=== PATIENT | female | born 1930 | race Caucasian/White ===

== ENCOUNTER 2017-06-15 21:33 | Observation (INO) | payer MEDICARE, MEDICAID ==
[~2017-06-15] VITALS: Ht 165.1 cm; Wt 70.0 kg
[2017-06-15 21:44] VITALS: BP 182/80; PULSE 90; RESP 20; TEMP 98; O2SAT 96
[2017-06-15 21:47] VITALS: BP 178/80; PULSE 91; RESP 20; TEMP 98; O2SAT 93
[2017-06-15] MEDS ORDERED: SODIUM CHLOR 0.9% 1000 ML INJ 1,000 ML IV SCH (21:48)
[2017-06-15] MEDS ORDERED: PANTOPRAZOLE INJ 80 MG in SODIUM CHLORIDE 0.9% INJ 35 ML IV ONE (21:48)
[2017-06-15 21:54] VITALS: BP 182/80; PULSE 90; RESP 20; O2SAT 98
[2017-06-15] MEDS ORDERED: DULO20 PO (21:58)
[2017-06-15] MEDS ORDERED: LORA0.5T PO (21:58)
[2017-06-15] MEDS ORDERED: REME15TA PO (21:58)
[2017-06-15] MEDS ORDERED: AMLO10TA2 PO (21:58)
[2017-06-15] MEDS ORDERED: ARIC23TA PO (21:58)
[2017-06-15] MEDS ORDERED: LEVO100T5 PO (21:58)
[2017-06-15] MEDS ORDERED: FERR325T18 PO (21:58)
[2017-06-15] MEDS ORDERED: ONDANSETRON HCL 4 MG/2 ML VIAL IVP ONE (22:00)
[2017-06-15] MEDS ORDERED: SODIUM CHLORIDE 0.9% FLUSH 10 ML FLUSH IVF PRN (22:00)
--- NOTE | 2017-06-15 22:02 | PD ---
HPI Chief Complaint: GI Complaint Time Seen by Provider: 21:48 Travel History International Travel<30 days: No Contact w/Intl Traveler<30days: No Traveled to known affect area: No History of Present Illness HPI Patient is an 87-year-old female presenting to the emergency room for evaluation of nausea and vomiting. Per EMS report patient has had coffee- ground emesis for the better part of the day. Patient resides at [facility], staff there called the on-call physician and she was given Phenergan. Symptoms did not improve and she was brought to the emergency department. Patient is a poor historian secondary to dementia. She states that she woke up feeling nauseous and started vomiting. She reports mild epigastric pain, she states it feels sore. Patient's past medical history is significant for coronary artery disease, A. fib, hypertension, type 2 diabetes, dementia, hyperlipidemia, hypothyroidism, anxiety. Symptom onset is unknown specifically, symptoms are moderate in nature. PFSH Past Medical History Atrial Fibrillation: Yes Anxiety: Yes Depression: Yes High Cholesterol: Yes COPD: Yes Coronary Artery Disease: Yes Dementia: Yes Diabetes: Yes Patient Takes Glucophage: No Diminished Hearing: Yes Hypertension: Yes Medical other: Yes (Mitral valve prolapse) Immunizations Current: Yes Sleep Apnea: Yes Thyroid Disease: Yes Tetanus Vaccination: Unknown Influenza Vaccination: No Social History Alcohol Use: No Tobacco Use: No Substance Use: No Allergies-Medications (Allergen,Severity, Reaction): Coded Allergies: Penicillins (Verified Allergy, Severe, Anaphylaxis, 06/15/17) Thiazides (Verified Allergy, Severe, Anaphylaxis, 06/15/17) carvedilol (Verified Allergy, Severe, Anaphylaxis, 06/15/17) diclofenac (Verified Allergy, Severe, Anaphylaxis, 06/15/17) triamcinolone (Verified Allergy, Severe, Anaphylaxis, 06/15/17) Reported Meds & Prescriptions Reported Meds & Active Scripts Active Reported Remeron (Mirtazapine) 15 Mg Tab 15 Mg PO HS Levothyroxine (Levothyroxine Sodium) 100 Mcg Tab 100 Mcg PO DAILY Ferrous Sulfate 325 Mg (65 Mg Iron) Tablet 325 Mg PO DAILY Cymbalta DR (Duloxetine HCl) 20 Mg Capdr 20 Mg PO DAILY Aricept (Donepezil) 23 Mg Tab 5 Mg PO HS Do not split, crushed or chewed. Amlodipine (Amlodipine Besylate) 10 Mg Tab 10 Mg PO DAILY Review of Systems ROS Limitations: Poor Historian Except as stated in HPI: all other systems reviewed are Neg Gastrointestinal: Positive: Nausea, Vomiting, Abdominal Pain Physical Exam Narrative GENERAL: Well-developed, well-nourished, alert elderly female. Presenting in no acute distress. SKIN: Warm and dry. HEAD: Atraumatic. Normocephalic. EYES: Pupils equal and round. No scleral icterus. No injection or drainage. ENT: No nasal bleeding or discharge. Mucous membranes pink and moist. NECK: Trachea midline. No JVD. CARDIOVASCULAR: Regular rate and rhythm. RESPIRATORY: No accessory muscle use. Clear to auscultation. Breath sounds equal bilaterally. GASTROINTESTINAL: Abdomen soft, mildly tender in epigastric region, nondistended. Hepatic and splenic margins not palpable. MUSCULOSKELETAL: Extremities without clubbing, cyanosis, or edema. No obvious deformities. NEUROLOGICAL: Awake and alert oriented to self. No obvious cranial nerve deficits. Motor grossly within normal limits. Five out of 5 muscle strength in the arms and legs. Normal speech. PSYCHIATRIC: Appropriate mood and affect; insight and judgment impaired. Data Data Last Documented VS Vital Signs Date Time Temp Pulse Resp B/P (MAP) Pulse Ox O2 Delivery O2 Flow Rate FiO2 06/15/17 21:54 90 20 182/80 (114) 98 Nasal Cannula 2.00 06/15/17 21:47 98.0 Orders Orders Complete Blood Count With Diff (06/15/17 21:48) Comprehensive Metabolic Panel (06/15/17 21:48) Prothrombin Time / Inr (Pt) (06/15/17 21:48) Act Partial Throm Time (Ptt) (06/15/17 21:48) Type And Screen (06/15/17 21:48) Cath For Specimen (06/15/17 21:48) Ecg Monitoring (06/15/17 21:48) Iv Access Insert/Monitor (06/15/17 21:48) Oximetry (06/15/17 21:48) Ondansetron Inj (Zofran Inj) (06/15/17 22:00) Sodium Chlor 0.9% 1000 Ml Inj (Ns 1000 M (06/15/17 21:48) Sodium Chloride 0.9% Flush (Ns Flush) (06/15/17 22:00) Sodium Chloride 0.9... W/Pantoprazole In (06/15/17 21:48) Sodium Chloride 0.9... W/Pantoprazole In (06/15/17 21:48) Lactic Acid (06/15/17 21:48) Admit Order (Ed Use Only) (06/15/17 23:30) Labs Laboratory Tests Test 06/15/17 22:00 06/15/17 22:15 06/15/17 22:38 Prothrombin Time 10.2 SEC Prothromb Time International Ratio 1.0 RATIO Activated Partial Thromboplast Time 23.0 SEC Blood Urea Nitrogen 20 MG/DL Creatinine 0.99 MG/DL Random Glucose 137 MG/DL Total Protein 7.3 GM/DL Albumin 3.5 GM/DL Calcium Level 8.6 MG/DL Alkaline Phosphatase 103 U/L Aspartate Amino Transf (AST/SGOT) 21 U/L Alanine Aminotransferase (ALT/SGPT) 17 U/L Total Bilirubin 0.5 MG/DL Sodium Level 144 MEQ/L Potassium Level 3.5 MEQ/L Chloride Level 107 MEQ/L Carbon Dioxide Level 29.9 MEQ/L Anion Gap 7 MEQ/L Estimat Glomerular Filtration Rate 53 ML/MIN Lactic Acid Level 0.5 mmol/L White Blood Count 9.1 TH/MM3 Red Blood Count 4.23 MIL/MM3 Hemoglobin 12.4 GM/DL Hematocrit 36.8 % Mean Corpuscular Volume 87.2 FL Mean Corpuscular Hemoglobin 29.3 PG Mean Corpuscular Hemoglobin Concent 33.6 % Red Cell Distribution Width 15.1 % Platelet Count 126 TH/MM3 Mean Platelet Volume 10.1 FL Neutrophils (%) (Auto) 90.4 % Lymphocytes (%) (Auto) 6.6 % Monocytes (%) (Auto) 2.5 % Eosinophils (%) (Auto) 0.2 % Basophils (%) (Auto) 0.3 % Neutrophils # (Auto) 8.2 TH/MM3 Lymphocytes # (Auto) 0.6 TH/MM3 Monocytes # (Auto) 0.2 TH/MM3 Eosinophils # (Auto) 0.0 TH/MM3 Basophils # (Auto) 0.0 TH/MM3 CBC Comment DIFF FINAL Differential Comment MDM Medical Decision Making Medical Screen Exam Complete: Yes Emergency Medical Condition: Yes Interpretation(s) Laboratory Tests Test 06/15/17 22:00 06/15/17 22:15 06/15/17 22:38 Prothrombin Time 10.2 SEC Prothromb Time International Ratio 1.0 RATIO Activated Partial Thromboplast Time 23.0 SEC Blood Urea Nitrogen 20 MG/DL Creatinine 0.99 MG/DL Random Glucose 137 MG/DL Total Protein 7.3 GM/DL Albumin 3.5 GM/DL Calcium Level 8.6 MG/DL Alkaline Phosphatase 103 U/L Aspartate Amino Transf (AST/SGOT) 21 U/L Alanine Aminotransferase (ALT/SGPT) 17 U/L Total Bilirubin 0.5 MG/DL Sodium Level 144 MEQ/L Potassium Level 3.5 MEQ/L Chloride Level 107 MEQ/L Carbon Dioxide Level 29.9 MEQ/L Anion Gap 7 MEQ/L Estimat Glomerular Filtration Rate 53 ML/MIN Lactic Acid Level 0.5 mmol/L White Blood Count 9.1 TH/MM3 Red Blood Count 4.23 MIL/MM3 Hemoglobin 12.4 GM/DL Hematocrit 36.8 % Mean Corpuscular Volume 87.2 FL Mean Corpuscular Hemoglobin 29.3 PG Mean Corpuscular Hemoglobin Concent 33.6 % Red Cell Distribution Width 15.1 % Platelet Count 126 TH/MM3 Mean Platelet Volume 10.1 FL Neutrophils (%) (Auto) 90.4 % Lymphocytes (%) (Auto) 6.6 % Monocytes (%) (Auto) 2.5 % Eosinophils (%) (Auto) 0.2 % Basophils (%) (Auto) 0.3 % Neutrophils # (Auto) 8.2 TH/MM3 Lymphocytes # (Auto) 0.6 TH/MM3 Monocytes # (Auto) 0.2 TH/MM3 Eosinophils # (Auto) 0.0 TH/MM3 Basophils # (Auto) 0.0 TH/MM3 CBC Comment DIFF FINAL Differential Comment Vital Signs Date Time Temp Pulse Resp B/P (MAP) Pulse Ox O2 Delivery O2 Flow Rate FiO2 06/15/17 21:54 90 20 182/80 (114) 98 Nasal Cannula 2.00 06/15/17 21:47 98.0 91 20 178/80 (112) 93 Room Air 06/15/17 21:44 98.0 90 20 182/80 (114) 96 Differential Diagnosis GI bleed versus anemia versus metabolic abnormality versus cardiac arrhythmia versus other Narrative Course Patient is an 87-year-old female presenting to the emergency department for evaluation of coffee-ground emesis that started earlier today. Exact time of onset is unknown, patient is a poor historian. Vital signs are stable at this time. Labs and imaging ordered and pending. Patient will be placed on a Protonix drip, IV fluids ordered. Stool was negative for blood, emesis was positive for blood. CBC with platelets of 126, hemoglobin stable at 12.4 Chemistry BUN of 20 otherwise unremarkable Lactic acid 0.5 Patient is vital signs remained stable. Patient will be admitted to [facility]. She is resting comfortably. [facility] paged for admission. Dr. Louie accepted admit, orders placed for OBS. HemaPrompt Point of Care Fecal Specimen Occult Blood: Negative Gastric Specimen Occult Blood: Positive Diagnosis Primary Impression: GI bleed Qualified Codes: K92.2 - Gastrointestinal hemorrhage, unspecified Admitting Information Admitting Physician Requests: Observation Scripts Levofloxacin (Levaquin) 500 Mg Tablet 500 MG PO DAILY for Infection for 7 Days, #7 TAB 0 Refills Prov: Chinmay Lazar MD 06/16/17 Lorazepam (Lorazepam) 0.5 Mg Tab 0.5 MG PO BID for Anxiety, #10 TAB 0 Refills Prov: Chinmay Lazar MD 06/16/17 Condition: Stable Christie Gauthier Jun 15, 2017 22:02
[2017-06-15 22:42] LABS: AUTOMATED NEUTROPHIL # 8.2 TH/MM3 (1.8-7.7); BASOPHIL % 0.3 % (0.0-2.0); EOSINOPHIL % 0.2 % (0.0-4.0); HEMATOCRIT 36.8 % (35.0-46.0); HEMOGLOBIN 12.4 GM/DL (11.6-15.3); LYMPH % 6.6 % (9.0-44.0); LYMPHOCYTE # 0.6 TH/MM3 (1.0-4.8); MEAN CELL VOLUME 87.2 FL (80.0-100.0); MEAN CORPUSCULAR HEMOGLOBIN 29.3 PG (27.0-34.0); MEAN CORPUSCULAR HGB CONC 33.6 % (32.0-36.0); MEAN PLATELET VOLUME 10.1 FL (7.0-11.0); MONO % 2.5 % (0.0-8.0); MONOCYTE # 0.2 TH/MM3 (0-0.9); NEUT % 90.4 % (16.0-70.0); PLATELET COUNT 126 TH/MM3 (150-450); RED BLOOD COUNT 4.23 MIL/MM3 (4.00-5.30); RED CELL DISTRIBUTION WIDTH 15.1 % (11.6-17.2); WHITE BLOOD COUNT 9.1 TH/MM3 (4.0-11.0)
[2017-06-15 22:46] LABS: ALBUMIN 3.5 GM/DL (3.4-5.0); AST (GOT) 21 U/L (15-37); BICARBONATE 29.9 MEQ/L (21.0-32.0); BLOOD UREA NITROGEN 20 MG/DL (7-18); CALCIUM 8.6 MG/DL (8.5-10.1); CHLORIDE 107 MEQ/L (98-107); CREATININE 0.99 MG/DL (0.50-1.00); GLOMERULAR FILTRATION RATE 53 ML/MIN (>89); GLUCOSE,RANDOM 137 MG/DL (74-106); SODIUM (NA) 144 MEQ/L (136-145)
[2017-06-15 22:47] LABS: ALT (GPT) 17 U/L (10-53)
[2017-06-15 22:50] LABS: ALKALINE PHOSPHATASE 103 U/L (45-117); TOTAL BILIRUBIN ADULT 0.5 MG/DL (0.2-1.0); TOTAL PROTEIN 7.3 GM/DL (6.4-8.2)
[2017-06-15 22:56] LABS: PROTHROMBIN TIME - PATIENT 10.2 SEC (9.8-11.6)
[2017-06-15] MEDS: PANTOPRAZOLE INJ 80 MG in SODIUM CHLORIDE 0.9% INJ 100 ML IV SCH (23:25)
--- NOTE | 2017-06-15 23:37 | HHI.HP ---
[facility] Otto Warren M.D. Admission Diagnosis GI BLEED Diagnoses: (1) GI bleed Diagnosis: Principal (2) Dementia Diagnosis: Principal (3) Thrombocytopenia Diagnosis: Principal (4) HTN (hypertension) Diagnosis: Principal Travel History International Travel<30 Days: No Contact w/Intl Traveler <30 Da: No Traveled to Known Affected Are: No History of Present Illness This is an 87-year-old female with a PMH of Anxiety, Depression, A. fib, HTN, Hyperlipidemia, COPD, DM and Dementia who is sent to the ER from SNF for coffee- ground emesis. Pt poor historian, unable to provide much history. Per report, pt w/ nausea/vomiting starting earlier today w/ multiple episodes of coffee- ground emesis, given Phenergan prior to arrival w/ minimal improvement. Not on ASA or anticoagulation per review of medication list. On arrival, BP 182/80, HR 90, O2 sat 96% on RA, Afebrile. Hemoglobin 12.4. Platelets 126, no previous labs for comparison. Chemistry essentially unremarkable except for BUN 20, GFR 53. Lactic Acid normal. LFTs normal. INR 1.0. Emesis +blood, however guaiac (-). Started on Protonix gtt in ER. Review of Systems Except as stated in HPI: all other systems reviewed are Neg ROS: 14 point review of systems otherwise negative. Past Family Social History Past Medical History PMH: Anxiety, Depression, A. fib, HTN, Hyperlipidemia, COPD, DM and Dementia Past Surgical History PAST SURGICAL HISTORY: Hip Surgery Allergies: Coded Allergies: Penicillins (Verified Allergy, Severe, Anaphylaxis, 06/15/17) Thiazides (Verified Allergy, Severe, Anaphylaxis, 06/15/17) carvedilol (Verified Allergy, Severe, Anaphylaxis, 06/15/17) diclofenac (Verified Allergy, Severe, Anaphylaxis, 06/15/17) triamcinolone (Verified Allergy, Severe, Anaphylaxis, 06/15/17) Family History PAST FAMILY HISTORY: Reviewed. No h/o DM or CAD Social History PAST SOCIAL HISTORY: Negative for alcohol, tobacco or drugs Physical Exam Vital Signs Vital Signs Date Time Temp Pulse Resp B/P (MAP) Pulse Ox O2 Delivery O2 Flow Rate FiO2 06/15/17 21:54 90 20 182/80 (114) 98 Nasal Cannula 2.00 06/15/17 21:47 98.0 91 20 178/80 (112) 93 Room Air 06/15/17 21:44 98.0 90 20 182/80 (114) 96 Physical Exam PE: GENERAL: Elderly white female in no mild distress due to persistent nausea HEENT: PERRLA, EOMI. No scleral icterus or conjunctival pallor. No lid lag or facial droop. CARDIOVASCULAR: Regular rate and rhythm. No obvious murmurs to auscultation. No chest tenderness to palpation. RESPIRATORY: No obvious rhonchi or wheezing. Clear to auscultation. Breath sounds equal bilaterally. GASTROINTESTINAL: Abdomen soft, mild epigastric tenderness to palpation, nondistended. BS normal. MUSCULOSKELETAL: Extremities without clubbing, cyanosis, or edema. No obvious deformities. NEUROLOGICAL: Awake, alert. No focal neurologic deficits. Moving both upper and lower extremities spontaneously. Laboratory Laboratory Tests Test 06/15/17 22:00 06/15/17 22:15 06/15/17 22:38 Prothrombin Time 10.2 Prothromb Time International Ratio 1.0 Activated Partial Thromboplast Time 23.0 Blood Urea Nitrogen 20 Creatinine 0.99 Random Glucose 137 Total Protein 7.3 Albumin 3.5 Calcium Level 8.6 Alkaline Phosphatase 103 Aspartate Amino Transf (AST/SGOT) 21 Alanine Aminotransferase (ALT/SGPT) 17 Total Bilirubin 0.5 Sodium Level 144 Potassium Level 3.5 Chloride Level 107 Carbon Dioxide Level 29.9 Anion Gap 7 Estimat Glomerular Filtration Rate 53 Lactic Acid Level 0.5 White Blood Count 9.1 Red Blood Count 4.23 Hemoglobin 12.4 Hematocrit 36.8 Mean Corpuscular Volume 87.2 Mean Corpuscular Hemoglobin 29.3 Mean Corpuscular Hemoglobin Concent 33.6 Red Cell Distribution Width 15.1 Platelet Count 126 Mean Platelet Volume 10.1 Neutrophils (%) (Auto) 90.4 Lymphocytes (%) (Auto) 6.6 Monocytes (%) (Auto) 2.5 Eosinophils (%) (Auto) 0.2 Basophils (%) (Auto) 0.3 Neutrophils # (Auto) 8.2 Lymphocytes # (Auto) 0.6 Monocytes # (Auto) 0.2 Eosinophils # (Auto) 0.0 Basophils # (Auto) 0.0 CBC Comment DIFF FINAL Differential Comment Result Diagram: 06/15/17223706/15/17 220 Caprini VTE Risk Assessment Caprini VTE Risk Assessment: No/Low Risk (score <= 1) Caprini Risk Assessment Model Point Value = 1 Point Value = 2 Point Value = 3 Point Value = 5 Age 41-60 Minor surgery BMI > 25 kg/m2 Swollen legs Varicose veins or History of unexplained or recurrent spontaneous Oral contraceptives or hormone replacement Sepsis (< 1 month) Serious lung disease, including pneumonia (< 1 month) Abnormal pulmonary function Acute myocardial infarction Congestive heart failure (< 1 month) History of inflammatory bowel disease Medical patient at bed rest Age 61-74 Arthroscopic surgery Major open surgery (> 45 min) Laparoscopic surgery (> 45 min) Malignancy Confined to bed (> 72 hours) Immobilizing plaster cast Central venous access Age >= 75 History of VTE Family history of VTE Factor V Leiden Prothrombin [id number] Lupus anticoagulant Anticardiolipin antibodies Elevated serum homocysteine Heparin-induced thrombocytopenia Other congenital or acquired thrombophilia Stroke (< 1 month) Elective arthroplasty Hip, pelvis, or leg fracture Acute spinal cord injury (< 1 month) Prophylaxis Regimen Total Risk Factor Score Risk Level Prophylaxis Regimen 0-1 Low Early ambulation 2 Moderate Order ONE of the following: *Sequential Compression Device (SCD) *Heparin 5000 units SQ BID 3-4 Higher Order ONE of the following medications: *Heparin 5000 units SQ TID *Enoxaparin/Lovenox 40 mg SQ daily (WT < 150 kg, CrCl > 30 mL/min) *Enoxaparin/Lovenox 30 mg SQ daily (WT < 150 kg, CrCl > 10-29 mL/min) *Enoxaparin/Lovenox 30 mg SQ BID (WT < 150 kg, CrCl > 30 mL/min) AND/OR *Sequential Compression Device (SCD) 5 or more Highest Order ONE of the following medications: *Heparin 5000 units SQ TID (Preferred with Epidurals) *Enoxaparin/Lovenox 40 mg SQ daily (WT < 150 kg, CrCl > 30 mL/min) *Enoxaparin/Lovenox 30 mg SQ daily (WT < 150 kg, CrCl > 10-29 mL/min) *Enoxaparin/Lovenox 30 mg SQ BID (WT < 150 kg, CrCl > 30 mL/min) AND *Sequential Compression Device (SCD) Assessment and Plan Problem List: (1) GI bleed ICD Code: K92.2 - Gastrointestinal hemorrhage, unspecified Status: Acute (2) Thrombocytopenia ICD Code: D69.6 - Thrombocytopenia, unspecified (3) Dementia ICD Code: F03.90 - Unspecified dementia without behavioral disturbance (4) HTN (hypertension) ICD Code: I10 - Essential (primary) hypertension Assessment and Plan A/P: 1. GI Bleed: coffee-ground emesis noted at SNF, +blood however negative guaiac , Hgb 12.4, started on Protonix gtt, will continue. Check repeat Hgb/Hct. Consult GI for further evaluation/intervention. 2. Thrombocytopenia: Platelets 126, no previous labs for comparison, will repeat in a.m., monitor closely for bleeding. 3. Dementia: seemingly at baseline, resume home Aricept, Remeron. Ativan prn 4. HTN: Uncontrolled, BP 180's, likely secondary to persistent nausea/vomiting , minimal improvement w/ Zofran, add Ativan prn, monitor BP 5. DVT Prophylaxis: Pharmacologic contraindication secondary to GI bleed. 6. Social work for DC planning as needed. 7. Case discussed at length with the ER physician, lab/record/imaging reviewed by me. Problem Qualifiers (1) GI bleed: Qualified Codes: K92.2 - Gastrointestinal hemorrhage, unspecified Lory Louie MD Jun 15, 2017 23:37
[2017-06-15] MEDS ORDERED: MAGNESIUM HYDROXIDE SUSP 30 ML CUP PO PRN (23:45)
[2017-06-15] MEDS ORDERED: SODIUM CHLORIDE 0.9% FLUSH 10 ML FLUSH IV FLUSH PRN (23:45)
[2017-06-15] MEDS ORDERED: ACETAMINOPHEN 325 MG TAB PO PRN (23:45)
[2017-06-15] MEDS ORDERED: BISACODYL 10 MG SUPP RECTAL PRN (23:45)
[2017-06-15] MEDS ORDERED: LACTULOSE SYRUP 20 GM/30 ML CUP PO PRN (23:45)
[2017-06-15] MEDS ORDERED: SENNOSIDES 8.6 MG TAB PO PRN (23:45)
[2017-06-15] MEDS: ONDANSETRON HCL 4 MG/2 ML VIAL IVP PRN (23:47)
[2017-06-16] MEDS ORDERED: MORPHINE SULFATE 4 MG/ML INJ IV PUSH PRN
[2017-06-16 00:03] VITALS: BP 164/78; PULSE 89; RESP 16; O2SAT 98
--- NOTE | 2017-06-16 00:03 | RADRPT ---
EXAM DATE/TIME: 06/15/2017 23:45 [facility] COMPARISON: No previous studies available for comparison. INDICATIONS : Short of breath. MEDICAL HISTORY : None. SURGICAL HISTORY : None. ENCOUNTER: Initial ACUITY: 1 day PAIN SCORE: 0/10 LOCATION: Bilateral chest FINDINGS: There is left base consolidation that appears to mostly be in the lingula. Right lung clear. No pleur al effusion demonstrated. No pneumothorax. Heart size upper limits of normal. Thoracic aorta is tortuous and atherosclerotic. CONCLUSION: Left base pneumonia. Satinder Bliss MD on June 16, 2017 at 0:02 Board Certified Radiologist. This report was verified electronically.
[2017-06-16] MEDS: SODIUM CHLOR 0.9% 1000 ML INJ 1,000 ML IV SCH ×2 (00:38→08:29)
[2017-06-16] MEDS: LORazepam 2 MG/ML VIAL IV PUSH PRN (00:39)
[2017-06-16] MEDS ORDERED: LEVOFLOXACIN 750 MG PREMIX INJ 150 ML IV ONE (01:45)
[2017-06-16 04:25] VITALS: BP 154/68; PULSE 89; RESP 17; TEMP 98.6; O2SAT 96
[2017-06-16] MEDS: ONDANSETRON HCL 4 MG/2 ML VIAL IVP PRN (05:11)
[2017-06-16] MEDS: LEVOTHYROXINE SODIUM 100 MCG TAB PO SCH (06:00)
[2017-06-16 08:00] VITALS: BP 141/62; PULSE 86; RESP 20; TEMP 98.2; O2SAT 93
[2017-06-16] MEDS: DOCUSATE SODIUM 50 MG/SENNA 8.6 MG TAB PO SCH ×2 (08:28→22:13)
[2017-06-16] MEDS: PANTOPRAZOLE INJ 80 MG in SODIUM CHLORIDE 0.9% INJ 100 ML IV SCH ×2 (08:28→18:01)
[2017-06-16] MEDS: SODIUM CHLORIDE 0.9% FLUSH 10 ML FLUSH IV FLUSH SCH ×2 (08:28→22:13)
[2017-06-16] MEDS: LORazepam 0.5 MG TAB PO SCH ×2 (08:28→22:13)
[2017-06-16] MEDS: DULoxetine HCl DR 20 MG CAP PO SCH (08:28)
--- NOTE | 2017-06-16 08:31 | PD.CONS ---
HPI History of Present Illness This is a 87 year old female with AF, dementia, COPD who was sent from her SNF for n/v with coffee ground emesis. Onset yesterday, multiple episodes. Denies abd pain, blood in stool, tarry stool. She is not on blood thinners. Stool was guiac neg in ER.She thinks she had a colonoscopy in the last 2 years at [facility] but can recall no further details. She says she had blood in her stool "a long time ago." Never had EGD. Hx obtained from EMR, pt is limited historian. (Taylor Tijerina) PFSH Past Medical History PMH: Anxiety, Depression, A. fib, HTN, Hyperlipidemia, COPD, DM and Dementia Past Surgical History PAST SURGICAL HISTORY: Hip Surgery (Taylor Tijerina) Coded Allergies: Penicillins (Verified Allergy, Severe, Anaphylaxis, 06/15/17) Thiazides (Verified Allergy, Severe, Anaphylaxis, 06/15/17) carvedilol (Verified Allergy, Severe, Anaphylaxis, 06/15/17) diclofenac (Verified Allergy, Severe, Anaphylaxis, 06/15/17) triamcinolone (Verified Allergy, Severe, Anaphylaxis, 06/15/17) Family History PAST FAMILY HISTORY: Reviewed. No h/o DM or CAD Social History PAST SOCIAL HISTORY: Negative for alcohol, tobacco or drugs (Taylor Tijerina) Review of Systems Constitutional: COMPLAINS OF: Fatigue Endocrine: DENIES: Polydipsia Eyes: DENIES: Blurred vision Ears, nose, mouth, throat: DENIES: Hearing loss Respiratory: DENIES: Cough Cardiovascular: DENIES: Chest pain Gastrointestinal: COMPLAINS OF: Nausea, Vomiting, Hematemesis, DENIES: Abdominal pain, Black stools, Bloody stools Genitourinary: DENIES: Hematuria Musculoskeletal: DENIES: Joint Swelling Integumentary: DENIES: Jaundice Hematologic/lymphatic: DENIES: Bruising Immunologic/allergic: DENIES: Eczema Neurologic: DENIES: Abnormal gait Psychiatric: COMPLAINS OF: Confusion (Taylor Tijerina) GI Exam Vitals I&O Vital Signs Date Time Temp Pulse Resp B/P (MAP) Pulse Ox O2 Delivery O2 Flow Rate FiO2 06/16/17 04:25 98.6 89 17 154/68 (96) 96 06/16/17 00:03 89 16 164/78 (106) 98 Room Air 06/15/17 21:54 90 20 182/80 (114) 98 Nasal Cannula 2.00 06/15/17 21:47 98.0 91 20 178/80 (112) 93 Room Air 06/15/17 21:44 98.0 90 20 182/80 (114) 96 I/O 06/15/17 06/15/17 06/15/17 06/16/17 06/16/17 06/16/17 07:00 15:00 23:00 07:00 15:00 23:00 Output Total 100 ml Balance -100 ml Emesis 100 ml Imaging Last Impressions Chest X-Ray 06/15/17 0000 Signed Impressions: Service Date/Time: Thursday, June 15, 2017 23:45 - CONCLUSION: Left base pneumonia. Satinder Bliss MD Laboratory Test 06/15/17 22:00 06/15/17 22:15 06/15/17 22:38 Prothrombin Time 10.2 SEC Prothromb Time International Ratio 1.0 RATIO Activated Partial Thromboplast Time 23.0 SEC Blood Urea Nitrogen 20 MG/DL Creatinine 0.99 MG/DL Random Glucose 137 MG/DL Total Protein 7.3 GM/DL Albumin 3.5 GM/DL Calcium Level 8.6 MG/DL Alkaline Phosphatase 103 U/L Aspartate Amino Transf (AST/SGOT) 21 U/L Alanine Aminotransferase (ALT/SGPT) 17 U/L Total Bilirubin 0.5 MG/DL Sodium Level 144 MEQ/L Potassium Level 3.5 MEQ/L Chloride Level 107 MEQ/L Carbon Dioxide Level 29.9 MEQ/L Anion Gap 7 MEQ/L Estimat Glomerular Filtration Rate 53 ML/MIN Lactic Acid Level 0.5 mmol/L White Blood Count 9.1 TH/MM3 Red Blood Count 4.23 MIL/MM3 Hemoglobin 12.4 GM/DL Hematocrit 36.8 % Mean Corpuscular Volume 87.2 FL Mean Corpuscular Hemoglobin 29.3 PG Mean Corpuscular Hemoglobin Concent 33.6 % Red Cell Distribution Width 15.1 % Platelet Count 126 TH/MM3 Mean Platelet Volume 10.1 FL Neutrophils (%) (Auto) 90.4 % Lymphocytes (%) (Auto) 6.6 % Monocytes (%) (Auto) 2.5 % Eosinophils (%) (Auto) 0.2 % Basophils (%) (Auto) 0.3 % Neutrophils # (Auto) 8.2 TH/MM3 Lymphocytes # (Auto) 0.6 TH/MM3 Monocytes # (Auto) 0.2 TH/MM3 Eosinophils # (Auto) 0.0 TH/MM3 Basophils # (Auto) 0.0 TH/MM3 CBC Comment DIFF FINAL Differential Comment Physical Examination HEENT: PERRL; normocephalic; atraumatic; no jaundice. CHEST: CTA CARDIAC: RRR ABDOMEN: Soft, nondistended, nontender; no hepatosplenomegaly; bowel sounds are present in all four quadrants. EXTREMITIES: No clubbing, cyanosis, or edema. SKIN: Normal; no rash; no jaundice. 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 limited hx. HH currently WNL pt denies abd pain. never had EGD. Colonoscopy at [facility] in last 2y, no further details. PLAN - clear liquids - EGD tomorrow - obtain consent - NPO after mdinight - continue protonix - notify GI of active bleeding - monitor pt seen by myself and Dr Austin and this note is on her behalf (Taylor Tijerina) Physician Comments seen, examined agree with above abdominal x ray (Nataliia Austin MD) Taylor Tijerina Jun 16, 2017 08:31 Nataliia Austin MD Jun 16, 2017 16:41
--- NOTE | 2017-06-16 09:18 | HHI.PR ---
Subjective Remarks in no acute distress. resting comfortably. denies pain. Objective Vitals Vital Signs Date Time Temp Pulse Resp B/P (MAP) Pulse Ox O2 Delivery O2 Flow Rate FiO2 06/16/17 08:00 98.2 86 20 141/62 (88) 93 06/16/17 04:25 98.6 89 17 154/68 (96) 96 06/16/17 00:03 89 16 164/78 (106) 98 Room Air 06/15/17 21:54 90 20 182/80 (114) 98 Nasal Cannula 2.00 06/15/17 21:47 98.0 91 20 178/80 (112) 93 Room Air 06/15/17 21:44 98.0 90 20 182/80 (114) 96 I/O 06/15/17 06/15/17 06/15/17 06/16/17 06/16/17 06/16/17 07:00 15:00 23:00 07:00 15:00 23:00 Output Total 100 ml Balance -100 ml Emesis 100 ml Result Diagram: 06/15/178 06/15/172199 Imaging Last Impressions Chest X-Ray 06/15/17 0000 Signed Impressions: Service Date/Time: Thursday, June 15, 2017 23:45 - CONCLUSION: Left base pneumonia. Satinder Bliss MD Objective Remarks GENERAL: This is a well-nourished, well-developed patient, in no apparent distress. CARDIOVASCULAR: Regular rate and regular rhythm without murmurs, gallops, or rubs. RESPIRATORY: Clear to auscultation. Breath sounds equal bilaterally. No wheezes , rales, or rhonchi. GASTROINTESTINAL: Abdomen soft, non-tender, nondistended. Normal, active bowel sounds MUSCULOSKELETAL: Extremities without clubbing, cyanosis, or edema. NEURO: awake and alert Medications and IVs Inpatient Medications Acetaminophen (Tylenol) 650 mg Q6H PRN PO FEVER/PAIN SCALE 1 TO 2; Start at 23:45 Bisacodyl (Dulcolax Supp) 10 mg DAILY PRN RECTAL SEVERE CONSITIPATION; Start at 23:45 Donepezil HCl (Aricept) 5 mg HS PO ; Start 06/16/17 at 21:00; Status UNV Duloxetine HCl (Cymbalta Dr) 20 mg DAILY PO Last administered on 06/16/17at 08: 28; Start 06/16/17 at 09:00 Lactulose (Lactulose Liq) 30 ml DAILY PRN PO SEVERE CONSITIPATION; Start at 23:45 Levofloxacin/ Dextrose 150 ml @ 100 mls/hr Q24H IV ; Start 06/17/17 at 23:00 Levothyroxine Sodium (Synthroid) 100 mcg DAILY@0600 PO ; Start 06/16/17 at 06:00 Lorazepam (Ativan Inj) 0.5 mg Q4H PRN IV PUSH NAUSEA/VOMITING/ANXIETY Last administered on 06/16/17at 00:39; Start 06/16/17 at 00:15 Lorazepam (Ativan) 0.5 mg BID PO Last administered on 06/16/17at 08:28; Start at 09:00 Magnesium Hydroxide (Milk Of Magnesia Liq) 30 ml Q12H PRN PO Mild constipation ; Start 06/15/17 at 23:45 Mirtazapine (Remeron) 15 mg HS PO ; Start 06/16/17 at 21:00 Morphine Sulfate (Morphine Inj) 2 mg Q3H PRN IV PUSH Pain 6-10; Start 06/16/17 at 00:00 Ondansetron HCl (Zofran Inj) 4 mg Q6H PRN IVP NAUSEA OR VOMITING Last administered on 06/16/17at 05:11; Start 06/15/17 at 23:45 Pantoprazole Sodium 80 mg/ Sodium Chloride 100 ml @ 10 mls/hr Q10H IV Last administered on 06/16/17at 08:28; Start 06/15/17 at 21:48 Senna/Docusate Sodium (Perlita-Colace) 1 tab BID PO ; Start 06/16/17 at 09:00 Sennosides (Senokot) 17.2 mg Q12H PRN PO Moderate constipation; Start 06/15/17 at 23:45 Sodium Chloride (NS Flush) 2 ml BID IV FLUSH Last administered on 06/16/17at 08: 28; Start 06/16/17 at 09:00 A/P Problem List: (1) GI bleed ICD Code: K92.2 - Gastrointestinal hemorrhage, unspecified Status: Acute (2) Thrombocytopenia ICD Code: D69.6 - Thrombocytopenia, unspecified (3) Dementia ICD Code: F03.90 - Unspecified dementia without behavioral disturbance (4) HTN (hypertension) ICD Code: I10 - Essential (primary) hypertension Assessment and Plan 1. GI Bleed: coffee-ground emesis noted at SNF, +blood however negative guaiac , Hgb 12.4, started on Protonix gtt, will continue. GI consult appreciated and plan for EGD today. 2. Thrombocytopenia: Platelets 126, no previous labs for comparison, will monitor. 3. Dementia: seemingly at baseline, resumed home Aricept, Remeron. Ativan prn 4. HTN: Uncontrolled, BP 180's, likely secondary to persistent nausea/vomiting , minimal improvement w/ Zofran, add Ativan prn, monitor BP 5.pneumonia- LLL- continue Levaquin. 6. DVT Prophylaxis: Pharmacologic contraindication secondary to GI bleed. Discharge Planning dc planning to SNF- when GI w/u completed and cleared by GI. Problem Qualifiers (1) GI bleed: Qualified Codes: K92.2 - Gastrointestinal hemorrhage, unspecified Chinmay Lazar MD Jun 16, 2017 09:18
[2017-06-16] MEDS ORDERED: LEVA500T33 PO (09:20)
[2017-06-16] MEDS ORDERED: LORA0.5T PO (09:20)
[2017-06-16 11:37] LABS: BASOPHIL % 0.1 % (0.0-2.0); EOSINOPHIL % 0.1 % (0.0-4.0); HEMATOCRIT 36.3 % (35.0-46.0); HEMOGLOBIN 11.7 GM/DL (11.6-15.3); LYMPH % 2.1 % (9.0-44.0); LYMPHOCYTE # 0.3 TH/MM3 (1.0-4.8); MEAN CELL VOLUME 89.3 FL (80.0-100.0); MEAN CORPUSCULAR HEMOGLOBIN 28.8 PG (27.0-34.0); MEAN CORPUSCULAR HGB CONC 32.2 % (32.0-36.0); MEAN PLATELET VOLUME 10.2 FL (7.0-11.0); MONO % 1.8 % (0.0-8.0); MONOCYTE # 0.2 TH/MM3 (0-0.9); NEUT % 95.9 % (16.0-70.0); PLATELET COUNT 131 TH/MM3 (150-450); RED BLOOD COUNT 4.06 MIL/MM3 (4.00-5.30); RED CELL DISTRIBUTION WIDTH 15.5 % (11.6-17.2); WHITE BLOOD COUNT 12.5 TH/MM3 (4.0-11.0)
[2017-06-16 12:00] VITALS: BP 142/64; PULSE 82; RESP 19; TEMP 99.7; O2SAT 96
[2017-06-16 12:52] LABS: ALBUMIN 2.9 GM/DL (3.4-5.0); ALKALINE PHOSPHATASE 93 U/L (45-117); ALT (GPT) 21 U/L (10-53); AST (GOT) 23 U/L (15-37); BICARBONATE 25.4 MEQ/L (21.0-32.0); BLOOD UREA NITROGEN 19 MG/DL (7-18); CALCIUM 8.2 MG/DL (8.5-10.1); CHLORIDE 109 MEQ/L (98-107); CREATININE 1.05 MG/DL (0.50-1.00); GLOMERULAR FILTRATION RATE 49 ML/MIN (>89); GLUCOSE,RANDOM 151 MG/DL (74-106); SODIUM (NA) 144 MEQ/L (136-145); TOTAL BILIRUBIN ADULT 0.7 MG/DL (0.2-1.0); TOTAL PROTEIN 6.4 GM/DL (6.4-8.2)
--- NOTE | 2017-06-16 13:39 | RADRPT ---
EXAM DATE/TIME: 06/16/2017 12:26 [facility] COMPARISON: No previous studies available for comparison. INDICATIONS : Nausea and vomitting. MEDICAL HISTORY : None. SURGICAL HISTORY : Hysterectomy. ENCOUNTER: Initial ACUITY: 1 day PAIN SCORE: 0/10 LOCATION: Bilateral abdomen. FINDINGS: Supine and upright views of the abdomen were performed. Paucity of bowel gas. The abdominal bowel gas pattern is normal. No air fluid levels are seen. No abnormal masses, calcifications, or organomega ly is seen. The visualized lower lungs are clear. No evidence of free intraperitoneal gas. The oss eous structures are unremarkable. Degenerative changes thoracolumbar spine and left hip. CONCLUSION: No acute abnormalities. Jack Patino MD on June 16, 2017 at 13:35 Board Certified Radiologist. This report was verified electronically.
[2017-06-16 16:00] VITALS: BP 127/63; PULSE 76; RESP 18; TEMP 98.5; O2SAT 96
[2017-06-16 20:53] VITALS: BP 127/58; PULSE 74; RESP 17; TEMP 98.4; O2SAT 92
[2017-06-16] MEDS ORDERED: DONEPEZIL HCL 5 MG TAB PO SCH (21:52)
[2017-06-16] MEDS: MIRTAZAPINE 15 MG TAB PO SCH (22:13)
[2017-06-17] VITALS (9 sets, daily range): BP systolic 124–163; BP diastolic 53–74; PULSE 65–95; RESP 17–18; TEMP 98.2–98.7; O2SAT 92–95
[2017-06-17] MEDS ORDERED: CHLORHEXIDINE GLUCONATE 2 % 1 PACK (2 CLOTHS) TOPICAL PRN (04:00)
[2017-06-17] MEDS ORDERED: LACTATED RINGER'S 1000 ML IV PRN (04:00)
[2017-06-17] MEDS ORDERED: POVIDONE IODINE 5% (ANTISEPSIS KIT) 4 APPLICATIONS EACH NARE PRN (04:00)
[2017-06-17] MEDS ORDERED: SODIUM CHLORID 0.9% 500 ML IV PRN (04:00)
[2017-06-17] MEDS: PANTOPRAZOLE INJ 80 MG in SODIUM CHLORIDE 0.9% INJ 100 ML IV SCH ×2 (04:44→13:40)
[2017-06-17] MEDS: LEVOTHYROXINE SODIUM 100 MCG TAB PO SCH (04:44)
[2017-06-17] MEDS: SODIUM CHLOR 0.9% 1000 ML INJ 1,000 ML IV SCH ×3 (04:46→18:14)
[2017-06-17] MEDS: LORazepam 0.5 MG TAB PO SCH ×2 (07:35→20:55)
[2017-06-17] MEDS: DOCUSATE SODIUM 50 MG/SENNA 8.6 MG TAB PO SCH ×2 (07:35→20:55)
[2017-06-17] MEDS: DULoxetine HCl DR 20 MG CAP PO SCH (07:35)
[2017-06-17] MEDS: SODIUM CHLORIDE 0.9% FLUSH 10 ML FLUSH IV FLUSH SCH ×2 (07:35→20:55)
--- NOTE | 2017-06-17 10:26 | GIPROC ---
[facility] [address] [facility]. [facility], [address] EGD WITH DILATION PROCEDURE REPORT EXAM DATE: 06/17/2017 PATIENT NAME: Radha Florez MR#: [id number] BIRTHDATE: 1930 ATTENDING: Nataliia Austin MD ORDER #: [id number] GIS DATABASE ADMINISTRATOR: Lidia Quinones and Whit Madrid STATUS: inpatient INDICATIONS: The patient is a 87 yr old female here for an EGD with dilation due to nausea, vomiting PROCEDURE PERFORMED: EGD w/ biopsy EGD w/ dilation of esophagus via guidewire MEDICATIONS: None and Per Anesthesia. TOPICAL ANESTHETIC: none CONSENT: The patient understands the risks and benefits of the procedure and understands that these risks include, but are not limited to: sedation, allergic reaction, infection, perforation and/or bleeding. Alternative means of evaluation and treatment include, among others: physical exam, x-rays, and/or surgical intervention. The patient elects to proceed with this endoscopic procedure. medical equipment was checked for proper function. Hand hygiene and appropriate measures for infection prevention was taken. After the risks, benefits and alternatives of the procedure were thoroughly explained, Informed consent was verified, confirmed and timeout was successfully executed by the treatment team. The patient was anesthetized with topical anesthesia and the Pentax EG-[id number] endoscope was introduced through the mouth and advanced to the second portion of the duodenum. The instrument was slowly withdrawn as the mucosa was fully examined. Gastritis antrum-biopsy esophagitis distal esophagus-biopsy stricture dital esophagus s/p dilatation Savary 14, 15. Large hiatal hernia. Dilation was performed at gastroesophageal junction. DILATOR: SIZE(S): RESISTANCE: HEME: APPEARANCE: Dilator: Savary over guidewire Size(s): 14,15 COMMENT: Retroflexed views revealed a hiatal hernia ADVERSE EVENTS: There were no complications. IMPRESSIONS: 1. Gastritis antrum-biopsy esophagitis distal esophagus-biopsy stricture dital esophagus s/p dilatation Savary 14, 15 2. Retroflexed views revealed a hiatal hernia RECOMMENDATIONS: 1. Await biopsy results. Biopsy results will not be ready for 7-10 days. If you don't hear from us in two weeks, call our office for biopsy results. 2. Anti-reflux regimen 3. Continue PPI 4. Dilatations PRN 5. Avoid NSAIDS 6. Clear liquid diet, advance diet as tolerated ct abdomen/pelvis REPEAT EXAM: Return 3 years EGD Nataliia Austin MD eSigned: Nataliia Austin MD 06/17/2017 10:25 AM cc: PATIENT NAME: Radha Florez MR#: [id number]
[2017-06-17] MEDS ORDERED: DIATRIZOATE MEGLUM/DIATRIZOATE SOD 9 ML CUP PO ONE (10:44)
--- NOTE | 2017-06-17 11:33 | HHI.PR ---
Subjective Remarks had EGD earlier. in no acute distress. no abdominal pain, nausea or vomiting. Objective Vitals Vital Signs Date Time Temp Pulse Resp B/P (MAP) Pulse Ox O2 Delivery O2 Flow Rate FiO2 06/17/17 10:28 97.6 73 18 134/69 (90) 95 06/17/17 07:32 98.7 69 18 131/61 (84) 93 06/17/17 04:29 98.2 83 17 131/61 (84) 94 06/17/17 03:50 81 06/17/17 00:30 76 06/17/17 00:05 98.6 79 18 124/53 (76) 92 06/16/17 20:53 98.4 74 17 127/58 (81) 92 06/16/17 16:00 98.5 76 18 127/63 (84) 96 06/16/17 12:00 99.7 82 19 142/64 (90) 96 I/O 06/16/17 06/16/17 06/16/17 06/17/17 06/17/17 06/17/17 07:00 15:00 23:00 07:00 15:00 23:00 Intake Total 600 ml 250 ml Balance 600 ml 250 ml Intake Oral 600 ml Other 250 ml # Voids 1 2 # Bowel Movements 1 Result Diagram: 06/16/17 1100 06/16/17 1100 Imaging Last Impressions Abdomen X-Ray 06/16/17 0000 Signed Impressions: Service Date/Time: Friday, June 16, 2017 12:26 - CONCLUSION: No acute abnormalities. Jack Patino MD Chest X-Ray 06/15/17 0000 Signed Impressions: Service Date/Time: Thursday, June 15, 2017 23:45 - CONCLUSION: Left base pneumonia. Satinder Bliss MD Objective Remarks GENERAL: This is a well-nourished, well-developed patient, in no apparent distress. CARDIOVASCULAR: Regular rate and regular rhythm without murmurs, gallops, or rubs. RESPIRATORY: Clear to auscultation. Breath sounds equal bilaterally. No wheezes , rales, or rhonchi. GASTROINTESTINAL: Abdomen soft, non-tender, nondistended. Normal, active bowel sounds MUSCULOSKELETAL: Extremities without clubbing, cyanosis, or edema. NEURO: awake and alert Medications and IVs Inpatient Medications Acetaminophen (Tylenol) 650 mg Q6H PRN PO FEVER/PAIN SCALE 1 TO 2; Start at 23:45 Bisacodyl (Dulcolax Supp) 10 mg DAILY PRN RECTAL SEVERE CONSITIPATION; Start at 23:45 Chlorhexidine Gluconate (Chlorhexidine 2% Cloth) 3 pack SHIRRING MACHINE OPERATOR AUTOMATIC PRN TOPICAL SEE LABEL COMMENTS; Start 06/17/17 at 04:00; Stop 06/20/17 at 03:59 Diatrizoate Meglum/ Diatrizoate Sod ( Gastroview Liq) 18 ml ONCE ONCE PO ; Start 06/17/17 at 10:44; Stop 06/17/17 at 11:13; Status DC Donepezil HCl (Aricept) 5 mg HS PO ; Start 06/16/17 at 21:52; Status Future Hold Duloxetine HCl (Cymbalta Dr) 20 mg DAILY PO Last administered on 06/17/17at 07: 35; Start 06/16/17 at 09:00 Lactated Ringer's 1,000 ml @ 30 mls/hr Q24H PRN IV SEE LABEL COMMENTS; Start at 04:00; Stop 06/20/17 at 03:59 Lactulose (Lactulose Liq) 30 ml DAILY PRN PO SEVERE CONSITIPATION; Start at 23:45 Levofloxacin/ Dextrose 150 ml @ 100 mls/hr Q24H IV ; Start 06/17/17 at 23:00 Levothyroxine Sodium (Synthroid) 100 mcg DAILY@0600 PO Last administered on at 04:44; Start 06/16/17 at 06:00 Lorazepam (Ativan Inj) 0.5 mg Q4H PRN IV PUSH NAUSEA/VOMITING/ANXIETY Last administered on 06/16/17at 00:39; Start 06/16/17 at 00:15 Lorazepam (Ativan) 0.5 mg BID PO Last administered on 06/17/17at 07:35; Start at 09:00 Magnesium Hydroxide (Milk Of Magnesia Liq) 30 ml Q12H PRN PO Mild constipation ; Start 06/15/17 at 23:45 Mirtazapine (Remeron) 15 mg HS PO Last administered on 06/16/17at 22:13; Start 06/16/17 at 21:00 Morphine Sulfate (Morphine Inj) 2 mg Q3H PRN IV PUSH Pain 6-10; Start 06/16/17 at 00:00 Ondansetron HCl (Zofran Inj) 4 mg Q6H PRN IVP NAUSEA OR VOMITING Last administered on 06/16/17at 05:11; Start 06/15/17 at 23:45 Pantoprazole Sodium 80 mg/ Sodium Chloride 100 ml @ 10 mls/hr Q10H IV Last administered on 06/17/17at 04:44; Start 06/15/17 at 21:48 Povidone Iodine (Betadine 5% Antisepsis Kit) 1 applic SHIRRING MACHINE OPERATOR AUTOMATIC PRN EACH NARE SEE LABEL COMMENTS; Start 06/17/17 at 04:00; Stop 06/20/17 at 03:59 Senna/Docusate Sodium (Perlita-Colace) 1 tab BID PO Last administered on at 07:35; Start 06/16/17 at 09:00 Sennosides (Senokot) 17.2 mg Q12H PRN PO Moderate constipation; Start 06/15/17 at 23:45 Sodium Chloride 500 ml @ 30 mls/hr [id number] PRN IV SEE LABEL COMMENTS; Start at 04:00; Stop 06/20/17 at 03:59 Sodium Chloride (NS Flush) 2 ml BID IV FLUSH Last administered on 06/16/17at 08: 28; Start 06/16/17 at 09:00 A/P Problem List: (1) GI bleed ICD Code: K92.2 - Gastrointestinal hemorrhage, unspecified Status: Acute (2) Thrombocytopenia ICD Code: D69.6 - Thrombocytopenia, unspecified (3) Dementia ICD Code: F03.90 - Unspecified dementia without behavioral disturbance (4) HTN (hypertension) ICD Code: I10 - Essential (primary) hypertension Assessment and Plan 1. GI Bleed: coffee-ground emesis noted at SNF, +blood however negative guaiac GI consult appreciated ; s/p EGD with gastritis/ esophagitis/ distal esophageal stricture- s/p dilation CT of the abdomen pending- will advance the diet as tolerated. 2. Thrombocytopenia:no previous labs for comparison, will monitor. 3. Dementia: seemingly at baseline, resumed home Aricept, Remeron. Ativan prn 4. HTN: overall improved- will monitor. 5.pneumonia- LLL- continue Levaquin. 6. DVT Prophylaxis: Pharmacologic contraindication secondary to GI bleed. Discharge Planning dc planning to SNF- when GI w/u completed and cleared by GI. Problem Qualifiers (1) GI bleed: Qualified Codes: K92.2 - Gastrointestinal hemorrhage, unspecified Chinmay Lazar MD Jun 17, 2017 11:33
[2017-06-17] MEDS ORDERED: LIDOCAINE HCL 1% PF 5 ML SYRINGE OTHER ONE (12:00)
[2017-06-17] MEDS ORDERED: PROPOFOL 200 MG/20 ML AMP IV ONE (12:00)
[2017-06-17] MEDS: LORazepam 2 MG/ML VIAL IV PUSH PRN (13:41)
--- NOTE | 2017-06-17 15:34 | EKG ---
Date Performed: 06/17/2017 Time Performed: 09:32:57 PTAGE: 87 years EKG: Sinus rhythm LOW QRS VOLTAGE IN PRECORDIAL LEADS NONSPECIFIC T-WAVE ABNORMALITY BORDERLINE ECG NO PREVIOUS TRACING DOCTOR: Dakotah Bo Interpretating Date/Time 06/17/2017 15:23:51
[2017-06-17] MEDS ORDERED: IOHEXOL 350 MG/ML 10 ML VIAL (for RAD DIAG) IVCONTRAST ONE (19:17)
--- NOTE | 2017-06-17 19:26 | RADRPT ---
EXAM DATE/TIME: 06/17/2017 19:12 [facility] COMPARISON: No previous studies available for comparison. INDICATIONS : Abdomen pain. IV CONTRAST: 97 cc Omnipaque 350 (iohexol) IV ORAL CONTRAST: Prescribed oral contrast ingested. RADIATION DOSE: 8.06 CTDIvol (mGy) MEDICAL HISTORY : Cardiovascular disease. Hypertension. SURGICAL HISTORY : None. ENCOUNTER: Initial ACUITY: 1 day PAIN SCALE: 5/10 LOCATION: Bilateral abdomen TECHNIQUE: Volumetric scanning of the abdomen and pelvis was performed. Using automated exposure control and ad justment of the mA and/or kV according to patient size, radiation dose was kept as low as reasonably achievable to obtain optimal diagnostic quality images. DICOM format image data is available electro nically for review and comparison. FINDINGS: LOWER LUNGS: The visualized lower lungs are clear. LIVER: Homogeneous density without lesion. There is no dilation of the biliary tree. Cholecystectomy clips. SPLEEN: Normal size with prominent low-density lesion anteriorly measuring 3.4 cm.. PANCREAS: Within normal limits. KIDNEYS: Normal in size and shape. There is no mass, stone or hydronephrosis. ADRENAL GLANDS: Within normal limits. VASCULAR: There is no aortic aneurysm. BOWEL/MESENTERY: Diverticulosis throughout the colon. Questionable wall thickening of the cecum.. There is no free in traperitoneal air or fluid. Large hiatal hernia. ABDOMINAL WALL: Within normal limits. RETROPERITONEUM: There is no lymphadenopathy. BLADDER: No wall thickening or mass. REPRODUCTIVE: Within normal limits. INGUINAL: There is no lymphadenopathy or hernia. MUSCULOSKELETAL: Within normal limits for patient age. CONCLUSION: 1. Diverticulosis without diverticulitis. 2. Questionable wall thickening of the cecum. Colonoscopy recommended. 3. Low-density lesion in the spleen, likely benign. 4. Large hiatal hernia. 5. Left basilar consolidation could be infiltrate. Jack Patino MD on June 17, 2017 at 19:22 Board Certified Radiologist. This report was verified electronically.
[2017-06-17] MEDS: MIRTAZAPINE 15 MG TAB PO SCH (20:55)
[2017-06-17] MEDS: LEVOFLOXACIN 750 MG PREMIX INJ 150 ML IV SCH (22:40)
[2017-06-18] VITALS (10 sets, daily range): BP systolic 157–188; BP diastolic 72–86; PULSE 67–114; RESP 16–18; TEMP 98.1–98.7; O2SAT 95–97
[2017-06-18] MEDS ORDERED: PANTOPRAZOLE INJ 80 MG in SODIUM CHLORIDE 0.9% INJ 100 ML IV SCH ×2
[2017-06-18] MEDS: LEVOTHYROXINE SODIUM 100 MCG TAB PO SCH (05:09)
--- NOTE | 2017-06-18 08:51 | HHI.PR ---
Subjective Remarks in no acute distress. denies pain. no nausea/emesis/ or report of GI bleed. BP trend noted. d/w the RN. Objective Vitals Vital Signs Date Time Temp Pulse Resp B/P (MAP) Pulse Ox O2 Delivery O2 Flow Rate FiO2 06/18/17 07:33 98.3 69 18 185/79 (114) 96 06/18/17 05:05 98.6 67 16 157/72 (100) 96 06/17/17 21:45 68 06/17/17 21:18 98.3 71 18 152/69 (96) 95 06/17/17 16:19 98.6 95 18 156/72 (100) 95 06/17/17 12:11 98.3 65 18 163/74 (103) 93 06/17/17 10:28 97.6 73 18 134/69 (90) 95 I/O 06/17/17 06/17/17 06/17/17 06/18/17 06/18/17 06/18/17 07:00 15:00 23:00 07:00 15:00 23:00 Intake Total 250 ml Balance 250 ml Other 250 ml # Voids 2 # Bowel Movements 2 Result Diagram: 06/16/17 1100 06/16/17 1100 Imaging Last Impressions Abdomen/Pelvis CT 06/17/17 0000 Signed Impressions: Service Date/Time: Saturday, June 17, 2017 19:12 - CONCLUSION: 1. Diverticulosis without diverticulitis. 2. Questionable wall thickening of the cecum. Colonoscopy recommended. 3. Low-density lesion in the spleen, likely benign. 4. Large hiatal hernia. 5. Left basilar consolidation could be infiltrate. Jack Patino MD Abdomen X-Ray 06/16/17 0000 Signed Impressions: Service Date/Time: Friday, June 16, 2017 12:26 - CONCLUSION: No acute abnormalities. Jack Patino MD Chest X-Ray 06/15/17 0000 Signed Impressions: Service Date/Time: Thursday, June 15, 2017 23:45 - CONCLUSION: Left base pneumonia. Satinder Bliss MD Objective Remarks GENERAL: This is a well-nourished, well-developed patient, in no apparent distress. CARDIOVASCULAR: Regular rate and regular rhythm without murmurs, gallops, or rubs. RESPIRATORY: Clear to auscultation. Breath sounds equal bilaterally. No wheezes , rales, or rhonchi. GASTROINTESTINAL: Abdomen soft, non-tender, nondistended. Normal, active bowel sounds MUSCULOSKELETAL: Extremities without clubbing, cyanosis, or edema. NEURO: awake and alert Medications and IVs Inpatient Medications Acetaminophen (Tylenol) 650 mg Q6H PRN PO FEVER/PAIN SCALE 1 TO 2; Start at 23:45 Bisacodyl (Dulcolax Supp) 10 mg DAILY PRN RECTAL SEVERE CONSITIPATION; Start at 23:45 Chlorhexidine Gluconate (Chlorhexidine 2% Cloth) 3 pack COKE CRANE OPERATOR PRN TOPICAL SEE LABEL COMMENTS; Start 06/17/17 at 04:00; Stop 06/20/17 at 03:59 Diatrizoate Meglum/ Diatrizoate Sod ( Gastroview Liq) 18 ml ONCE ONCE PO Last administered on 06/17/17at 11:32; Start 06/17/17 at 10:44; Stop 06/17/17 at 11:13; Status DC Donepezil HCl (Aricept) 5 mg HS PO ; Start 06/16/17 at 21:52; Status Future Hold Duloxetine HCl (Cymbalta Dr) 20 mg DAILY PO Last administered on 06/17/17at 07: 35; Start 06/16/17 at 09:00 Lactated Ringer's 1,000 ml @ 30 mls/hr Q24H PRN IV SEE LABEL COMMENTS; Start at 04:00; Stop 06/20/17 at 03:59 Lactulose (Lactulose Liq) 30 ml DAILY PRN PO SEVERE CONSITIPATION; Start at 23:45 Levofloxacin/ Dextrose 150 ml @ 100 mls/hr Q24H IV Last administered on at 22:40; Start 06/17/17 at 23:00 Levothyroxine Sodium (Synthroid) 100 mcg DAILY@0600 PO Last administered on at 05:09; Start 06/16/17 at 06:00 Lorazepam (Ativan Inj) 0.5 mg Q4H PRN IV PUSH NAUSEA/VOMITING/ANXIETY Last administered on 06/17/17at 13:41; Start 06/16/17 at 00:15 Lorazepam (Ativan) 0.5 mg BID PO Last administered on 06/17/17at 20:55; Start at 09:00 Magnesium Hydroxide (Milk Of Magnseun Liq) 30 ml Q12H PRN PO Mild constipation ; Start 06/15/17 at 23:45 Mirtazapine (Remeron) 15 mg HS PO Last administered on 06/17/17at 20:55; Start 06/16/17 at 21:00 Morphine Sulfate (Morphine Inj) 2 mg Q3H PRN IV PUSH Pain 6-10; Start 06/16/17 at 00:00 Ondansetron HCl (Zofran Inj) 4 mg Q6H PRN IVP NAUSEA OR VOMITING Last administered on 06/16/17at 05:11; Start 06/15/17 at 23:45 Pantoprazole Sodium 80 mg/ Sodium Chloride 100 ml @ 10 mls/hr Q10H IV ; Start 06/18/17 at 00:00 Povidone Iodine (Betadine 5% Antisepsis Kit) 1 applic COKE CRANE OPERATOR PRN EACH NARE SEE LABEL COMMENTS; Start 06/17/17 at 04:00; Stop 06/20/17 at 03:59 Senna/Docusate Sodium (Perlita-Colace) 1 tab BID PO Last administered on at 07:35; Start 06/16/17 at 09:00 Sennosides (Senokot) 17.2 mg Q12H PRN PO Moderate constipation; Start 06/15/17 at 23:45 Sodium Chloride 500 ml @ 30 mls/hr [id number] PRN IV SEE LABEL COMMENTS; Start at 04:00; Stop 06/20/17 at 03:59 Sodium Chloride (NS Flush) 2 ml BID IV FLUSH Last administered on 06/17/17at 20: 55; Start 06/16/17 at 09:00 A/P Problem List: (1) GI bleed ICD Code: K92.2 - Gastrointestinal hemorrhage, unspecified Status: Acute (2) Thrombocytopenia ICD Code: D69.6 - Thrombocytopenia, unspecified (3) Dementia ICD Code: F03.90 - Unspecified dementia without behavioral disturbance (4) HTN (hypertension) ICD Code: I10 - Essential (primary) hypertension Assessment and Plan 1. GI Bleed: coffee-ground emesis noted at SNF, +blood however negative guaiac GI consult appreciated ; s/p EGD with gastritis/ esophagitis/ distal esophageal stricture- s/p dilation CT of the abdomen with questionable wall thickening of the cecum- awaiting GI f/u. will advance the diet as tolerated. 2. Thrombocytopenia:no previous labs for comparison, will monitor. 3. Dementia: seemingly at baseline, resumed home Aricept, Remeron. Ativan prn 4. HTN: not optimally controlled- will resume amlodipine- continue to monitor. 5.pneumonia- LLL- continue Levaquin. 6. DVT Prophylaxis: Pharmacologic contraindication secondary to GI bleed. Discharge Planning dc planning to SNF- when GI w/u completed and cleared by GI. Problem Qualifiers (1) GI bleed: Qualified Codes: K92.2 - Gastrointestinal hemorrhage, unspecified Chinmay Lazar MD Jun 18, 2017 08:51
[2017-06-18] MEDS: SODIUM CHLORIDE 0.9% FLUSH 10 ML FLUSH IV FLUSH SCH ×2 (09:00→21:02)
--- NOTE | 2017-06-18 09:01 | HHI.GIFU ---
Subjective Remarks Pt resting in bed, in soft restraints. She is agitated and cursing, and thinks there are other people in the room and that she has been kidnapped. She denies diarrhea, abd pain, n/v. Per RN n/v has improved and pt had 1 small soft BM last night. tolerating clears. (Taylor Tijerina CARE MANAGER) Objective Vitals I&O Vital Signs Date Time Temp Pulse Resp B/P (MAP) Pulse Ox O2 Delivery O2 Flow Rate FiO2 06/18/17 07:33 98.3 69 18 185/79 (114) 96 06/18/17 05:05 98.6 67 16 157/72 (100) 96 06/17/17 21:45 68 06/17/17 21:18 98.3 71 18 152/69 (96) 95 06/17/17 16:19 98.6 95 18 156/72 (100) 95 06/17/17 12:11 98.3 65 18 163/74 (103) 93 06/17/17 10:28 97.6 73 18 134/69 (90) 95 I/O 06/17/17 06/17/17 06/17/17 06/18/17 06/18/17 06/18/17 07:00 15:00 23:00 07:00 15:00 23:00 Intake Total 250 ml Balance 250 ml Other 250 ml # Voids 2 # Bowel Movements 2 Imaging Last Impressions Abdomen/Pelvis CT 06/17/17 0000 Signed Impressions: Service Date/Time: Saturday, June 17, 2017 19:12 - CONCLUSION: 1. Diverticulosis without diverticulitis. 2. Questionable wall thickening of the cecum. Colonoscopy recommended. 3. Low-density lesion in the spleen, likely benign. 4. Large hiatal hernia. 5. Left basilar consolidation could be infiltrate. Jack Patino MD Abdomen X-Ray 06/16/17 0000 Signed Impressions: Service Date/Time: Friday, June 16, 2017 12:26 - CONCLUSION: No acute abnormalities. Jack Patino MD Chest X-Ray 06/15/17 0000 Signed Impressions: Service Date/Time: Thursday, June 15, 2017 23:45 - CONCLUSION: Left base pneumonia. Satinder Bliss MD Physical Exam HEENT: PERRL; normocephalic; atraumatic; no jaundice. CHEST: CTA CARDIAC: RRR ABDOMEN: Soft, nondistended, nontender; no hepatosplenomegaly; bowel sounds are present in all four quadrants. EXTREMITIES: No clubbing, cyanosis, or edema. soft restraints SKIN: Normal; no rash; no jaundice. 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 limited hx. HH currently WNL pt denies abd pain. never had EGD. Colonoscopy at [place] in last 2y, no further details. 06/18/17 s/p EGD and dilatation esophagus, finding esophagitis. bx pending. CT abd showed questionable wall thickening cecum. KUB neg. d/w son Harsha Florez [phone] he is POA and he wishes to proceed with colonoscopy PLAN - colonoscopy tomrorow - clear liquids - obtain consent - golytely prep, may add crystal light to flavor - NPO after mdinight - pt pulled out IV, PO protonix for now - notify GI of active bleeding - monitor pt seen by myself and Dr Austin and this note is on her behalf (Taylor Tijerina) Taylor Tijerina Jun 18, 2017 09:01 Nataliia Austin MD Jun 18, 2017 17:52
[2017-06-18] MEDS: DULoxetine HCl DR 20 MG CAP PO SCH (09:37)
[2017-06-18] MEDS: DOCUSATE SODIUM 50 MG/SENNA 8.6 MG TAB PO SCH ×2 (09:37→21:04)
[2017-06-18] MEDS: LORazepam 0.5 MG TAB PO SCH ×2 (09:37→22:17)
[2017-06-18] MEDS: PANTOPRAZOLE SOD 40 MG DELAYED RELEASE TAB PO SCH ×2 (09:37→21:03)
[2017-06-18] MEDS: SODIUM CHLOR 0.9% 1000 ML INJ 1,000 ML IV SCH (09:43)
[2017-06-18] MEDS ORDERED: QUEtiapine FUMARATE 25 MG TAB PO ONE (12:45)
[2017-06-18] MEDS ORDERED: PEG (High)/E-LYTE SOLN 4000 ML BTL PO ONE (16:00)
[2017-06-18] MEDS ORDERED: ENALAPRILAT 1.25 MG/ML VIAL IV PUSH PRN (17:00)
[2017-06-18] MEDS ORDERED: LACTATED RINGER'S 1000 ML IV PRN (17:15)
[2017-06-18] MEDS ORDERED: SODIUM CHLORID 0.9% 500 ML IV PRN (17:15)
[2017-06-18] MEDS ORDERED: CHLORHEXIDINE GLUCONATE 2 % 1 PACK (2 CLOTHS) TOPICAL PRN (17:15)
[2017-06-18] MEDS ORDERED: POVIDONE IODINE 5% (ANTISEPSIS KIT) 4 APPLICATIONS EACH NARE PRN (17:15)
[2017-06-18] MEDS: QUEtiapine FUMARATE 25 MG TAB PO SCH (21:03)
[2017-06-18] MEDS: MIRTAZAPINE 15 MG TAB PO SCH (21:03)
[2017-06-18] MEDS: LEVOFLOXACIN 750 MG PREMIX INJ 150 ML IV SCH (22:17)
[2017-06-19 00:25] VITALS: BP 161/73; PULSE 80; RESP 16; TEMP 97.9; O2SAT 98
[2017-06-19 04:26] VITALS: BP 186/85; PULSE 89; RESP 17; TEMP 98.5; O2SAT 99
[2017-06-19] MEDS: LEVOTHYROXINE SODIUM 100 MCG TAB PO SCH (05:44)
[2017-06-19] MEDS ORDERED: LORazepam 0.5 MG TAB PO PRN (07:45)
[2017-06-19] MEDS: QUEtiapine FUMARATE 25 MG TAB PO SCH (08:00)
[2017-06-19] MEDS: SODIUM CHLORIDE 0.9% FLUSH 10 ML FLUSH IV FLUSH SCH (08:01)
[2017-06-19] MEDS: PANTOPRAZOLE SOD 40 MG DELAYED RELEASE TAB PO SCH (08:01)
[2017-06-19] MEDS: DULoxetine HCl DR 20 MG CAP PO SCH (08:01)
[2017-06-19] MEDS: DOCUSATE SODIUM 50 MG/SENNA 8.6 MG TAB PO SCH (08:01)
[2017-06-19] MEDS ORDERED: SOD PHOSPHATE/SOD BIPHOSPHATE (ADULT) ENEMA 133ML RECTAL ONE (08:30)
[2017-06-19 08:33] VITALS: BP 144/71; PULSE 84; RESP 18; TEMP 97.8; O2SAT 97
[2017-06-19] MEDS: SODIUM CHLOR 0.9% 1000 ML INJ 1,000 ML IV SCH (08:43)
[2017-06-19 09:00] VITALS: PULSE 90
--- NOTE | 2017-06-19 09:16 | HHI.PR ---
Subjective Remarks in no acute distress. calm today. denies pain. awaiting colonoscopy. Objective Vitals Vital Signs Date Time Temp Pulse Resp B/P (MAP) Pulse Ox O2 Delivery O2 Flow Rate FiO2 06/19/17 08:33 97.8 84 18 144/71 (95) 97 06/19/17 04:26 98.5 89 17 186/85 (118) 99 06/19/17 00:25 97.9 80 16 161/73 (102) 98 06/18/17 23:30 81 06/18/17 21:41 98.1 91 17 161/76 (104) 96 06/18/17 17:10 166/74 (104) 06/18/17 16:37 98.7 85 18 188/86 (120) 97 06/18/17 16:01 76 06/18/17 13:03 98.7 87 18 159/76 (103) 95 06/18/17 12:44 114 I/O 06/18/17 06/18/17 06/18/17 06/19/17 06/19/17 06/19/17 07:00 15:00 23:00 07:00 15:00 23:00 Intake Total 300 ml 1150 ml Balance 300 ml 1150 ml Intake Oral 300 ml IV Total 1150 ml # Voids 1 # Bowel Movements 2 Result Diagram: 06/16/17 1100 06/16/17 1100 Imaging Last Impressions Abdomen/Pelvis CT 06/17/17 0000 Signed Impressions: Service Date/Time: Saturday, June 17, 2017 19:12 - CONCLUSION: 1. Diverticulosis without diverticulitis. 2. Questionable wall thickening of the cecum. Colonoscopy recommended. 3. Low-density lesion in the spleen, likely benign. 4. Large hiatal hernia. 5. Left basilar consolidation could be infiltrate. Jack Patino MD Abdomen X-Ray 06/16/17 0000 Signed Impressions: Service Date/Time: Friday, June 16, 2017 12:26 - CONCLUSION: No acute abnormalities. Jack Patino MD Chest X-Ray 06/15/17 0000 Signed Impressions: Service Date/Time: Thursday, June 15, 2017 23:45 - CONCLUSION: Left base pneumonia. Satinder Bliss MD Objective Remarks GENERAL: This is a well-nourished, well-developed patient, in no apparent distress. CARDIOVASCULAR: Regular rate and regular rhythm without murmurs, gallops, or rubs. RESPIRATORY: Clear to auscultation. Breath sounds equal bilaterally. No wheezes , rales, or rhonchi. GASTROINTESTINAL: Abdomen soft, non-tender, nondistended. Normal, active bowel sounds MUSCULOSKELETAL: Extremities without clubbing, cyanosis, or edema. NEURO: awake and alert Medications and IVs Inpatient Medications Acetaminophen (Tylenol) 650 mg Q6H PRN PO FEVER/PAIN SCALE 1 TO 2; Start at 23:45 Amlodipine Besylate (Norvasc) 10 mg DAILY PO Last administered on 06/19/17at 08: 01; Start 06/18/17 at 09:00 Bisacodyl (Dulcolax Supp) 10 mg DAILY PRN RECTAL SEVERE CONSITIPATION; Start at 23:45 Chlorhexidine Gluconate (Chlorhexidine 2% Cloth) 3 pack RESIDENTIAL PROGRAM MANAGER PRN TOPICAL SEE LABEL COMMENTS; Start 06/18/17 at 17:15; Stop 06/21/17 at 17:14 Diatrizoate Meglum/ Diatrizoate Sod ( Gastroview Liq) 18 ml ONCE ONCE PO Last administered on 06/17/17at 11:32; Start 06/17/17 at 10:44; Stop 06/17/17 at 11:13; Status DC Donepezil HCl (Aricept) 5 mg HS PO ; Start 06/16/17 at 21:52; Status Future Hold Duloxetine HCl (Cymbalta Dr) 20 mg DAILY PO Last administered on 06/19/17at 08: 01; Start 06/16/17 at 09:00 Enalaprilat (Vasotec Inj) 1.25 mg Q6H PRN IV PUSH SBP> OR = 180, DBP> OR = 100 ; Start 06/18/17 at 17:00 Lactated Ringer's 1,000 ml @ 30 mls/hr Q24H PRN IV SEE LABEL COMMENTS; Start at 17:15; Stop 06/21/17 at 17:14 Lactulose (Lactulose Liq) 30 ml DAILY PRN PO SEVERE CONSITIPATION; Start at 23:45 Levofloxacin/ Dextrose 150 ml @ 100 mls/hr Q24H IV Last administered on at 22:17; Start 06/17/17 at 23:00 Levothyroxine Sodium (Synthroid) 100 mcg DAILY@0600 PO Last administered on at 05:44; Start 06/16/17 at 06:00 Lorazepam (Ativan Inj) 0.5 mg Q4H PRN IV PUSH severe anxiety/agitation Last administered on 06/17/17at 13:41; Start 06/16/17 at 00:15 Lorazepam (Ativan) 0.5 mg BID PRN PO anxiety; Start 06/19/17 at 07:45 Magnesium Hydroxide (Milk Of Magnesia Liq) 30 ml Q12H PRN PO Mild constipation ; Start 06/15/17 at 23:45 Mirtazapine (Remeron) 15 mg HS PO Last administered on 06/18/17at 21:03; Start 06/16/17 at 21:00 Morphine Sulfate (Morphine Inj) 2 mg Q3H PRN IV PUSH Pain 6-10; Start 06/16/17 at 00:00 Ondansetron HCl (Zofran Inj) 4 mg Q6H PRN IVP NAUSEA OR VOMITING Last administered on 06/16/17at 05:11; Start 06/15/17 at 23:45 Pantoprazole Sodium (Protonix) 40 mg Q12HR PO Last administered on 06/19/17at 08 :01; Start 06/18/17 at 09:00 Pantoprazole Sodium 80 mg/ Sodium Chloride 100 ml @ 10 mls/hr Q10H IV ; Start 06/18/17 at 00:00; Stop 06/18/17 at 08:59; Status DC Polyethylene Glycol/ Electrolytes (Colyte Liq) 4,000 ml ONCE ONCE PO Last administered on 06/18/17at 16:32; Start 06/18/17 at 16:00; Stop 06/18/17 at 16:01 ; Status DC Povidone Iodine (Betadine 5% Antisepsis Kit) 1 applic RESIDENTIAL PROGRAM MANAGER PRN EACH NARE SEE LABEL COMMENTS; Start 06/18/17 at 17:15; Stop 06/21/17 at 17:14 Quetiapine Fumarate (SEROquel) 25 mg BID PO Last administered on 06/19/17at 08: 00; Start 06/18/17 at 21:00 Senna/Docusate Sodium (Perlita-Colace) 1 tab BID PO Last administered on at 08:01; Start 06/16/17 at 09:00 Sennosides (Senokot) 17.2 mg Q12H PRN PO Moderate constipation; Start 06/15/17 at 23:45 Sodium Biphosphate/ Sodium Phosphate (Fleets Enema (Adult)) 133 ml ONCE ONCE RECTAL Last administered on 06/19/17at 08:43; Start 06/19/17 at 08:30; Stop at 08:33; Status DC Sodium Chloride 500 ml @ 30 mls/hr [id number] PRN IV SEE LABEL COMMENTS; Start at 17:15; Stop 06/21/17 at 17:14 Sodium Chloride (NS Flush) 2 ml BID IV FLUSH Last administered on 06/18/17at 21: 02; Start 06/16/17 at 09:00 A/P Problem List: (1) GI bleed ICD Code: K92.2 - Gastrointestinal hemorrhage, unspecified Status: Acute (2) Thrombocytopenia ICD Code: D69.6 - Thrombocytopenia, unspecified (3) Dementia ICD Code: F03.90 - Unspecified dementia without behavioral disturbance (4) HTN (hypertension) ICD Code: I10 - Essential (primary) hypertension Assessment and Plan 1. GI Bleed: coffee-ground emesis noted at SNF, +blood however negative guaiac GI consult appreciated ; s/p EGD with gastritis/ esophagitis/ distal esophageal stricture- s/p dilation CT of the abdomen with questionable wall thickening of the cecum- for colonoscopy today. 2. Thrombocytopenia:no previous labs for comparison, will monitor. 3. Dementia: seemingly at baseline, resumed home Aricept, Remeron. added Seroquel- Ativan prn 4. HTN: resumed amlodipine- continue to monitor. 5.pneumonia- LLL- continue Levaquin. 6. DVT Prophylaxis: Pharmacologic contraindication secondary to GI bleed. Discharge Planning dc planning to SNF- when GI w/u completed and cleared by GI. Problem Qualifiers (1) GI bleed: Qualified Codes: K92.2 - Gastrointestinal hemorrhage, unspecified Chinmay Lazar MD Jun 19, 2017 09:16
--- NOTE | 2017-06-19 09:23 | HHI.DCPOC ---
Discharge Care Plan Diagnosis: (1) Pneumonia (2) GI bleed (3) Dementia (4) HTN (hypertension) Goals to Promote Your Health * To prevent worsening of your condition and complications * To maintain your health at the optimal level Directions to Meet Your Goals Take your medications as prescribed Follow your dietary instruction Follow activity as directed Keep your appointments as scheduled Take your immunizations and boosters as scheduled If your symptoms worsen call your PCP, if no PCP go to Urgent Care Center or Emergency Room Smoking is Dangerous to Your Health. Avoid second hand smoke Call the 24-hour hour crisis hotline for domestic abuse at Pippa Kincaid PA-C Jun 19, 2017 9:23 am
[2017-06-19] MEDS ORDERED: PROPOFOL 200 MG/20 ML AMP IV ONE (12:00)
--- NOTE | 2017-06-19 14:07 | GIPROC ---
[facility] [address] [facility]. [facility], [address] COLONOSCOPY PROCEDURE REPORT EXAM DATE: 06/19/2017 PATIENT NAME: Radha Florez MR #: [id number] BIRTHDATE: 1930 ENDOSCOPIST: Nataliia Austin MD ORDER #: [id number] CORE PLACER: Stefan Quiñonez and Nuria Adam STATUS: inpatient INDICATIONS: The patient is a 87 yr old female here for a colonoscopy due to abnormal ct PROCEDURE PERFORMED: Colonoscopy with polypectomy MEDICATIONS: None and Per Anesthesia. PREP QUALITY: fair PREP TYPE:Other: ESTIMATED BLOOD LOSS: None CONSENT: The patient understands the risks and benefits of the procedure and understands that these risks include, but are not limited to: sedation, allergic reaction, infection, perforation and/or bleeding. Alternative means of evaluation and treatment include, among others: physical exam, x-rays, and/or surgical intervention. The patient elects to proceed with this endoscopic procedure. medical equipment was checked for proper function. Hand hygiene and appropriate measures for infection prevention was taken. After the risks, benefits and alternatives of the procedure were thoroughly explained, Informed consent was verified, confirmed and timeout was successfully executed by the treatment team. A digital exam revealed external hemorrhoids and revealed decreased sphincter tone The Pentax [id number] endoscope was introduced through the anus and advanced to the cecum, which was identified by both the appendix and ileocecal valve. The instrument was then slowly withdrawn as the colon was fully examined. COLON FINDINGS: Diverticulosis severe descending, sigmoid 1 cm polyp pedunculated in sigmoid-hot snare polypectomy with removal. Retroflexed views revealed internal hemorrhoids and Retroflexed views revealed small internal hemorrhoids The scope was then completely withdrawn from the patient and the procedure terminated. PROCEDURE WITHDRAWAL TIME:10minutes ADVERSE EVENTS: There were no complications. IMPRESSIONS: 1. Diverticulosis severe descending, sigmoid 1 cm polyp pedunculated in sigmoid-hot snare polypectomy with removal 2. Retroflexed views revealed internal hemorrhoids 3. Retroflexed views revealed small internal hemorrhoids 4. Revealed external hemorrhoids 5. Revealed decreased sphincter tone RECOMMENDATIONS: 1. Await biopsy results. Biopsy results will not be ready for 7-10 days. If you don't hear from us in two weeks, call our office for results. 2. Benefiber 2 tsp daily 3. Probiotics from any [facility] or health food store 4. Yearly rectal exams 5. Ok to dc home from gi if dc fu office RECALL: Return 5 years Colonoscopy Nataliia Austin MD eSigned: Nataliia Austin MD 06/19/2017 2:07 PM cc: PATIENT NAME: Radha Florez MR#: [id number]
[2017-06-19] MEDS ORDERED: PANT40TA3 PO (16:00)
[2017-06-19 16:01] VITALS: BP 190/83; PULSE 89; RESP 20; TEMP 97.6; O2SAT 93
[2017-06-19] MEDS ORDERED: SERO25TA PO (16:05)
[2017-06-19 16:14] VITALS: BP 164/84
== END 2017-06-19 18:52 | disposition home or self-care (01) ==
LOC: NEPC 21:33 → NEDA 23:32 → NEPGCP 06-16 01:13
PROVIDERS: ADMIT Internal Medicine; ATTEND Internal Medicine
DX: J18.9 Pneumonia, unspecified organism (principal); K92.2 Gastrointestinal hemorrhage, unspecified; D69.6 Thrombocytopenia, unspecified; I10 Essential (primary) hypertension; K22.2 Esophageal obstruction; K29.70 Gastritis, unspecified, without bleeding; K44.9 Diaphragmatic hernia without obstruction or gangrene; K20.9 Esophagitis, unspecified; K63.5 Polyp of colon; K57.30 Diverticulosis of large intestine without perforation or abscess without bleeding; R10.13 Epigastric pain; I48.91 Unspecified atrial fibrillation; F03.90 Unspecified dementia, unspecified severity, without behavioral disturbance, psychotic disturbance, mood disturbance, and anxiety; I25.10 Atherosclerotic heart disease of native coronary artery without angina pectoris; J44.0 Chronic obstructive pulmonary disease with (acute) lower respiratory infection; E78.5 Hyperlipidemia, unspecified; E11.9 Type 2 diabetes mellitus without complications; E03.9 Hypothyroidism, unspecified; E07.9 Disorder of thyroid, unspecified; G47.30 Sleep apnea, unspecified; I34.1 Nonrheumatic mitral (valve) prolapse; R06.02 Shortness of breath; E78.00 Pure hypercholesterolemia, unspecified; H91.90 Unspecified hearing loss, unspecified ear; F41.9 Anxiety disorder, unspecified
CPT/HCPCS: 00731; 00811; 43239; 43248; 45385; 71045; 74019; 74177; 80053; 83605; 85025; 85610; 85730; 86850; 86900; 86901; 88305; 88312; 93005; 96361; 96365; 96366; 96375; 96376; 99285; C1769; C9113; G0378; J1956; J2060; J2405; J7030; J7120; Q9963; Q9967

== ENCOUNTER 2017-07-05 22:51 | Inpatient (IN) | payer MEDICARE, OTHER ==
[~2017-07-05 22:51] MED LIST: AMLO10TA2 PO; ARIC23TA PO; DULO20 PO; FERR325T18 PO; LEVA500T33 PO; LEVO100T5 PO; PANT40TA3 PO; REME15TA PO; SERO25TA PO
[2017-07-05 22:58] VITALS: BP 194/95; PULSE 89; RESP 16; TEMP 98.3; O2SAT 100
[2017-07-05 23:04] VITALS: O2SAT 100
[2017-07-05] MEDS ORDERED: SODIUM CHLORIDE 0.9% FLUSH 10 ML FLUSH IVF PRN (23:15)
[2017-07-05] MEDS ORDERED: ONDANSETRON HCL 4 MG/2 ML VIAL IVP ONE (23:15)
--- NOTE | 2017-07-05 23:23 | PD ---
HPI Chief Complaint: GI Complaint Time Seen by Provider: 23:10 Travel History International Travel<30 days: No Contact w/Intl Traveler<30days: No Traveled to known affect area: No History of Present Illness HPI 87-year-old female presents to the emergency department from [facility] for evaluation of coffee-ground emesis. Patient presents with medical records and EMS report but due to dementia provides no helpful information. Patient does not know why she is here in the emergency department. Patient does not complain of any pain. Patient denies any nausea and is not actively vomiting. Patient does complain of some thirst. Per medical record patient was hospitalized here as recently as 06/15/17 for upper GI bleed related to erosive gastritis was identified by colonoscopy to have diverticulosis and underwent polypectomy with pathology consistent with tubular adenoma. PFSH Past Medical History Narrative Medical Atrial fibrillation COPD CAD dementia diabetes diminished hearing GI bleed erosive gastritis diverticulitis tubular adenoma anxiety depression colonoscopy EGD cholecystectomy; nursing notes reviewed Atrial Fibrillation: Yes Anxiety: Yes Depression: Yes Cardiovascular Problems: Yes High Cholesterol: Yes COPD: Yes Coronary Artery Disease: Yes Dementia: Yes Diabetes: Yes Diminished Hearing: Yes Endocrine: Yes Hypertension: Yes Psychiatric: Yes Respiratory: Yes Immunizations Current: Yes Sleep Apnea: Yes Thyroid Disease: Yes Social History Alcohol Use: No Tobacco Use: No Substance Use: No Allergies-Medications (Allergen,Severity, Reaction): Coded Allergies: Penicillins (Verified Allergy, Severe, Anaphylaxis, 06/15/17) Thiazides (Verified Allergy, Severe, Anaphylaxis, 06/15/17) carvedilol (Verified Allergy, Severe, Anaphylaxis, 06/15/17) diclofenac (Verified Allergy, Severe, Anaphylaxis, 06/15/17) triamcinolone (Verified Allergy, Severe, Anaphylaxis, 06/15/17) Reported Meds & Prescriptions Reported Meds & Active Scripts Active Seroquel (Quetiapine Fumarate) 25 Mg Tab 25 Mg PO BID Pantoprazole (Pantoprazole Sodium) 40 Mg Tab 40 Mg PO Q12HR Reported Benefiber (Wheat Dextrin) 3 Gram/3.8 Gram Powder Cranberry Urinary Comfort (Vitamins C & E) 1 Cap 1 Cap PO DAILY Lorazepam 0.5 Mg Tab 0.5 Mg PO BID PRN Lisinopril 5 Mg Tab 5 Mg PO DAILY Remeron (Mirtazapine) 15 Mg Tab 15 Mg PO HS Levothyroxine (Levothyroxine Sodium) 100 Mcg Tab 100 Mcg PO DAILY Ferrous Sulfate 325 Mg (65 Mg Iron) Tablet 325 Mg PO DAILY Cymbalta DR (Duloxetine HCl) 20 Mg Capdr 20 Mg PO DAILY Aricept (Donepezil) 23 Mg Tab 5 Mg PO HS Do not split, crushed or chewed. Amlodipine (Amlodipine Besylate) 10 Mg Tab 10 Mg PO DAILY Review of Systems ROS Limitations: Poor Historian (dementia-- [place] records) Except as stated in HPI: all other systems reviewed are Neg Physical Exam Narrative GENERAL: Well-developed elderly female in no acute distress no respiratory distress resting supine. SKIN: Warm and dry. HEAD: Normocephalic. EYES: No scleral icterus. No injection or drainage. NECK: Supple, trachea midline. No JVD or lymphadenopathy. CARDIOVASCULAR: Regular rate and rhythm without murmurs, gallops, or rubs. RESPIRATORY: Breath sounds equal bilaterally. No accessory muscle use. GASTROINTESTINAL: Abdomen soft, non-tender, nondistended. MUSCULOSKELETAL: No cyanosis, or edema. BACK: Nontender without obvious deformity. No CVA tenderness. Data Data Last Documented VS Vital Signs Date Time Temp Pulse Resp B/P (MAP) Pulse Ox O2 Delivery O2 Flow Rate FiO2 07/05/17 23:04 100 Room Air 07/05/17 22:58 98.3 89 16 194/95 (128) Orders Orders Complete Blood Count With Diff (07/05/17 23:03) Comprehensive Metabolic Panel (07/05/17 23:03) Prothrombin Time / Inr (Pt) (07/05/17 23:03) Act Partial Throm Time (Ptt) (07/05/17 23:03) Ecg Monitoring (07/05/17 23:03) Orthostatic Vital Signs (07/05/17 23:03) Oximetry (07/05/17 23:03) Oxygen Administration (07/05/17 23:03) Iv Access Insert/Monitor (07/05/17 23:03) Type And Screen (07/05/17 23:03) Electrocardiogram (07/05/17 ) Ammonia (07/05/17 23:10) Urinalysis - C+S If Indicated (07/05/17 23:10) Chest, Single Ap (07/05/17 23:10) Ondansetron Inj (Zofran Inj) (07/05/17 23:15) Sodium Chloride 0.9% Flush (Ns Flush) (07/05/17 23:15) Lipase (07/05/17 23:20) Sodium Chloride 0.9... W/Pantoprazole In (07/06/17 01:12) Sodium Chloride 0.9... W/Pantoprazole In (07/06/17 01:12) Admit Order (Ed Use Only) (07/06/17 ) Manager Hematology / Telemetry EMILY.Q8H (07/06/17 02:55) Activity Bed Rest (07/06/17 02:55) Notify Dr: Other (07/06/17 02:55) Labs Laboratory Tests Test 07/05/17 23:20 07/06/17 00:45 White Blood Count 9.9 TH/MM3 Red Blood Count 4.79 MIL/MM3 Hemoglobin 14.0 GM/DL Hematocrit 41.7 % Mean Corpuscular Volume 87.0 FL Mean Corpuscular Hemoglobin 29.3 PG Mean Corpuscular Hemoglobin Concent 33.6 % Red Cell Distribution Width 15.1 % Platelet Count 209 TH/MM3 Mean Platelet Volume 10.5 FL Neutrophils (%) (Auto) 90.9 % Lymphocytes (%) (Auto) 5.9 % Monocytes (%) (Auto) 2.5 % Eosinophils (%) (Auto) 0.4 % Basophils (%) (Auto) 0.3 % Neutrophils # (Auto) 9.0 TH/MM3 Lymphocytes # (Auto) 0.6 TH/MM3 Monocytes # (Auto) 0.2 TH/MM3 Eosinophils # (Auto) 0.0 TH/MM3 Basophils # (Auto) 0.0 TH/MM3 CBC Comment DIFF FINAL Differential Comment Blood Urea Nitrogen 20 MG/DL Creatinine 0.97 MG/DL Random Glucose 151 MG/DL Total Protein 6.8 GM/DL Albumin 3.2 GM/DL Calcium Level 8.2 MG/DL Alkaline Phosphatase 86 U/L Aspartate Amino Transf (AST/SGOT) 14 U/L Alanine Aminotransferase (ALT/SGPT) 11 U/L Total Bilirubin 0.8 MG/DL Sodium Level 148 MEQ/L Potassium Level 4.0 MEQ/L Chloride Level 111 MEQ/L Carbon Dioxide Level 28.0 MEQ/L Anion Gap 9 MEQ/L Estimat Glomerular Filtration Rate 54 ML/MIN Ammonia 14 MCMOL/L Lipase 85 U/L Prothrombin Time 10.9 SEC Prothromb Time International Ratio 1.1 RATIO Activated Partial Thromboplast Time 23.4 SEC MDM Medical Decision Making Medical Screen Exam Complete: Yes Emergency Medical Condition: Yes Medical Record Reviewed: Yes Interpretation(s) Last Impressions Chest CT 07/06/17 0000 Signed Impressions: Service Date/Time: Thursday, July 06, 2017 18:19 - CONCLUSION: 1. Infiltrates throughout the left upper and to a lesser extent the left lower lobe consistent with possible pneumonia. Clinical correlation is recommended. 2. Very large paraesophageal hiatal hernia containing half of the stomach which is distended and fluid-filled. The esophagus is also distended and fluid-filled. 3. 4.4 cm cystic splenic lesion is likely benign. 4. Renal cortical thinning bilaterally. 5. Degenerative changes and scoliosis of the thoracic spine. 1. Harsha Roberson MD Chest X-Ray 07/05/17 2310 Signed Impressions: Service Date/Time: Wednesday, July 05, 2017 23:42 - CONCLUSION: Abnormal chest appearance. Recommend contrasted CT chest. Satinder Mccarthy MD CBC & BMP Diagram 07/05/17 23:20 Total Protein 6.8, Albumin 3.2 L, Calcium Level 8.2 L, Alkaline Phosphatase 86, Aspartate Amino Transf (AST/SGOT) 14 L, Alanine Aminotransferase (ALT/SGPT) 11, Total Bilirubin 0.8 Vital Signs Date Time Temp Pulse Resp B/P (MAP) Pulse Ox O2 Delivery O2 Flow Rate FiO2 07/05/17 23:04 100 Room Air 07/05/17 22:58 98.3 89 16 194/95 (128) 100 Differential Diagnosis Coffee-ground emesis, GI bleed upper versus lower, anemia, hepatic encephalopathy, Narrative Course Patient placed on ekg monitor tech IV access obtained specimens collected and sent for resulting Patient administered Zofran 4 mg IV normal saline maintenance fluids 100 cc/h and Protonix bolus with Protonix infusion At 12:43 AM nurse reports that prior to administration of Zofran patient had 100 cc of coffee-ground emesis episode Rectal exam normal sphincter tone no fissure no bleeding hemorrhoids dark brown black stool Hemoccult negative Patient discussed with [facility] for OBS --recurrent coffee ground emesis after recent hospitalization for same. HemaPrompt Point of Care Internal Pos. & Neg. Controls: Passed Fecal Specimen Occult Blood: Negative Physician Communication Physician Communication discussed with Dr Louie ---> OBS Diagnosis Primary Impression: GI bleed Qualified Codes: K29.71 - Gastritis, unspecified, with bleeding Admitting Information Admitting Physician Requests: Observation Sultana Shine MD July 05, 2017 23:23
[2017-07-06] VITALS (7 sets, daily range): BP systolic 129–190; BP diastolic 59–86; PULSE 81–96; RESP 16–20; TEMP 97.4–98.3; O2SAT 95–99
[2017-07-06 00:06] LABS: BASOPHIL % 0.3 % (0.0-2.0); EOSINOPHIL % 0.4 % (0.0-4.0); HEMATOCRIT 41.7 % (35.0-46.0); LYMPH % 5.9 % (9.0-44.0); LYMPHOCYTE # 0.6 TH/MM3 (1.0-4.8); MEAN CORPUSCULAR HEMOGLOBIN 29.3 PG (27.0-34.0); MEAN CORPUSCULAR HGB CONC 33.6 % (32.0-36.0); MEAN PLATELET VOLUME 10.5 FL (7.0-11.0); MONO % 2.5 % (0.0-8.0); MONOCYTE # 0.2 TH/MM3 (0-0.9); NEUT % 90.9 % (16.0-70.0); PLATELET COUNT 209 TH/MM3 (150-450); RED BLOOD COUNT 4.79 MIL/MM3 (4.00-5.30); RED CELL DISTRIBUTION WIDTH 15.1 % (11.6-17.2); WHITE BLOOD COUNT 9.9 TH/MM3 (4.0-11.0)
[2017-07-06] MEDS ORDERED: LORA0.5T PO (00:17)
[2017-07-06] MEDS ORDERED: LISI-519 PO (00:17)
[2017-07-06] MEDS ORDERED: WHEA1POW9 (00:17)
[2017-07-06] MEDS ORDERED: CRANCAP2 PO (00:17)
--- NOTE | 2017-07-06 00:28 | RADRPT ---
EXAM DATE/TIME: 07/05/2017 23:42 [place] COMPARISON: CHEST SINGLE AP, June 15, 2017, 23:45. INDICATIONS : Vomiting. MEDICAL HISTORY : Hypercholesterolemia. Coronary artery disease. AFIB. Hypertension. SURGICAL HISTORY : None. ENCOUNTER: Initial ACUITY: 1 day PAIN SCORE: 3/10 LOCATION: Bilateral chest FINDINGS: First slight increase in prominence of the density in the left lower lung field, as such worrisome fo r mass. AP window is slightly convex and there is slight or tracheal prominence, however the film is rotated. Right lung remains clear. CONCLUSION: Abnormal chest appearance. Recommend contrasted CT chest. Satinder Mccarthy MD on July 06, 2017 at 0:23 Board Certified Radiologist. This report was verified electronically.
[2017-07-06] MEDS ORDERED: PANTOPRAZOLE INJ 80 MG in SODIUM CHLORIDE 0.9% INJ 100 ML IV SCH (01:12)
[2017-07-06] MEDS ORDERED: PANTOPRAZOLE INJ 80 MG in SODIUM CHLORIDE 0.9% INJ 35 ML IV ONE (01:12)
[2017-07-06 01:27] LABS: INTERNATIONAL NORMALIZED RATIO 1.1 RATIO; PROTHROMBIN TIME - PATIENT 10.9 SEC (9.8-11.6)
[2017-07-06 01:34] LABS: ALBUMIN 3.2 GM/DL (3.4-5.0); ALT (GPT) 11 U/L (10-53); AST (GOT) 14 U/L (15-37); BLOOD UREA NITROGEN 20 MG/DL (7-18); CALCIUM 8.2 MG/DL (8.5-10.1); CHLORIDE 111 MEQ/L (98-107); CREATININE 0.97 MG/DL (0.50-1.00); GLOMERULAR FILTRATION RATE 54 ML/MIN (>89); GLUCOSE,RANDOM 151 MG/DL (74-106); SODIUM (NA) 148 MEQ/L (136-145)
[2017-07-06 01:41] LABS: ALKALINE PHOSPHATASE 86 U/L (45-117); TOTAL PROTEIN 6.8 GM/DL (6.4-8.2)
[2017-07-06 01:42] LABS: TOTAL BILIRUBIN ADULT 0.8 MG/DL (0.2-1.0)
[2017-07-06] MEDS ORDERED: IOHEXOL 350 MG/ML 10 ML VIAL (for RAD DIAG) IVCONTRAST ONE (02:58)
[2017-07-06] MEDS ORDERED: SODIUM CHLOR 0.9% 1000 ML INJ 1,000 ML IV SCH (03:01)
[2017-07-06] MEDS ORDERED: MAGNESIUM HYDROXIDE SUSP 30 ML CUP PO PRN (03:15)
[2017-07-06] MEDS ORDERED: SENNOSIDES 8.6 MG TAB PO PRN (03:15)
[2017-07-06] MEDS ORDERED: ACETAMINOPHEN 325 MG TAB PO PRN (03:15)
[2017-07-06] MEDS ORDERED: LACTULOSE SYRUP 20 GM/30 ML CUP PO PRN (03:15)
[2017-07-06] MEDS ORDERED: LORazepam 0.5 MG TAB PO PRN (03:15)
[2017-07-06] MEDS ORDERED: BISACODYL 10 MG SUPP RECTAL PRN (03:15)
[2017-07-06] MEDS ORDERED: SODIUM CHLORIDE 0.9% FLUSH 10 ML FLUSH IV FLUSH PRN (03:15)
[2017-07-06] MEDS: ONDANSETRON HCL 4 MG/2 ML VIAL IVP PRN ×2 (03:34→15:31)
[2017-07-06] MEDS ORDERED: hydrALAZINE HCL 20 MG/ML VIAL IV PUSH ONE (03:45)
[2017-07-06] MEDS: PANTOPRAZOLE INJ 80 MG in SODIUM CHLORIDE 0.9% INJ 100 ML IV SCH ×2 (03:45→14:19)
[2017-07-06] MEDS ORDERED: PROCHLORPERAZINE INJ 10 MG/2 ML VIAL IV PUSH PRN (04:00)
--- NOTE | 2017-07-06 04:14 | HHI.HP ---
HPI Service [facility] Primary Care Physician Unknown Admission Diagnosis gastritis w/coffee ground emesis Diagnoses: (1) GI bleed Diagnosis: Principal (2) HTN (hypertension) Diagnosis: Principal (3) Dementia Diagnosis: Principal Travel History International Travel<30 Days: No Contact w/Intl Traveler <30 Da: No Traveled to Known Affected Are: No History of Present Illness This is an 87-year-old female with a PMH of A. fib, Anxiety, Depression, COPD, CAD, Dementia, DM and h/o GI Bleed who was sent to the ER from [facility] for coffee-ground emesis. Pt unable to provide much history, does not know why she is here. EMS reports pt noted to have multiple episodes of coffee- ground emesis at SNF and sent to ER. Recent admit 06/15-06/19/17 for similar complaints, s/p eval by Dr. Austin, EGD 06/17/17 w/ esophagitis, stricture distal esophagus s/p dilatation and hiatal hernia. Colonoscopy 06/19/17 w/ diverticulosis, polypectomy, and internal/external hemorrhoids. BP 194/95, HR 89, O2 sat 100% on RA, Afebrile. CBC unremarkable. Hemoglobin 14.0, previously 11.7 on 06/16/2017. INR 1.1. CXR with no acute findings. While in ER, pt w/ multiple episodes of coffee-ground emesis. Currently on Protonix gtt Review of Systems Except as stated in HPI: all other systems reviewed are Neg ROS: 14 point review of systems otherwise negative. Past Family Social History Past Medical History PMH: A. fib, Anxiety, Depression, COPD, CAD, Dementia, DM and h/o GI Bleed Past Surgical History PAST SURGICAL HISTORY: Hip Surgery Allergies: Coded Allergies: Penicillins (Verified Allergy, Severe, Anaphylaxis, 06/15/17) Thiazides (Verified Allergy, Severe, Anaphylaxis, 06/15/17) carvedilol (Verified Allergy, Severe, Anaphylaxis, 06/15/17) diclofenac (Verified Allergy, Severe, Anaphylaxis, 06/15/17) triamcinolone (Verified Allergy, Severe, Anaphylaxis, 06/15/17) Family History PAST FAMILY HISTORY: Reviewed. No h/o DM or CAD Social History PAST SOCIAL HISTORY: Negative for alcohol, tobacco or drugs. Physical Exam Vital Signs Vital Signs Date Time Temp Pulse Resp B/P (MAP) Pulse Ox O2 Delivery O2 Flow Rate FiO2 07/06/17 03:31 87 16 190/79 (116) 96 Room Air 07/05/17 23:04 100 Room Air 07/05/17 22:58 98.3 89 16 194/95 (128) 100 Physical Exam PE: GENERAL: Pleasantly demented elderly white female in no acute distress. +blood on lips HEENT: PERRLA, EOMI. No scleral icterus or conjunctival pallor. No lid lag or facial droop. CARDIOVASCULAR: Regular rate and rhythm. No obvious murmurs to auscultation. No chest tenderness to palpation. RESPIRATORY: No obvious rhonchi or wheezing. Clear to auscultation. Breath sounds equal bilaterally. GASTROINTESTINAL: Abdomen soft, non-tender, nondistended. BS normal. MUSCULOSKELETAL: Extremities without clubbing, cyanosis, or edema. No obvious deformities. NEUROLOGICAL: Awake, alert, dementia at baseline. No focal neurologic deficits. Moving both upper and lower extremities spontaneously. Laboratory Laboratory Tests Test 07/05/17 23:20 07/06/17 00:45 White Blood Count 9.9 Red Blood Count 4.79 Hemoglobin 14.0 Hematocrit 41.7 Mean Corpuscular Volume 87.0 Mean Corpuscular Hemoglobin 29.3 Mean Corpuscular Hemoglobin Concent 33.6 Red Cell Distribution Width 15.1 Platelet Count 209 Mean Platelet Volume 10.5 Neutrophils (%) (Auto) 90.9 Lymphocytes (%) (Auto) 5.9 Monocytes (%) (Auto) 2.5 Eosinophils (%) (Auto) 0.4 Basophils (%) (Auto) 0.3 Neutrophils # (Auto) 9.0 Lymphocytes # (Auto) 0.6 Monocytes # (Auto) 0.2 Eosinophils # (Auto) 0.0 Basophils # (Auto) 0.0 CBC Comment DIFF FINAL Differential Comment Blood Urea Nitrogen 20 Creatinine 0.97 Random Glucose 151 Total Protein 6.8 Albumin 3.2 Calcium Level 8.2 Alkaline Phosphatase 86 Aspartate Amino Transf (AST/SGOT) 14 Alanine Aminotransferase (ALT/SGPT) 11 Total Bilirubin 0.8 Sodium Level 148 Potassium Level 4.0 Chloride Level 111 Carbon Dioxide Level 28.0 Anion Gap 9 Estimat Glomerular Filtration Rate 54 Ammonia 14 Lipase 85 Prothrombin Time 10.9 Prothromb Time International Ratio 1.1 Activated Partial Thromboplast Time 23.4 Result Diagram: 07/05/17231907/05/172319 Negrito VTE Risk Assessment Negrito VTE Risk Assessment: No/Low Risk (score <= 1) VTE Pharm Contraindication: Active bleeding Caprini Risk Assessment Model Point Value = 1 Point Value = 2 Point Value = 3 Point Value = 5 Age 41-60 Minor surgery BMI > 25 kg/m2 Swollen legs Varicose veins or History of unexplained or recurrent spontaneous Oral contraceptives or hormone replacement Sepsis (< 1 month) Serious lung disease, including pneumonia (< 1 month) Abnormal pulmonary function Acute myocardial infarction Congestive heart failure (< 1 month) History of inflammatory bowel disease Medical patient at bed rest Age 61-74 Arthroscopic surgery Major open surgery (> 45 min) Laparoscopic surgery (> 45 min) Malignancy Confined to bed (> 72 hours) Immobilizing plaster cast Central venous access Age >= 75 History of VTE Family history of VTE Factor V Leiden Prothrombin [id number] Lupus anticoagulant Anticardiolipin antibodies Elevated serum homocysteine Heparin-induced thrombocytopenia Other congenital or acquired thrombophilia Stroke (< 1 month) Elective arthroplasty Hip, pelvis, or leg fracture Acute spinal cord injury (< 1 month) Prophylaxis Regimen Total Risk Factor Score Risk Level Prophylaxis Regimen 0-1 Low Early ambulation 2 Moderate Order ONE of the following: *Sequential Compression Device (SCD) *Heparin 5000 units SQ BID 3-4 Higher Order ONE of the following medications: *Heparin 5000 units SQ TID *Enoxaparin/Lovenox 40 mg SQ daily (WT < 150 kg, CrCl > 30 mL/min) *Enoxaparin/Lovenox 30 mg SQ daily (WT < 150 kg, CrCl > 10-29 mL/min) *Enoxaparin/Lovenox 30 mg SQ BID (WT < 150 kg, CrCl > 30 mL/min) AND/OR *Sequential Compression Device (SCD) 5 or more Highest Order ONE of the following medications: *Heparin 5000 units SQ TID (Preferred with Epidurals) *Enoxaparin/Lovenox 40 mg SQ daily (WT < 150 kg, CrCl > 30 mL/min) *Enoxaparin/Lovenox 30 mg SQ daily (WT < 150 kg, CrCl > 10-29 mL/min) *Enoxaparin/Lovenox 30 mg SQ BID (WT < 150 kg, CrCl > 30 mL/min) AND *Sequential Compression Device (SCD) Assessment and Plan Problem List: (1) GI bleed ICD Code: K92.2 - Gastrointestinal hemorrhage, unspecified (2) HTN (hypertension) ICD Code: I10 - Essential (primary) hypertension (3) Dementia ICD Code: F03.90 - Unspecified dementia without behavioral disturbance Assessment and Plan A/P: 1. GI Bleed: Recurrent. Recent admit 06/15-06/19/17 for same, s/p multiple episodes of coffee-ground emesis at SNF and while in ER. Recent EGD/ Colonoscopy w/ esophagitis, esophageal stricture s/p dilatation, diverticulosis and internal/external hemorrhoids. Hemoccult negative. Not on anticoagulation. Hgb 14.1, previously 11.7 on 06/16/17, repeat Hgb/Hct in am. Continue Protonix gtt. Consult GI for re-evaluation as recurrent bleeding. 2. HTN: Uncontrolled. BP 190's, likely compounded by active nausea/vomiting. Zofran/Compazine prn, Hydralazine 10mg IV x1 now, monitor BP, resume home medications. 3. Dementia: at baseline, resume home medications. 4. DVT Prophylaxis: Pharmacologic contraindication secondary to GI Bleed 5. Social work for d/c planning as needed. 6. Case discussed w/ ER physician at length, labs/records/imaging reviewed by me. Lory Louie MD July 06, 2017 04:14
[2017-07-06] MEDS: MORPHINE SULFATE 4 MG/ML INJ IV PRN (04:57)
[2017-07-06] MEDS: SODIUM CHLORIDE 0.9% FLUSH 10 ML FLUSH IV FLUSH SCH ×2 (09:00→20:49)
[2017-07-06] MEDS ORDERED: PANTOPRAZOLE SOD 40 MG DELAYED RELEASE TAB PO SCH (09:00)
[2017-07-06] MEDS: LEVOTHYROXINE SODIUM 100 MCG TAB PO SCH (10:10)
[2017-07-06] MEDS: DULoxetine HCl DR 20 MG CAP PO SCH (10:10)
[2017-07-06] MEDS: DOCUSATE SODIUM 50 MG/SENNA 8.6 MG TAB PO SCH ×2 (10:10→20:49)
[2017-07-06] MEDS: LISINOPRIL 5 MG TAB PO SCH (10:11)
[2017-07-06] MEDS: QUEtiapine FUMARATE 25 MG TAB PO SCH ×2 (10:11→20:49)
[2017-07-06] MEDS: DEXTROSE 5% IN WATE 1000ML INJ 1,000 ML IV SCH ×2 (10:12→20:49)
[2017-07-06 10:19] LABS: HEMATOCRIT 37.9 % (35.0-46.0); HEMOGLOBIN 12.9 GM/DL (11.6-15.3)
--- NOTE | 2017-07-06 10:33 | PD.CONS ---
HPI History of Present Illness This is a 87 year old yo F with PMH significant for dementia and she is therefore unable to provide me with any history. When asked why she is here she states I do not know. History obtained through chart review. According to ER note pt was sent from her assisted for reports of coffee ground emesis. Noted that patient also had multiple episodes of coffee ground emesis while in ER. The nurse was unable to provide me with any history regarding bowel movements or emesis over night or this morning. Pt currently resting in bed, in no apparent distress, denies any abdominal pain and does not appear tender to abdominal palpation. Pt does have history of GIB. Previous EGD and colonoscopy done by our service. EGD (June 17, 2017) --> Gastritis in the antrum, esophagitis in the distal esophagus, stricture in the distal esophagus S /P dilatation, hiatal hernia. Pathology (stomach antrum) mild chronic gastritis , negative for H. PYlori (distal esophagus) hyperplastic squamous mucosa with mild non-specific chronic inflammation, negative for intestinal metaplasia and dysplasia. Colonoscopy (June 19, 2017) --> Severe diverticulosis in the descending and sigmoid colon. 1 cm pedunculated polyp in the sigmoid. Internal and external hemorrhoids. Decreased sphincter tone. Pathology (sigmoid polyp) tubular adenoma. (Echo Reynaga) PFSH Past Medical History PMH: A. fib, Anxiety, Depression, COPD, CAD, Dementia, DM and h/o GI Bleed Past Surgical History PAST SURGICAL HISTORY: Hip Surgery (Echo Reynaga) Coded Allergies: Penicillins (Verified Allergy, Severe, Anaphylaxis, 06/15/17) Thiazides (Verified Allergy, Severe, Anaphylaxis, 06/15/17) carvedilol (Verified Allergy, Severe, Anaphylaxis, 06/15/17) diclofenac (Verified Allergy, Severe, Anaphylaxis, 06/15/17) triamcinolone (Verified Allergy, Severe, Anaphylaxis, 06/15/17) Family History PAST FAMILY HISTORY: Reviewed. No h/o DM or CAD Social History PAST SOCIAL HISTORY: Negative for alcohol, tobacco or drugs. (Echo Reynaga) Review of Systems Gastrointestinal: COMPLAINS OF: Hematemesis, DENIES: Abdominal pain (Echo Reynaga) GI Exam Vitals I&O Vital Signs Date Time Temp Pulse Resp B/P (MAP) Pulse Ox O2 Delivery O2 Flow Rate FiO2 07/06/17 07:34 97.6 90 16 190/86 (120) 96 07/06/17 04:36 97.4 96 20 129/59 (82) 99 07/06/17 03:31 87 16 190/79 (116) 96 Room Air 07/05/17 23:04 100 Room Air 07/05/17 22:58 98.3 89 16 194/95 (128) 100 I/O 07/05/17 07/05/17 07/05/17 07/06/17 07/06/17 07/06/17 07:00 15:00 23:00 07:00 15:00 23:00 Output Total 100 ml Balance -100 ml Output Emesis 100 ml Imaging Last Impressions Chest X-Ray 07/05/17 0990 Signed Impressions: Service Date/Time: Wednesday, July 05, 2017 23:42 - CONCLUSION: Abnormal chest appearance. Recommend contrasted CT chest. Satinder Mccarthy MD Laboratory Test 07/05/17 23:20 07/06/17 00:45 07/06/17 09:50 White Blood Count 9.9 TH/MM3 Red Blood Count 4.79 MIL/MM3 Hemoglobin 14.0 GM/DL Hematocrit 41.7 % Mean Corpuscular Volume 87.0 FL Mean Corpuscular Hemoglobin 29.3 PG Mean Corpuscular Hemoglobin Concent 33.6 % Red Cell Distribution Width 15.1 % Platelet Count 209 TH/MM3 Mean Platelet Volume 10.5 FL Neutrophils (%) (Auto) 90.9 % Lymphocytes (%) (Auto) 5.9 % Monocytes (%) (Auto) 2.5 % Eosinophils (%) (Auto) 0.4 % Basophils (%) (Auto) 0.3 % Neutrophils # (Auto) 9.0 TH/MM3 Lymphocytes # (Auto) 0.6 TH/MM3 Monocytes # (Auto) 0.2 TH/MM3 Eosinophils # (Auto) 0.0 TH/MM3 Basophils # (Auto) 0.0 TH/MM3 CBC Comment DIFF FINAL Differential Comment Blood Urea Nitrogen 20 MG/DL Creatinine 0.97 MG/DL Random Glucose 151 MG/DL Total Protein 6.8 GM/DL Albumin 3.2 GM/DL Calcium Level 8.2 MG/DL Alkaline Phosphatase 86 U/L Aspartate Amino Transf (AST/SGOT) 14 U/L Alanine Aminotransferase (ALT/SGPT) 11 U/L Total Bilirubin 0.8 MG/DL Sodium Level 148 MEQ/L Potassium Level 4.0 MEQ/L Chloride Level 111 MEQ/L Carbon Dioxide Level 28.0 MEQ/L Anion Gap 9 MEQ/L Estimat Glomerular Filtration Rate 54 ML/MIN Ammonia 14 MCMOL/L Lipase 85 U/L Prothrombin Time 10.9 SEC Prothromb Time International Ratio 1.1 RATIO Activated Partial Thromboplast Time 23.4 SEC Physical Examination HEENT: Normocephalic; atraumatic CHEST: Even/unlabored CARDIAC: RRR ABDOMEN: Soft, nondistended, nontender; bowel sounds active EXTREMITIES: No clubbing, cyanosis, or edema. SKIN: Normal; no rash; no jaundice. CLINICAL TRIAL HEAD: Alert and oriented x 1 (Echo Reynaga) Assessment and Plan Plan Assessment: - Reports of coffee ground emesis- sent from NH- pt with dementia and unable to provide history- history obtained through chart review. Reported to have multiple episodes of coffee ground emesis in the ER, I asked nurse and she was unsure when the patient last vomited or if she has had any BMs H/H last checked last night and was 14/41.7- repeat pending Not on anticoagulation History of GIB EGD (June 17, 2017) --> Gastritis in the antrum, esophagitis in the distal esophagus, stricture in the distal esophagus S/P dilatation, hiatal hernia. Pathology (stomach antrum) mild chronic gastritis, negative for H. Pylori (distal esophagus) hyperplastic squamous mucosa with mild non-specific chronic inflammation, negative for intestinal metaplasia and dysplasia. Colonoscopy (June 19, 2017) --> Severe diverticulosis in the descending and sigmoid colon. 1 cm pedunculated polyp in the sigmoid. Internal and external hemorrhoids. Decreased sphincter tone. Pathology (sigmoid polyp) tubular adenoma. Plan: EGD tomorrow- will be available to do emergently if needed *Pt already ate breakfast today- regular diet per attending Obtain consent NPO after MN Serial H/H Transfuse as needed Protonix gtt Further recommendations based on clinical course and results of above Pt has been seen and examined by myself and Dr. Austin and this note is written on her behalf (Echo Reynaga) Physician Comments seen, examined agree with above (Nataliia Austin MD) Echo Reynaga July 06, 2017 10:33 Nataliia Austin MD July 06, 2017 11:45
--- NOTE | 2017-07-06 12:20 | EKG ---
Date Performed: 07/05/2017 Time Performed: 23:10:04 PTAGE: 87 years EKG: Sinus rhythm POSSIBLE LEFT ATRIAL ENLARGEMENT BORDERLINE LEFT AXIS DEVIATION LOW QRS VOLTAGE IN PRECORDIAL LEADS NONSPECIFIC T-WAVE ABNORMALITY BORDERLINE ECG PREVIOUS TRACING : 06/17/2017 09.32 Since the previous tracing, no significant change noted DOCTOR: Jorge L Jennings Interpretating Date/Time 07/06/2017 12:18:17
--- NOTE | 2017-07-06 14:37 | HHI.PR ---
Subjective Remarks Follow-up for GI bleed. Patient is currently resting in bed. Does not talk much. Denies any chest pain, shortness of breath, fever or chills. Objective Vitals Vital Signs Date Time Temp Pulse Resp B/P (MAP) Pulse Ox O2 Delivery O2 Flow Rate FiO2 07/06/17 12:57 98.0 81 16 135/69 (91) 95 07/06/17 07:34 97.6 90 16 190/86 (120) 96 07/06/17 04:36 97.4 96 20 129/59 (82) 99 07/06/17 03:31 87 16 190/79 (116) 96 Room Air 07/05/17 23:04 100 Room Air 07/05/17 22:58 98.3 89 16 194/95 (128) 100 I/O 07/05/17 07/05/17 07/05/17 07/06/17 07/06/17 07/06/17 07:00 15:00 23:00 07:00 15:00 23:00 Output Total 100 ml Balance -100 ml Output Emesis 100 ml Result Diagram: 07/06/17 0950 07/05/172319 Imaging Last Impressions Chest X-Ray 07/05/172309 Signed Impressions: Service Date/Time: Wednesday, July 05, 2017 23:42 - CONCLUSION: Abnormal chest appearance. Recommend contrasted CT chest. Satinder Mccarthy MD Objective Remarks GENERAL: Alert, NAD. SKIN: Warm and dry. HEAD: Normocephalic. EYES: No scleral icterus. No injection or drainage. NECK: Supple, trachea midline. No JVD or lymphadenopathy. CARDIOVASCULAR: Regular rate and rhythm without murmurs, gallops, or rubs. RESPIRATORY: Breath sounds equal bilaterally. No accessory muscle use. GASTROINTESTINAL: Abdomen soft, non-tender, nondistended. MUSCULOSKELETAL: No cyanosis, or edema. BACK: Nontender without obvious deformity. No CVA tenderness. A/P Problem List: (1) GI bleed ICD Code: K92.2 - Gastrointestinal hemorrhage, unspecified (2) HTN (hypertension) ICD Code: I10 - Essential (primary) hypertension (3) Dementia ICD Code: F03.90 - Unspecified dementia without behavioral disturbance Assessment and Plan This is an 87-year-old female with a PMH of A. fib, Anxiety, Depression, COPD, CAD, Dementia, DM and h/o GI Bleed who was sent to the ER from [facility] for coffee-ground emesis. Recent admit 06/15-06/19/17 for similar complaints , s/p eval by Dr. Austin, EGD 06/17/17 w/ esophagitis, stricture distal esophagus s/p dilatation and hiatal hernia. Colonoscopy 06/19/17 w/ diverticulosis, polypectomy, and internal/external hemorrhoids. On arrival, BP 194/95, HR 89, O2 sat 100% on RA, Afebrile. CBC unremarkable. Hemoglobin 14.0, previously 11.7 on 06/16/2017. INR 1.1. CXR with no acute findings. While in ER, pt w/ multiple episodes of coffee-ground emesis. Patient was started on protonix drip. GI Bleed, recurrent - Recent admit 06/15-06/19/17 for same, s/p multiple episodes of coffee-ground emesis at [facility] and while in ER. - Recent EGD/Colonoscopy w/ esophagitis, esophageal stricture s/p dilatation , diverticulosis and internal/external hemorrhoids. - Hemoccult negative. Not on anticoagulation. Hgb 14.1, previously 11.7 on 06/16/17, repeat Hgb/Hct in am. - Continue Protonix gtt. - GI consulted - EGD tomorrow. Hypertension - Resume home medications - Amlodipine 10mg Qday and Lisinopril 5mg Qday. Dementia Hypothyroidism Aricept 5mg Qday, Levothyroxine 100 mcg Qday. Left lower lung field abnormality - CXR shows left lower lung field abnormal findings - possibility of mass. - Will obtain CT chest with contrast. Full code. SCDs. Priti Crocker DO July 06, 2017 14:37
--- NOTE | 2017-07-06 18:40 | RADRPT ---
EXAM DATE/TIME: 07/06/2017 18:19 [place] COMPARISON: No previous studies available for comparison. INDICATIONS : Evaluate for left lung mass. Abnormal Chest Xray. IV CONTRAST: 70 cc Omnipaque 350 (iohexol) IV RADIATION DOSE: 9.86 CTDIvol (mGy) MEDICAL HISTORY : Cardiovascular disease. Hypertension. Diabetes mellitus type 2.Dementia SURGICAL HISTORY : None. ENCOUNTER: Initial ACUITY: 1 day PAIN SCALE: 0/10 LOCATION: Left chest TECHNIQUE: Volumetric scanning of the chest was performed. Using automated exposure control and adjustment of t he mA and/or kV according to patient size, radiation dose was kept as low as reasonably achievable to obtain optimal diagnostic quality images. DICOM format image data is available electronically for review and comparison. Follow-up recommendations for detected pulmonary nodules are based at a minimum on nodule size and pa tient risk factors according to Fleischner Society Guidelines. FINDINGS: LUNGS: Diffuse infiltrates are noted involving the left upper and to a lesser extent the left lower lobes co nsistent with probable pneumonia. Clinical correlation is recommended. There is no pneumothorax. No concerning pulmonary nodule is visualized. PLEURA: There is no pleural thickening or pleural effusion. MEDIASTINUM: The heart and great vessels demonstrate no acute abnormality. There is no mediastinal or hilar lymph adenopathy. There is a large paraesophageal hiatal hernia containing the upper half of the stomach. T he stomach is fluid-filled and the esophagus is dilated and contains fluid throughout its course. AXILLAE: Within normal limits. No lymphadenopathy. SKELETAL: Degenerative changes and scoliosis of the thoracic spine are noted. MISCELLANEOUS: The visualized upper abdominal organs demonstrate no acute abnormality. There is a cystic lesion with in the spleen measuring 4.4 cm is likely benign. Renal cortical thinning is noted bilaterally. CONCLUSION: 1. Infiltrates throughout the left upper and to a lesser extent the left lower lobe consistent with p ossible pneumonia. Clinical correlation is recommended. 2. Very large paraesophageal hiatal hernia containing half of the stomach which is distended and flui d-filled. The esophagus is also distended and fluid-filled. 3. 4.4 cm cystic splenic lesion is likely benign. 4. Renal cortical thinning bilaterally. 5. Degenerative changes and scoliosis of the thoracic spine. 1. Harsha Roberson MD on July 06, 2017 at 18:32 Board Certified Radiologist. This report was verified electronically.
[2017-07-06] MEDS: MIRTAZAPINE 15 MG TAB PO SCH (20:49)
[2017-07-06] MEDS: DONEPEZIL HCL 5 MG TAB PO SCH (20:50)
[2017-07-07] VITALS (10 sets, daily range): BP systolic 102–140; BP diastolic 52–64; PULSE 81–95; RESP 16–18; TEMP 97.9–98.5; O2SAT 90–98
[2017-07-07] MEDS: PANTOPRAZOLE INJ 80 MG in SODIUM CHLORIDE 0.9% INJ 100 ML IV SCH ×3 (01:53→20:37)
[2017-07-07 06:54] LABS: AUTOMATED NEUTROPHIL # 16.1 TH/MM3 (1.8-7.7); BASOPHIL % 0.3 % (0.0-2.0); EOSINOPHIL % 0.2 % (0.0-4.0); HEMATOCRIT 30.6 % (35.0-46.0); HEMOGLOBIN 10.4 GM/DL (11.6-15.3); LYMPH % 5.2 % (9.0-44.0); LYMPHOCYTE # 0.9 TH/MM3 (1.0-4.8); MEAN CELL VOLUME 87.2 FL (80.0-100.0); MEAN CORPUSCULAR HEMOGLOBIN 29.7 PG (27.0-34.0); MEAN CORPUSCULAR HGB CONC 34.1 % (32.0-36.0); MEAN PLATELET VOLUME 10.6 FL (7.0-11.0); MONO % 3.1 % (0.0-8.0); MONOCYTE # 0.6 TH/MM3 (0-0.9); NEUT % 91.2 % (16.0-70.0); PLATELET COUNT 184 TH/MM3 (150-450); RED BLOOD COUNT 3.51 MIL/MM3 (4.00-5.30); RED CELL DISTRIBUTION WIDTH 15.2 % (11.6-17.2); WHITE BLOOD COUNT 17.7 TH/MM3 (4.0-11.0)
[2017-07-07 06:58] LABS: ALKALINE PHOSPHATASE 75 U/L (45-117); ALT (GPT) 13 U/L (10-53); AST (GOT) 15 U/L (15-37); BLOOD UREA NITROGEN 44 MG/DL (7-18); CALCIUM 8.3 MG/DL (8.5-10.1); CHLORIDE 102 MEQ/L (98-107); CREATININE 1.48 MG/DL (0.50-1.00); GLOMERULAR FILTRATION RATE 33 ML/MIN (>89); GLUCOSE,RANDOM 131 MG/DL (74-106); SODIUM (NA) 138 MEQ/L (136-145); TOTAL BILIRUBIN ADULT 0.8 MG/DL (0.2-1.0); TOTAL PROTEIN 6.1 GM/DL (6.4-8.2)
[2017-07-07] MEDS: LEVOTHYROXINE SODIUM 100 MCG TAB PO SCH (09:15)
[2017-07-07] MEDS: SODIUM CHLORIDE 0.9% FLUSH 10 ML FLUSH IV FLUSH SCH ×2 (09:15→21:00)
[2017-07-07] MEDS: ONDANSETRON HCL 4 MG/2 ML VIAL IVP PRN (09:15)
[2017-07-07] MEDS: MORPHINE SULFATE 4 MG/ML INJ IV PRN (09:15)
[2017-07-07] MEDS: LISINOPRIL 5 MG TAB PO SCH (09:16)
[2017-07-07] MEDS: QUEtiapine FUMARATE 25 MG TAB PO SCH ×2 (09:16→21:29)
[2017-07-07] MEDS: DEXTROSE 5% IN WATE 1000ML INJ 1,000 ML IV SCH (09:17)
[2017-07-07] MEDS: DOCUSATE SODIUM 50 MG/SENNA 8.6 MG TAB PO SCH ×2 (09:17→21:00)
[2017-07-07] MEDS: DULoxetine HCl DR 20 MG CAP PO SCH (09:17)
[2017-07-07] MEDS ORDERED: POVIDONE IODINE 5% (ANTISEPSIS KIT) 4 APPLICATIONS EACH NARE PRN (10:30)
[2017-07-07] MEDS ORDERED: CHLORHEXIDINE GLUCONATE 2 % 1 PACK (2 CLOTHS) TOPICAL PRN (10:30)
[2017-07-07] MEDS ORDERED: LACTATED RINGER'S 1000 ML IV PRN (10:30)
[2017-07-07] MEDS ORDERED: SODIUM CHLORID 0.9% 500 ML IV PRN (10:30)
--- NOTE | 2017-07-07 11:53 | GIPROC ---
[facility] [address] [facility]. [facility], [address] EGD PROCEDURE REPORT EXAM DATE: 07/07/2017 PATIENT NAME: Radha Florez MR #: [id number] BIRTHDATE: 1930 ATTENDING: Milady Maldonado MD ORDER #: [id number] LIVING COACH: Jerry Dallas and Gemma Gonsales STATUS: inpatient INDICATIONS: The patient is a 87 yr old female here for an EGD due to epigastric abdominal pain and iron deficiency anemia PROCEDURE PERFORMED: EGD w/ biopsy MEDICATIONS: None and Per Anesthesia. TOPICAL ANESTHETIC: CONSENT: The patient understands the risks and benefits of the procedure and understands that these risks include, but are not limited to: sedation, allergic reaction, infection, perforation and/or bleeding. Alternative means of evaluation and treatment include, among others: physical exam, x-rays, and/or surgical intervention. The patient elects to proceed with this endoscopic procedure. medical equipment was checked for proper function. Hand hygiene and appropriate measures for infection prevention was taken. After the risks, benefits and alternatives of the procedure were thoroughly explained, Informed consent was verified, confirmed and timeout was successfully executed by the treatment team. The patient was anesthetized with topical anesthesia and the Pentax [id number] endoscope was introduced through the mouth and advanced to the second portion of the duodenum. Retroflexed views revealed a hiatal hernia and Retroflexed views revealed Large hernia. The gastroscope was then slowly withdrawn and removed. ESOPHAGUS: There was LA Class D esophagitis noted. Esophagus full of brownish liquid. Suctioned. Sid ulcers x 3. STOMACH: There was erythematous severe and erosive gastritis in the gastric antrum. A total of 550cc of liquid suctioned from the esophagus and stomach. DUODENUM: The duodenal mucosa appeared normal in the bulb and second portion of the duodenum. ADVERSE EVENTS: There were no complications. IMPRESSIONS: 1. There was LA Class D esophagitis noted 2. There was erythematous gastritis in the gastric antrum; A total of 550cc of liquid suctioned from the esophagus and stomach 3. Normal duodenal mucosa in the bulb and second portion of the duodenum 4. Retroflexed views revealed a hiatal hernia 5. Retroflexed views revealed Large hernia. RECOMMENDATIONS: 1. Await biopsy results. Biopsy results will not be ready for 7-10 days. If you don't hear from us in two weeks, call our office for biopsy results. 2. Anti-reflux regimen 3. Xray: UGI SERIES 4. Surgery PATIENT CONDITION: stable DISPOSITION: Inpatient REPEAT EXAM: Return 1 month EGD pending biopsy results Milady Maldnoado MD eSigned: Milady Maldonado MD 07/07/2017 11:53 AM cc: PATIENT NAME: Radha Florez MR#: [id number]
[2017-07-07] MEDS ORDERED: SUCCINYLCHOLINE CHLORIDE 100 MG/5 ML SYRINGE IV PUSH ONE (12:00)
[2017-07-07] MEDS ORDERED: PHENYLEPH/NS 1000 MCG/10 ML SYR IV ONE (12:00)
[2017-07-07] MEDS ORDERED: PROPOFOL 200 MG/20 ML AMP IV ONE (12:00)
[2017-07-07] MEDS ORDERED: LIDOCAINE HCL 1% PF 5 ML SYRINGE OTHER ONE (12:00)
[2017-07-07] MEDS ORDERED: DO NOT ADM ANY ANTICOAGULANT DRUGS PRN (12:12)
[2017-07-07 12:41] LABS: HEMATOCRIT 30.9 % (35.0-46.0); HEMOGLOBIN 10.2 GM/DL (11.6-15.3)
--- NOTE | 2017-07-07 14:47 | HHI.PR ---
Subjective Remarks Follow-up for GI bleed. Patient is currently doing well. However overnight or in the morning she had coffee-ground emesis. No fever or chills. She went for EGD today. Objective Vitals Vital Signs Date Time Temp Pulse Resp B/P (MAP) Pulse Ox O2 Delivery O2 Flow Rate FiO2 07/07/17 12:45 97.9 92 15 107/51 (69) 98 07/07/17 12:30 93 16 94/54 (67) 95 07/07/17 12:15 96 16 89/54 (66) 95 07/07/17 12:02 97.5 101 15 83/47 (59) 94 07/07/17 08:28 97.9 81 18 140/64 (89) 93 07/07/17 04:42 97.9 85 16 129/60 (83) 90 07/07/17 03:30 86 07/07/17 00:34 98.2 88 16 133/61 (85) 98 07/06/17 21:02 98.3 94 16 141/65 (90) 98 07/06/17 18:20 86 07/06/17 17:33 98.3 94 16 145/65 (91) 96 I/O 07/06/17 07/06/17 07/06/17 07/07/17 07/07/17 07/07/17 07:00 15:00 23:00 07:00 15:00 23:00 Intake Total 480 ml 950 ml Output Total 100 ml Balance -100 ml 480 ml 950 ml Intake Oral 480 ml IV Total 650 ml Other 300 ml Output Emesis 100 ml # Voids 1 2 # Bowel Movements 2 Result Diagram: 07/07/17 1230 07/07/17 0540 Imaging Last Impressions Chest CT 07/06/17 0000 Signed Impressions: Service Date/Time: Thursday, July 06, 2017 18:19 - CONCLUSION: 1. Infiltrates throughout the left upper and to a lesser extent the left lower lobe consistent with possible pneumonia. Clinical correlation is recommended. 2. Very large paraesophageal hiatal hernia containing half of the stomach which is distended and fluid-filled. The esophagus is also distended and fluid-filled. 3. 4.4 cm cystic splenic lesion is likely benign. 4. Renal cortical thinning bilaterally. 5. Degenerative changes and scoliosis of the thoracic spine. 1. Harsha Roberson MD Chest X-Ray 07/05/17 5880 Signed Impressions: Service Date/Time: Wednesday, July 05, 2017 23:42 - CONCLUSION: Abnormal chest appearance. Recommend contrasted CT chest. Satinder Mccarthy MD Objective Remarks GENERAL: Alert, NAD. SKIN: Warm and dry. HEAD: Normocephalic. EYES: No scleral icterus. No injection or drainage. NECK: Supple, trachea midline. No JVD or lymphadenopathy. CARDIOVASCULAR: Regular rate and rhythm without murmurs, gallops, or rubs. RESPIRATORY: Breath sounds equal bilaterally. No accessory muscle use. GASTROINTESTINAL: Abdomen soft, non-tender, nondistended. MUSCULOSKELETAL: No cyanosis, or edema. BACK: Nontender without obvious deformity. No CVA tenderness. Procedures EGD 07/07/2017 1. There was LA Class D esophagitis noted 2. There was erythematous gastritis in the gastric antrum; A total of 550cc of liquid suctioned from the esophagus and stomach 3. Normal duodenal mucosa in the bulb and second portion of the duodenum 4. Retroflexed views revealed a hiatal hernia 5. Retroflexed views revealed Large hernia. A/P Problem List: (1) GI bleed ICD Code: K92.2 - Gastrointestinal hemorrhage, unspecified (2) HTN (hypertension) ICD Code: I10 - Essential (primary) hypertension (3) Dementia ICD Code: F03.90 - Unspecified dementia without behavioral disturbance Assessment and Plan This is an 87-year-old female with a PMH of A. fib, Anxiety, Depression, COPD, CAD, Dementia, DM and h/o GI Bleed who was sent to the ER from [facility] for coffee-ground emesis. Recent admit 06/15-06/19/17 for similar complaints , s/p eval by Dr. Austin, EGD 06/17/17 w/ esophagitis, stricture distal esophagus s/p dilatation and hiatal hernia. Colonoscopy 06/19/17 w/ diverticulosis, polypectomy, and internal/external hemorrhoids. On arrival, BP 194/95, HR 89, O2 sat 100% on RA, Afebrile. CBC unremarkable. Hemoglobin 14.0, previously 11.7 on 06/16/2017. INR 1.1. CXR with no acute findings. While in ER, pt w/ multiple episodes of coffee-ground emesis. Patient was started on protonix drip. GI Bleed, recurrent - Recent admit 06/15-06/19/17 for same, s/p multiple episodes of coffee-ground emesis at SNF and while in ER. - Recent EGD/Colonoscopy w/ esophagitis, esophageal stricture s/p dilatation , diverticulosis and internal/external hemorrhoids. - Hemoccult negative. Not on anticoagulation. Hgb 14.1, previously 11.7 on 06/16/17, repeat Hgb/Hct in am. - Continue Protonix gtt. - GI consulted - EGD shows large hernia which is causing stomach volvulus. - GI consulted General surgery for an input regarding hernia. - If surgical intervention not recommended, consider Palliative care consultation. Hypertension - Resume home medications - Amlodipine 10mg Qday and Lisinopril 5mg Qday. Mild hypernatremia - resolved. Will d/c D5W and start D5-LR while patient is NPO. Dementia Hypothyroidism Aricept 5mg Qday, Levothyroxine 100 mcg Qday. Left lung pneumonia - CT chest reveals left upper and lower lobe infiltrates. - Will start patient on PO Levaquin 750mg Qday X 7 days. Full code. SCDs. Priti Crocker DO July 07, 2017 2:47 pm
--- NOTE | 2017-07-07 16:54 | PD.CONS ---
cc: Jose Luis De La Torre MD HPI Service General Surgery Consult Requested By Dr. Maldonado Reason for Consult Large hiatal hernia Primary Care Physician Unknown History of Present Illness This is an 87 year old female with a past medical history of atrial fibrillation , anxiety, depression, COPD, CAD, dementia, diabetes mellitus and GI bleeds who presented to the ED on Friday from her care home with multiple episodes of coffee ground emesis. The patient had a recent hospitalization in June for a similar episode. The patient had a CT Chest on this admission that shows infiltrates consistent with pneumonia and a very large paraesophageal hiatal hernia containing half the stomach in the chest. An EGD was done today which visualizes the large hiatal hernia. A General Surgery consultation has been requested. Review of Systems ROS Limitations: Clinical Condition, Altered Mental Status Past Family Social History Past Medical History Atrial fibrillation Anxiety Depression COPD CAD Dementia Diabetes mellitus GIB Past Surgical History Hip replacement Reported Medications See chart but patient does not take any oral anticoagulation. Allergies: Coded Allergies: Penicillins (Verified Allergy, Severe, Anaphylaxis, 06/15/17) Thiazides (Verified Allergy, Severe, Anaphylaxis, 06/15/17) carvedilol (Verified Allergy, Severe, Anaphylaxis, 06/15/17) diclofenac (Verified Allergy, Severe, Anaphylaxis, 06/15/17) triamcinolone (Verified Allergy, Severe, Anaphylaxis, 06/15/17) Active Ordered Medications Current Medications Medications (Trade) Dose Ordered Sig/Brenna Route Start Time Stop Time Status Last Admin (NS Flush) 2 ml UNSCH PRN IV FLUSH 07/06/17 03:15 (NS Flush) 2 ml BID IV FLUSH 07/06/17 09:00 07/07/17 09:15 (Zofran Inj) 4 mg Q6H PRN IVP 07/06/17 03:15 07/07/17 09:15 (Tylenol) 650 mg Q6H PRN PO 07/06/17 03:15 (Wolford 5-325 Mg) 1 tab Q4H PRN PO 07/06/17 03:15 (Morphine Inj) 1 mg Q3H PRN IV 07/06/17 03:15 07/07/17 09:15 (Perlita-Colace) 1 tab BID PO 07/06/17 09:00 07/07/17 09:17 (Milk Of Magnesia Liq) 30 ml Q12H PRN PO 07/06/17 03:15 (Senokot) 17.2 mg Q12H PRN PO 07/06/17 03:15 (Dulcolax Supp) 10 mg DAILY PRN RECTAL 07/06/17 03:15 (Lactulose Liq) 30 ml DAILY PRN PO 07/06/17 03:15 (Norvasc) 10 mg DAILY PO 07/06/17 09:00 07/07/17 09:16 (Aricept) 5 mg HS PO 07/06/17 21:00 07/06/17 20:50 (Cymbalta Dr) 20 mg DAILY PO 07/06/17 09:00 07/07/17 09:17 (Synthroid) 100 mcg DAILY PO 07/06/17 09:00 07/07/17 09:15 (Ativan) 0.5 mg BID PRN PO 07/06/17 03:15 (Remeron) 15 mg HS PO 07/06/17 21:00 07/06/17 20:49 (SEROquel) 25 mg BID PO 07/06/17 09:00 07/07/17 09:16 Pantoprazole Sodium 80 mg/ Sodium Chloride 100 ml @ 10 mls/hr Q10H IV 07/06/17 04:37 07/07/17 01:53 (Compazine Inj) 10 mg Q6H PRN IV PUSH 07/06/17 04:00 07/06/17 04:04 (Prinivil) 5 mg DAILY PO 07/06/17 09:00 07/07/17 09:16 Lactated Ringer's 1,000 ml @ 30 mls/hr Q24H PRN IV 07/07/17 10:30 07/10/17 10:29 Sodium Chloride 500 ml @ 30 mls/hr [id number] PRN IV 07/07/17 10:30 07/10/17 10:29 (Betadine 5% Antisepsis Kit) 1 applic EXERCISE MANAGER PRN EACH NARE 07/07/17 10:30 07/10/17 10:29 (Chlorhexidine 2% Cloth) 3 pack EXERCISE MANAGER PRN TOPICAL 07/07/17 10:30 07/10/17 10:29 ([facility] Nursing Information) ALL NURSING DEPARTME... UNSCH PRN .XX 07/07/17 12:12 07/08/17 12:11 (Levaquin) 500 mg DAILY PO 07/07/17 15:00 Dextrose/Lactated Ringer's 1,000 ml @ 75 mls/hr [id number] IV 07/07/17 15:00 Family History Unable to obtain Social History Per reports patient lives in a care home. Physical Exam Vital Signs Vital Signs Date Time Temp Pulse Resp B/P (MAP) Pulse Ox O2 Delivery O2 Flow Rate FiO2 07/07/17 15:15 98.4 95 18 102/53 (69) 94 07/07/17 12:45 97.9 92 15 107/51 (69) 98 07/07/17 12:30 93 16 94/54 (67) 95 07/07/17 12:15 96 16 89/54 (66) 95 07/07/17 12:02 97.5 101 15 83/47 (59) 94 07/07/17 08:28 97.9 81 18 140/64 (89) 93 07/07/17 08:05 81 07/07/17 04:42 97.9 85 16 129/60 (83) 90 07/07/17 03:30 86 07/07/17 00:34 98.2 88 16 133/61 (85) 98 07/06/17 21:02 98.3 94 16 141/65 (90) 98 07/06/17 18:20 86 07/06/17 17:33 98.3 94 16 145/65 (91) 96 Physical Exam GENERAL: Pleasantly confused 87 year old female resting in bed in no acute distress. SKIN: Warm and dry. HEAD: Atraumatic. Normocephalic. EYES: Pupils equal and round. No scleral icterus. No injection or drainage. ENT: No nasal bleeding or discharge. Mucous membranes pink and moist. NECK: Trachea midline. CARDIOVASCULAR: Regular rate and rhythm. RESPIRATORY: No accessory muscle use. Clear to auscultation. Breath sounds equal bilaterally. GASTROINTESTINAL: Abdomen soft, nondistended; minimally tender with palpation. No visible scars or hernias noted. MUSCULOSKELETAL: Extremities without clubbing, cyanosis, or edema. No obvious deformities. NEUROLOGICAL: Awake and alert. No obvious cranial nerve deficits. Motor grossly within normal limits. Five out of 5 muscle strength in the arms and legs. Normal speech. PSYCHIATRIC: Appropriate mood; confused; unsure of why she came to the hospital. Laboratory Laboratory Tests Test 07/07/17 05:40 07/07/17 12:30 White Blood Count 17.7 Red Blood Count 3.51 Hemoglobin 10.4 10.2 Hematocrit 30.6 30.9 Mean Corpuscular Volume 87.2 Mean Corpuscular Hemoglobin 29.7 Mean Corpuscular Hemoglobin Concent 34.1 Red Cell Distribution Width 15.2 Platelet Count 184 Mean Platelet Volume 10.6 Neutrophils (%) (Auto) 91.2 Lymphocytes (%) (Auto) 5.2 Monocytes (%) (Auto) 3.1 Eosinophils (%) (Auto) 0.2 Basophils (%) (Auto) 0.3 Neutrophils # (Auto) 16.1 Lymphocytes # (Auto) 0.9 Monocytes # (Auto) 0.6 Eosinophils # (Auto) 0.0 Basophils # (Auto) 0.0 CBC Comment AUTO DIFF Differential Comment Blood Urea Nitrogen 44 Creatinine 1.48 Random Glucose 131 Total Protein 6.1 Albumin 3.0 Calcium Level 8.3 Alkaline Phosphatase 75 Aspartate Amino Transf (AST/SGOT) 15 Alanine Aminotransferase (ALT/SGPT) 13 Total Bilirubin 0.8 Sodium Level 138 Potassium Level 3.6 Chloride Level 102 Carbon Dioxide Level 27.0 Anion Gap 9 Estimat Glomerular Filtration Rate 33 Result Diagram: 07/10/17 0829 07/10/17 0829 Imaging Last [address] 07/06/17 0000 Signed Impressions: Service Date/Time: Thursday, July 06, 2017 18:19 - CONCLUSION: 1. Infiltrates throughout the left upper and to a lesser extent the left lower lobe consistent with possible pneumonia. Clinical correlation is recommended. 2. Very large paraesophageal hiatal hernia containing half of the stomach which is distended and fluid-filled. The esophagus is also distended and fluid-filled. 3. 4.4 cm cystic splenic lesion is likely benign. 4. Renal cortical thinning bilaterally. 5. Degenerative changes and scoliosis of the thoracic spine. 1. Harsha Roberson MD Chest X-Ray 07/05/17 2310 Signed Impressions: Service Date/Time: Wednesday, July 05, 2017 23:42 - CONCLUSION: Abnormal chest appearance. Recommend contrasted CT chest. Satinder Mccarthy MD Assessment and Plan Assessment and Plan 87 year old female with pneumonia; UGIB; large hiatal hernia -Will trial full liquids for now -Recommend continued treatment for pneumonia -Patient is a poor surgical candidate at this time due to pneumonia, deconditioned state and dementia -Will continue to follow -Discussed with Dr. Crocker -Thank you for this consult Discussed Condition With Dr. Wil Florez Attending Statement patient seen at bedside large hiatal hernia repeat episode of bleed and obstruction pt appears stable high surgical risk will discuss with older son BHAVIN regarding possible intervention surgically vs observation Attestation The exam, history, and the medical decision-making described in the above note were completed with the assistance of the mid-level provider. I reviewed and agree with the findings presented. I attest that I had a [id number] encounter with the patient on the same day, and personally performed and documented my assessment and findings in the medical record. Saba Mosher/Cash Register Operator LAN July 07, 2017 16:54 Jose Luis De La Torre MD July 12, 2017 06:06
[2017-07-07] MEDS: LEVOFLOXACIN 500 MG TAB PO SCH (17:29)
[2017-07-07] MEDS: DEXTROSE 5%-LACTATED RING INJ 1,000 ML IV SCH (17:30)
[2017-07-07] MEDS: MIRTAZAPINE 15 MG TAB PO SCH (21:29)
[2017-07-07] MEDS: DONEPEZIL HCL 5 MG TAB PO SCH (21:29)
[2017-07-08] VITALS (10 sets, daily range): BP systolic 95–113; BP diastolic 45–53; PULSE 68–86; RESP 16–18; TEMP 97.8–98.6; O2SAT 92–97
[2017-07-08] MEDS: DEXTROSE 5%-LACTATED RING INJ 1,000 ML IV SCH ×2 (05:06→22:13)
[2017-07-08] MEDS: PANTOPRAZOLE INJ 80 MG in SODIUM CHLORIDE 0.9% INJ 100 ML IV SCH ×3 (05:06→18:26)
[2017-07-08] MEDS: SODIUM CHLORIDE 0.9% FLUSH 10 ML FLUSH IV FLUSH SCH ×2 (09:00→21:00)
[2017-07-08] MEDS: LISINOPRIL 5 MG TAB PO SCH (09:00)
[2017-07-08] MEDS: DOCUSATE SODIUM 50 MG/SENNA 8.6 MG TAB PO SCH ×2 (09:00→21:00)
[2017-07-08] MEDS ORDERED: PILL SPLITTER OTHER PRN (09:30)
[2017-07-08] MEDS: amLODIPine BESYLATE 5 MG TAB PO SCH (09:30)
[2017-07-08] MEDS: QUEtiapine FUMARATE 25 MG TAB PO SCH ×2 (10:30→21:54)
[2017-07-08] MEDS: LEVOFLOXACIN 500 MG TAB PO SCH (10:30)
[2017-07-08] MEDS: DULoxetine HCl DR 20 MG CAP PO SCH (10:30)
[2017-07-08] MEDS: LEVOTHYROXINE SODIUM 100 MCG TAB PO SCH (10:30)
--- NOTE | 2017-07-08 10:46 | RADRPT ---
EXAM DATE/TIME: 07/08/2017 09:24 COMPARISON: No previous studies available for comparison. INDICATIONS : Evaluate for hiatal hernia causing obstruction FLUORO TIME: 1.6 minutes IMAGE COUNT: 15 CONTRAST: 1. Liquid E-Z Paque Barium Sulfate (60% w/v, 41% w.w) MEDICAL HISTORY : GI bleed, anemia, coffee ground emesis, A-fib SURGICAL HISTORY : Cholecystectomy. ENCOUNTER: Initial ACUITY: 1 day PAIN SCORE: Non-responsive. 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 There is a large hiatal hernia with majority of the stomach intrathoracic. There is poor gastric m otility and delayed emptying of the stomach. CONCLUSION: 1. Poor gastric and esophageal motility. Large hiatal hernia. Exam somewhat limited by patient's mobi lity. No obstruction identified. Joaquin Nolan MD on July 08, 2017 at 10:34 Board Certified Radiologist. This report was verified electronically.
--- NOTE | 2017-07-08 10:47 | HHI.GIFU ---
Subjective Remarks Pt resting in bed. Asking for coffee. (Taylor Tijerina) Objective Vitals I&O Vital Signs Date Time Temp Pulse Resp B/P (MAP) Pulse Ox O2 Delivery O2 Flow Rate FiO2 07/08/17 08:41 97.8 80 18 95/53 (67) 95 07/08/17 07:03 68 07/08/17 03:48 74 07/08/17 02:48 98.2 80 18 103/45 (64) 92 07/08/17 00:04 86 07/07/17 22:45 98.5 87 18 105/52 (69) 97 07/07/17 20:11 82 07/07/17 19:23 98.1 90 16 112/55 (74) 97 07/07/17 16:22 91 07/07/17 15:15 98.4 95 18 102/53 (69) 94 07/07/17 12:45 97.9 92 15 107/51 (69) 98 07/07/17 12:30 93 16 94/54 (67) 95 07/07/17 12:15 96 16 89/54 (66) 95 07/07/17 12:02 97.5 101 15 83/47 (59) 94 I/O 07/07/17 07/07/17 07/07/17 07/08/17 07/08/17 07/08/17 07:00 15:00 23:00 07:00 15:00 23:00 Intake Total 480 ml 1150 ml 240 ml Balance 480 ml 1150 ml 240 ml Intake Oral 480 ml 240 ml IV Total 850 ml Other 300 ml # Voids 2 5 1 2 1 # Bowel Movements 5 1 1 Laboratory Laboratory Tests Test 07/07/17 12:30 Hemoglobin 10.2 Hematocrit 30.9 Imaging Last Impressions Chest CT 07/06/17 0000 Signed Impressions: Service Date/Time: Thursday, July 06, 2017 18:19 - CONCLUSION: 1. Infiltrates throughout the left upper and to a lesser extent the left lower lobe consistent with possible pneumonia. Clinical correlation is recommended. 2. Very large paraesophageal hiatal hernia containing half of the stomach which is distended and fluid-filled. The esophagus is also distended and fluid-filled. 3. 4.4 cm cystic splenic lesion is likely benign. 4. Renal cortical thinning bilaterally. 5. Degenerative changes and scoliosis of the thoracic spine. 1. Harsha Roberson MD Chest X-Ray 07/05/17 2310 Signed Impressions: Service Date/Time: Wednesday, July 05, 2017 23:42 - CONCLUSION: Abnormal chest appearance. Recommend contrasted CT chest. Satinder Mccarthy MD Physical Exam HEENT: PERRL; normocephalic; atraumatic; no jaundice. CHEST: CTA CARDIAC: RRR ABDOMEN: Soft, nondistended, nontender; no hepatosplenomegaly; bowel sounds are present in all four quadrants. EXTREMITIES: No clubbing, cyanosis, or edema. SKIN: Normal; no rash; no jaundice. LEAD OPERATOR: alert (Taylor Tijerina) Assessment and Plan Plan Assessment: - Reports of coffee ground emesis- sent from ID- pt with dementia and unable to provide history- history obtained through chart review. Reported to have multiple episodes of coffee ground emesis in the ER, I asked nurse and she was unsure when the patient last vomited or if she has had any BMs H/H last checked last night and was 14/41.7- repeat pending Not on anticoagulation History of GIB EGD (June 17, 2017) --> Gastritis in the antrum, esophagitis in the distal esophagus, stricture in the distal esophagus S/P dilatation, hiatal hernia. Pathology (stomach antrum) mild chronic gastritis, negative for H. Pylori (distal esophagus) hyperplastic squamous mucosa with mild non-specific chronic inflammation, negative for intestinal metaplasia and dysplasia. Colonoscopy (June 19, 2017) --> Severe diverticulosis in the descending and sigmoid colon. 1 cm pedunculated polyp in the sigmoid. Internal and external hemorrhoids. Decreased sphincter tone. Pathology (sigmoid polyp) tubular adenoma. 07/08/17 s/p EGD 07/07 revealing class D esophagitis, erythematous gastritis, 550cc brown liquid suctioned, large hernia. GS following, have ordered consent for laparoscopic procedure. NPO per GS. Plan: diet and further mgmt per GS await bx await UGI series report EGD 1 month Pt has been seen and examined by myself and and myself and this note is on his behalf (Taylor Tijerina) Physician Comments Seen and examined with MONTESSORI TODDLER TEACHER, s/p egd yesterday suggestive of gastric volvulous due to large hiatal hernia. UGI series reviewed. Discussed with Dr De La Torre. merced inprogress for possible gastropexy. Liquid diet. GI will sign off, reconsult as needed. Thank you. (Milady Maldonado MD) Taylor Tijerina July 08, 2017 10:47 Milady Maldonado MD July 08, 2017 17:02
--- NOTE | 2017-07-08 16:53 | HHI.PR ---
Subjective Remarks Follow-up recurrent GI bleed July 08, 2017-patient seen and examined, no more GI bleed. Denies any chest pain or shortness of breath. Currently n.p.o. an upper GI series. Case discussed with Justa Mosher, nurse practitioner for general surgery Objective Vitals Vital Signs Date Time Temp Pulse Resp B/P (MAP) Pulse Ox O2 Delivery O2 Flow Rate FiO2 07/08/17 16:26 98.6 78 16 113/52 (72) 96 07/08/17 12:48 98.0 78 18 100/49 (66) 97 07/08/17 11:31 82 07/08/17 08:41 97.8 80 18 95/53 (67) 95 07/08/17 07:03 68 07/08/17 03:48 74 07/08/17 02:48 98.2 80 18 103/45 (64) 92 07/08/17 00:04 86 07/07/17 22:45 98.5 87 18 105/52 (69) 97 07/07/17 20:11 82 07/07/17 19:23 98.1 90 16 112/55 (74) 97 I/O 07/07/17 07/07/17 07/07/17 07/08/17 07/08/17 07/08/17 07:00 15:00 23:00 07:00 15:00 23:00 Intake Total 480 ml 1150 ml 240 ml Balance 480 ml 1150 ml 240 ml Intake Oral 480 ml 240 ml IV Total 850 ml Other 300 ml # Voids 2 5 1 2 1 # Bowel Movements 5 1 1 Result Diagram: 07/07/17 1230 07/07/17 0540 Imaging Last Impressions Upper GI Series 07/08/17 0000 Signed Impressions: Service Date/Time: Saturday, July 08, 2017 09:24 - CONCLUSION: 1. Poor gastric and esophageal motility. Large hiatal hernia. Exam somewhat limited by patient' s mobility. No obstruction identified. Joaquin Nolan MD Chest CT 07/06/17 0000 Signed Impressions: Service Date/Time: Thursday, July 06, 2017 18:19 - CONCLUSION: 1. Infiltrates throughout the left upper and to a lesser extent the left lower lobe consistent with possible pneumonia. Clinical correlation is recommended. 2. Very large paraesophageal hiatal hernia containing half of the stomach which is distended and fluid-filled. The esophagus is also distended and fluid-filled. 3. 4.4 cm cystic splenic lesion is likely benign. 4. Renal cortical thinning bilaterally. 5. Degenerative changes and scoliosis of the thoracic spine. 1. Harsha Roberson MD Chest X-Ray 07/05/17 9460 Signed Impressions: Service Date/Time: Wednesday, July 05, 2017 23:42 - CONCLUSION: Abnormal chest appearance. Recommend contrasted CT chest. Satinder Mccarthy MD Objective Remarks GENERAL: NAD SKIN: Warm and dry. HEAD: Normocephalic. EYES: No scleral icterus. No injection or drainage. NECK: Supple, trachea midline. No JVD or lymphadenopathy. CARDIOVASCULAR: Regular rate and rhythm without murmurs, gallops, or rubs. RESPIRATORY: Breath sounds equal bilaterally. No accessory muscle use. GASTROINTESTINAL: Abdomen soft, non-tender, nondistended. MUSCULOSKELETAL: No cyanosis, or edema. BACK: Nontender without obvious deformity. No CVA tenderness. Procedures EGD 07/07/2017 1. There was LA Class D esophagitis noted 2. There was erythematous gastritis in the gastric antrum; A total of 550cc of liquid suctioned from the esophagus and stomach 3. Normal duodenal mucosa in the bulb and second portion of the duodenum 4. Retroflexed views revealed a hiatal hernia 5. Retroflexed views revealed Large hernia. A/P Problem List: (1) GI bleed ICD Code: K92.2 - Gastrointestinal hemorrhage, unspecified (2) HTN (hypertension) ICD Code: I10 - Essential (primary) hypertension (3) Dementia ICD Code: F03.90 - Unspecified dementia without behavioral disturbance Assessment and Plan 87-year-old female with GI Bleed, recurrent - Recent admit 06/15-06/19/17 for same, s/p multiple episodes of coffee-ground emesis at SNF and while in ER. - Recent EGD/Colonoscopy w/ esophagitis, esophageal stricture s/p dilatation , diverticulosis and internal/external hemorrhoids. - Continue Protonix gtt. - GI consulted - EGD shows large hernia which is causing stomach volvulus. -Upper GI series pending today July 08, 2017 -Continue H&H monitoring Hiatal hernia. -General surgery plan for repair Hypertension -Continue home medications - Amlodipine 10mg Qday and Lisinopril 5mg Qday. Mild hypernatremia - resolved. Dementia Hypothyroidism Aricept 5mg Qday, Levothyroxine 100 mcg Qday. Left lung pneumonia - CT chest reveals left upper and lower lobe infiltrates. -Continue PO Levaquin 750mg Qday X 7 days. Full code. SCDs. Changed to inpatient status Transfer to Jack Martin MD July 08, 2017 16:53
--- NOTE | 2017-07-08 17:51 | HHI.PR ---
cc: Jose Luis De La Torre MD Subjective Subjective Notes Resting in bed Objective Vitals/I&O Vital Signs Date Time Temp Pulse Resp B/P (MAP) Pulse Ox O2 Delivery O2 Flow Rate FiO2 07/08/17 16:53 81 07/08/17 16:26 98.6 16 113/52 (72) 96 07/06/17 03:31 Room Air Radiology Last [address] 07/06/17 0000 Signed Impressions: Service Date/Time: Thursday, July 06, 2017 18:19 - CONCLUSION: 1. Infiltrates throughout the left upper and to a lesser extent the left lower lobe consistent with possible pneumonia. Clinical correlation is recommended. 2. Very large paraesophageal hiatal hernia containing half of the stomach which is distended and fluid-filled. The esophagus is also distended and fluid-filled. 3. 4.4 cm cystic splenic lesion is likely benign. 4. Renal cortical thinning bilaterally. 5. Degenerative changes and scoliosis of the thoracic spine. 1. Harsha Roberson MD Chest X-Ray 07/05/17 2310 Signed Impressions: Service Date/Time: Wednesday, July 05, 2017 23:42 - CONCLUSION: Abnormal chest appearance. Recommend contrasted CT chest. Satinder Mccarthy MD Cardiovascular: Regular Lungs: Clear Abdomen: Other (minimally tender to palpation ) Extremities: No edema A/P Assessment and Plan 87 year old female with large hiatal hernia -NPO -Plan for OR -Will talk to POA for consent -Transfer to [facility] floor Attending Statement patient seen at bedside consider surgical intervention later this week cardio clearance discuss with POGavino Florez who agrees with plan Attestation The exam, history, and the medical decision-making described in the above note were completed with the assistance of the mid-level provider. I reviewed and agree with the findings presented. I attest that I had a [id number] encounter with the patient on the same day, and personally performed and documented my assessment and findings in the medical record. Saba Mosher HIGH LIGHTER/Bank Vault Clerk HIGH LIGHTER July 08, 2017 17:51 Jose Luis De La Torre MD July 12, 2017 06:10
[2017-07-08] MEDS: DONEPEZIL HCL 5 MG TAB PO SCH (21:54)
[2017-07-08] MEDS: MIRTAZAPINE 15 MG TAB PO SCH (21:54)
[2017-07-09] VITALS (8 sets, daily range): BP systolic 112–147; BP diastolic 52–67; PULSE 68–85; RESP 16–18; TEMP 97.9–98.7; O2SAT 66–97
[2017-07-09 07:18] LABS: AUTOMATED NEUTROPHIL # 5.4 TH/MM3 (1.8-7.7); BASOPHIL % 0.2 % (0.0-2.0); EOSINOPHIL # 0.2 TH/MM3 (0-0.4); EOSINOPHIL % 2.9 % (0.0-4.0); HEMATOCRIT 24.9 % (35.0-46.0); HEMOGLOBIN 8.5 GM/DL (11.6-15.3); LYMPHOCYTE # 0.6 TH/MM3 (1.0-4.8); MEAN CELL VOLUME 86.6 FL (80.0-100.0); MEAN CORPUSCULAR HEMOGLOBIN 29.6 PG (27.0-34.0); MEAN CORPUSCULAR HGB CONC 34.2 % (32.0-36.0); MEAN PLATELET VOLUME 10.5 FL (7.0-11.0); MONO % 3.8 % (0.0-8.0); MONOCYTE # 0.2 TH/MM3 (0-0.9); NEUT % 84.1 % (16.0-70.0); PLATELET COUNT 119 TH/MM3 (150-450); RED BLOOD COUNT 2.87 MIL/MM3 (4.00-5.30); RED CELL DISTRIBUTION WIDTH 15.4 % (11.6-17.2); WHITE BLOOD COUNT 6.5 TH/MM3 (4.0-11.0)
[2017-07-09 07:51] LABS: BICARBONATE 24.9 MEQ/L (21.0-32.0); CALCIUM 7.6 MG/DL (8.5-10.1); CREATININE 1.64 MG/DL (0.50-1.00)
[2017-07-09] MEDS ORDERED: POTASSIUM CHLORIDE 10 MEQ CONTROLLED RELEASE TAB PO ONE (08:30)
[2017-07-09] MEDS: SODIUM CHLORIDE 0.9% FLUSH 10 ML FLUSH IV FLUSH SCH ×2 (09:00→21:00)
[2017-07-09] MEDS: amLODIPine BESYLATE 5 MG TAB PO SCH (09:59)
[2017-07-09] MEDS: DOCUSATE SODIUM 50 MG/SENNA 8.6 MG TAB PO SCH (09:59)
[2017-07-09] MEDS: QUEtiapine FUMARATE 25 MG TAB PO SCH ×2 (09:59→21:41)
[2017-07-09] MEDS: DULoxetine HCl DR 20 MG CAP PO SCH (09:59)
[2017-07-09] MEDS: LEVOTHYROXINE SODIUM 100 MCG TAB PO SCH (09:59)
[2017-07-09] MEDS: PANTOPRAZOLE INJ 80 MG in SODIUM CHLORIDE 0.9% INJ 100 ML IV SCH ×2 (10:00→22:37)
[2017-07-09] MEDS: DEXTROSE 5%-LACTATED RING INJ 1,000 ML IV SCH (10:01)
--- NOTE | 2017-07-09 10:17 | HHI.PR ---
Subjective Remarks Follow-up recurrent GI bleed July 08, 2017-patient seen and examined, no more GI bleed. Denies any chest pain or shortness of breath. Currently n.p.o. an upper GI series. Case discussed with Justa Mosher, nurse practitioner for general surgery July 09, 2017-patient seen and examined, stable overnight and no acute event reported. Renal emesis worsening. H&H 8.5/24.9 however no report of any GI bleeding episode Objective Vitals Vital Signs Date Time Temp Pulse Resp B/P (MAP) Pulse Ox O2 Delivery O2 Flow Rate FiO2 07/09/17 08:10 98.2 68 16 133/58 (83) 96 07/09/17 03:24 97.9 85 18 112/52 (72) 97 07/09/17 00:01 84 07/08/17 23:36 98.1 75 18 101/49 (66) 92 07/08/17 16:53 81 07/08/17 16:26 98.6 78 16 113/52 (72) 96 07/08/17 12:48 98.0 78 18 100/49 (66) 97 07/08/17 11:31 82 I/O 07/08/17 07/08/17 07/08/17 07/09/17 07/09/17 07/09/17 07:00 15:00 23:00 07:00 15:00 23:00 Intake Total 240 ml 100 ml Balance 240 ml 100 ml Intake Oral 240 ml IV Total 100 ml # Voids 2 1 1 # Bowel Movements 1 Result Diagram: 07/09/17 0646 07/09/17 0646 Imaging Last Impressions Upper GI Series 07/08/17 0000 Signed Impressions: Service Date/Time: Saturday, July 08, 2017 09:24 - CONCLUSION: 1. Poor gastric and esophageal motility. Large hiatal hernia. Exam somewhat limited by patient' s mobility. No obstruction identified. Joaquin Nolan MD Chest CT 07/06/17 0000 Signed Impressions: Service Date/Time: Thursday, July 06, 2017 18:19 - CONCLUSION: 1. Infiltrates throughout the left upper and to a lesser extent the left lower lobe consistent with possible pneumonia. Clinical correlation is recommended. 2. Very large paraesophageal hiatal hernia containing half of the stomach which is distended and fluid-filled. The esophagus is also distended and fluid-filled. 3. 4.4 cm cystic splenic lesion is likely benign. 4. Renal cortical thinning bilaterally. 5. Degenerative changes and scoliosis of the thoracic spine. 1. Harsha Roberson MD Chest X-Ray 07/05/17 2310 Signed Impressions: Service Date/Time: Wednesday, July 05, 2017 23:42 - CONCLUSION: Abnormal chest appearance. Recommend contrasted CT chest. Satinder Mccarthy MD Objective Remarks GENERAL: NAD SKIN: Warm and dry. HEAD: Normocephalic. EYES: No scleral icterus. No injection or drainage. NECK: Supple, trachea midline. No JVD or lymphadenopathy. CARDIOVASCULAR: Regular rate and rhythm without murmurs, gallops, or rubs. RESPIRATORY: Breath sounds equal bilaterally. No accessory muscle use. GASTROINTESTINAL: Abdomen soft, non-tender, nondistended. MUSCULOSKELETAL: No cyanosis, or edema. BACK: Nontender without obvious deformity. No CVA tenderness. Procedures EGD 07/07/2017 1. There was LA Class D esophagitis noted 2. There was erythematous gastritis in the gastric antrum; A total of 550cc of liquid suctioned from the esophagus and stomach 3. Normal duodenal mucosa in the bulb and second portion of the duodenum 4. Retroflexed views revealed a hiatal hernia 5. Retroflexed views revealed Large hernia. A/P Problem List: (1) GI bleed ICD Code: K92.2 - Gastrointestinal hemorrhage, unspecified (2) HTN (hypertension) ICD Code: I10 - Essential (primary) hypertension (3) Dementia ICD Code: F03.90 - Unspecified dementia without behavioral disturbance Assessment and Plan 87-year-old female with GI Bleed, recurrent - Recent admit 06/15-06/19/17 for same, s/p multiple episodes of coffee-ground emesis at SNF and while in ER. - Recent EGD/Colonoscopy w/ esophagitis, esophageal stricture s/p dilatation , diverticulosis and internal/external hemorrhoids. - Continue Protonix gtt. - GI consulted - EGD shows large hernia which is causing stomach volvulus. -Upper GI series -poor gastric and esophageal motility -Continue H&H monitoring Hiatal hernia. -General surgery plan for possible repair Hypertension -Continue home medications - Amlodipine 10mg Qday and Lisinopril 5mg Qday. Mild hypernatremia - resolved. Dementia Hypothyroidism Aricept 5mg Qday, Levothyroxine 100 mcg Qday. Left lung pneumonia - CT chest reveals left upper and lower lobe infiltrates. -Continue PO Levaquin 750mg Qday X 7 days until Friday, July 09, 2017. Hypokalemia Replace electrolytes and monitor Acute renal injury Gentle IV fluid hydration and monitor BUN and creatinine Avoid all nephrotoxic drug Full code. SCDs. Transfer to Jack Martin MD July 09, 2017 10:17
[2017-07-09] MEDS ORDERED: POTASSIUM CHLORIDE 25 MEQ EFFERVESCENT TAB PO ONE (10:30)
[2017-07-09] MEDS: LEVOFLOXACIN 250 MG TAB PO SCH (11:55)
[2017-07-09] MEDS: 1/2 NS + KCL 20 MEQ INJ 1,000 ML IV SCH ×2 (11:56→22:43)
--- NOTE | 2017-07-09 15:55 | HHI.PR ---
cc: Jose Luis De La Torre MD Subjective Subjective Notes Sitting on the side of the bed No issues ---Tolerating diet Objective Vitals/I&O Vital Signs Date Time Temp Pulse Resp B/P (MAP) Pulse Ox O2 Delivery O2 Flow Rate FiO2 07/09/17 15:20 98.7 69 16 147/63 (91) 96 07/06/17 03:31 Room Air Labs Laboratory Tests Test 07/09/17 06:46 White Blood Count 6.5 Red Blood Count 2.87 Hemoglobin 8.5 Hematocrit 24.9 Mean Corpuscular Volume 86.6 Mean Corpuscular Hemoglobin 29.6 Mean Corpuscular Hemoglobin Concent 34.2 Red Cell Distribution Width 15.4 Platelet Count 119 Mean Platelet Volume 10.5 Neutrophils (%) (Auto) 84.1 Lymphocytes (%) (Auto) 9.0 Monocytes (%) (Auto) 3.8 Eosinophils (%) (Auto) 2.9 Basophils (%) (Auto) 0.2 Neutrophils # (Auto) 5.4 Lymphocytes # (Auto) 0.6 Monocytes # (Auto) 0.2 Eosinophils # (Auto) 0.2 Basophils # (Auto) 0.0 CBC Comment DIFF FINAL Differential Comment Blood Urea Nitrogen 44 Creatinine 1.64 Random Glucose 92 Calcium Level 7.6 Sodium Level 145 Potassium Level 3.2 Chloride Level 111 Carbon Dioxide Level 24.9 Anion Gap 9 Estimat Glomerular Filtration Rate 30 Radiology Last [address] 07/06/17 0000 Signed Impressions: Service Date/Time: Thursday, July 06, 2017 18:19 - CONCLUSION: 1. Infiltrates throughout the left upper and to a lesser extent the left lower lobe consistent with possible pneumonia. Clinical correlation is recommended. 2. Very large paraesophageal hiatal hernia containing half of the stomach which is distended and fluid-filled. The esophagus is also distended and fluid-filled. 3. 4.4 cm cystic splenic lesion is likely benign. 4. Renal cortical thinning bilaterally. 5. Degenerative changes and scoliosis of the thoracic spine. 1. Harsha Roberson MD Chest X-Ray 07/05/17 2310 Signed Impressions: Service Date/Time: Wednesday, July 05, 2017 23:42 - CONCLUSION: Abnormal chest appearance. Recommend contrasted CT chest. Satinder Mccarthy MD Cardiovascular: Regular Lungs: Clear Abdomen: Non-distended, Non-tender Extremities: No edema A/P Assessment and Plan 87 year old female with large hiatal hernia -Full liquids; NPO after MN -Plan for OR -Will talk to POA for consent---Dr. De La Torre to call son -Transfer to [facility] floor Attending Statement patient seen at bedside discuss options I discussed with Checo regarding surgical intervention he would like to postpone till friday when he and the family will be available will await cardio clearance Attestation The exam, history, and the medical decision-making described in the above note were completed with the assistance of the mid-level provider. I reviewed and agree with the findings presented. I attest that I had a [id number] encounter with the patient on the same day, and personally performed and documented my assessment and findings in the medical record. Saba MosherP/[facility] ICU REGISTERED NURSE July 09, 2017 15:55 Jose Luis De La Torre MD July 12, 2017 21:36
--- NOTE | 2017-07-09 19:13 | MB ---
cc: Jacoby Saldivar MD DATE: 07/09/2017 HISTORY OF PRESENT ILLNESS: An 87-year-old white female with history of atrial fibrillation, COPD, coronary artery disease, diabetes mellitus, dementia, presented with coffee ground emesis. She was found to have a large hiatal hernia. She is supposed to undergo surgery in the near future. Preoperative evaluation has been requested. The patient denies any chest pain or shortness of breath. PAST MEDICAL HISTORY: Positive for coronary artery disease, COPD, depression, anxiety, atrial fibrillation, dementia, diabetes mellitus, GI bleeding, colonoscopy in 06/2017 showed diverticulosis, polypectomy and hemorrhoids. EGD showed esophagitis, stricture of the distal esophagus, which was dilated, and hiatal hernia. ALLERGIES: PENICILLIN, THIAZIDES, CARVEDILOL, DICLOFENAC, TRIAMCINOLONE. MEDICATIONS: Potassium, levofloxacin, amlodipine, Aricept, Remeron, Cymbalta, Synthroid. Seroquel. SOCIAL HISTORY: The patient does not smoke. She drinks alcohol infrequently. FAMILY HISTORY: Negative for heart disease. REVIEW OF SYSTEMS: Otherwise negative. PHYSICAL EXAMINATION: VITAL SIGNS: Blood pressure 147/63, pulse 69 and regular. HEENT: Negative. NECK: 2+ carotid upstrokes, no bruits. LUNGS: Clear. HEART: Regular with no murmur, gallop or rub. ABDOMEN: Soft, no bruits. EXTREMITIES: Without edema, 2+ distal pulses. NEUROLOGIC: Grossly nonfocal. The patient has mild confusion. DIAGNOSTIC DATA: EKG was reviewed and showed a normal sinus rhythm, normal axis and intervals, no acute changes. LABORATORY DATA: Hemoglobin 8.5. Potassium 3.2, creatinine 1.64. AST and ALT normal. DIAGNOSES: 1. Gastrointestinal bleeding. 2. Hypertension. 3. Dementia. 4. Renal insufficiency. 5. Left lung pneumonia. 6. Hiatal hernia. DISPOSITION: Ms. Florez has not had any recent angina or heart failure symptoms. She stays in sinus rhythm. Her risk of perioperative cardiac complications is increased, but not necessarily prohibitive. We will obtain echocardiogram to evaluate her left ventricular function. I will follow her for cardiology during her hospitalization. Jacoby Saldivar MD OQ/SB , 06:37 PM , 07:12 PM YOBANI
[2017-07-09] MEDS: DONEPEZIL HCL 5 MG TAB PO SCH (21:41)
[2017-07-09] MEDS: MIRTAZAPINE 15 MG TAB PO SCH (21:41)
[2017-07-10] VITALS (9 sets, daily range): BP systolic 106–189; BP diastolic 55–77; PULSE 57–80; RESP 16–20; TEMP 97.6–98.7; O2SAT 96–99
[2017-07-10 08:36] LABS: AUTOMATED NEUTROPHIL # 4.1 TH/MM3 (1.8-7.7); BASOPHIL % 0.5 % (0.0-2.0); EOSINOPHIL # 0.2 TH/MM3 (0-0.4); EOSINOPHIL % 3.5 % (0.0-4.0); HEMATOCRIT 25.1 % (35.0-46.0); HEMOGLOBIN 8.4 GM/DL (11.6-15.3); LYMPHOCYTE # 0.5 TH/MM3 (1.0-4.8); MEAN CELL VOLUME 87.3 FL (80.0-100.0); MEAN CORPUSCULAR HEMOGLOBIN 29.1 PG (27.0-34.0); MEAN CORPUSCULAR HGB CONC 33.3 % (32.0-36.0); MEAN PLATELET VOLUME 10.8 FL (7.0-11.0); MONO % 3.8 % (0.0-8.0); MONOCYTE # 0.2 TH/MM3 (0-0.9); NEUT % 82.2 % (16.0-70.0); PLATELET COUNT 118 TH/MM3 (150-450); RED BLOOD COUNT 2.88 MIL/MM3 (4.00-5.30); RED CELL DISTRIBUTION WIDTH 15.1 % (11.6-17.2)
[2017-07-10 09:27] LABS: BICARBONATE 25.6 MEQ/L (21.0-32.0); CALCIUM 7.9 MG/DL (8.5-10.1); CREATININE 1.12 MG/DL (0.50-1.00)
[2017-07-10] MEDS: PANTOPRAZOLE INJ 80 MG in SODIUM CHLORIDE 0.9% INJ 100 ML IV SCH ×2 (09:29→18:46)
[2017-07-10] MEDS: SODIUM CHLORIDE 0.9% FLUSH 10 ML FLUSH IV FLUSH SCH ×2 (09:30→20:54)
[2017-07-10] MEDS: LEVOFLOXACIN 250 MG TAB PO SCH (09:30)
[2017-07-10] MEDS: amLODIPine BESYLATE 5 MG TAB PO SCH (09:31)
[2017-07-10] MEDS: DULoxetine HCl DR 20 MG CAP PO SCH (09:31)
[2017-07-10] MEDS: QUEtiapine FUMARATE 25 MG TAB PO SCH ×2 (09:32→20:54)
[2017-07-10] MEDS: LEVOTHYROXINE SODIUM 100 MCG TAB PO SCH (09:32)
--- NOTE | 2017-07-10 09:32 | HHI.PR ---
Subjective Remarks Follow-up recurrent GI bleed July 08, 2017-patient seen and examined, no more GI bleed. Denies any chest pain or shortness of breath. Currently n.p.o. an upper GI series. Case discussed with Justa Mosher, nurse practitioner for general surgery July 09, 2017-patient seen and examined, stable overnight and no acute event reported. Renal indices worsening. H&H 8.5/24.9 however no report of any GI bleeding episode July 10, 2017-patient seen and examined, no change and patient remained stable. Renal indices improving. Currently n.p.o. Objective Vitals Vital Signs Date Time Temp Pulse Resp B/P (MAP) Pulse Ox O2 Delivery O2 Flow Rate FiO2 07/10/17 07:30 98.1 79 16 189/77 (114) 98 07/10/17 04:00 97.6 75 18 141/62 (88) 98 07/10/17 00:00 98.0 80 20 106/55 (72) 99 07/09/17 21:45 98.7 83 16 135/63 (87) 93 07/09/17 15:20 98.7 69 16 147/63 (91) 96 07/09/17 11:28 98.0 70 18 147/65 (92) 97 I/O 07/09/17 07/09/17 07/09/17 07/10/17 07/10/17 07/10/17 07:00 15:00 23:00 07:00 15:00 23:00 Intake Total 600 ml 480 ml Balance 600 ml 480 ml Intake Oral 525 ml 480 ml IV Total 75 ml # Voids 2 2 Result Diagram: 07/10/17 0829 07/10/17 0829 Imaging Last Impressions Upper GI Series 07/08/17 0000 Signed Impressions: Service Date/Time: Saturday, July 08, 2017 09:24 - CONCLUSION: 1. Poor gastric and esophageal motility. Large hiatal hernia. Exam somewhat limited by patient' s mobility. No obstruction identified. Joaquin Nolan MD Chest CT 07/06/17 0000 Signed Impressions: Service Date/Time: Thursday, July 06, 2017 18:19 - CONCLUSION: 1. Infiltrates throughout the left upper and to a lesser extent the left lower lobe consistent with possible pneumonia. Clinical correlation is recommended. 2. Very large paraesophageal hiatal hernia containing half of the stomach which is distended and fluid-filled. The esophagus is also distended and fluid-filled. 3. 4.4 cm cystic splenic lesion is likely benign. 4. Renal cortical thinning bilaterally. 5. Degenerative changes and scoliosis of the thoracic spine. 1. Harsha Roberson MD Chest X-Ray 07/05/17 4020 Signed Impressions: Service Date/Time: Wednesday, July 05, 2017 23:42 - CONCLUSION: Abnormal chest appearance. Recommend contrasted CT chest. Satinder Mccarthy MD Objective Remarks GENERAL: NAD SKIN: Warm and dry. HEAD: Normocephalic. EYES: No scleral icterus. No injection or drainage. NECK: Supple, trachea midline. No JVD or lymphadenopathy. CARDIOVASCULAR: Regular rate and rhythm without murmurs, gallops, or rubs. RESPIRATORY: Breath sounds equal bilaterally. No accessory muscle use. GASTROINTESTINAL: Abdomen soft, non-tender, nondistended. MUSCULOSKELETAL: No cyanosis, or edema. BACK: Nontender without obvious deformity. No CVA tenderness. Procedures EGD 07/07/2017 1. There was LA Class D esophagitis noted 2. There was erythematous gastritis in the gastric antrum; A total of 550cc of liquid suctioned from the esophagus and stomach 3. Normal duodenal mucosa in the bulb and second portion of the duodenum 4. Retroflexed views revealed a hiatal hernia 5. Retroflexed views revealed Large hernia. A/P Problem List: (1) GI bleed ICD Code: K92.2 - Gastrointestinal hemorrhage, unspecified (2) HTN (hypertension) ICD Code: I10 - Essential (primary) hypertension (3) Dementia ICD Code: F03.90 - Unspecified dementia without behavioral disturbance Assessment and Plan 87-year-old female with GI Bleed, recurrent - Recent admit 06/15-06/19/17 for same, s/p multiple episodes of coffee-ground emesis at SNF and while in ER. - Recent EGD/Colonoscopy w/ esophagitis, esophageal stricture s/p dilatation , diverticulosis and internal/external hemorrhoids. - Continue Protonix gtt. - GI consulted - EGD shows large hernia which is causing stomach volvulus. -Upper GI series -poor gastric and esophageal motility -Continue H&H monitoring Hiatal hernia. -General surgery plan for possible repair possible today July 10, 2017 Hypertension -Continue home medications - Amlodipine 10mg Qday and Lisinopril 5mg Qday. Mild hypernatremia - resolved. Dementia Hypothyroidism Aricept 5mg Qday, Levothyroxine 100 mcg Qday. Left lung pneumonia - CT chest reveals left upper and lower lobe infiltrates. -completed PO Levaquin 750mg Qday Hypokalemia Replace electrolytes and monitor Acute renal injury Renal indices improving with gentle IV fluid hydration monitor BUN and creatinine Avoid all nephrotoxic drug Full code. SCDs. Jack Bailey MD July 10, 2017 09:32
--- NOTE | 2017-07-10 11:44 | HHI.PR ---
Subjective Subjective Notes no acute issues, tolerating liquids, but decreased po intake Objective Vitals/I&O Vital Signs Date Time Temp Pulse Resp B/P (MAP) Pulse Ox O2 Delivery O2 Flow Rate FiO2 07/10/17 07:30 98.1 79 16 189/77 (114) 98 Labs Laboratory Tests Test 07/10/17 08:29 White Blood Count 5.0 Red Blood Count 2.88 Hemoglobin 8.4 Hematocrit 25.1 Mean Corpuscular Volume 87.3 Mean Corpuscular Hemoglobin 29.1 Mean Corpuscular Hemoglobin Concent 33.3 Red Cell Distribution Width 15.1 Platelet Count 118 Mean Platelet Volume 10.8 Neutrophils (%) (Auto) 82.2 Lymphocytes (%) (Auto) 10.0 Monocytes (%) (Auto) 3.8 Eosinophils (%) (Auto) 3.5 Basophils (%) (Auto) 0.5 Neutrophils # (Auto) 4.1 Lymphocytes # (Auto) 0.5 Monocytes # (Auto) 0.2 Eosinophils # (Auto) 0.2 Basophils # (Auto) 0.0 CBC Comment DIFF FINAL Differential Comment Blood Urea Nitrogen 20 Creatinine 1.12 Random Glucose 89 Calcium Level 7.9 Sodium Level 145 Potassium Level 4.1 Chloride Level 110 Carbon Dioxide Level 25.6 Anion Gap 9 Estimat Glomerular Filtration Rate 46 Radiology Last [address] 07/06/17 0000 Signed Impressions: Service Date/Time: Thursday, July 06, 2017 18:19 - CONCLUSION: 1. Infiltrates throughout the left upper and to a lesser extent the left lower lobe consistent with possible pneumonia. Clinical correlation is recommended. 2. Very large paraesophageal hiatal hernia containing half of the stomach which is distended and fluid-filled. The esophagus is also distended and fluid-filled. 3. 4.4 cm cystic splenic lesion is likely benign. 4. Renal cortical thinning bilaterally. 5. Degenerative changes and scoliosis of the thoracic spine. 1. Harsha Roberson MD Chest X-Ray 07/05/17 2310 Signed Impressions: Service Date/Time: Wednesday, July 05, 2017 23:42 - CONCLUSION: Abnormal chest appearance. Recommend contrasted CT chest. Satinder Mccarthy MD Lungs: Clear Abdomen: Non-distended A/P Assessment and Plan 87 year old female with large hiatal hernia -Full liquids, discussed with son Checo Florez POA- plan for OR friday, Pt to discuss more with son regarding operative intervention -Transfer to [facility] floor Jose Luis De La Torre MD July 10, 2017 11:44
[2017-07-10] MEDS: 1/2 NS + KCL 20 MEQ INJ 1,000 ML IV SCH (14:15)
--- NOTE | 2017-07-10 18:42 | PD.CARD.PN ---
Subjective Subjective Remarks No CP or SOB, she states she does not want her surgery Objective Medications Current Medications Medications (Trade) Dose Ordered Sig/Brenna Route Start Time Stop Time Status Last Admin (NS Flush) 2 ml UNSCH PRN IV FLUSH 07/06/17 03:15 (NS Flush) 2 ml BID IV FLUSH 07/06/17 09:00 07/07/17 09:15 (Zofran Inj) 4 mg Q6H PRN IVP 07/06/17 03:15 07/07/17 09:15 (Tylenol) 650 mg Q6H PRN PO 07/06/17 03:15 ([place] 5-325 Mg) 1 tab Q4H PRN PO 07/06/17 03:15 (Morphine Inj) 1 mg Q3H PRN IV 07/06/17 03:15 07/07/17 09:15 (Milk Of Magnesia Liq) 30 ml Q12H PRN PO 07/06/17 03:15 (Aricept) 5 mg HS PO 07/06/17 21:00 07/09/17 21:41 (Cymbalta Dr) 20 mg DAILY PO 07/06/17 09:00 07/10/17 09:31 (Synthroid) 100 mcg DAILY PO 07/06/17 09:00 07/10/17 09:32 (Ativan) 0.5 mg BID PRN PO 07/06/17 03:15 (Remeron) 15 mg HS PO 07/06/17 21:00 07/09/17 21:41 (SEROquel) 25 mg BID PO 07/06/17 09:00 07/10/17 09:32 Pantoprazole Sodium 80 mg/ Sodium Chloride 100 ml @ 10 mls/hr Q10H IV 07/06/17 04:37 07/10/17 09:29 (Compazine Inj) 10 mg Q6H PRN IV PUSH 07/06/17 04:00 07/06/17 04:04 (Prinivil) 5 mg DAILY PO 07/06/17 09:00 Future Hold 07/07/17 09:16 (Norvasc) 2.5 mg DAILY PO 07/08/17 09:30 07/10/17 09:31 (Pill Splitter) 1 ea UNSCH PRN OTHER 07/08/17 09:30 (Levaquin) 250 mg DAILY PO 07/09/17 09:30 07/10/17 09:30 Potassium Chloride/Sodium Chloride 1,000 ml @ 50 mls/hr Q20H IV 07/09/17 10:30 07/10/17 14:15 (Catapres) 0.1 mg Q6H PRN PO 07/10/17 18:00 Vital Signs / I&O Vital Signs Date Time Temp Pulse Resp B/P (MAP) Pulse Ox O2 Delivery O2 Flow Rate FiO2 07/10/17 17:57 65 07/10/17 16:15 98.4 62 16 169/74 (105) 98 07/10/17 12:00 98.4 69 16 172/69 (103) 96 07/10/17 08:01 57 07/10/17 07:30 98.1 79 16 189/77 (114) 98 07/10/17 04:00 97.6 75 18 141/62 (88) 98 07/10/17 00:00 98.0 80 20 106/55 (72) 99 07/09/17 21:45 98.7 83 16 135/63 (87) 93 I/O 07/09/17 07/09/17 07/09/17 07/10/17 07/10/17 07/10/17 07:00 15:00 23:00 07:00 15:00 23:00 Intake Total 600 ml 480 ml Balance 600 ml 480 ml Intake Oral 525 ml 480 ml IV Total 75 ml # Voids 2 2 Physical Exam GENERAL: In NAD. SKIN: Warm and dry. HEAD: Normocephalic. EYES: No scleral icterus. No injection or drainage. NECK: Supple, trachea midline. No JVD or lymphadenopathy. CARDIOVASCULAR: Regular rate and rhythm without murmurs, gallops, or rubs. RESPIRATORY: Breath sounds equal bilaterally. No accessory muscle use. GASTROINTESTINAL: Abdomen soft, non-tender, nondistended. MUSCULOSKELETAL: No cyanosis, or edema. Laboratory Laboratory Tests Test 07/10/17 08:29 White Blood Count 5.0 TH/MM3 Red Blood Count 2.88 MIL/MM3 Hemoglobin 8.4 GM/DL Hematocrit 25.1 % Mean Corpuscular Volume 87.3 FL Mean Corpuscular Hemoglobin 29.1 PG Mean Corpuscular Hemoglobin Concent 33.3 % Red Cell Distribution Width 15.1 % Platelet Count 118 TH/MM3 Mean Platelet Volume 10.8 FL Neutrophils (%) (Auto) 82.2 % Lymphocytes (%) (Auto) 10.0 % Monocytes (%) (Auto) 3.8 % Eosinophils (%) (Auto) 3.5 % Basophils (%) (Auto) 0.5 % Neutrophils # (Auto) 4.1 TH/MM3 Lymphocytes # (Auto) 0.5 TH/MM3 Monocytes # (Auto) 0.2 TH/MM3 Eosinophils # (Auto) 0.2 TH/MM3 Basophils # (Auto) 0.0 TH/MM3 CBC Comment DIFF FINAL Differential Comment Blood Urea Nitrogen 20 MG/DL Creatinine 1.12 MG/DL Random Glucose 89 MG/DL Calcium Level 7.9 MG/DL Sodium Level 145 MEQ/L Potassium Level 4.1 MEQ/L Chloride Level 110 MEQ/L Carbon Dioxide Level 25.6 MEQ/L Anion Gap 9 MEQ/L Estimat Glomerular Filtration Rate 46 ML/MIN Assessment and Plan Problem List: (1) GI bleed ICD Codes: K92.2 - Gastrointestinal hemorrhage, unspecified (2) Hiatal hernia ICD Codes: K44.9 - Diaphragmatic hernia without obstruction or gangrene (3) HTN (hypertension) ICD Codes: I10 - Essential (primary) hypertension (4) Dementia ICD Codes: F03.90 - Unspecified dementia without behavioral disturbance Assessment and Plan No cardiac symptoms. Echo pending. She states she does not want any surgery at this time. Continue to monitor. Surg eval in progress. Jacoby Saldivar MD July 10, 2017 18:42
--- NOTE | 2017-07-10 18:53 | ECHRPT ---
Indication: ATRIAL FIB/FLUTTER CONCLUSIONS Normal left ventricular size. The left ventricular systolic function is hyperdynamic with an estimated ejection fraction in the ra nge of 65- 70%. Wall thickness is normal. The right atrial size is moderately dilated. Moderate mitral annular calcification. Mild mitral valve regurgitation. There is mild tricuspid valve regurgitation. The estimated pulmonary arterial pressure is 43.2 mmHg. BP: 141 / 62 HR: Rhythm: Sinus MEASUREMENTS (Male / Female) Normal Values Technical Quality:Fair 2D ECHO LV Diastolic Diameter PLAX 4.5 cm 4.2 - 5.9 / 3.9 - 5.3 cm LV Systolic Diameter PLAX 3.0 cm IVS Diastolic Thickness 1.0 cm 0.6 - 1.0 / 0.6 - 0.9 cm LVPW Diastolic Thickness 1.0 cm 0.6 - 1.0 / 0.6 - 0.9 cm LV Relative Wall Thickness 0.4 RV Internal Dim ED PLAX 1.8 cm LVOT Diameter 1.7 cm Aortic Root Diameter 2.3 cm LA Systolic Diameter LX 3.5 cm 3.0 - 4.0 / 2.7 - 3.8 cm M-MODE AV Cusp Separation MM 1.6 cm DOPPLER AV Peak Velocity 164.0 cm/s AV Peak Gradient 10.8 mmHg AV Mean Gradient 6.0 mmHg AV Velocity Time Integral 35.5 cm LVOT Peak Velocity 105.0 cm/s LVOT Peak Gradient 4.4 mmHg LVOT Velocity Time Integral 20.7 cm AV Area Cont Eq vti 1.3 cm AV Area Cont Eq pk 1.5 cm Mitral E Point Velocity 134.0 cm/s Mitral A Point Velocity 132.0 cm/s Mitral E to A Ratio 1.0 TR Peak Velocity 288.0 cm/s TR Peak Gradient 33.2 mmHg Right Atrial Pressure 10.0 mmHg Pulmonary Artery Systolic Pressu 43.2 mmHg Right Ventricular Systolic Press 43.2 mmHg PV Peak Velocity 64.7 cm/s PV Peak Gradient 1.7 mmHg FINDINGS LEFT VENTRICLE Normal left ventricular size. The left ventricular systolic function is hyperdynamic with an estimated ejection fraction in the ra nge of 65- 70%. Wall thickness is normal. RIGHT VENTRICLE Normal right ventricular size and systolic function. RIGHT ATRIUM The right atrial size is moderately dilated. ATRIAL SEPTUM No atrial level shunt is demonstrated by color flow Doppler interrogation. AORTA The aortic root and proximal ascending aorta are normal in size on limited imaging. MITRAL VALVE Moderate mitral annular calcification. Mild mitral valve regurgitation. AORTIC VALVE Trileaflet aortic valve. No aortic valve stenosis or regurgitation. TRICUSPID VALVE There is mild tricuspid valve regurgitation. The estimated pulmonary arterial pressure is 43.2 mmHg. PULMONARY VALVE No pulmonary valve regurgitation or stenosis. VESSELS The inferior vena cava is normal in size. PERICARDIUM No pericardial effusion. Dakotah Bo MD, FACC, [facility] [place] (Electronically Signed) Final Date:10 Jul 2017 18:51
[2017-07-10] MEDS: MIRTAZAPINE 15 MG TAB PO SCH (20:53)
[2017-07-10] MEDS: DONEPEZIL HCL 5 MG TAB PO SCH (20:54)
[2017-07-11] VITALS (11 sets, daily range): BP systolic 160–185; BP diastolic 67–74; PULSE 60–88; RESP 16–20; TEMP 97.6–98.7; O2SAT 94–98
[2017-07-11] MEDS: PANTOPRAZOLE INJ 80 MG in SODIUM CHLORIDE 0.9% INJ 100 ML IV SCH ×2 (04:37→11:22)
[2017-07-11] MEDS: DULoxetine HCl DR 20 MG CAP PO SCH (08:13)
[2017-07-11] MEDS: SODIUM CHLORIDE 0.9% FLUSH 10 ML FLUSH IV FLUSH SCH ×2 (08:13→20:47)
[2017-07-11] MEDS: LEVOFLOXACIN 250 MG TAB PO SCH (08:13)
[2017-07-11] MEDS: amLODIPine BESYLATE 5 MG TAB PO SCH (08:15)
[2017-07-11] MEDS: LEVOTHYROXINE SODIUM 100 MCG TAB PO SCH (08:15)
[2017-07-11] MEDS: QUEtiapine FUMARATE 25 MG TAB PO SCH ×2 (08:15→20:46)
--- NOTE | 2017-07-11 08:34 | HHI.PR ---
Subjective Remarks Follow-up recurrent GI bleed July 08, 2017-patient seen and examined, no more GI bleed. Denies any chest pain or shortness of breath. Currently n.p.o. an upper GI series. Case discussed with Justa Mosher, nurse practitioner for general surgery July 09, 2017-patient seen and examined, stable overnight and no acute event reported. Renal indices worsening. H&H 8.5/24.9 however no report of any GI bleeding episode July 10, 2017-patient seen and examined, no change and patient remained stable. Renal indices improving. Currently n.p.o. July 11, 2017-patient seen and examined, no acute event overnight. Surgery plan for next Friday. Objective Vitals Vital Signs Date Time Temp Pulse Resp B/P (MAP) Pulse Ox O2 Delivery O2 Flow Rate FiO2 07/11/17 08:01 98.4 88 20 185/74 (111) 94 07/11/17 07:45 60 07/11/17 04:18 98.7 75 16 169/74 (105) 97 07/11/17 04:15 63 07/10/17 22:52 97.9 67 16 154/68 (96) 97 07/10/17 19:45 98.7 64 16 146/63 (90) 98 07/10/17 17:57 65 07/10/17 16:15 98.4 62 16 169/74 (105) 98 07/10/17 12:00 98.4 69 16 172/69 (103) 96 I/O 07/10/17 07/10/17 07/10/17 07/11/17 07/11/17 07/11/17 07:00 15:00 23:00 07:00 15:00 23:00 Intake Total 480 ml Balance 480 ml Intake Oral 480 ml # Voids 2 Result Diagram: 07/10/1782807/10/17828 Objective Remarks GENERAL: NAD SKIN: Warm and dry. HEAD: Normocephalic. EYES: No scleral icterus. No injection or drainage. NECK: Supple, trachea midline. No JVD or lymphadenopathy. CARDIOVASCULAR: Regular rate and rhythm without murmurs, gallops, or rubs. RESPIRATORY: Breath sounds equal bilaterally. No accessory muscle use. GASTROINTESTINAL: Abdomen soft, non-tender, nondistended. MUSCULOSKELETAL: No cyanosis, or edema. BACK: Nontender without obvious deformity. No CVA tenderness. Procedures EGD 07/07/2017 1. There was LA Class D esophagitis noted 2. There was erythematous gastritis in the gastric antrum; A total of 550cc of liquid suctioned from the esophagus and stomach 3. Normal duodenal mucosa in the bulb and second portion of the duodenum 4. Retroflexed views revealed a hiatal hernia 5. Retroflexed views revealed Large hernia. A/P Problem List: (1) GI bleed ICD Code: K92.2 - Gastrointestinal hemorrhage, unspecified (2) HTN (hypertension) ICD Code: I10 - Essential (primary) hypertension (3) Dementia ICD Code: F03.90 - Unspecified dementia without behavioral disturbance Assessment and Plan 87-year-old female with GI Bleed, recurrent - Recent admit 06/15-06/19/17 for same, s/p multiple episodes of coffee-ground emesis at SNF and while in ER. - Recent EGD/Colonoscopy w/ esophagitis, esophageal stricture s/p dilatation , diverticulosis and internal/external hemorrhoids. - Continue Protonix gtt. - GI consulted - EGD shows large hernia which is causing stomach volvulus. -Upper GI series -poor gastric and esophageal motility -Continue H&H monitoring Hiatal hernia. -General surgery plan for possible repair Friday July 14, 2017 Hypertension -Continue home medications - Amlodipine 10mg Qday and Lisinopril 5mg Qday. Mild hypernatremia - resolved. Dementia Hypothyroidism Aricept 5mg Qday, Levothyroxine 100 mcg Qday. Left lung pneumonia - CT chest reveals left upper and lower lobe infiltrates. -completed PO Levaquin 750mg Qday Hypokalemia Resolved Acute renal injury-improving Renal indices improving with gentle IV fluid hydration monitor BUN and creatinine Avoid all nephrotoxic drug Full code. SCDs. Jack Bailey MD July 11, 2017 08:34
--- NOTE | 2017-07-11 11:03 | HHI.PR ---
cc: Jose Luis De La Torre MD Subjective Subjective Notes Resting in bed "I am so cold!" Objective Vitals/I&O Vital Signs Date Time Temp Pulse Resp B/P (MAP) Pulse Ox O2 Delivery O2 Flow Rate FiO2 07/11/17 08:01 98.4 88 20 185/74 (111) 94 Radiology Last [address] 07/06/17 0000 Signed Impressions: Service Date/Time: Thursday, July 06, 2017 18:19 - CONCLUSION: 1. Infiltrates throughout the left upper and to a lesser extent the left lower lobe consistent with possible pneumonia. Clinical correlation is recommended. 2. Very large paraesophageal hiatal hernia containing half of the stomach which is distended and fluid-filled. The esophagus is also distended and fluid-filled. 3. 4.4 cm cystic splenic lesion is likely benign. 4. Renal cortical thinning bilaterally. 5. Degenerative changes and scoliosis of the thoracic spine. 1. Harsha Roberson MD Chest X-Ray 07/05/17 2310 Signed Impressions: Service Date/Time: Wednesday, July 05, 2017 23:42 - CONCLUSION: Abnormal chest appearance. Recommend contrasted CT chest. Satinder Mccarthy MD Cardiovascular: Regular Lungs: Clear Abdomen: Non-distended, Non-tender Extremities: No edema Narrative Exam Confused A/P Assessment and Plan 87 year old female with large hiatal hernia -Full liquids -Plan for OR Friday if son agrees -Will talk to A for consent---Dr. De La Torre to call son -Transfer to [facility] floor Saba MosherP/[employer] July 11, 2017 11:03
[2017-07-11] MEDS: 1/2 NS + KCL 20 MEQ INJ 1,000 ML IV SCH ×2 (11:22→11:35)
--- NOTE | 2017-07-11 16:58 | PD.CARD.PN ---
Subjective Subjective Remarks No CP or SOB, confused and angry Objective Medications Current Medications Medications (Trade) Dose Ordered Sig/Brenna Route Start Time Stop Time Status Last Admin (NS Flush) 2 ml UNSCH PRN IV FLUSH 07/06/17 03:15 (NS Flush) 2 ml BID IV FLUSH 07/06/17 09:00 07/07/17 09:15 (Zofran Inj) 4 mg Q6H PRN IVP 07/06/17 03:15 07/07/17 09:15 (Tylenol) 650 mg Q6H PRN PO 07/06/17 03:15 ([place] 5-325 Mg) 1 tab Q4H PRN PO 07/06/17 03:15 (Morphine Inj) 1 mg Q3H PRN IV 07/06/17 03:15 07/07/17 09:15 (Milk Of Magnesia Liq) 30 ml Q12H PRN PO 07/06/17 03:15 (Aricept) 5 mg HS PO 07/06/17 21:00 07/10/17 20:54 (Cymbalta Dr) 20 mg DAILY PO 07/06/17 09:00 07/11/17 08:13 (Synthroid) 100 mcg DAILY PO 07/06/17 09:00 07/11/17 08:15 (Ativan) 0.5 mg BID PRN PO 07/06/17 03:15 (Remeron) 15 mg HS PO 07/06/17 21:00 07/10/17 20:53 (SEROquel) 25 mg BID PO 07/06/17 09:00 07/11/17 08:15 Pantoprazole Sodium 80 mg/ Sodium Chloride 100 ml @ 10 mls/hr Q10H IV 07/06/17 04:37 07/11/17 11:22 (Compazine Inj) 10 mg Q6H PRN IV PUSH 07/06/17 04:00 07/06/17 04:04 (Prinivil) 5 mg DAILY PO 07/06/17 09:00 Future Hold 07/07/17 09:16 (Norvasc) 2.5 mg DAILY PO 07/08/17 09:30 07/11/17 08:15 (Pill Splitter) 1 ea UNSCH PRN OTHER 07/08/17 09:30 (Levaquin) 250 mg DAILY PO 07/09/17 09:30 07/11/17 08:13 Potassium Chloride/Sodium Chloride 1,000 ml @ 50 mls/hr Q20H IV 07/09/17 10:30 07/11/17 11:22 (Catapres) 0.1 mg Q6H PRN PO 07/10/17 18:00 Vital Signs / I&O Vital Signs Date Time Temp Pulse Resp B/P (MAP) Pulse Ox O2 Delivery O2 Flow Rate FiO2 07/11/17 16:18 98.1 69 18 160/71 (100) 98 07/11/17 13:00 67 07/11/17 11:28 97.6 72 20 161/70 (100) 97 07/11/17 08:01 98.4 88 20 185/74 (111) 94 07/11/17 07:45 60 07/11/17 04:18 98.7 75 16 169/74 (105) 97 07/11/17 04:15 63 07/10/17 22:52 97.9 67 16 154/68 (96) 97 07/10/17 19:45 98.7 64 16 146/63 (90) 98 07/10/17 17:57 65 I/O 07/10/17 07/10/17 07/10/17 07/11/17 07/11/17 07/11/17 07:00 15:00 23:00 07:00 15:00 23:00 Intake Total 480 ml 450 ml Balance 480 ml 450 ml Intake Oral 480 ml 450 ml # Voids 2 3 # Bowel Movements 0 Physical Exam GENERAL: In NAD. SKIN: Warm and dry. HEAD: Normocephalic. EYES: No scleral icterus. No injection or drainage. NECK: Supple, trachea midline. No JVD or lymphadenopathy. CARDIOVASCULAR: Regular rate and rhythm without murmurs, gallops, or rubs. RESPIRATORY: Breath sounds equal bilaterally. No accessory muscle use. GASTROINTESTINAL: Abdomen soft, non-tender, nondistended. MUSCULOSKELETAL: No cyanosis, or edema. Assessment and Plan Problem List: (1) GI bleed ICD Codes: K92.2 - Gastrointestinal hemorrhage, unspecified (2) Hiatal hernia ICD Codes: K44.9 - Diaphragmatic hernia without obstruction or gangrene (3) HTN (hypertension) ICD Codes: I10 - Essential (primary) hypertension (4) Dementia ICD Codes: F03.90 - Unspecified dementia without behavioral disturbance Assessment and Plan No cardiac symptoms. Echo with well preserved LV systolic function. Cleared for surgery from cardiac standpoint. She has significant dementia with poor memory and confusion. Increase activity, PT. Jacoby Saldivar MD July 11, 2017 16:57
[2017-07-11] MEDS: MIRTAZAPINE 15 MG TAB PO SCH (20:47)
[2017-07-11] MEDS: DONEPEZIL HCL 5 MG TAB PO SCH (20:47)
[2017-07-12] MEDS: PANTOPRAZOLE INJ 80 MG in SODIUM CHLORIDE 0.9% INJ 100 ML IV SCH ×3 (00:37→23:04)
[2017-07-12] MEDS: 1/2 NS + KCL 20 MEQ INJ 1,000 ML IV SCH ×2 (04:49→23:48)
[2017-07-12 08:00] VITALS: BP 173/74; PULSE 68; RESP 17; TEMP 97.9; O2SAT 97
[2017-07-12] MEDS: SODIUM CHLORIDE 0.9% FLUSH 10 ML FLUSH IV FLUSH SCH ×2 (09:00→20:20)
[2017-07-12] MEDS: DULoxetine HCl DR 20 MG CAP PO SCH (09:05)
[2017-07-12] MEDS: amLODIPine BESYLATE 5 MG TAB PO SCH (09:05)
[2017-07-12] MEDS: LEVOFLOXACIN 250 MG TAB PO SCH (09:05)
[2017-07-12] MEDS: QUEtiapine FUMARATE 25 MG TAB PO SCH ×2 (09:05→20:19)
[2017-07-12] MEDS: LEVOTHYROXINE SODIUM 100 MCG TAB PO SCH (09:05)
[2017-07-12 12:00] VITALS: BP 158/71; PULSE 66; RESP 17; TEMP 98.3; O2SAT 96
--- NOTE | 2017-07-12 13:24 | HHI.PR ---
Subjective Remarks no bleeding reported tolerated po well telemetry in SR Objective Vitals Vital Signs Date Time Temp Pulse Resp B/P (MAP) Pulse Ox O2 Delivery O2 Flow Rate FiO2 07/12/17 12:00 98.3 66 17 158/71 (100) 96 07/12/17 08:00 97.9 68 17 173/74 (107) 97 07/11/17 23:45 77 07/11/17 20:00 97.8 74 20 166/67 (100) 98 07/11/17 19:53 71 07/11/17 17:55 69 07/11/17 16:18 98.1 69 18 160/71 (100) 98 I/O 07/11/17 07/11/17 07/11/17 07/12/17 07/12/17 07/12/17 07:00 15:00 23:00 07:00 15:00 23:00 Intake Total 690 ml 100 ml Output Total 600 ml 1000 ml Balance 90 ml -900 ml Intake Oral 690 ml 0 ml IV Total 100 ml Output Urine Total 600 ml 1000 ml # Voids 3 # Bowel Movements 0 Result Diagram: 07/10/17 0829 07/10/17 0829 Imaging Last Impressions Upper GI Series 07/08/17 0000 Signed Impressions: Service Date/Time: Saturday, July 08, 2017 09:24 - CONCLUSION: 1. Poor gastric and esophageal motility. Large hiatal hernia. Exam somewhat limited by patient' s mobility. No obstruction identified. Joaquin Nolan MD Chest CT 07/06/17 0000 Signed Impressions: Service Date/Time: Thursday, July 06, 2017 18:19 - CONCLUSION: 1. Infiltrates throughout the left upper and to a lesser extent the left lower lobe consistent with possible pneumonia. Clinical correlation is recommended. 2. Very large paraesophageal hiatal hernia containing half of the stomach which is distended and fluid-filled. The esophagus is also distended and fluid-filled. 3. 4.4 cm cystic splenic lesion is likely benign. 4. Renal cortical thinning bilaterally. 5. Degenerative changes and scoliosis of the thoracic spine. 1. Harsha Roberson MD Chest X-Ray 07/05/17 2310 Signed Impressions: Service Date/Time: Wednesday, July 05, 2017 23:42 - CONCLUSION: Abnormal chest appearance. Recommend contrasted CT chest. Satinder Mccarthy MD Objective Remarks awake and alert, pleasant but slightly sarcastic anicteric lungs- no rales regular rhythm abdomen soft, good bowel sounds extremities no edema Procedures EGD 07/07/2017 1. There was LA Class D esophagitis noted 2. There was erythematous gastritis in the gastric antrum; A total of 550cc of liquid suctioned from the esophagus and stomach 3. Normal duodenal mucosa in the bulb and second portion of the duodenum 4. Retroflexed views revealed a hiatal hernia 5. Retroflexed views revealed Large hernia. A/P Problem List: (1) GI bleed ICD Code: K92.2 - Gastrointestinal hemorrhage, unspecified (2) HTN (hypertension) ICD Code: I10 - Essential (primary) hypertension (3) Dementia ICD Code: F03.90 - Unspecified dementia without behavioral disturbance Assessment and Plan 87-year-old female with GI Bleed, recurrent - Recent admit 06/15-06/19/17 for same, s/p multiple episodes of coffee-ground emesis at SNF and while in ER. - Recent EGD/Colonoscopy w/ esophagitis, esophageal stricture s/p dilatation , diverticulosis and internal/external hemorrhoids. - Continue Protonix gtt. - GI consulted - EGD shows large hernia which is causing stomach volvulus. -Upper GI series -poor gastric and esophageal motility -Continue H&H monitoring Hiatal hernia. -General surgery plan for possible repair Friday July 14, 2017 Hypertension - currently on Amlodipine 2.5 mg daily at home was also o Lisinopril Mild hypernatremia - resolved. Dementia Hypothyroidism Aricept 5mg Qday, Levothyroxine 100 mcg Qday. Left lung pneumonia S/P treatment course with Levaquin - CT chest reveals left upper and lower lobe infiltrates. -completed PO Levaquin 750mg Qday Hypokalemia Resolved Acute renal injury-improving- creatinine improving on gentle IV fluid hydration monitor BUN and creatinine Avoid all nephrotoxic drug Full code. CHERELLEs. Letty Shell MD July 12, 2017 13:24
[2017-07-12 16:00] VITALS: BP 153/65; PULSE 74; RESP 18; TEMP 98.3
--- NOTE | 2017-07-12 16:23 | PD.CARD.PN ---
Subjective Subjective Remarks No CP or SOB, mildly confused, does not want surgery Objective Medications Current Medications Medications (Trade) Dose Ordered Sig/Brenna Route Start Time Stop Time Status Last Admin (NS Flush) 2 ml UNSCH PRN IV FLUSH 07/06/17 03:15 (NS Flush) 2 ml BID IV FLUSH 07/06/17 09:00 07/07/17 09:15 (Zofran Inj) 4 mg Q6H PRN IVP 07/06/17 03:15 07/07/17 09:15 (Tylenol) 650 mg Q6H PRN PO 07/06/17 03:15 ([place] 5-325 Mg) 1 tab Q4H PRN PO 07/06/17 03:15 (Morphine Inj) 1 mg Q3H PRN IV 07/06/17 03:15 07/07/17 09:15 (Milk Of Magnesia Liq) 30 ml Q12H PRN PO 07/06/17 03:15 (Aricept) 5 mg HS PO 07/06/17 21:00 07/11/17 20:47 (Cymbalta Dr) 20 mg DAILY PO 07/06/17 09:00 07/12/17 09:05 (Ativan) 0.5 mg BID PRN PO 07/06/17 03:15 (Remeron) 15 mg HS PO 07/06/17 21:00 07/11/17 20:47 (SEROquel) 25 mg BID PO 07/06/17 09:00 07/12/17 09:05 Pantoprazole Sodium 80 mg/ Sodium Chloride 100 ml @ 10 mls/hr Q10H IV 07/06/17 04:37 07/12/17 00:37 (Compazine Inj) 10 mg Q6H PRN IV PUSH 07/06/17 04:00 07/06/17 04:04 (Prinivil) 5 mg DAILY PO 07/06/17 09:00 Future Hold 07/07/17 09:16 (Norvasc) 2.5 mg DAILY PO 07/08/17 09:30 07/12/17 09:05 (Pill Splitter) 1 ea UNSCH PRN OTHER 07/08/17 09:30 (Levaquin) 250 mg DAILY PO 07/09/17 09:30 07/12/17 09:05 Potassium Chloride/Sodium Chloride 1,000 ml @ 50 mls/hr Q20H IV 07/09/17 10:30 07/12/17 04:49 (Catapres) 0.1 mg Q6H PRN PO 07/10/17 18:00 (Synthroid) 100 mcg DAILY@0600 PO 07/13/17 06:00 Vital Signs / I&O Vital Signs Date Time Temp Pulse Resp B/P (MAP) Pulse Ox O2 Delivery O2 Flow Rate FiO2 07/12/17 16:00 98.3 74 18 153/65 (94) 07/12/17 12:00 98.3 66 17 158/71 (100) 96 07/12/17 08:00 97.9 68 17 173/74 (107) 97 07/11/17 23:45 77 07/11/17 20:00 97.8 74 20 166/67 (100) 98 07/11/17 19:53 71 07/11/17 17:55 69 I/O 07/11/17 07/11/17 07/11/17 07/12/17 07/12/17 07/12/17 07:00 15:00 23:00 07:00 15:00 23:00 Intake Total 690 ml 100 ml Output Total 600 ml 1000 ml Balance 90 ml -900 ml Intake Oral 690 ml 0 ml IV Total 100 ml Output Urine Total 600 ml 1000 ml # Voids 3 # Bowel Movements 0 Physical Exam GENERAL: In NAD. SKIN: Warm and dry. HEAD: Normocephalic. EYES: No scleral icterus. No injection or drainage. NECK: Supple, trachea midline. No JVD or lymphadenopathy. CARDIOVASCULAR: Regular rate and rhythm without murmurs, gallops, or rubs. RESPIRATORY: Breath sounds equal bilaterally. No accessory muscle use. GASTROINTESTINAL: Abdomen soft, non-tender, nondistended. MUSCULOSKELETAL: No cyanosis, or edema. Assessment and Plan Problem List: (1) GI bleed ICD Codes: K92.2 - Gastrointestinal hemorrhage, unspecified (2) Hiatal hernia ICD Codes: K44.9 - Diaphragmatic hernia without obstruction or gangrene (3) HTN (hypertension) ICD Codes: I10 - Essential (primary) hypertension (4) Dementia ICD Codes: F03.90 - Unspecified dementia without behavioral disturbance Assessment and Plan No cardiac symptoms, remains stable from cardiac standpoint. Echo with well preserved LV systolic function. Cleared for surgery from cardiac standpoint, but she states she does not want it. She has significant dementia with poor memory and confusion. Increase activity, PT. Jacoby Saldivar MD July 12, 2017 16:23
[2017-07-12 20:00] VITALS: BP 135/75; PULSE 73; RESP 20; TEMP 98.9; O2SAT 100
[2017-07-12] MEDS: MIRTAZAPINE 15 MG TAB PO SCH (20:19)
[2017-07-12] MEDS: DONEPEZIL HCL 5 MG TAB PO SCH (20:22)
[2017-07-13] VITALS: BP 177/72; PULSE 72; RESP 20; TEMP 98; O2SAT 98
[2017-07-13] MEDS: LEVOTHYROXINE SODIUM 100 MCG TAB PO SCH (05:46)
[2017-07-13 08:00] VITALS: BP 197/86; PULSE 70; RESP 17; TEMP 98.3; O2SAT 97
[2017-07-13] MEDS: amLODIPine BESYLATE 5 MG TAB PO SCH ×2 (08:53→09:15)
[2017-07-13] MEDS: DULoxetine HCl DR 20 MG CAP PO SCH (08:53)
[2017-07-13] MEDS: cloNIDine HCL 0.1 MG TAB PO PRN (08:53)
[2017-07-13] MEDS: QUEtiapine FUMARATE 25 MG TAB PO SCH ×2 (08:53→20:04)
[2017-07-13] MEDS: SODIUM CHLORIDE 0.9% FLUSH 10 ML FLUSH IV FLUSH SCH ×2 (08:53→20:04)
[2017-07-13] MEDS: PANTOPRAZOLE INJ 80 MG in SODIUM CHLORIDE 0.9% INJ 100 ML IV SCH ×2 (08:53→16:37)
[2017-07-13] MEDS: LEVOFLOXACIN 250 MG TAB PO SCH (08:53)
--- NOTE | 2017-07-13 09:12 | HHI.PR ---
Subjective Remarks up already- sitting side of the bed- good po no reflux symptoms- , no nause aor vomiting + flatus Objective Vitals Vital Signs Date Time Temp Pulse Resp B/P (MAP) Pulse Ox O2 Delivery O2 Flow Rate FiO2 07/13/17 08:00 98.3 70 17 197/86 (123) 97 07/13/17 00:00 98.0 72 20 177/72 (107) 98 07/12/17 20:00 98.9 73 20 135/75 (95) 100 07/12/17 16:00 98.3 74 18 153/65 (94) 07/12/17 12:00 98.3 66 17 158/71 (100) 96 I/O 07/12/17 07/12/17 07/12/17 07/13/17 07/13/17 07/13/17 07:00 15:00 23:00 07:00 15:00 23:00 Intake Total 100 ml 1590 ml 1365 ml Output Total 1000 ml 400 ml Balance -900 ml 1190 ml 1365 ml Intake Oral 0 ml 765 ml IV Total 100 ml 825 ml 1365 ml Output Urine Total 1000 ml 400 ml # Voids 3 Result Diagram: 07/10/17 0829 07/10/17 0829 Imaging Last Impressions Upper GI Series 07/08/17 0000 Signed Impressions: Service Date/Time: Saturday, July 08, 2017 09:24 - CONCLUSION: 1. Poor gastric and esophageal motility. Large hiatal hernia. Exam somewhat limited by patient' s mobility. No obstruction identified. Joaquin Nolan MD Chest CT 07/06/17 0000 Signed Impressions: Service Date/Time: Thursday, July 06, 2017 18:19 - CONCLUSION: 1. Infiltrates throughout the left upper and to a lesser extent the left lower lobe consistent with possible pneumonia. Clinical correlation is recommended. 2. Very large paraesophageal hiatal hernia containing half of the stomach which is distended and fluid-filled. The esophagus is also distended and fluid-filled. 3. 4.4 cm cystic splenic lesion is likely benign. 4. Renal cortical thinning bilaterally. 5. Degenerative changes and scoliosis of the thoracic spine. 1. Harsha Roberson MD Chest X-Ray 07/05/17 2310 Signed Impressions: Service Date/Time: Wednesday, July 05, 2017 23:42 - CONCLUSION: Abnormal chest appearance. Recommend contrasted CT chest. Satinder Mccarthy MD Objective Remarks awake and alert, pleasant pleasant and itneractive anicteric lungs- no rales regular rhythm abdomen soft, good bowel sounds extremities no edema Procedures EGD 07/07/2017 1. There was [place] Class D esophagitis noted 2. There was erythematous gastritis in the gastric antrum; A total of 550cc of liquid suctioned from the esophagus and stomach 3. Normal duodenal mucosa in the bulb and second portion of the duodenum 4. Retroflexed views revealed a hiatal hernia 5. Retroflexed views revealed Large hernia. A/P Problem List: (1) GI bleed ICD Code: K92.2 - Gastrointestinal hemorrhage, unspecified (2) HTN (hypertension) ICD Code: I10 - Essential (primary) hypertension (3) Dementia ICD Code: F03.90 - Unspecified dementia without behavioral disturbance Assessment and Plan 87-year-old female with GI Bleed, recurrent - Recent admit 06/15-06/19/17 for same, s/p multiple episodes of coffee-ground emesis at SNF and while in ER. - Recent EGD/Colonoscopy w/ esophagitis, esophageal stricture s/p dilatation , diverticulosis and internal/external hemorrhoids. - Continue Protonix- change to 40 mg IV daily - GI consulted - EGD shows large hernia which is causing stomach volvulus. -Upper GI series -poor gastric and esophageal motility Hiatal hernia. -General surgery plan for possible repair Friday July 14, 2017 - per patient "no one has talk to me about it, I should have a say" Hypertension - currently on Amlodipine 2.5 mg daily- increase to 5 mg daily- on med rec- was on 10 mg daily at home was also on Lisinopril- was held due to ana Mild hypernatremia - resolved. Dementia Hypothyroidism Aricept 5mg Qday, Levothyroxine 100 mcg Qday. Left lung pneumonia S/P treatment course with Levaquin - CT chest reveals left upper and lower lobe infiltrates. -completed PO Levaquin 750mg Qday Hypokalemia Resolved Acute renal injury-improving- creatinine improving on gentle IV fluid hydration monitor BUN and creatinine Avoid all nephrotoxic drug Full code. SCDs. patient up and ambualting Letty Shell MD July 13, 2017 09:12
[2017-07-13 10:50] LABS: BICARBONATE 24.5 MEQ/L (21.0-32.0); CALCIUM 8.1 MG/DL (8.5-10.1); CREATININE 1.39 MG/DL (0.50-1.00)
[2017-07-13 11:33] LABS: HEMATOCRIT 25.5 % (35.0-46.0); HEMOGLOBIN 8.5 GM/DL (11.6-15.3); MEAN CELL VOLUME 87.6 FL (80.0-100.0); MEAN CORPUSCULAR HEMOGLOBIN 29.2 PG (27.0-34.0); MEAN CORPUSCULAR HGB CONC 33.3 % (32.0-36.0); MEAN PLATELET VOLUME 10.3 FL (7.0-11.0); PLATELET COUNT 119 TH/MM3 (150-450); RED BLOOD COUNT 2.91 MIL/MM3 (4.00-5.30); RED CELL DISTRIBUTION WIDTH 15.2 % (11.6-17.2); WHITE BLOOD COUNT 4.2 TH/MM3 (4.0-11.0)
[2017-07-13 12:00] VITALS: BP 120/65; PULSE 61; RESP 17; TEMP 98.3; O2SAT 95
--- NOTE | 2017-07-13 15:43 | PD.CARD.PN ---
Subjective Subjective Remarks No CP or SOB, mildly confused Objective Medications Current Medications Medications (Trade) Dose Ordered Sig/Brenna Route Start Time Stop Time Status Last Admin (NS Flush) 2 ml UNSCH PRN IV FLUSH 07/06/17 03:15 (NS Flush) 2 ml BID IV FLUSH 07/06/17 09:00 07/07/17 09:15 (Zofran Inj) 4 mg Q6H PRN IVP 07/06/17 03:15 07/07/17 09:15 (Tylenol) 650 mg Q6H PRN PO 07/06/17 03:15 ([place] 5-325 Mg) 1 tab Q4H PRN PO 07/06/17 03:15 (Morphine Inj) 1 mg Q3H PRN IV 07/06/17 03:15 07/07/17 09:15 (Milk Of Magnesia Liq) 30 ml Q12H PRN PO 07/06/17 03:15 (Aricept) 5 mg HS PO 07/06/17 21:00 07/12/17 20:22 (Cymbalta Dr) 20 mg DAILY PO 07/06/17 09:00 07/13/17 08:53 (Ativan) 0.5 mg BID PRN PO 07/06/17 03:15 (Remeron) 15 mg HS PO 07/06/17 21:00 07/12/17 20:19 (SEROquel) 25 mg BID PO 07/06/17 09:00 07/13/17 08:53 Pantoprazole Sodium 80 mg/ Sodium Chloride 100 ml @ 10 mls/hr Q10H IV 07/06/17 04:37 07/13/17 08:53 (Compazine Inj) 10 mg Q6H PRN IV PUSH 07/06/17 04:00 07/06/17 04:04 (Prinivil) 5 mg DAILY PO 07/06/17 09:00 Future Hold 07/07/17 09:16 (Pill Splitter) 1 ea UNSCH PRN OTHER 07/08/17 09:30 (Levaquin) 250 mg DAILY PO 07/09/17 09:30 07/13/17 08:53 Potassium Chloride/Sodium Chloride 1,000 ml @ 50 mls/hr Q20H IV 07/09/17 10:30 07/12/17 23:48 (Catapres) 0.1 mg Q6H PRN PO 07/10/17 18:00 07/13/17 08:53 (Synthroid) 100 mcg DAILY@0600 PO 07/13/17 06:00 07/13/17 05:46 (Norvasc) 5 mg DAILY PO 07/13/17 09:15 Vital Signs / I&O Vital Signs Date Time Temp Pulse Resp B/P (MAP) Pulse Ox O2 Delivery O2 Flow Rate FiO2 07/13/17 12:00 98.3 61 17 120/65 (83) 95 07/13/17 08:00 98.3 70 17 197/86 (123) 97 07/13/17 00:00 98.0 72 20 177/72 (107) 98 07/12/17 20:00 98.9 73 20 135/75 (95) 100 07/12/17 16:00 98.3 74 18 153/65 (94) I/O 07/12/17 07/12/17 07/12/17 07/13/17 07/13/17 07/13/17 07:00 15:00 23:00 07:00 15:00 23:00 Intake Total 100 ml 1590 ml 1365 ml Output Total 1000 ml 400 ml Balance -900 ml 1190 ml 1365 ml Intake Oral 0 ml 765 ml IV Total 100 ml 825 ml 1365 ml Output Urine Total 1000 ml 400 ml # Voids 3 Physical Exam GENERAL: In NAD. SKIN: Warm and dry. HEAD: Normocephalic. EYES: No scleral icterus. No injection or drainage. NECK: Supple, trachea midline. No JVD or lymphadenopathy. CARDIOVASCULAR: Regular rate and rhythm without murmurs, gallops, or rubs. RESPIRATORY: Breath sounds equal bilaterally. No accessory muscle use. GASTROINTESTINAL: Abdomen soft, non-tender, nondistended. MUSCULOSKELETAL: No cyanosis, or edema. Laboratory Laboratory Tests Test 07/13/17 09:53 07/13/17 11:07 Blood Urea Nitrogen 6 MG/DL Creatinine 1.39 MG/DL Random Glucose 157 MG/DL Calcium Level 8.1 MG/DL Sodium Level 142 MEQ/L Potassium Level 3.9 MEQ/L Chloride Level 109 MEQ/L Carbon Dioxide Level 24.5 MEQ/L Anion Gap 9 MEQ/L Estimat Glomerular Filtration Rate 36 ML/MIN White Blood Count 4.2 TH/MM3 Red Blood Count 2.91 MIL/MM3 Hemoglobin 8.5 GM/DL Hematocrit 25.5 % Mean Corpuscular Volume 87.6 FL Mean Corpuscular Hemoglobin 29.2 PG Mean Corpuscular Hemoglobin Concent 33.3 % Red Cell Distribution Width 15.2 % Platelet Count 119 TH/MM3 Mean Platelet Volume 10.3 FL Assessment and Plan Problem List: (1) GI bleed ICD Codes: K92.2 - Gastrointestinal hemorrhage, unspecified (2) Hiatal hernia ICD Codes: K44.9 - Diaphragmatic hernia without obstruction or gangrene (3) HTN (hypertension) ICD Codes: I10 - Essential (primary) hypertension (4) Dementia ICD Codes: F03.90 - Unspecified dementia without behavioral disturbance Assessment and Plan No new cardiac issues. Echo with well preserved LV systolic function. Cleared for surgery from cardiac standpoint. Risk of cardiac complications is increased , but not prohibitive. Recommend close monitoring on tele after the procedure. She has significant dementia with poor memory and confusion. Increase activity, PT. Jacoby Saldivar MD July 13, 2017 15:43
[2017-07-13 16:00] VITALS: BP 115/56; PULSE 68; RESP 17; TEMP 97.8; O2SAT 95
[2017-07-13 20:00] VITALS: BP 132/61; PULSE 67; RESP 20; TEMP 98.2; O2SAT 97
[2017-07-13] MEDS: DONEPEZIL HCL 5 MG TAB PO SCH (20:04)
[2017-07-13] MEDS: MIRTAZAPINE 15 MG TAB PO SCH (20:04)
[2017-07-13] MEDS ORDERED: CHLORHEXIDINE GLUCONATE 2 % 1 PACK (2 CLOTHS) TOPICAL PRN (23:30)
[2017-07-13] MEDS ORDERED: LACTATED RINGER'S 1000 ML IV PRN (23:30)
[2017-07-13] MEDS ORDERED: SODIUM CHLORID 0.9% 500 ML IV PRN (23:30)
[2017-07-13] MEDS ORDERED: POVIDONE IODINE 5% (ANTISEPSIS KIT) 4 APPLICATIONS EACH NARE PRN (23:30)
[2017-07-14] VITALS: BP 190/74; PULSE 78; RESP 20; TEMP 97.4; O2SAT 96
[2017-07-14] MEDS: 1/2 NS + KCL 20 MEQ INJ 1,000 ML IV SCH (00:31)
[2017-07-14] MEDS: LEVOTHYROXINE SODIUM 100 MCG TAB PO SCH (04:57)
[2017-07-14 08:00] VITALS: BP 133/90; PULSE 61; RESP 18; TEMP 98.1; O2SAT 98
--- NOTE | 2017-07-14 08:11 | HHI.PR ---
Subjective Remarks patient is awake and alert, interactive - she is aware that she is in the hospital states slept good overnight no complains of pain, nausea or vomiting BP 133/90 sinus Objective Vitals Vital Signs Date Time Temp Pulse Resp B/P (MAP) Pulse Ox O2 Delivery O2 Flow Rate FiO2 07/14/17 00:00 97.4 78 20 190/74 (112) 96 07/13/17 20:00 98.2 67 20 132/61 (84) 97 07/13/17 16:00 97.8 68 17 115/56 (75) 95 07/13/17 12:00 98.3 61 17 120/65 (83) 95 I/O 07/13/17 07/13/17 07/13/17 07/14/17 07/14/17 07/14/17 07:00 15:00 23:00 07:00 15:00 23:00 Intake Total 1365 ml 1130 ml 674 ml Output Total 1050 ml 1000 ml Balance 1365 ml 80 ml -326 ml Intake Oral 720 ml 0 ml IV Total 1365 ml 410 ml 674 ml Output Urine Total 1050 ml 1000 ml Stool Total 0 ml # Bowel Movements 1 Result Diagram: 07/13/17 1107 07/13/17 0953 Imaging Last Impressions Upper GI Series 07/08/17 0000 Signed Impressions: Service Date/Time: Saturday, July 08, 2017 09:24 - CONCLUSION: 1. Poor gastric and esophageal motility. Large hiatal hernia. Exam somewhat limited by patient' s mobility. No obstruction identified. Joaquin Nolan MD Chest CT 07/06/17 0000 Signed Impressions: Service Date/Time: Thursday, July 06, 2017 18:19 - CONCLUSION: 1. Infiltrates throughout the left upper and to a lesser extent the left lower lobe consistent with possible pneumonia. Clinical correlation is recommended. 2. Very large paraesophageal hiatal hernia containing half of the stomach which is distended and fluid-filled. The esophagus is also distended and fluid-filled. 3. 4.4 cm cystic splenic lesion is likely benign. 4. Renal cortical thinning bilaterally. 5. Degenerative changes and scoliosis of the thoracic spine. 1. Harsha Roberson MD Chest X-Ray 07/05/17 2310 Signed Impressions: Service Date/Time: Wednesday, July 05, 2017 23:42 - CONCLUSION: Abnormal chest appearance. Recommend contrasted CT chest. Satinder Mccarthy MD Objective Remarks awake and alert, pleasant pleasant and interactive, oriented x 2 anicteric lungs- no rales regular rhythm abdomen soft, good bowel sounds extremities no edema Procedures EGD 07/07/2017 1. There was LA Class D esophagitis noted 2. There was erythematous gastritis in the gastric antrum; A total of 550cc of liquid suctioned from the esophagus and stomach 3. Normal duodenal mucosa in the bulb and second portion of the duodenum 4. Retroflexed views revealed a hiatal hernia 5. Retroflexed views revealed Large hernia. A/P Problem List: (1) GI bleed ICD Code: K92.2 - Gastrointestinal hemorrhage, unspecified (2) HTN (hypertension) ICD Code: I10 - Essential (primary) hypertension (3) Dementia ICD Code: F03.90 - Unspecified dementia without behavioral disturbance Assessment and Plan 87-year-old female with S/P GI Bleed - Recent admit 06/15-06/19/17 for same, s/p multiple episodes of coffee-ground emesis at SNF and while in ER. - Recent EGD/Colonoscopy w/ esophagitis, esophageal stricture s/p dilatation , diverticulosis and internal/external hemorrhoids. - Continue Protonix- change to 40 mg IV daily - GI consulted - EGD shows large hernia which is causing stomach volvulus. -Upper GI series -poor gastric and esophageal motility -H and H stable ff CBCpost op in am Hiatal hernia. -General surgery plan for surgery today July 14, 2017 - 07/13 - per patient "no one has talk to me about it, I should have a say" Hypertension- - one occcasional SBP in the 190 - currently on Amlodipine 2.5 mg daily- increase to 5 mg daily- on med rec- was on 10 mg daily at home was also on Lisinopril- was held due to naa cardiology ff Mild hypernatremia - resolved. Dementia Hypothyroidism Aricept 5mg Qday, Levothyroxine 100 mcg Qday. Left lung pneumonia S/P treatment course with Levaquin - CT chest reveals left upper and lower lobe infiltrates. -completed PO Levaquin 750mg Qday Hypokalemia Resolved Acute renal injury-improving- creatinine slightly up - non oliguric on gentle IV fluid hydration Avoid all nephrotoxic drug ff BMP post op in am Full code. SCDs. patient up and ambulating Letty Shell MD July 14, 2017 08:11
[2017-07-14] MEDS: QUEtiapine FUMARATE 25 MG TAB PO SCH ×2 (09:00→20:48)
[2017-07-14] MEDS: DULoxetine HCl DR 20 MG CAP PO SCH (09:00)
[2017-07-14] MEDS: amLODIPine BESYLATE 5 MG TAB PO SCH (09:00)
[2017-07-14] MEDS: LEVOFLOXACIN 250 MG TAB PO SCH ×2 (09:00→15:20)
[2017-07-14] MEDS: SODIUM CHLORIDE 0.9% FLUSH 10 ML FLUSH IV FLUSH SCH ×2 (09:14→20:55)
[2017-07-14] MEDS: PANTOPRAZOLE SODIUM 40 MG VIAL IV PUSH SCH (09:14)
[2017-07-14 12:00] VITALS: BP 206/84; PULSE 69; RESP 18; TEMP 98.6; O2SAT 98
[2017-07-14] MEDS ORDERED: GLYCOPYRROLATE 1 MG/5 ML SYRINGE IV PUSH ONE (12:00)
[2017-07-14] MEDS ORDERED: ROCURONIUM INJ 50 MG/5 ML SYRINGE IV PUSH ONE (12:00)
[2017-07-14] MEDS ORDERED: ONDANSETRON HCL 4 MG/2 ML VIAL IV ONE (12:00)
[2017-07-14] MEDS ORDERED: DEXAMETHASONE SOD PHOS 4 MG/ML VIAL IV ONE (12:00)
[2017-07-14] MEDS ORDERED: PROPOFOL 200 MG/20 ML AMP IV ONE (12:00)
[2017-07-14] MEDS ORDERED: ESMOLOL HCL 100 MG/10 ML VIAL IV ONE (12:00)
[2017-07-14] MEDS ORDERED: NEOSTIGMINE 5 MG/5 ML SYRINGE IV PUSH ONE (12:00)
[2017-07-14] MEDS ORDERED: LIDOCAINE HCL 1% PF 5 ML SYRINGE OTHER ONE (12:00)
[2017-07-14] MEDS ORDERED: hydrALAZINE HCL 20 MG/ML VIAL IV ONE (12:00)
[2017-07-14 13:45] VITALS: BP 130/66
[2017-07-14] MEDS ORDERED: ACETAMINOPHEN 1000 MG/100 ML 100 ML IV ONE (14:12)
--- NOTE | 2017-07-14 15:02 | PD.CARD.PN ---
Subjective Subjective Remarks No CP or SOB, mildly confused, family present Objective Medications Current Medications Medications (Trade) Dose Ordered Sig/Brenna Route Start Time Stop Time Status Last Admin (NS Flush) 2 ml UNSCH PRN IV FLUSH 07/06/17 03:15 (NS Flush) 2 ml BID IV FLUSH 07/06/17 09:00 07/14/17 09:14 (Zofran Inj) 4 mg Q6H PRN IVP 07/06/17 03:15 07/07/17 09:15 (Tylenol) 650 mg Q6H PRN PO 07/06/17 03:15 ([place] 5-325 Mg) 1 tab Q4H PRN PO 07/06/17 03:15 (Morphine Inj) 1 mg Q3H PRN IV 07/06/17 03:15 07/07/17 09:15 (Milk Of Magnesia Liq) 30 ml Q12H PRN PO 07/06/17 03:15 (Aricept) 5 mg HS PO 07/06/17 21:00 07/13/17 20:04 (Cymbalta Dr) 20 mg DAILY PO 07/06/17 09:00 07/13/17 08:53 (Ativan) 0.5 mg BID PRN PO 07/06/17 03:15 (Remeron) 15 mg HS PO 07/06/17 21:00 07/13/17 20:04 (SEROquel) 25 mg BID PO 07/06/17 09:00 07/13/17 20:04 (Compazine Inj) 10 mg Q6H PRN IV PUSH 07/06/17 04:00 07/06/17 04:04 (Prinivil) 5 mg DAILY PO 07/06/17 09:00 Future Hold 07/07/17 09:16 (Pill Splitter) 1 ea UNSCH PRN OTHER 07/08/17 09:30 (Levaquin) 250 mg DAILY PO 07/09/17 09:30 07/13/17 08:53 Potassium Chloride/Sodium Chloride 1,000 ml @ 50 mls/hr Q20H IV 07/09/17 10:30 07/14/17 00:31 (Catapres) 0.1 mg Q6H PRN PO 07/10/17 18:00 07/13/17 08:53 (Synthroid) 100 mcg DAILY@0600 PO 07/13/17 06:00 07/14/17 04:57 (Norvasc) 5 mg DAILY PO 07/13/17 09:15 (Protonix Inj) 40 mg Q24H IV PUSH 07/14/17 09:00 07/14/17 09:14 Lactated Ringer's 1,000 ml @ 30 mls/hr Q24H PRN IV 07/13/17 23:30 07/16/17 23:29 Sodium Chloride 500 ml @ 30 mls/hr [id number] PRN IV 07/13/17 23:30 07/16/17 23:29 (Betadine 5% Antisepsis Kit) 1 applic COTTON TIER PRN EACH NARE 07/13/17 23:30 07/16/17 23:29 (Chlorhexidine 2% Cloth) 3 pack COTTON TIER PRN TOPICAL 07/13/17 23:30 07/16/17 23:29 Vital Signs / I&O Vital Signs Date Time Temp Pulse Resp B/P (MAP) Pulse Ox O2 Delivery O2 Flow Rate FiO2 07/14/17 13:45 130/66 (87) 07/14/17 12:00 98.6 69 18 206/84 (124) 98 07/14/17 08:00 98.1 61 18 133/90 (104) 98 07/14/17 00:00 97.4 78 20 190/74 (112) 96 07/13/17 20:00 98.2 67 20 132/61 (84) 97 07/13/17 16:00 97.8 68 17 115/56 (75) 95 I/O 07/13/17 07/13/17 07/13/17 07/14/17 07/14/17 07/14/17 07:00 15:00 23:00 07:00 15:00 23:00 Intake Total 1365 ml 1130 ml 674 ml Output Total 1050 ml 1000 ml Balance 1365 ml 80 ml -326 ml Intake Oral 720 ml 0 ml IV Total 1365 ml 410 ml 674 ml Output Urine Total 1050 ml 1000 ml Stool Total 0 ml # Voids 1 # Bowel Movements 1 Physical Exam GENERAL: In NAD. SKIN: Warm and dry. HEAD: Normocephalic. EYES: No scleral icterus. No injection or drainage. NECK: Supple, trachea midline. No JVD or lymphadenopathy. CARDIOVASCULAR: Regular rate and rhythm without murmurs, gallops, or rubs. RESPIRATORY: Breath sounds equal bilaterally. No accessory muscle use. GASTROINTESTINAL: Abdomen soft, non-tender, nondistended. EXTREMITIES: No edema. Assessment and Plan Problem List: (1) GI bleed ICD Codes: K92.2 - Gastrointestinal hemorrhage, unspecified (2) Hiatal hernia ICD Codes: K44.9 - Diaphragmatic hernia without obstruction or gangrene (3) HTN (hypertension) ICD Codes: I10 - Essential (primary) hypertension (4) Dementia ICD Codes: F03.90 - Unspecified dementia without behavioral disturbance Assessment and Plan Remains stable from cardiac standpoint. Echo with well preserved LV systolic function. Cleared for surgery from cardiac standpoint. Risk of cardiac complications is increased, but not prohibitive. Recommend close monitoring on tele after the procedure. Surgery planned this PM. D/w pt and family. Jacoby Saldivar MD July 14, 2017 15:02
--- NOTE | 2017-07-14 15:53 | HHI.PR ---
Immediate Post Op Note Procedure Date: July 14, 2017 Pre Op Diagnosis: large hiatal hernia with obstruction Post Op Diagnosis: same Surgeon: Jose Luis D eLa Torre MD Assembler Surgical Garment(s): Hira Mccall Procedure: lap reduction of large hiatal hernia, gastropexy, laparoscopic gastrostomy tube Findings: large hiatal hernia Complications: none Specimen(s) removed: none Estimated blood loss: 5cc Anesthesia: General Drains: None Patient to: PACU Patient Condition: Good Jose Luis De La Torre MD July 14, 2017 15:53
[2017-07-14] MEDS ORDERED: BUPIVACAINE/EPINEPHRINE 0.25% PF 10 ML VIAL INFIL ONE (16:30)
[2017-07-14] MEDS ORDERED: DO NOT ADM ANY ANTICOAGULANT DRUGS PRN (18:08)
[2017-07-14 20:00] VITALS: BP 136/65; PULSE 94; RESP 18; TEMP 98.1; O2SAT 97
[2017-07-14] MEDS: DONEPEZIL HCL 5 MG TAB PO SCH (20:48)
[2017-07-14] MEDS: MIRTAZAPINE 15 MG TAB PO SCH (20:48)
[2017-07-14] MEDS: ACETAMINOPHEN/HYDROcodone 325 MG/5 MG TAB PO PRN (20:49)
[2017-07-15] VITALS: BP 135/75; PULSE 98; RESP 18; TEMP 97.8; O2SAT 96
[2017-07-15] MEDS: 1/2 NS + KCL 20 MEQ INJ 1,000 ML IV SCH ×2 (01:10→23:48)
[2017-07-15 04:00] VITALS: BP 146/67; PULSE 95; RESP 18; TEMP 97.9; O2SAT 96
[2017-07-15] MEDS: LEVOTHYROXINE SODIUM 100 MCG TAB PO SCH (04:41)
[2017-07-15 07:00] LABS: ALKALINE PHOSPHATASE 74 U/L (45-117); TOTAL BILIRUBIN ADULT 0.5 MG/DL (0.2-1.0); TOTAL PROTEIN 5.8 GM/DL (6.4-8.2)
[2017-07-15 07:49] LABS: ALBUMIN 2.5 GM/DL (3.4-5.0); ALT (GPT) 14 U/L (10-53); AST (GOT) 24 U/L (15-37); BLOOD UREA NITROGEN 11 MG/DL (7-18); CALCIUM 8.1 MG/DL (8.5-10.1); CREATININE 1.29 MG/DL (0.50-1.00); GLOMERULAR FILTRATION RATE 39 ML/MIN (>89); GLUCOSE,RANDOM 103 MG/DL (74-106)
[2017-07-15 07:50] LABS: BICARBONATE 24.8 MEQ/L (21.0-32.0); CHLORIDE 108 MEQ/L (98-107); SODIUM (NA) 142 MEQ/L (136-145)
[2017-07-15 08:00] VITALS: BP 148/70; PULSE 83; RESP 17; TEMP 98.4; O2SAT 94
[2017-07-15] MEDS: SODIUM CHLORIDE 0.9% FLUSH 10 ML FLUSH IV FLUSH SCH ×2 (09:00→21:00)
[2017-07-15] MEDS: amLODIPine BESYLATE 5 MG TAB PO SCH (09:32)
[2017-07-15] MEDS: QUEtiapine FUMARATE 25 MG TAB PO SCH ×2 (09:32→21:03)
[2017-07-15] MEDS: DULoxetine HCl DR 20 MG CAP PO SCH (09:32)
[2017-07-15] MEDS: PANTOPRAZOLE SODIUM 40 MG VIAL IV PUSH SCH (09:33)
[2017-07-15] MEDS: ACETAMINOPHEN/HYDROcodone 325 MG/5 MG TAB PO PRN ×2 (09:43→23:46)
--- NOTE | 2017-07-15 10:04 | MP ---
cc: Jose Luis De La Torre MD DATE OF OPERATION: 07/14/2017 PREOPERATIVE DIAGNOSIS: Large hiatal hernia with obstruction. POSTOPERATIVE DIAGNOSIS: Large hiatal hernia with obstruction. PROCEDURE PERFORMED: 1. Laparoscopic reduction of large hiatal hernia. 2. Laparoscopic gastrostomy tube. 3. Gastropexy. SURGEON: Dr. Jose Luis De La Torre. ASPHALT ROLLER OPERATOR: Dr. Hira Natarajan. Dr. Natarajan was necessary to assist with camera control and retraction. Due to the complexity of the laparoscopic case, Dr. Natarajan was necessary for assistance. ANESTHESIA: GETA. IV FLUIDS: See anesthesia sheet. ESTIMATED BLOOD LOSS: 5 mL. DRAINS: None. COMPLICATIONS: None. WOUND CLASSIFICATION: Clean, contaminated. SPECIMENS REMOVED: None. FINDINGS: A very large hiatal hernia, viable stomach, good hemostasis and stomach appropriately reduced in a proper location with no significant tension. INDICATIONS: The patient is an 87-year-old female who presented with acute onset of obstruction, nausea, and vomiting. She had further evaluation including CT scan showing a large hiatal hernia with a significant portion of the stomach contained in her chest. She underwent endoscopy and there was some concern for possible volvulus of the stomach that was detorsed with EGD. Further discussion with the family power of ict security specialist, Checo Florez and the siblings decided that operative intervention would be the ideal way to alleviate the patient's symptoms and provide a durable means of reduction of the stomach in order for facilitation of the patient to tolerate food. Therefore, the patient was scheduled for laparoscopic hiatal hernia reduction, G-tube placement and pexied. DETAILS OF PROCEDURE: The patient was taken to the operating suite, placed in the supine position. She was prepped and draped in the usual sterile fashion after induction of general endotracheal anesthesia. A brief time-out done stating correct patient, procedure and surgical site and we were all in agreement with this. Attention first directed to the umbilicus where a stab aida incision was made. Local anesthetic injected. Visiport Optiview 5 mm was done in order to enter the abdomen safely. Abdomen insufflated to 50 mm pneumoperitoneum. On cursory inspection, no evidence of injury. Several other ports were placed including a right upper quadrant port for liver retraction, a right lower quadrant 5 mm port, a left upper quadrant 5 mm port and a left lower quadrant 5 mm port. The patient placed in reverse Trendelenburg and airplaned to the right. The liver was retracted with mina flex liver retraction. On inspection, there was a large hiatal hernia with the stomach greater than 50% contained in the chest. Laparoscopic graspers were used to assist in reducing the stomach back into anatomical position and location down in the abdomen. Minimal bleeding points were cauterized. Minimal dissection was done at the hiatus in order to free up adhesion attachments and again to facilitate the stomach resting comfortably in the abdomen. At this point, a decision for a 20 Bengali gastrostomy tube. This was obtained. The left upper quadrant port was removed and the tube was placed through this. A pursestring was done with a 2-0 silk on the anterior stomach wall and then hook electro Bovie cautery used to do a small gastrotomy. [place] used for dilation. The gastrostomy tube was then advanced and placed within the stomach and the balloon was inflated to 6 mL. Aspiration of stomach contents confirmed placement and the pursestring was cinched tightly around the tube. The stomach was pexied to the abdominal wall using 2-0 silk sutures in 3 points location around the tube. This was done intracorporeally. The stomach was noted to rest comfortably against the abdominal wall. The pneumoperitoneum was reduced to 8 mm. Several pictures were taken and the foot on the surface of the gastrostomy tube was then advanced so the tube sat nicely against the abdominal wall. Next, the pneumoperitoneum was removed. Ports were removed under direct visualization. 4-0 Monocryl was used to close the subcuticular port sites and a 2-0 nylon was placed at 3 points in order to assist in securing the gastrostomy tube in place. A 0 silk was placed around the hub of the gastrostomy tube as well. All lap and instrument counts were correct at the end of the procedure. The patient tolerated the procedure well. No intraoperative complications. The patient was extubated and taken stable to the PACU. MD AMY López/CLEM , 09:14 AM , 10:03 AM
[2017-07-15 12:00] VITALS: BP 139/65; PULSE 78; RESP 16; TEMP 98; O2SAT 95
[2017-07-15 13:00] LABS: HEMATOCRIT 29.5 % (35.0-46.0); HEMOGLOBIN 9.9 GM/DL (11.6-15.3); MEAN CELL VOLUME 86.8 FL (80.0-100.0); MEAN CORPUSCULAR HEMOGLOBIN 29.1 PG (27.0-34.0); MEAN CORPUSCULAR HGB CONC 33.5 % (32.0-36.0); MEAN PLATELET VOLUME 10.7 FL (7.0-11.0); PLATELET COUNT 156 TH/MM3 (150-450); WHITE BLOOD COUNT 10.2 TH/MM3 (4.0-11.0)
--- NOTE | 2017-07-15 14:36 | HHI.PR ---
Subjective Remarks Pt seen earlier today around 1:30pm. Pain controlled. denies any n/v. no flatus or BM yet per pt Objective Vitals Vital Signs Date Time Temp Pulse Resp B/P (MAP) Pulse Ox O2 Delivery O2 Flow Rate FiO2 07/15/17 12:00 98.0 78 16 139/65 (89) 95 07/15/17 08:00 98.4 83 17 148/70 (96) 94 07/15/17 04:00 97.9 95 18 146/67 (93) 96 07/15/17 00:00 97.8 98 18 135/75 (95) 96 07/14/17 20:00 98.1 94 18 136/65 (88) 97 07/14/17 18:30 97.6 99 18 152/71 (98) 98 Nasal Cannula 2 07/14/17 18:15 100 21 154/68 (96) 98 Nasal Cannula 2 07/14/17 18:05 97.6 97 20 148/84 (105) 97 Nasal Cannula 2 Manual Cuff/Auscultation I/O 07/14/17 07/14/17 07/14/17 07/15/17 07/15/17 07/15/17 06:59 14:59 22:59 06:59 14:59 22:59 Intake Total 674 ml 1000 ml 250 ml Output Total 1000 ml 710 ml 650 ml Balance -326 ml 290 ml -400 ml Intake Oral 0 ml IV Total 674 ml 0 ml 250 ml Other 1000 ml Output Urine Total 1000 ml 700 ml 650 ml Stool Total 0 ml Estimated Blood Loss 10 ml # Voids 1 # Bowel Movements 0 Result Diagram: 07/15/17 1228 07/15/17 0559 Imaging Last Impressions Upper GI Series 07/08/17 0000 Signed Impressions: Service Date/Time: Saturday, July 08, 2017 09:24 - CONCLUSION: 1. Poor gastric and esophageal motility. Large hiatal hernia. Exam somewhat limited by patient' s mobility. No obstruction identified. Joaquin Nolan MD Chest CT 07/06/17 0000 Signed Impressions: Service Date/Time: Thursday, July 06, 2017 18:19 - CONCLUSION: 1. Infiltrates throughout the left upper and to a lesser extent the left lower lobe consistent with possible pneumonia. Clinical correlation is recommended. 2. Very large paraesophageal hiatal hernia containing half of the stomach which is distended and fluid-filled. The esophagus is also distended and fluid-filled. 3. 4.4 cm cystic splenic lesion is likely benign. 4. Renal cortical thinning bilaterally. 5. Degenerative changes and scoliosis of the thoracic spine. 1. Harsha Roberson MD Chest X-Ray 07/05/17 2310 Signed Impressions: Service Date/Time: Wednesday, July 05, 2017 23:42 - CONCLUSION: Abnormal chest appearance. Recommend contrasted CT chest. Satinder Mccarthy MD Objective Remarks awake and alert, pleasant, laying in bed lungs- no wheezing regular rhythm no murmurs abdomen soft, appropriately tender, dressing in place. Gtube in place. abdominal binder in place extremities no edema Procedures EGD 07/07/2017 1. There was LA Class D esophagitis noted 2. There was erythematous gastritis in the gastric antrum; A total of 550cc of liquid suctioned from the esophagus and stomach 3. Normal duodenal mucosa in the bulb and second portion of the duodenum 4. Retroflexed views revealed a hiatal hernia 5. Retroflexed views revealed Large hernia. A/P Problem List: (1) GI bleed ICD Code: K92.2 - Gastrointestinal hemorrhage, unspecified (2) HTN (hypertension) ICD Code: I10 - Essential (primary) hypertension (3) Dementia ICD Code: F03.90 - Unspecified dementia without behavioral disturbance Assessment and Plan 87-year-old female with S/P GI Bleed - Recent admit 06/15-06/19/17 for same, s/p multiple episodes of coffee-ground emesis at SNF and while in ER. - Recent EGD/Colonoscopy w/ esophagitis, esophageal stricture s/p dilatation , diverticulosis and internal/external hemorrhoids. - Continue Protonix- change to 40 mg IV daily - GI consulted - EGD shows large hernia which is causing stomach volvulus. Pt is now s/p Laparoscopic reduction of large hiatal hernia. Laparoscopic gastrostomy tube. Gastropexy. POD 1 - Upper GI series -poor gastric and esophageal motility - H and H stable Hiatal hernia. -see above Hypertension- - controlled and stable - Amlodipine 5 mg daily- on med rec- was on 10 mg daily at home was also on Lisinopril- was held due to ana cardiology ff Mild hypernatremia - resolved. Dementia Hypothyroidism Aricept 5mg Qday, Levothyroxine 100 mcg Qday. Left lung pneumonia S/P treatment course with Levaquin - CT chest reveals left upper and lower lobe infiltrates. - completed PO Levaquin 750mg Qday Hypokalemia Resolved Acute renal injury-improving- creatinine slightly up - non oliguric- slowly improving. on gentle IV fluid hydration Avoid all nephrotoxic drug ff BMP post op in am Full code. SCDs. Discharge Planning anticipate d/c once cleared by GS. Monitor kidney function as well. Tita Flores MD July 15, 2017 14:36
--- NOTE | 2017-07-15 15:48 | PD.CARD.PN ---
Subjective Subjective Remarks No CP or SOB, tolerated surgery well Objective Medications Current Medications Medications (Trade) Dose Ordered Sig/Brenna Route Start Time Stop Time Status Last Admin (NS Flush) 2 ml UNSCH PRN IV FLUSH 07/06/17 03:15 (NS Flush) 2 ml BID IV FLUSH 07/06/17 09:00 07/14/17 09:14 (Zofran Inj) 4 mg Q6H PRN IVP 07/06/17 03:15 07/07/17 09:15 (Tylenol) 650 mg Q6H PRN PO 07/06/17 03:15 ([place] 5-325 Mg) 1 tab Q4H PRN PO 07/06/17 03:15 07/15/17 09:43 (Morphine Inj) 1 mg Q3H PRN IV 07/06/17 03:15 07/07/17 09:15 (Milk Of Magnesia Liq) 30 ml Q12H PRN PO 07/06/17 03:15 (Aricept) 5 mg HS PO 07/06/17 21:00 07/14/17 20:48 (Cymbalta Dr) 20 mg DAILY PO 07/06/17 09:00 07/15/17 09:32 (Ativan) 0.5 mg BID PRN PO 07/06/17 03:15 (Remeron) 15 mg HS PO 07/06/17 21:00 07/14/17 20:48 (SEROquel) 25 mg BID PO 07/06/17 09:00 07/15/17 09:32 (Compazine Inj) 10 mg Q6H PRN IV PUSH 07/06/17 04:00 07/06/17 04:04 (Prinivil) 5 mg DAILY PO 07/06/17 09:00 Future Hold 07/07/17 09:16 (Pill Splitter) 1 ea UNSCH PRN OTHER 07/08/17 09:30 (Levaquin) 250 mg DAILY PO 07/09/17 09:30 07/14/17 15:20 Potassium Chloride/Sodium Chloride 1,000 ml @ 50 mls/hr Q20H IV 07/09/17 10:30 07/15/17 01:10 (Catapres) 0.1 mg Q6H PRN PO 07/10/17 18:00 07/13/17 08:53 (Synthroid) 100 mcg DAILY@0600 PO 07/13/17 06:00 07/15/17 04:41 (Norvasc) 5 mg DAILY PO 07/13/17 09:15 07/15/17 09:32 (Protonix Inj) 40 mg Q24H IV PUSH 07/14/17 09:00 07/15/17 09:33 Lactated Ringer's 1,000 ml @ 30 mls/hr Q24H PRN IV 07/13/17 23:30 07/16/17 23:29 Sodium Chloride 500 ml @ 30 mls/hr [id number] PRN IV 07/13/17 23:30 07/16/17 23:29 (Betadine 5% Antisepsis Kit) 1 applic ORNAMENT MAKER HAND PRN EACH NARE 07/13/17 23:30 07/16/17 23:29 (Chlorhexidine 2% Cloth) 3 pack ORNAMENT MAKER HAND PRN TOPICAL 07/13/17 23:30 07/16/17 23:29 ([facility] Nursing Information) ALL NURSING DEPARTME... UNSCH PRN .XX 07/14/17 18:08 07/15/17 18:07 Vital Signs / I&O Vital Signs Date Time Temp Pulse Resp B/P (MAP) Pulse Ox O2 Delivery O2 Flow Rate FiO2 07/15/17 12:00 98.0 78 16 139/65 (89) 95 07/15/17 08:00 98.4 83 17 148/70 (96) 94 07/15/17 04:00 97.9 95 18 146/67 (93) 96 07/15/17 00:00 97.8 98 18 135/75 (95) 96 07/14/17 20:00 98.1 94 18 136/65 (88) 97 07/14/17 18:30 97.6 99 18 152/71 (98) 98 Nasal Cannula 2 07/14/17 18:15 100 21 154/68 (96) 98 Nasal Cannula 2 07/14/17 18:05 97.6 97 20 148/84 (105) 97 Nasal Cannula 2 Manual Cuff/Auscultation I/O 07/14/17 07/14/17 07/14/17 07/15/17 07/15/17 07/15/17 07:00 15:00 23:00 07:00 15:00 23:00 Intake Total 674 ml 1000 ml 250 ml Output Total 1000 ml 710 ml 650 ml Balance -326 ml 290 ml -400 ml Intake Oral 0 ml IV Total 674 ml 0 ml 250 ml Other 1000 ml Output Urine Total 1000 ml 700 ml 650 ml Stool Total 0 ml Estimated Blood Loss 10 ml # Voids 1 # Bowel Movements 0 Physical Exam GENERAL: In NAD. SKIN: Warm and dry. HEAD: Normocephalic. EYES: No scleral icterus. No injection or drainage. NECK: Supple, trachea midline. No JVD or lymphadenopathy. CARDIOVASCULAR: Regular rate and rhythm without murmurs, gallops, or rubs. RESPIRATORY: Breath sounds equal bilaterally. No accessory muscle use. GASTROINTESTINAL: Abdomen soft, non-tender, nondistended. EXTREMITIES: No edema. Laboratory Laboratory Tests Test 07/15/17 05:59 07/15/17 12:28 Blood Urea Nitrogen 11 MG/DL Creatinine 1.29 MG/DL Random Glucose 103 MG/DL Total Protein 5.8 GM/DL Albumin 2.5 GM/DL Calcium Level 8.1 MG/DL Alkaline Phosphatase 74 U/L Aspartate Amino Transf (AST/SGOT) 24 U/L Alanine Aminotransferase (ALT/SGPT) 14 U/L Total Bilirubin 0.5 MG/DL Sodium Level 142 MEQ/L Potassium Level 4.6 MEQ/L Chloride Level 108 MEQ/L Carbon Dioxide Level 24.8 MEQ/L Anion Gap 9 MEQ/L Estimat Glomerular Filtration Rate 39 ML/MIN White Blood Count 10.2 TH/MM3 Red Blood Count 3.40 MIL/MM3 Hemoglobin 9.9 GM/DL Hematocrit 29.5 % Mean Corpuscular Volume 86.8 FL Mean Corpuscular Hemoglobin 29.1 PG Mean Corpuscular Hemoglobin Concent 33.5 % Red Cell Distribution Width 15.0 % Platelet Count 156 TH/MM3 Mean Platelet Volume 10.7 FL Assessment and Plan Problem List: (1) GI bleed ICD Codes: K92.2 - Gastrointestinal hemorrhage, unspecified (2) Hiatal hernia ICD Codes: K44.9 - Diaphragmatic hernia without obstruction or gangrene (3) HTN (hypertension) ICD Codes: I10 - Essential (primary) hypertension (4) Dementia ICD Codes: F03.90 - Unspecified dementia without behavioral disturbance Assessment and Plan Tolerated surgery well. No angina or CHF. Continue close monitoring on tele. Increase activity, PT. D/w pt and family. Jacoby Saldivar MD July 15, 2017 15:48
[2017-07-15 16:00] VITALS: BP 129/60; PULSE 70; RESP 16; TEMP 97.8; O2SAT 96
[2017-07-15 20:00] VITALS: BP 138/65; PULSE 80; RESP 15; TEMP 97.1; O2SAT 93
[2017-07-15] MEDS: DONEPEZIL HCL 5 MG TAB PO SCH (21:03)
[2017-07-15] MEDS: MIRTAZAPINE 15 MG TAB PO SCH (21:03)
[2017-07-15] MEDS: cloNIDine HCL 0.1 MG TAB PO PRN (23:47)
[2017-07-16] VITALS: BP 186/79; PULSE 78; RESP 15; TEMP 97.1; O2SAT 93
[2017-07-16 04:00] VITALS: BP 103/52; PULSE 90; RESP 15; TEMP 97.7; O2SAT 93
[2017-07-16] MEDS: LEVOTHYROXINE SODIUM 100 MCG TAB PO SCH (05:16)
[2017-07-16] MEDS: 1/2 NS + KCL 20 MEQ INJ 1,000 ML IV SCH (07:08)
[2017-07-16 08:00] VITALS: BP 158/67; PULSE 70; RESP 16; TEMP 97.4; O2SAT 92
[2017-07-16] MEDS: amLODIPine BESYLATE 5 MG TAB PO SCH (09:54)
[2017-07-16] MEDS: QUEtiapine FUMARATE 25 MG TAB PO SCH ×2 (09:54→22:58)
[2017-07-16] MEDS: LEVOFLOXACIN 250 MG TAB PO SCH (09:54)
[2017-07-16] MEDS: DULoxetine HCl DR 20 MG CAP PO SCH (09:54)
[2017-07-16 10:22] LABS: HEMATOCRIT 28.6 % (35.0-46.0); HEMOGLOBIN 9.4 GM/DL (11.6-15.3)
[2017-07-16 10:34] LABS: BICARBONATE 25.4 MEQ/L (21.0-32.0); CALCIUM 7.8 MG/DL (8.5-10.1); CREATININE 1.13 MG/DL (0.50-1.00)
[2017-07-16 12:00] VITALS: BP 117/63; PULSE 76; RESP 16; TEMP 97.8; O2SAT 93
[2017-07-16] MEDS: PANTOPRAZOLE SODIUM 40 MG VIAL IV PUSH SCH (13:00)
[2017-07-16] MEDS: SODIUM CHLORIDE 0.9% FLUSH 10 ML FLUSH IV FLUSH SCH ×2 (13:00→21:00)
--- NOTE | 2017-07-16 15:26 | HHI.PR ---
Subjective Remarks Pt complained of some discomfort on her right scapula and after I massaged the area, states it is gone. Denies any nausea or vomiting. Denies any CP/SOB. doesn 't complain of any abdominal pain Objective Vitals Vital Signs Date Time Temp Pulse Resp B/P (MAP) Pulse Ox O2 Delivery O2 Flow Rate FiO2 07/16/17 12:00 97.8 76 16 117/63 (81) 93 07/16/17 08:00 97.4 70 16 158/67 (97) 92 07/16/17 04:00 97.7 90 15 103/52 (69) 93 07/16/17 00:00 97.1 78 15 186/79 (114) 93 07/15/17 20:00 97.1 80 15 138/65 (89) 93 07/15/17 16:00 97.8 70 16 129/60 (83) 96 I/O 07/15/17 07/15/17 07/15/17 07/16/17 07/16/17 07/16/17 07:00 15:00 23:00 07:00 15:00 23:00 Intake Total 250 ml 800 ml 240 ml Output Total 650 ml 200 ml Balance -400 ml 600 ml 240 ml Intake Oral 800 ml 240 ml IV Total 250 ml Output Urine Total 650 ml 200 ml # Voids 2 # Bowel Movements 0 0 Result Diagram: 07/16/17 0922 07/16/17 0910 Imaging Last Impressions Upper GI Series 07/08/17 0000 Signed Impressions: Service Date/Time: Saturday, July 08, 2017 09:24 - CONCLUSION: 1. Poor gastric and esophageal motility. Large hiatal hernia. Exam somewhat limited by patient' s mobility. No obstruction identified. Joaquin Nolan MD Chest CT 07/06/17 0000 Signed Impressions: Service Date/Time: Thursday, July 06, 2017 18:19 - CONCLUSION: 1. Infiltrates throughout the left upper and to a lesser extent the left lower lobe consistent with possible pneumonia. Clinical correlation is recommended. 2. Very large paraesophageal hiatal hernia containing half of the stomach which is distended and fluid-filled. The esophagus is also distended and fluid-filled. 3. 4.4 cm cystic splenic lesion is likely benign. 4. Renal cortical thinning bilaterally. 5. Degenerative changes and scoliosis of the thoracic spine. 1. Harsha Roberson MD Chest X-Ray 07/05/17 7090 Signed Impressions: Service Date/Time: Wednesday, July 05, 2017 23:42 - CONCLUSION: Abnormal chest appearance. Recommend contrasted CT chest. Satinder Mccarthy MD Objective Remarks awake and alert, pleasant, laying in bed lungs- no wheezing regular rhythm no murmurs abdomen soft, appropriately tender, dressing in place. Gtube in place. abdominal binder in place extremities no edema Procedures EGD 07/07/2017 1. There was LA Class D esophagitis noted 2. There was erythematous gastritis in the gastric antrum; A total of 550cc of liquid suctioned from the esophagus and stomach 3. Normal duodenal mucosa in the bulb and second portion of the duodenum 4. Retroflexed views revealed a hiatal hernia 5. Retroflexed views revealed Large hernia. A/P Problem List: (1) GI bleed ICD Code: K92.2 - Gastrointestinal hemorrhage, unspecified (2) HTN (hypertension) ICD Code: I10 - Essential (primary) hypertension (3) Dementia ICD Code: F03.90 - Unspecified dementia without behavioral disturbance Assessment and Plan 87-year-old female with S/P GI Bleed - Recent admit 06/15-06/19/17 for same, s/p multiple episodes of coffee-ground emesis at SNF and while in ER. - Recent EGD/Colonoscopy w/ esophagitis, esophageal stricture s/p dilatation , diverticulosis and internal/external hemorrhoids. - Continue Protonix - GI following - EGD shows large hernia which is causing stomach volvulus. Pt is now s/p Laparoscopic reduction of large hiatal hernia. Laparoscopic gastrostomy tube. Gastropexy. POD 2 - Upper GI series -poor gastric and esophageal motility - H and H stable Hiatal hernia. -see above Hypertension- - controlled and stable - Amlodipine 5 mg daily- stable on current dose- on med rec- was on 10 mg daily at home was also on Lisinopril- was held due to naa cardiology ff Mild hypernatremia - resolved. Dementia Hypothyroidism Aricept 5mg Qday, Levothyroxine 100 mcg Qday. Left lung pneumonia S/P treatment course with Levaquin - CT chest reveals left upper and lower lobe infiltrates. - completed PO Levaquin 750mg Qday Hypokalemia Resolved Acute renal injury-improving- creatinine slightly up - non oliguric- slowly improving. on gentle IV fluid hydration Avoid all nephrotoxic drug ff BMP post op in am Full code. SCDs. Discharge Planning anticipate d/c once cleared by GS, diet has been advanced to full liquids. Monitor kidney function as well. Tita Flores MD July 16, 2017 15:26
[2017-07-16 16:00] VITALS: BP 141/61; PULSE 77; RESP 16; TEMP 98.2; O2SAT 92
--- NOTE | 2017-07-16 19:40 | PD.CARD.PN ---
Subjective Subjective Remarks No CP or SOB, feels better Objective Medications Current Medications Medications (Trade) Dose Ordered Sig/Brenna Route Start Time Stop Time Status Last Admin (NS Flush) 2 ml UNSCH PRN IV FLUSH 07/06/17 03:15 (NS Flush) 2 ml BID IV FLUSH 07/06/17 09:00 07/16/17 13:00 (Zofran Inj) 4 mg Q6H PRN IVP 07/06/17 03:15 07/07/17 09:15 (Tylenol) 650 mg Q6H PRN PO 07/06/17 03:15 ([place] 5-325 Mg) 1 tab Q4H PRN PO 07/06/17 03:15 07/15/17 23:46 (Morphine Inj) 1 mg Q3H PRN IV 07/06/17 03:15 07/07/17 09:15 (Milk Of Magnesia Liq) 30 ml Q12H PRN PO 07/06/17 03:15 (Aricept) 5 mg HS PO 07/06/17 21:00 07/15/17 21:03 (Cymbalta Dr) 20 mg DAILY PO 07/06/17 09:00 07/16/17 09:54 (Ativan) 0.5 mg BID PRN PO 07/06/17 03:15 (Remeron) 15 mg HS PO 07/06/17 21:00 07/15/17 21:03 (SEROquel) 25 mg BID PO 07/06/17 09:00 07/16/17 09:54 (Compazine Inj) 10 mg Q6H PRN IV PUSH 07/06/17 04:00 07/06/17 04:04 (Prinivil) 5 mg DAILY PO 07/06/17 09:00 Future Hold 07/07/17 09:16 (Pill Splitter) 1 ea UNSCH PRN OTHER 07/08/17 09:30 (Levaquin) 250 mg DAILY PO 07/09/17 09:30 07/16/17 09:54 Potassium Chloride/Sodium Chloride 1,000 ml @ 50 mls/hr Q20H IV 07/09/17 10:30 07/15/17 23:48 (Catapres) 0.1 mg Q6H PRN PO 07/10/17 18:00 07/15/17 23:47 (Synthroid) 100 mcg DAILY@0600 PO 07/13/17 06:00 07/16/17 05:16 (Norvasc) 5 mg DAILY PO 07/13/17 09:15 07/16/17 09:54 (Protonix Inj) 40 mg Q24H IV PUSH 07/14/17 09:00 07/16/17 13:00 Lactated Ringer's 1,000 ml @ 30 mls/hr Q24H PRN IV 07/13/17 23:30 07/16/17 23:29 Sodium Chloride 500 ml @ 30 mls/hr [id number] PRN IV 07/13/17 23:30 07/16/17 23:29 (Betadine 5% Antisepsis Kit) 1 applic NIBBLER OPERATOR PRN EACH NARE 07/13/17 23:30 07/16/17 23:29 (Chlorhexidine 2% Cloth) 3 pack NIBBLER OPERATOR PRN TOPICAL 07/13/17 23:30 07/16/17 23:29 Vital Signs / I&O Vital Signs Date Time Temp Pulse Resp B/P (MAP) Pulse Ox O2 Delivery O2 Flow Rate FiO2 07/16/17 16:00 98.2 77 16 141/61 (87) 92 07/16/17 12:00 97.8 76 16 117/63 (81) 93 07/16/17 08:00 97.4 70 16 158/67 (97) 92 07/16/17 04:00 97.7 90 15 103/52 (69) 93 07/16/17 00:00 97.1 78 15 186/79 (114) 93 07/15/17 20:00 97.1 80 15 138/65 (89) 93 I/O 07/15/17 07/15/17 07/15/17 07/16/17 07/16/17 07/16/17 07:00 15:00 23:00 07:00 15:00 23:00 Intake Total 250 ml 800 ml 240 ml 360 ml Output Total 650 ml 200 ml 700 ml Balance -400 ml 600 ml 240 ml -340 ml Intake Oral 800 ml 240 ml 360 ml IV Total 250 ml Output Urine Total 650 ml 200 ml 700 ml # Voids 2 # Bowel Movements 0 0 0 Physical Exam GENERAL: In NAD. SKIN: Warm and dry. HEAD: Normocephalic. EYES: No scleral icterus. No injection or drainage. NECK: Supple, trachea midline. No JVD or lymphadenopathy. CARDIOVASCULAR: Regular rate and rhythm without murmurs, gallops, or rubs. RESPIRATORY: Breath sounds equal bilaterally. No accessory muscle use. GASTROINTESTINAL: Abdomen soft, non-tender, nondistended. EXTREMITIES: No edema. Laboratory Laboratory Tests Test 07/16/17 09:10 07/16/17 09:22 Blood Urea Nitrogen 11 MG/DL Creatinine 1.13 MG/DL Random Glucose 86 MG/DL Calcium Level 7.8 MG/DL Sodium Level 140 MEQ/L Potassium Level 4.1 MEQ/L Chloride Level 107 MEQ/L Carbon Dioxide Level 25.4 MEQ/L Anion Gap 8 MEQ/L Estimat Glomerular Filtration Rate 45 ML/MIN Hemoglobin 9.4 GM/DL Hematocrit 28.6 % Assessment and Plan Problem List: (1) GI bleed ICD Codes: K92.2 - Gastrointestinal hemorrhage, unspecified (2) Hiatal hernia ICD Codes: K44.9 - Diaphragmatic hernia without obstruction or gangrene (3) HTN (hypertension) ICD Codes: I10 - Essential (primary) hypertension (4) Dementia ICD Codes: F03.90 - Unspecified dementia without behavioral disturbance Assessment and Plan No postoperative cardiac issues. No angina or CHF. Remains stable from cardiac standpoint. Increase activity, PT. Jacoby Saldivar MD July 16, 2017 19:40
[2017-07-16 20:00] VITALS: BP 108/51; PULSE 81; RESP 15; TEMP 97.1; O2SAT 96
[2017-07-16] MEDS: MIRTAZAPINE 15 MG TAB PO SCH (22:58)
[2017-07-16] MEDS: DONEPEZIL HCL 5 MG TAB PO SCH (22:58)
[2017-07-17] VITALS (7 sets, daily range): BP systolic 98–199; BP diastolic 49–77; PULSE 60–82; RESP 15–19; TEMP 96.8–98.2; O2SAT 93–98
[2017-07-17] MEDS: LEVOTHYROXINE SODIUM 100 MCG TAB PO SCH (06:46)
[2017-07-17] MEDS: 1/2 NS + KCL 20 MEQ INJ 1,000 ML IV SCH ×2 (06:48→20:51)
[2017-07-17 08:47] LABS: AUTOMATED NEUTROPHIL # 5.4 TH/MM3 (1.8-7.7); BASOPHIL % 0.2 % (0.0-2.0); EOSINOPHIL # 0.3 TH/MM3 (0-0.4); EOSINOPHIL % 4.6 % (0.0-4.0); HEMATOCRIT 27.8 % (35.0-46.0); HEMOGLOBIN 9.1 GM/DL (11.6-15.3); LYMPH % 10.8 % (9.0-44.0); LYMPHOCYTE # 0.7 TH/MM3 (1.0-4.8); MEAN CELL VOLUME 86.2 FL (80.0-100.0); MEAN CORPUSCULAR HEMOGLOBIN 28.2 PG (27.0-34.0); MEAN CORPUSCULAR HGB CONC 32.7 % (32.0-36.0); MEAN PLATELET VOLUME 10.7 FL (7.0-11.0); MONO % 3.6 % (0.0-8.0); MONOCYTE # 0.2 TH/MM3 (0-0.9); NEUT % 80.8 % (16.0-70.0); PLATELET COUNT 132 TH/MM3 (150-450); RED BLOOD COUNT 3.23 MIL/MM3 (4.00-5.30); RED CELL DISTRIBUTION WIDTH 14.9 % (11.6-17.2); WHITE BLOOD COUNT 6.7 TH/MM3 (4.0-11.0)
[2017-07-17 08:56] LABS: BICARBONATE 26.5 MEQ/L (21.0-32.0); CALCIUM 7.3 MG/DL (8.5-10.1); CREATININE 1.06 MG/DL (0.50-1.00)
[2017-07-17] MEDS: SODIUM CHLORIDE 0.9% FLUSH 10 ML FLUSH IV FLUSH SCH ×2 (09:00→20:51)
[2017-07-17 09:18] LABS: CALCIUM-PROTEIN CORRECTED 8.3 MG/DL (8.5-10.1); TOTAL PROTEIN 5.3 GM/DL (6.4-8.2)
[2017-07-17] MEDS: ONDANSETRON HCL 4 MG/2 ML VIAL IVP PRN (10:25)
[2017-07-17] MEDS: LEVOFLOXACIN 250 MG TAB PO SCH (10:27)
[2017-07-17] MEDS: DULoxetine HCl DR 20 MG CAP PO SCH (10:27)
[2017-07-17] MEDS: amLODIPine BESYLATE 5 MG TAB PO SCH (10:27)
[2017-07-17] MEDS: QUEtiapine FUMARATE 25 MG TAB PO SCH ×2 (10:28→20:49)
[2017-07-17] MEDS: PANTOPRAZOLE SODIUM 40 MG VIAL IV PUSH SCH (10:28)
--- NOTE | 2017-07-17 10:41 | HHI.PR ---
Subjective Subjective Notes NOTE DATE 07/15/17 POD 1, c/o pain but controlled, no acute issues Objective Vitals/I&O Vital Signs Date Time Temp Pulse Resp B/P (MAP) Pulse Ox O2 Delivery O2 Flow Rate FiO2 07/17/17 08:00 98.2 60 18 125/61 (82) 94 07/14/17 18:30 Nasal Cannula 2 Labs Laboratory Tests Test 07/17/17 06:53 White Blood Count 6.7 Red Blood Count 3.23 Hemoglobin 9.1 Hematocrit 27.8 Mean Corpuscular Volume 86.2 Mean Corpuscular Hemoglobin 28.2 Mean Corpuscular Hemoglobin Concent 32.7 Red Cell Distribution Width 14.9 Platelet Count 132 Mean Platelet Volume 10.7 Neutrophils (%) (Auto) 80.8 Lymphocytes (%) (Auto) 10.8 Monocytes (%) (Auto) 3.6 Eosinophils (%) (Auto) 4.6 Basophils (%) (Auto) 0.2 Neutrophils # (Auto) 5.4 Lymphocytes # (Auto) 0.7 Monocytes # (Auto) 0.2 Eosinophils # (Auto) 0.3 Basophils # (Auto) 0.0 CBC Comment DIFF FINAL Differential Comment Blood Urea Nitrogen 10 Creatinine 1.06 Random Glucose 84 Total Protein 5.3 Calcium Level 7.3 Sodium Level 144 Potassium Level 3.7 Chloride Level 109 Carbon Dioxide Level 26.5 Anion Gap 9 Estimat Glomerular Filtration Rate 49 Protein Corrected Calcium 8.3 Radiology Last [address] 07/06/17 0000 Signed Impressions: Service Date/Time: Thursday, July 06, 2017 18:19 - CONCLUSION: 1. Infiltrates throughout the left upper and to a lesser extent the left lower lobe consistent with possible pneumonia. Clinical correlation is recommended. 2. Very large paraesophageal hiatal hernia containing half of the stomach which is distended and fluid-filled. The esophagus is also distended and fluid-filled. 3. 4.4 cm cystic splenic lesion is likely benign. 4. Renal cortical thinning bilaterally. 5. Degenerative changes and scoliosis of the thoracic spine. 1. Harsha Roberson MD Chest X-Ray 07/05/17 2310 Signed Impressions: Service Date/Time: Wednesday, July 05, 2017 23:42 - CONCLUSION: Abnormal chest appearance. Recommend contrasted CT chest. Satinder Mccarthy MD Lungs: Clear Abdomen: Other (Soft incisional tenderness, dressing scant dry drainage) A/P Assessment and Plan NOTE DATE 07/15/17 87 year old female with large hiatal hernia s/p lap hh reduction, gastropexy g tube PLAN Clear diet pain control clamp g tube remove Jose Luis Feng MD July 17, 2017 10:40
--- NOTE | 2017-07-17 10:42 | HHI.PR ---
Subjective Subjective Notes NOTE DATE 07/16/17 POD 2 no acute issues tolerating some liquids no flatus Objective Vitals/I&O Vital Signs Date Time Temp Pulse Resp B/P (MAP) Pulse Ox O2 Delivery O2 Flow Rate FiO2 07/17/17 08:00 98.2 60 18 125/61 (82) 94 07/14/17 18:30 Nasal Cannula 2 Labs Laboratory Tests Test 07/17/17 06:53 White Blood Count 6.7 Red Blood Count 3.23 Hemoglobin 9.1 Hematocrit 27.8 Mean Corpuscular Volume 86.2 Mean Corpuscular Hemoglobin 28.2 Mean Corpuscular Hemoglobin Concent 32.7 Red Cell Distribution Width 14.9 Platelet Count 132 Mean Platelet Volume 10.7 Neutrophils (%) (Auto) 80.8 Lymphocytes (%) (Auto) 10.8 Monocytes (%) (Auto) 3.6 Eosinophils (%) (Auto) 4.6 Basophils (%) (Auto) 0.2 Neutrophils # (Auto) 5.4 Lymphocytes # (Auto) 0.7 Monocytes # (Auto) 0.2 Eosinophils # (Auto) 0.3 Basophils # (Auto) 0.0 CBC Comment DIFF FINAL Differential Comment Blood Urea Nitrogen 10 Creatinine 1.06 Random Glucose 84 Total Protein 5.3 Calcium Level 7.3 Sodium Level 144 Potassium Level 3.7 Chloride Level 109 Carbon Dioxide Level 26.5 Anion Gap 9 Estimat Glomerular Filtration Rate 49 Protein Corrected Calcium 8.3 Radiology Last [address] 07/06/17 0000 Signed Impressions: Service Date/Time: Thursday, July 06, 2017 18:19 - CONCLUSION: 1. Infiltrates throughout the left upper and to a lesser extent the left lower lobe consistent with possible pneumonia. Clinical correlation is recommended. 2. Very large paraesophageal hiatal hernia containing half of the stomach which is distended and fluid-filled. The esophagus is also distended and fluid-filled. 3. 4.4 cm cystic splenic lesion is likely benign. 4. Renal cortical thinning bilaterally. 5. Degenerative changes and scoliosis of the thoracic spine. 1. Harsha Roberson MD Chest X-Ray 07/05/17 2310 Signed Impressions: Service Date/Time: Wednesday, July 05, 2017 23:42 - CONCLUSION: Abnormal chest appearance. Recommend contrasted CT chest. Satinder Mccarthy MD Lungs: Clear Abdomen: Other (g tube c/d/i. incisions no infection) A/P Assessment and Plan NOTE DATE 07/16/17 87 year old female with large hiatal hernia s/p lap hh reduction, gastropexy g tube PLAN Clear diet ok to advance diet as tolerated pain control clamp g tube- ok to use if needed encourage oob IS ok for dvt ppx Jose Luis De La Torre MD July 17, 2017 10:42
[2017-07-17] MEDS ORDERED: DOCUSATE SODIUM 50 MG/SENNA 8.6 MG TAB PO PRN (13:45)
--- NOTE | 2017-07-17 13:45 | HHI.PR ---
Subjective Remarks Pt has no complaints. wants to sleep. no nausea or vomiting. pain controlled. Objective Vitals Vital Signs Date Time Temp Pulse Resp B/P (MAP) Pulse Ox O2 Delivery O2 Flow Rate FiO2 07/17/17 12:00 97.7 62 18 139/64 (89) 96 07/17/17 08:00 98.2 60 18 125/61 (82) 94 07/17/17 00:00 97.5 82 15 110/52 (71) 95 07/16/17 20:00 97.1 81 15 108/51 (70) 96 07/16/17 16:00 98.2 77 16 141/61 (87) 92 I/O 07/16/17 07/16/17 07/16/17 07/17/17 07/17/17 07/17/17 07:00 15:00 23:00 07:00 15:00 23:00 Intake Total 240 ml 360 ml 440 ml Output Total 700 ml Balance 240 ml -340 ml 440 ml Intake Oral 240 ml 360 ml 440 ml Output Urine Total 700 ml # Voids 2 6 # Bowel Movements 0 0 2 Result Diagram: 07/17/17 0653 07/17/17 0653 Imaging Last Impressions Upper GI Series 07/08/17 0000 Signed Impressions: Service Date/Time: Saturday, July 08, 2017 09:24 - CONCLUSION: 1. Poor gastric and esophageal motility. Large hiatal hernia. Exam somewhat limited by patient' s mobility. No obstruction identified. Joaquin Nolan MD Chest CT 07/06/17 0000 Signed Impressions: Service Date/Time: Thursday, July 06, 2017 18:19 - CONCLUSION: 1. Infiltrates throughout the left upper and to a lesser extent the left lower lobe consistent with possible pneumonia. Clinical correlation is recommended. 2. Very large paraesophageal hiatal hernia containing half of the stomach which is distended and fluid-filled. The esophagus is also distended and fluid-filled. 3. 4.4 cm cystic splenic lesion is likely benign. 4. Renal cortical thinning bilaterally. 5. Degenerative changes and scoliosis of the thoracic spine. 1. Harsha Roberson MD Chest X-Ray 07/05/17 2310 Signed Impressions: Service Date/Time: Wednesday, July 05, 2017 23:42 - CONCLUSION: Abnormal chest appearance. Recommend contrasted CT chest. Satinder Mccarthy MD Objective Remarks asleep, opens her eyes, answers my questions w yes or no then goes back to sleep , telling me she is resting lungs- no wheezing regular rhythm no murmurs abdomen soft, appropriately tender, dressing in place. Gtube in place. abdominal binder in place extremities no edema Procedures EGD 07/07/2017 1. There was LA Class D esophagitis noted 2. There was erythematous gastritis in the gastric antrum; A total of 550cc of liquid suctioned from the esophagus and stomach 3. Normal duodenal mucosa in the bulb and second portion of the duodenum 4. Retroflexed views revealed a hiatal hernia 5. Retroflexed views revealed Large hernia. A/P Problem List: (1) GI bleed ICD Code: K92.2 - Gastrointestinal hemorrhage, unspecified (2) HTN (hypertension) ICD Code: I10 - Essential (primary) hypertension (3) Dementia ICD Code: F03.90 - Unspecified dementia without behavioral disturbance Assessment and Plan 87-year-old female with S/P GI Bleed - Recent admit 06/15-06/19/17 for same, s/p multiple episodes of coffee-ground emesis at SNF and while in ER. - Recent EGD/Colonoscopy w/ esophagitis, esophageal stricture s/p dilatation , diverticulosis and internal/external hemorrhoids. - Continue Protonix - GI following - EGD showed large hernia which is causing stomach volvulus. Pt is now s/p Laparoscopic reduction of large hiatal hernia. Laparoscopic gastrostomy tube. Gastropexy. POD 3. Diet has been advanced to heart healthy today by GS - Upper GI series -poor gastric and esophageal motility - H and H stable Hiatal hernia. -see above Hypertension- - controlled and stable - Amlodipine 5 mg daily- stable on current dose- on med rec- was on 10 mg daily at home was also on Lisinopril- was held due to josh. Cr improving cardiology ff Mild hypernatremia - resolved. Dementia Hypothyroidism Aricept 5mg Qday, Levothyroxine 100 mcg Qday. Left lung pneumonia S/P treatment course with Levaquin - CT chest reveals left upper and lower lobe infiltrates. - completed PO Levaquin 750mg Qday Hypokalemia Resolved Acute renal injury-improving- creatinine slightly up - non oliguric- slowly improving. on gentle IV fluid hydration Avoid all nephrotoxic drug Monitor Cr. Full code. ok for anticoagulation per GS, I'll start her on heparin due to JOSH instead of lovenox Discharge Planning diet has been advanced to heart healthy per , anticipating d/c in AM Tita Flores MD July 17, 2017 13:45
[2017-07-17] MEDS ORDERED: hydrALAZINE HCL 10 MG TAB PO PRN (15:30)
[2017-07-17] MEDS ORDERED: cloNIDine HCL 0.1 MG TAB PO PRN (15:30)
[2017-07-17] MEDS: cloNIDine HCL 0.1 MG TAB PO PRN (16:49)
[2017-07-17] MEDS: HEPARIN SODIUM - SQ 10,000 UNITS/ML VIAL SQ SCH ×2 (16:56→20:50)
--- NOTE | 2017-07-17 19:56 | PD.CARD.PN ---
Subjective Subjective Remarks No CP or SOB, sad about the of a friend Objective Medications Current Medications Medications (Trade) Dose Ordered Sig/Brenna Route Start Time Stop Time Status Last Admin (NS Flush) 2 ml UNSCH PRN IV FLUSH 07/06/17 03:15 (NS Flush) 2 ml BID IV FLUSH 07/06/17 09:00 07/16/17 13:00 (Zofran Inj) 4 mg Q6H PRN IVP 07/06/17 03:15 07/17/17 10:25 (Tylenol) 650 mg Q6H PRN PO 07/06/17 03:15 ([place] 5-325 Mg) 1 tab Q4H PRN PO 07/06/17 03:15 07/15/17 23:46 (Morphine Inj) 1 mg Q3H PRN IV 07/06/17 03:15 07/07/17 09:15 (Milk Of Magnesia Liq) 30 ml Q12H PRN PO 07/06/17 03:15 (Aricept) 5 mg HS PO 07/06/17 21:00 07/16/17 22:58 (Cymbalta Dr) 20 mg DAILY PO 07/06/17 09:00 07/17/17 10:27 (Ativan) 0.5 mg BID PRN PO 07/06/17 03:15 (Remeron) 15 mg HS PO 07/06/17 21:00 07/16/17 22:58 (SEROquel) 25 mg BID PO 07/06/17 09:00 07/17/17 10:28 (Compazine Inj) 10 mg Q6H PRN IV PUSH 07/06/17 04:00 07/06/17 04:04 (Prinivil) 5 mg DAILY PO 07/06/17 09:00 Future Hold 07/07/17 09:16 (Pill Splitter) 1 ea UNSCH PRN OTHER 07/08/17 09:30 (Levaquin) 250 mg DAILY PO 07/09/17 09:30 07/17/17 10:27 Potassium Chloride/Sodium Chloride 1,000 ml @ 50 mls/hr Q20H IV 07/09/17 10:30 07/17/17 06:48 (Catapres) 0.1 mg Q6H PRN PO 07/10/17 18:00 07/17/17 16:49 (Synthroid) 100 mcg DAILY@0600 PO 07/13/17 06:00 07/17/17 06:46 (Norvasc) 5 mg DAILY PO 07/13/17 09:15 07/17/17 10:27 (Protonix Inj) 40 mg Q24H IV PUSH 07/14/17 09:00 07/17/17 10:28 (Heparin Inj) 5,000 units Q12HR SQ 07/17/17 15:00 07/17/17 16:56 (Perlita-Colace) 1 tab BID PRN PO 07/17/17 13:45 (Apresoline) 10 mg Q6HR PRN PO 07/17/17 15:30 (Catapres) 0.1 mg Q6H PRN PO 07/17/17 15:30 Vital Signs / I&O Vital Signs Date Time Temp Pulse Resp B/P (MAP) Pulse Ox O2 Delivery O2 Flow Rate FiO2 07/17/17 18:39 98.1 69 18 115/51 (72) 93 07/17/17 16:30 96.8 64 19 186/70 (108) 98 07/17/17 16:00 96.8 74 19 199/77 (117) 98 07/17/17 12:00 97.7 62 18 139/64 (89) 96 07/17/17 08:00 98.2 60 18 125/61 (82) 94 07/17/17 00:00 97.5 82 15 110/52 (71) 95 07/16/17 20:00 97.1 81 15 108/51 (70) 96 I/O 07/16/17 07/16/17 07/16/17 07/17/17 07/17/17 07/17/17 07:00 15:00 23:00 07:00 15:00 23:00 Intake Total 240 ml 360 ml 440 ml 680 ml Output Total 700 ml Balance 240 ml -340 ml 440 ml 680 ml Intake Oral 240 ml 360 ml 440 ml 480 ml IV Total 200 ml Output Urine Total 700 ml # Voids 2 6 6 # Bowel Movements 0 0 2 Physical Exam GENERAL: In NAD. SKIN: Warm and dry. HEAD: Normocephalic. EYES: No scleral icterus. No injection or drainage. NECK: Supple, trachea midline. No JVD or lymphadenopathy. CARDIOVASCULAR: Regular rate and rhythm without murmurs, gallops, or rubs. RESPIRATORY: Breath sounds equal bilaterally. No accessory muscle use. GASTROINTESTINAL: Abdomen soft, non-tender, nondistended. EXTREMITIES: No edema. Laboratory Laboratory Tests Test 07/17/17 06:53 White Blood Count 6.7 TH/MM3 Red Blood Count 3.23 MIL/MM3 Hemoglobin 9.1 GM/DL Hematocrit 27.8 % Mean Corpuscular Volume 86.2 FL Mean Corpuscular Hemoglobin 28.2 PG Mean Corpuscular Hemoglobin Concent 32.7 % Red Cell Distribution Width 14.9 % Platelet Count 132 TH/MM3 Mean Platelet Volume 10.7 FL Neutrophils (%) (Auto) 80.8 % Lymphocytes (%) (Auto) 10.8 % Monocytes (%) (Auto) 3.6 % Eosinophils (%) (Auto) 4.6 % Basophils (%) (Auto) 0.2 % Neutrophils # (Auto) 5.4 TH/MM3 Lymphocytes # (Auto) 0.7 TH/MM3 Monocytes # (Auto) 0.2 TH/MM3 Eosinophils # (Auto) 0.3 TH/MM3 Basophils # (Auto) 0.0 TH/MM3 CBC Comment DIFF FINAL Differential Comment Blood Urea Nitrogen 10 MG/DL Creatinine 1.06 MG/DL Random Glucose 84 MG/DL Total Protein 5.3 GM/DL Calcium Level 7.3 MG/DL Sodium Level 144 MEQ/L Potassium Level 3.7 MEQ/L Chloride Level 109 MEQ/L Carbon Dioxide Level 26.5 MEQ/L Anion Gap 9 MEQ/L Estimat Glomerular Filtration Rate 49 ML/MIN Protein Corrected Calcium 8.3 MG/DL Assessment and Plan Problem List: (1) GI bleed ICD Codes: K92.2 - Gastrointestinal hemorrhage, unspecified (2) Hiatal hernia ICD Codes: K44.9 - Diaphragmatic hernia without obstruction or gangrene (3) HTN (hypertension) ICD Codes: I10 - Essential (primary) hypertension (4) Dementia ICD Codes: F03.90 - Unspecified dementia without behavioral disturbance Assessment and Plan Remains stable. No postoperative cardiac issues. No angina or CHF. Continue current program. Increase activity, PT. Jacoby Saldivar MD July 17, 2017 19:56
[2017-07-17] MEDS: MIRTAZAPINE 15 MG TAB PO SCH (20:49)
[2017-07-17] MEDS: DONEPEZIL HCL 5 MG TAB PO SCH (20:49)
[2017-07-18] VITALS: BP 104/51; PULSE 62; RESP 18; TEMP 98.4; O2SAT 97
[2017-07-18] MEDS: LEVOTHYROXINE SODIUM 100 MCG TAB PO SCH (04:18)
[2017-07-18 06:31] LABS: BICARBONATE 25.7 MEQ/L (21.0-32.0); CALCIUM 7.7 MG/DL (8.5-10.1); CREATININE 1.13 MG/DL (0.50-1.00)
--- NOTE | 2017-07-18 07:10 | HHI.PR ---
Subjective Subjective Notes PROGRESS NOTE 07/17/17 no acute issues, minimal abdominal pain, +bm Objective Vitals/I&O Vital Signs Date Time Temp Pulse Resp B/P (MAP) Pulse Ox O2 Delivery O2 Flow Rate FiO2 07/18/17 00:00 98.4 62 18 104/51 (68) 97 07/17/17 20:50 Nasal Cannula 2.00 Labs Laboratory Tests Test 07/18/17 05:21 Blood Urea Nitrogen 12 Creatinine 1.13 Random Glucose 137 Calcium Level 7.7 Sodium Level 143 Potassium Level 4.0 Chloride Level 109 Carbon Dioxide Level 25.7 Anion Gap 8 Estimat Glomerular Filtration Rate 45 Radiology Last [address] 07/06/17 0000 Signed Impressions: Service Date/Time: Thursday, July 06, 2017 18:19 - CONCLUSION: 1. Infiltrates throughout the left upper and to a lesser extent the left lower lobe consistent with possible pneumonia. Clinical correlation is recommended. 2. Very large paraesophageal hiatal hernia containing half of the stomach which is distended and fluid-filled. The esophagus is also distended and fluid-filled. 3. 4.4 cm cystic splenic lesion is likely benign. 4. Renal cortical thinning bilaterally. 5. Degenerative changes and scoliosis of the thoracic spine. 1. Harsha Roberson MD Chest X-Ray 07/05/17 2310 Signed Impressions: Service Date/Time: Wednesday, July 05, 2017 23:42 - CONCLUSION: Abnormal chest appearance. Recommend contrasted CT chest. Satinder Mccarthy MD Lungs: Clear Abdomen: Other (incisional tenderness, g tube c/d/i) A/P Assessment and Plan NOTE DATE 07/17/17 87 year old female with large hiatal hernia s/p lap hh reduction, gastropexy g tube PLAN advance diet as tolerated pain control clamp g tube- ok to use if needed encourage oob IS ok for dvt ppx d/c plan for friday Jose Luis De La Torre MD July 18, 2017 07:10
--- NOTE | 2017-07-18 07:13 | HHI.PR ---
Subjective Subjective Notes no acute issues, tolerating po, she states she has been oob, denies pain, +bm Objective Vitals/I&O Vital Signs Date Time Temp Pulse Resp B/P (MAP) Pulse Ox O2 Delivery O2 Flow Rate FiO2 07/18/17 00:00 98.4 62 18 104/51 (68) 97 07/17/17 20:50 Nasal Cannula 2.00 Labs Laboratory Tests Test 07/18/17 05:21 Blood Urea Nitrogen 12 Creatinine 1.13 Random Glucose 137 Calcium Level 7.7 Sodium Level 143 Potassium Level 4.0 Chloride Level 109 Carbon Dioxide Level 25.7 Anion Gap 8 Estimat Glomerular Filtration Rate 45 Radiology Last [address] 07/06/17 0000 Signed Impressions: Service Date/Time: Thursday, July 06, 2017 18:19 - CONCLUSION: 1. Infiltrates throughout the left upper and to a lesser extent the left lower lobe consistent with possible pneumonia. Clinical correlation is recommended. 2. Very large paraesophageal hiatal hernia containing half of the stomach which is distended and fluid-filled. The esophagus is also distended and fluid-filled. 3. 4.4 cm cystic splenic lesion is likely benign. 4. Renal cortical thinning bilaterally. 5. Degenerative changes and scoliosis of the thoracic spine. 1. Harsha Roberson MD Chest X-Ray 07/05/17 2310 Signed Impressions: Service Date/Time: Wednesday, July 05, 2017 23:42 - CONCLUSION: Abnormal chest appearance. Recommend contrasted CT chest. Satinder Mccarthy MD Lungs: Clear Abdomen: Other (incisional tenderness, g tube c/d/i, binder in place) A/P Assessment and Plan 87 year old female with large hiatal hernia s/p lap hh reduction, gastropexy g tube PLAN advance diet as tolerated pain control encourage oob IS ok for dvt ppx d/c plan today if cleared by medicine, clear from surgery stand point g tube care, needs to be flushed, binder needs to remain for now, ok to use g tube if needed, otherwise keep clamped f/u with Dr. De La Torre in 1-2 weeks Jose Luis De La Torre MD July 18, 2017 07:13
[2017-07-18 08:00] VITALS: BP 141/65; PULSE 72; RESP 19; TEMP 98.6; O2SAT 97
[2017-07-18] MEDS: SODIUM CHLORIDE 0.9% FLUSH 10 ML FLUSH IV FLUSH SCH (09:00)
[2017-07-18] MEDS: QUEtiapine FUMARATE 25 MG TAB PO SCH (09:13)
[2017-07-18] MEDS: HEPARIN SODIUM - SQ 10,000 UNITS/ML VIAL SQ SCH (09:13)
[2017-07-18] MEDS: DULoxetine HCl DR 20 MG CAP PO SCH (09:13)
[2017-07-18] MEDS: LEVOFLOXACIN 250 MG TAB PO SCH (09:13)
[2017-07-18] MEDS: amLODIPine BESYLATE 5 MG TAB PO SCH (09:13)
[2017-07-18] MEDS: PANTOPRAZOLE SODIUM 40 MG VIAL IV PUSH SCH (09:13)
--- NOTE | 2017-07-18 09:15 | HHI.PR ---
Subjective Subjective Notes Doing well Pain controlled "Feels cured" Objective Vitals/I&O Vital Signs Date Time Temp Pulse Resp B/P (MAP) Pulse Ox O2 Delivery O2 Flow Rate FiO2 07/18/17 00:00 98.4 62 18 104/51 (68) 97 07/17/17 20:50 Nasal Cannula 2.00 Labs Laboratory Tests Test 07/18/17 05:21 Blood Urea Nitrogen 12 Creatinine 1.13 Random Glucose 137 Calcium Level 7.7 Sodium Level 143 Potassium Level 4.0 Chloride Level 109 Carbon Dioxide Level 25.7 Anion Gap 8 Estimat Glomerular Filtration Rate 45 Radiology Last [address] 07/06/17 0000 Signed Impressions: Service Date/Time: Thursday, July 06, 2017 18:19 - CONCLUSION: 1. Infiltrates throughout the left upper and to a lesser extent the left lower lobe consistent with possible pneumonia. Clinical correlation is recommended. 2. Very large paraesophageal hiatal hernia containing half of the stomach which is distended and fluid-filled. The esophagus is also distended and fluid-filled. 3. 4.4 cm cystic splenic lesion is likely benign. 4. Renal cortical thinning bilaterally. 5. Degenerative changes and scoliosis of the thoracic spine. 1. Harsha Roberson MD Chest X-Ray 07/05/17 2310 Signed Impressions: Service Date/Time: Wednesday, July 05, 2017 23:42 - CONCLUSION: Abnormal chest appearance. Recommend contrasted CT chest. Satinder Mccarthy MD Cardiovascular: Regular Lungs: Clear Abdomen: Other (lap sites c/d/i; G tube clamped; binder in place ) Extremities: No edema Narrative Exam Confused A/P Assessment and Plan 87 year old female with large hiatal hernia -POD4 lap reduction of hiatal hernia; G tube placement -Soft diet -Okay to use G tube if needed otherwise keep clamped -Flush BID -Okay to return to Correction -Follow up with Dr. De La Torre in 10-14 days Attending Statement patient seen at bedside d.c planning ok for g tube use if needed Attestation The exam, history, and the medical decision-making described in the above note were completed with the assistance of the mid-level provider. I reviewed and agree with the findings presented. I attest that I had a [id number] encounter with the patient on the same day, and personally performed and documented my assessment and findings in the medical record. Saba Mosher. LAB ANIMAL TECHNOLOGIST/[facility] ANIMAL TECHNOLOGIST July 18, 2017 09:15 Jose Luis De La Torre MD July 20, 2017 22:21
--- NOTE | 2017-07-18 09:52 | HHI.DCPOC ---
Discharge Care Plan Diagnosis: (1) Hiatal hernia (2) GI bleed Goals to Promote Your Health * To prevent worsening of your condition and complications * To maintain your health at the optimal level Directions to Meet Your Goals Take your medications as prescribed Follow your dietary instruction Follow activity as directed Keep your appointments as scheduled Take your immunizations and boosters as scheduled If your symptoms worsen call your PCP, if no PCP go to Urgent Care Center or Emergency Room Smoking is Dangerous to Your Health. Avoid second hand smoke Call the 24-hour hour crisis hotline for domestic abuse at Jose Manuel Borja MD July 18, 2017 09:52
--- NOTE | 2017-07-18 09:54 | HHI.DS ---
Discharge Summary Admission Date July 08, 2017 at 11:35 Discharge Date: July 18, 2017 Admitting Diagnosis gastritis w/coffee ground emesis (1) GI bleed ICD Code: K92.2 - Gastrointestinal hemorrhage, unspecified (2) HTN (hypertension) ICD Code: I10 - Essential (primary) hypertension (3) Dementia ICD Code: F03.90 - Unspecified dementia without behavioral disturbance (4) Hiatal hernia ICD Code: K44.9 - Diaphragmatic hernia without obstruction or gangrene Procedures EGD 07/07/2017 1. There was LA Class D esophagitis noted 2. There was erythematous gastritis in the gastric antrum; A total of 550cc of liquid suctioned from the esophagus and stomach 3. Normal duodenal mucosa in the bulb and second portion of the duodenum 4. Retroflexed views revealed a hiatal hernia 5. Retroflexed views revealed Large hernia. 1. Laparoscopic reduction of large hiatal hernia. 2. Laparoscopic gastrostomy tube. 3. Gastropexy. Brief History - From Admission This is an 87-year-old female with a PMH of A. fib, Anxiety, Depression, COPD, CAD, Dementia, DM and h/o GI Bleed who was sent to the ER from [facility] for coffee-ground emesis. Pt unable to provide much history, does not know why she is here. EMS reports pt noted to have multiple episodes of coffee- ground emesis at [facility] and sent to ER. Recent admit 06/15-06/19/17 for similar complaints, s/p eval by Dr. Austin, EGD 06/17/17 w/ esophagitis, stricture distal esophagus s/p dilatation and hiatal hernia. Colonoscopy 06/19/17 w/ diverticulosis, polypectomy, and internal/external hemorrhoids. BP 194/95, HR 89, O2 sat 100% on RA, Afebrile. CBC unremarkable. Hemoglobin 14.0, previously 11.7 on 06/16/2017. INR 1.1. CXR with no acute findings. While in ER, pt w/ multiple episodes of coffee-ground emesis. Currently on Protonix gtt CBC/BMP: 07/17/17 0653 07/18/17 0521 Significant Findings Laboratory Tests Test 07/15/17 12:28 07/16/17 09:10 07/16/17 09:22 07/17/17 06:53 Red Blood Count 3.40 MIL/MM3 (4.00-5.30) 3.23 MIL/MM3 (4.00-5.30) Hemoglobin 9.9 GM/DL (11.6-15.3) 9.4 GM/DL (11.6-15.3) 9.1 GM/DL (11.6-15.3) Hematocrit 29.5 % (35.0-46.0) 28.6 % (35.0-46.0) 27.8 % (35.0-46.0) Creatinine 1.13 MG/DL (0.50-1.00) 1.06 MG/DL (0.50-1.00) Calcium Level 7.8 MG/DL (8.5-10.1) 7.3 MG/DL (8.5-10.1) Estimat Glomerular Filtration Rate 45 ML/MIN (>89) 49 ML/MIN (>89) Platelet Count 132 TH/MM3 (150-450) Neutrophils (%) (Auto) 80.8 % (16.0-70.0) Eosinophils (%) (Auto) 4.6 % (0.0-4.0) Lymphocytes # (Auto) 0.7 TH/MM3 (1.0-4.8) Total Protein 5.3 GM/DL (6.4-8.2) Chloride Level 109 MEQ/L (98-107) Protein Corrected Calcium 8.3 MG/DL (8.5-10.1) Test 07/18/17 05:21 Creatinine 1.13 MG/DL (0.50-1.00) Random Glucose 137 MG/DL (74-106) Calcium Level 7.7 MG/DL (8.5-10.1) Chloride Level 109 MEQ/L (98-107) Estimat Glomerular Filtration Rate 45 ML/MIN (>89) Imaging Last Impressions Upper GI Series 07/08/17 0000 Signed Impressions: Service Date/Time: Saturday, July 08, 2017 09:24 - CONCLUSION: 1. Poor gastric and esophageal motility. Large hiatal hernia. Exam somewhat limited by patient' s mobility. No obstruction identified. Joaquin Nolan MD Chest CT 07/06/17 0000 Signed Impressions: Service Date/Time: Thursday, July 06, 2017 18:19 - CONCLUSION: 1. Infiltrates throughout the left upper and to a lesser extent the left lower lobe consistent with possible pneumonia. Clinical correlation is recommended. 2. Very large paraesophageal hiatal hernia containing half of the stomach which is distended and fluid-filled. The esophagus is also distended and fluid-filled. 3. 4.4 cm cystic splenic lesion is likely benign. 4. Renal cortical thinning bilaterally. 5. Degenerative changes and scoliosis of the thoracic spine. 1. Harsha Roberson MD Chest X-Ray 07/05/17 2310 Signed Impressions: Service Date/Time: Wednesday, July 05, 2017 23:42 - CONCLUSION: Abnormal chest appearance. Recommend contrasted CT chest. Satinder Mccarthy MD PE at Discharge asleep, opens her eyes, answers my questions w yes or no then goes back to sleep , telling me she is resting lungs- no wheezing regular rhythm no murmurs abdomen soft, appropriately tender, dressing in place. Gtube in place. abdominal binder in place extremities no edema Hospital Course Patient was admitted. Started on IV Protonix for suspected GI bleed as well as Levaquin for possible pneumonia. Given IVFs for JOSH. CT chest showed possible pneumonia as well as a large paraesophageal hiatal hernia with dilated esophagus. EGD showed grade a esophagitis and some gastritis. Underwent laparoscopic hiatal hernia reduction as well as gastrostomy tube placement. Patient was tolerating p.o. intake well afterwards. Hemoglobin remained steady. Patient has met maximal benefit from hospitalization and is clinically stable for discharge to SNF. Patient needs to have her potassium level rechecked within the next 3-5 days. Pt Condition on Discharge: Stable Discharge Disposition: Discharge to SNF Discharge Time: <= 30 minutes Discharge Instructions Follow up Referrals: PCP Follow-up - 1 Week Surgical - 2 Weeks with Jose Luis De La Torre MD Continued Medications: Amlodipine (Amlodipine) 10 Mg Tab 10 MG PO DAILY for Blood Pressure Management, #30 TAB 0 Refills Donepezil (Aricept) 23 Mg Tab 5 MG PO HS, TAB Do not split, crushed or chewed. Duloxetine DR (Cymbalta DR) 20 Mg Capdr 20 MG PO DAILY, #30 CAP 0 Refills Ferrous Sulfate (Ferrous Sulfate) 325 Mg (65 Mg Iron) Tablet 325 MG PO DAILY for Nutritional Supplement, #30 TAB 0 Refills Levothyroxine (Levothyroxine) 100 Mcg Tab 100 MCG PO DAILY for Thyroid, #30 TAB 0 Refills Lisinopril (Lisinopril) 5 Mg Tab 5 MG PO DAILY for Blood Pressure Management, #30 TAB 0 Refills Lorazepam (Lorazepam) 0.5 Mg Tab 0.5 MG PO BID PRN for ANXIETY, TAB 0 Refills Mirtazapine (Remeron) 15 Mg Tab 15 MG PO HS for Depression Control, #30 TAB 0 Refills Pantoprazole (Pantoprazole) 40 Mg Tab 40 MG PO Q12HR for gastritis, #60 TAB Quetiapine (Seroquel) 25 Mg Tab 25 MG PO BID for Control Mood Swing, #60 TAB Vitamins C & E (Cranberry Urinary Comfort) 1 Cap 1 CAP PO DAILY for Urinary Symptom Managemen, CAP 0 Refills Wheat Dextrin (Benefiber) 3 Gram/3.8 Gram Powder Jose Manuel Borja MD July 18, 2017 09:54
[2017-07-18] MEDS ORDERED: POTA-163 PO (10:01)
[2017-07-18] MEDS ORDERED: LORA0.5T PO (10:03)
[2017-07-18 12:00] VITALS: BP 117/57; PULSE 60; RESP 18; TEMP 97.8; O2SAT 97
== END 2017-07-18 14:37 | DRG 326 ==
LOC: NEPC 22:51 → NEDA 07-06 02:57 → NEPFCDU 07-06 04:25 → OBSVTOIN 07-08 11:35 → N07B 07-11 16:04
PROVIDERS: ADMIT Hospitalist; ATTEND Hospitalist
PROC: 0D9 Gastrointestinal System, Drainage (ICD-10-PCS; 2017-07-07)
PROC: 0D958ZZ Drainage of Esophagus, Via Natural or Artificial Opening Endoscopic (ICD-10-PCS; 2017-07-07)
PROC: 0DB78ZX Excision of Stomach, Pylorus, Via Natural or Artificial Opening Endoscopic, Diagnostic (ICD-10-PCS; 2017-07-07)
PROC: 0DH64UZ Insertion of Feeding Device into Stomach, Percutaneous Endoscopic Approach (ICD-10-PCS; 2017-07-14)
PROC: 0DS64ZZ Reposition Stomach, Percutaneous Endoscopic Approach (ICD-10-PCS; principal; 2017-07-14 15:52)
DX: K29.51 Unspecified chronic gastritis with bleeding (principal); J18.9 Pneumonia, unspecified organism; N17.9 Acute kidney failure, unspecified; E87.0 Hyperosmolality and hypernatremia; J44.0 Chronic obstructive pulmonary disease with (acute) lower respiratory infection; I48.91 Unspecified atrial fibrillation; F03.90 Unspecified dementia, unspecified severity, without behavioral disturbance, psychotic disturbance, mood disturbance, and anxiety; K44.0 Diaphragmatic hernia with obstruction, without gangrene; E11.9 Type 2 diabetes mellitus without complications; E78.00 Pure hypercholesterolemia, unspecified; E03.9 Hypothyroidism, unspecified; I10 Essential (primary) hypertension; K20.9 Esophagitis, unspecified; K31.89 Other diseases of stomach and duodenum; K57.30 Diverticulosis of large intestine without perforation or abscess without bleeding; K64.4 Residual hemorrhoidal skin tags; I25.10 Atherosclerotic heart disease of native coronary artery without angina pectoris; E87.6 Hypokalemia; K64.8 Other hemorrhoids; G47.30 Sleep apnea, unspecified; F41.8 Other specified anxiety disorders; H91.90 Unspecified hearing loss, unspecified ear; Z88.0 Allergy status to penicillin; Z96.649 Presence of unspecified artificial hip joint
CPT/HCPCS: 36415; 71045; 71260; 74241; 76937; 80048; 80053; 82140; 83690; 84155; 85014; 85018; 85025; 85027; 85610; 85730; 86850; 86900; 86901; 88305; 88312; 93005; 93306; 94150; 96361; 96365; 96366; 96375; 96376; C9113; G0378; J0131; J0330; J0360; J0780; J1100; J1644; J2270; J2370; J2405; J2710; J3010; J7070; J7121; Q9967

== ENCOUNTER 2017-08-01 12:44 | Day surgery (SDC) | payer MEDICARE, OTHER ==
[~2017-08-01 12:44] MED LIST changes: +CRANCAP2 PO; -LEVA500T33 PO; +LISI-519 PO; +LORA0.5T PO; +POTA-163 PO; +WHEA1POW9
[2017-08-01] MEDS ORDERED: DIATRIZOATE MEGLUM/DIATRIZOATE SOD 120 ML BTL (for RAD DIAG) PO ONE (12:45)
[2017-08-01 13:11] VITALS: BP 143/81; PULSE 67; RESP 18; TEMP 98.2; O2SAT 98
[2017-08-01] MEDS ORDERED: LIPI10TA PO (14:12)
[2017-08-01] MEDS ORDERED: TYLE325T PO (14:12)
--- NOTE | 2017-08-01 15:18 | RADRPT ---
EXAM DATE: 08/01/2017 2:57 PM EDT AGE/SEX: 87 years / Female INDICATIONS: Evaluate for leak. CLINICAL DATA: This is the patient's initial encounter. Patient reports that signs and symptoms have been present for 1 day and indicates a pain score of 0/10. MEDICAL/SURGICAL HISTORY: None. None. COMPARISON: No prior [facility] exams available for comparison. FLUORO TIME: 1.0 IMAGE COUNT: 4 FINDINGS: Modified limited swallowing exam was performed. The body of the esophagus is unremarkable. The majori ty of the stomach is below the diaphragm. A very small portion of the fundus is likely above the diap hragmatic hiatus. There is no evidence for extravasation. Gastric grossly pattern is unremarkable. CONCLUSION: 1. No evidence for leak as questioned. Electronically signed by: Miles Hernadez MD 08/01/2017 3:17 PM EDT
[2017-08-01 16:05] VITALS: BP 160/80; PULSE 81; RESP 18; O2SAT 98
--- NOTE | 2017-08-01 16:32 | PD.RAD ---
Post Procedure Progress Note Pre Procedure Diagnosis: (1) Feeding tube dysfunction (2) Hiatal hernia Post Procedure Diagnosis: (1) Feeding tube dysfunction (2) Hiatal hernia Procedure Date: Aug 01, 2017 Supervising Radiologist: Ervin Munoz Estimated blood loss: none Plan of Activity Patient to Unit: [facility]OP[facility] Patient Condition: Fair Additional Comments: Attempted to replace the G tube. Tract has completely closed. Full dictated report to follow See PACS Report for procedural detail/treatment Ervin Munoz MD Aug 01, 2017 16:32
--- NOTE | 2017-08-01 16:40 | RADRPT ---
EXAM DATE: 08/01/2017 4:23 PM EDT AGE/SEX: 87 years / Female INDICATIONS: Patient with gastroparesis. Patients G tube has been pulled out. HISTORY OF PRESENT ILLNESS: The patient had a known very large hiatal hernia. This was pulled back d own into the stomach. The stomach was sutured to the anterior abdominal wall in addition, gastrostomy tube was left in place to pexy the stomach down in the abdomen. While the patient was at the longterm the gastrostomy tube became dislodged. We're asked to attempt to replace the tube through the e xisting tract the existing tract is approximately 5-7 days old. ASSESSMENT: The patient was placed on the fluoroscopy table. The existing tract was gently probed with a 4 Arabic dilator and a 0.35 angle Glidewire. In addition, several small contrast injections into the tract we re performed. The tract is completely healed. A G-tube could not be advanced into the existing tract. PLAN: The case was discussed with Dr. De La Torre. At present, the patient is doing okay. As such we will hold o ff on placing a new G-tube. TIME SPENT: 15 minutes. Electronically signed by: Ervin Munoz MD 08/01/2017 4:39 PM EDT
== END 2017-08-01 16:30 | disposition home or self-care (01) ==
LOC: HROP 12:44 → HRIP 12:48 → HROP 16:30
PROVIDERS: ATTEND Surgery
DX: K94.23 Gastrostomy malfunction (principal); K44.9 Diaphragmatic hernia without obstruction or gangrene; K31.84 Gastroparesis
CPT/HCPCS: 74240; C1769; C1887; Q9963; 49450

== ENCOUNTER 2018-03-04 18:32 | Inpatient (IN) ==
--- NOTE | 2018-03-04 19:31 | ED ---
HPI General Chief complaint: Fall Stated complaint: fall / knee pain Time Seen by Provider: 03/04/18 19:08 History of Present Illness HPI narrative: 87-year-old female with a history of atrial fibrillation, anxiety , depression, COPD, CAD, dementia, diabetes is brought [facility] the ED [facility] for evaluation of fall. Per EMS report this was a witnessed fall from sitting position in her wheelchair. Per EMS report the patient fell onto her left leg. The patient is complaining of pain in her abdomen and nausea. The patient is a poor historian due to her dementia, she is awake, alert and oriented to self only. She does not know why she is here. She is complaining of pain in her lower abdomen. She is noted to be incontinent of stool, unsure if this is her baseline. She does complain of pain in her left knee and lower leg. No other complaints. Related Data Home Medications Medication Instructions Recorded Confirmed acetaminophen [Tylenol Extra 500 mg PO TID PRN 03/04/18 03/04/18 Strength] amlodipine 10 mg PO DAILY 03/04/18 03/04/18 atorvastatin [Lipitor] 10 mg PO HS 03/04/18 03/04/18 cholecalciferol (vitamin D3) 2,000 unit PO DAILY 03/04/18 03/04/18 cyanocobalamin (vitamin B-12) 1,000 mcg PO DAILY 03/04/18 03/04/18 [Vitamin B-12] donepezil [Aricept] 10 mg PO HS 03/04/18 03/04/18 ferrous sulfate 325 mg PO TID 03/04/18 03/04/18 levothyroxine [Synthroid] 112 mcg PO DAILY 03/04/18 03/04/18 lisinopril 5 mg PO DAILY 03/04/18 03/04/18 mirtazapine [Remeron] 7.5 mg PO HS 03/04/18 03/04/18 pantoprazole [Protonix] 40 mg PO DAILY 03/04/18 03/04/18 potassium chloride 20 meq PO DAILY 03/04/18 03/04/18 quetiapine [Seroquel] 50 mg PO BID 03/04/18 03/04/18 ranitidine HCl [Zantac] 150 mg PO HS 01/02/19 01/02/19 Allergies Allergy/AdvReac Type Severity Reaction Status Date / Time carvedilol Allergy Severe Anaphylaxis Verified 08/01/17 14:18 diclofenac Allergy Severe Anaphylaxis Verified 08/01/17 14:18 Penicillins Allergy Severe Anaphylaxis Verified 08/01/17 14:18 Thiazides Allergy Severe Anaphylaxis Verified 08/01/17 14:18 triamcinolone Allergy Severe Anaphylaxis Verified 08/01/17 14:18 Review of Systems ROS: all other systems reviewed are negative [facility] Medical History Medical History Afib (Acute) Anemia (Acute) Anxiety (Acute) COPD (chronic obstructive pulmonary disease) (Acute) Dementia (Acute) Hyperlipemia (Acute) Hypokalemia (Acute) Hypothyroidism (Acute) Nonrheumatic mitral (valve) prolapse (Acute) Type 2 diabetes mellitus (Acute) Social History Social History Substance History: No History of Abuse Smoking Status: Former smoker How Often Do You Have a Drink Containing Alcohol: Never Recent Travel in [facility] within the Last 8 Weeks: No Recent Out of Country Travel within the Last 8 Weeks: No Exam Narrative Exam Narrative: GENERAL: Elderly female patient in no acute distress who is nontoxic appearing. SKIN: Warm and dry. HEAD: Normocephalic and atraumatic. EYES: No injection, drainage, or hyphema noted. PERRLA. EOMI. ENT: No nasal drainage noted. Oropharynx is clear. NECK: Supple and the trachea is midline. CARDIOVASCULAR: Regular rate and rhythm. RESPIRATORY: Breath sounds are equal bilaterally with no accessory muscle use, wheezing, rhonchi, or crackles. GASTROINTESTINAL: Mild tenderness to palpation of lower abdomen. Abdomen is soft and nondistended. MUSCULOSKELETAL: No obvious deformities, swelling, cyanosis, or ecchymosis is present throughout the upper and lower extremities. Patient has full range of motion without any signs of neurovascular compromise. Pain in left knee with flexion. Distal pulses are 2+ throughout. NEUROLOGICAL: Awake, alert, and oriented to person only. Normal speech. Cranial nerves are grossly intact. Course Initial Documented Vital Signs Temperature 97.5 F L 03/04/18 18:50 Pulse Rate 61 03/04/18 18:50 Respiratory Rate 16 03/04/18 18:50 Blood Pressure 113/56 L 03/04/18 18:50 Pulse Oximetry 96 03/04/18 18:50 Last Documented Vital Signs Temperature 97.5 F L 03/04/18 18:50 Pulse Rate 55 L 03/04/18 23:51 Respiratory Rate 18 03/04/18 23:51 Blood Pressure 143/66 H 03/04/18 23:51 Pulse Oximetry 96 03/04/18 23:51 Sign Out Sign Out Data: Patient Sign Out occurred on 03/05/18 at 00:21. Patient's care was discussed, and care was transferred from Tito Freeman MD to Tito Freeman MD. Sign Out Comment: Accepted signout Last updated by Tito Freeman MD at 03/05/18 00:21 Post-Handoff Eval: Case was checked out to me at 9 PM. I have evaluated the patient and discussed things with her granddaughter. The patient had a new onset seizure episode and collapsed and broke her left femur. She had a second episode here in the department and then we Dilantin loaded her. She will be admitted to the medical team. I spoke with the residents. I also spoke with orthopedist Dr. Cooper who has reviewed the x-rays and will consider operative intervention. Placed her in a left posterior long-leg splint. Medical Decision Making MDM Narrative Medical decision making narrative: 87-year-old female presents to the emergency department by EMS for evaluation of fall from wheelchair at her jail facility. Patient is afebrile, vital signs are stable. Physical examination reveals she has pain in the left leg. She also has lower abdominal tenderness. She is noted to have large amounts of watery green stool. C. difficile study will be done. IV access is obtained, labs have been drawn and sent. Patient is placed on cardiac telemetry and pulse oximetry monitoring. X-ray of the left leg and knee has been ordered and is pending. At approximately 20:10 patient started having jerking body movements with fixed gaze to the left and was unresponsive consistent with seizure like activity. This lasted for approximately 3 minutes and resolved on its own. Patient then returned to her mental status baseline. Stat head CT has been ordered. I called the jail facility and spoke with MARTHA Moss. She states that she came into the dining castro and noted the patient was on her back on the ground with her left leg bent underneath her. She states they went to the patient and sat her up and while sitting there she became very pale and experienced seizure like activity for a few seconds which resolved on its own prior to EMS arrival. She reports the patient is not incontinent of urine or feces at baseline and does ambulate to take herself to the bathroom on her own. Based on this history provided by the FOOD AND BEVERAGE ATTENDANT from the facility and the patient's presentation this appears to be new onset seizure. Patient administered a loading dose of 1200 mg of Cerebyx. Patient to be signed out to my attending physician Dr. Freeman who assumes care of the patient pending all imaging and lab results. Medical Screen Exam Complete: Yes Emergency Medical Condition: Yes Differential Diagnosis Differential Diagnosis: Contusion versus sprain versus fracture versus colitis versus diverticulitis versus C. difficile Lab Data Result diagrams: 03/04/18 20:36 03/04/18 20:36 Lab Results 03/04/18 03/04/18 Range/Units 20:36 20:36 WBC 14.7 H (4.0-11.0) th/mm3 RBC 3.93 L (4.00-5.30) mil/mm3 Hgb 11.6 (11.6-15.3) gm/dL Hct 36.3 (35.0-46.0) % MCV 92.3 (80.0-100.0) fL MCH 29.5 (27.0-34.0) pg MCHC 32.0 (32.0-36.0) % RDW 15.0 (11.6-17.2) % Plt Count 153 (150-450) th/mm3 MPV 10.4 (7.0-11.0) fL Neut % (Auto) 91.3 H (16.0-70.0) % Lymph % (Auto) 5.1 L (9.0-44.0) % [place] % (Auto) 2.4 (0.0-8.0) % Eos % (Auto) 0.6 (0.0-4.0) % Baso % (Auto) 0.6 (0.0-2.0) % Neut # (Auto) 13.4 H (1.8-7.7) th/mm3 Lymph # (Auto) 0.8 L (1.0-4.8) th/mm3 [place] # (Auto) 0.4 (0.0-0.9) th/mm3 Eos # (Auto) 0.1 (0.0-0.4) th/mm3 Baso # (Auto) 0.1 (0.0-0.2) th/mm3 WBC Differential . Differential Comment Auto diff final Sodium 138 (136-145) meq/L Potassium 3.9 (3.5-5.1) meq/L Chloride 107 (98-107) meq/L Carbon Dioxide 23.2 (21.0-32.0) meq/L Anion Gap 8 (5-15) meq/L BUN 31 H (7-18) mg/dL Creatinine 1.55 H (0.50-1.00) mg/dL Estimated GFR 32 L (>89) mL/min Random Glucose 187 H (74-106) mg/dL Calcium 7.7 L (8.5-10.1) mg/dL Magnesium 1.9 (1.5-2.5) mg/dL Total Bilirubin 0.3 (0.2-1.0) mg/dL AST 18 (15-37) U/L ALT 14 (10-53) U/L Alkaline Phosphatase 84 (45-117) U/L Total Protein 6.3 L (6.4-8.2) g/dL Albumin 3.0 L (3.4-5.0) g/dL Lipase 220 (73-393) U/L Imaging Data Radiologist's impression: Chest X-Ray 03/04/18 00:00 CONCLUSION: Minimal patchy atelectasis or consolidation in the left suprahilar region. Large hiatal hernia better seen on the CT examination. Chronic suspected healed fracture deformity at the proximal left humerus. Abdomen/Pelvis CT 03/04/18 19:21 CONCLUSION: 1. No evidence of acute visceral injury. 2. Stable cystic lesion in the anterior spleen. 3. Mild atrophy involving the right kidney which is stable. 4. Moderate diverticulosis. 5. Moderate to large hiatal hernia again noted. Femur X-Ray 03/04/18 19:26 CONCLUSION: 1. Oblique comminuted fracture through the distal femur. 2. Status post arthroplasty. 3. Osteopenia and degenerative joint changes involving the left hip. Knee X-Ray 03/04/18 19:26 CONCLUSION: 1. Visualization of the previously noted distal femoral fracture. 2. Status post knee arthroplasty. Tibia/Fibula X-Ray 03/04/18 19:26 CONCLUSION: 1. The tibia and fibula are intact. 2. Status post arthroplasty. 3. Visualization of the known distal femoral fracture. Cervical Spine CT 03/04/18 20:15 CONCLUSION: 1. No acute fracture. 2. Mild grade 1 anterior spondylolisthesis of C7 on T1 which appears chronic. 3. Degenerative disc changes. Head CT 03/04/18 20:15 CONCLUSION: 1. No acute fracture or hemorrhage. 2. Atrophy and chronic small vessel ischemic changes. . Discharge Plan Discharge Disposition Patient Disposition: ED Admit(ED Internal Use Only) Discharge Order Discharge Orders: ED Use Only Admit Order (Routine); Ordered 03/05/18 Ordered By: Tito Freeman Discharge Details Diagnosis: New onset seizure, Left femoral shaft fracture Physicians Team ED Provider: Tito Freeman Primary Care Provider: Primary Care Susie Martinez Other Providers: Santiago Hardy ; Eric Cooper Rxs /Orders / Referrals /Forms Prescriptions: No Action potassium chloride 10 mEq Capsule, Extended Release 20 meq PO DAILY RF: 0 atorvastatin [Lipitor] 10 mg Tablet 10 mg PO HS RF: 0 donepezil [Aricept] 10 mg Tablet 10 mg PO HS RF: 0 cyanocobalamin (vitamin B-12) [Vitamin B-12] 1,000 mcg Tablet 1,000 mcg PO DAILY RF: 0 acetaminophen [Tylenol Extra Strength] 500 mg Tablet 500 mg PO TID PRN (Reason: Pain) RF: 0 amlodipine 10 mg Tablet 10 mg PO DAILY RF: 0 pantoprazole [Protonix] 40 mg Tablet,Delayed Release (Dr/Ec) 40 mg PO DAILY RF: 0 ferrous sulfate 325 mg (65 mg iron) Tablet 325 mg PO TID RF: 0 ranitidine HCl [Zantac] 150 mg Tablet 150 mg PO HS RF: 0 lisinopril 5 mg Tablet 5 mg PO DAILY RF: 0 mirtazapine [Remeron] 15 mg Tablet 7.5 mg PO HS RF: 0 levothyroxine [Synthroid] 112 mcg Tablet 112 mcg PO DAILY RF: 0 quetiapine [Seroquel] 50 mg Tablet 50 mg PO BID RF: 0 cholecalciferol (vitamin D3) 2,000 unit Capsule 2,000 unit PO DAILY RF: 0 Discharge Interventions Interventions: Vital Signs Last Done: 03/04/18 18:50 Status ED Status: Admitted Patient
[2018-03-04] MEDS ORDERED: FOSPHENYTOIN IV.SIG ONE (20:34)
[2018-03-04] MEDS ORDERED: SODIUM CHLOR IV.SIG ONE (20:34)
[2018-03-04 20:50] LABS: Baso # (Auto) 0.1 th/mm3 (0.0-0.2); Baso % (Auto) 0.6 % (0.0-2.0); Eos # (Auto) 0.1 th/mm3 (0.0-0.4); Eos % (Auto) 0.6 % (0.0-4.0); Hematocrit 36.3 % (35.0-46.0); Hemoglobin 11.6 gm/dL (11.6-15.3); Lymph # (Auto) 0.8 th/mm3 (1.0-4.8); Lymph % (Auto) 5.1 % (9.0-44.0); Mean Corpuscular Hemoglobin 29.5 pg (27.0-34.0); Mean Corpuscular Volume 92.3 fL (80.0-100.0); Mean Platelet Volume 10.4 fL (7.0-11.0); Mono # (Auto) 0.4 th/mm3 (0.0-0.9); Mono % (Auto) 2.4 % (0.0-8.0); Neut # (Auto) 13.4 th/mm3 (1.8-7.7); Neut % (Auto) 91.3 % (16.0-70.0); Platelet Count 153 th/mm3 (150-450); Red Blood Count 3.93 mil/mm3 (4.00-5.30); White Blood Count 14.7 th/mm3 (4.0-11.0)
[2018-03-04 21:11] LABS: Anion Gap 8 meq/L (5-15); Aspartate Aminotransferase 18 U/L (15-37); Blood Urea Nitrogen 31 mg/dL (7-18); Calcium 7.7 mg/dL (8.5-10.1); Carbon Dioxide 23.2 meq/L (21.0-32.0); Chloride 107 meq/L (98-107); Glomerular Filtration Rate 32 mL/min (>89); Glucose,Random 187 mg/dL (74-106); Lipase 220 U/L (73-393); Magnesium 1.9 mg/dL (1.5-2.5); Potassium 3.9 meq/L (3.5-5.1); Sodium 138 meq/L (136-145)
[2018-03-04 21:12] LABS: Alanine Aminotransferase 14 U/L (10-53)
[2018-03-04 21:14] LABS: Alkaline Phosphatase 84 U/L (45-117); Total Protein 6.3 g/dL (6.4-8.2)
--- NOTE | 2018-03-04 21:47 | XR ---
EXAM DATE: 03/04/2018 9:41 PM EST AGE/SEX: 87 years / Female INDICATIONS: Left leg pain post fall. CLINICAL DATA: This is the patient's initial encounter. Patient reports that signs and symptoms have been present for 1 day and indicates a pain score of 4/10. MEDICAL/SURGICAL HISTORY: None. None. COMPARISON: No prior exams available for comparison. FINDINGS: Multiple views of the left femur were obtained and demonstrate a mildly comminuted oblique fracture t hrough the distal femur beginning approximately 12 cm above the level of the distal femoral prosthesi s. This extends inferiorly and obliquely into the anterior lateral cortex. There is mild distraction of the distal fracture fragments approximately 6 mm. There is overlying soft tissue swelling. The pat ient is status post arthroplasty. There is diffuse osteopenia. Mild to moderate degenerative changes are noted in the hip with spurring. There is overlying soft tissue swelling. Vascular calcifications are present. CONCLUSION: 1. Oblique comminuted fracture through the distal femur. 2. Status post arthroplasty. 3. Osteopenia and degenerative joint changes involving the left hip. Electronically signed by: Kike Woodward MD Board Certified Radiologist 03/04/2018 9:46 PM EST
--- NOTE | 2018-03-04 21:49 | XR ---
EXAM DATE: 03/04/2018 9:44 PM EST AGE/SEX: 87 years / Female INDICATIONS: Left knee pain post fall. CLINICAL DATA: This is the patient's initial encounter. Patient reports that signs and symptoms have been present for 1 day and indicates a pain score of 4/10. MEDICAL/SURGICAL HISTORY: None. None. [place] [facility] [place]. . FINDINGS: Multiple views of the left knee were obtained and again demonstrate the distal femoral fracture exten ding obliquely to the level of the distal femoral prosthesis. There is overlying soft tissue swelling . The patient is status post knee arthroplasty with femoral and tibial components are in normal align ment. There is diffuse osteopenia. There are multiple benign soft tissue calcifications. There is sof t tissue swelling overlying artifact. CONCLUSION: 1. Visualization of the previously noted distal femoral fracture. 2. Status post knee arthroplasty. Electronically signed by: Kike Woodward MD Board Certified Radiologist 03/04/2018 9:47 PM EST
--- NOTE | 2018-03-04 21:50 | CT ---
EXAM DATE: 03/04/2018 9:47 PM EST AGE/SEX: 87 years / Female INDICATIONS: Trauma, fall. Acute distal femur fracture. CLINICAL DATA: This is the patient's initial encounter. Patient reports that signs and symptoms have been present for 1 day and indicates a pain score of 0/10. MEDICAL/SURGICAL HISTORY: Dementia. Chronic obstructive pulmonary disease. Diabetes. CAD. None. RADIATION DOSE: 56.35 CTDI (mGy) COMPARISON: No prior exams available for comparison. TECHNIQUE: CT of the head without contrast. Using automated exposure control and adjustment of the mA and/or kV according to patient size, radiation dose was kept as low as reasonably achievable to ob tain optimal diagnostic quality images. DICOM format image data is available electronically for revi ew and comparison. FINDINGS: Cerebrum: The ventricles are normal for age with moderate atrophic change and chronic small vessel i schemic changes. No evidence of midline shift, mass lesion, hemorrhage or acute infarction. No extra axial fluid collections are seen. Posterior Fossa: The cerebellum and brainstem are intact. The 4th ventricle is midline. The cerebe llopontine angle is unremarkable. Extracranial: The visualized portion of the orbits is intact. Skull: The calvaria is intact. No evidence of skull fracture. CONCLUSION: 1. No acute fracture or hemorrhage. 2. Atrophy and chronic small vessel ischemic changes. . Electronically signed by: Kike Woodward MD Board Certified Radiologist 03/04/2018 9:49 PM EST
--- NOTE | 2018-03-04 21:52 | XR ---
EXAM DATE: 03/04/2018 9:45 PM EST AGE/SEX: 87 years / Female INDICATIONS: Left leg pain post fall. CLINICAL DATA: This is the patient's initial encounter. Patient reports that signs and symptoms have been present for 1 day and indicates a pain score of 4/10. MEDICAL/SURGICAL HISTORY: None. None. COMPARISON: [facility] – [place] COMPLETE LEFT 4V, 03/04/2018. . FINDINGS: Multiple views of the tibia and fibula were obtained and again demonstrate the patient is status post left knee arthroplasty. The known distal femoral fracture is again visualized. There is diffuse oste openia. The patient is status post arthroplasty. The tibia and fibula are intact with no acute fractu re or malalignment. CONCLUSION: 1. The tibia and fibula are intact. 2. Status post arthroplasty. 3. Visualization of the known distal femoral fracture. Electronically signed by: Kike Woodward MD Board Certified Radiologist 03/04/2018 9:50 PM EST
--- NOTE | 2018-03-04 21:54 | CT ---
EXAM DATE: 03/04/2018 9:49 PM EST AGE/SEX: 87 years / Female INDICATIONS: Trauma, fall. Patient has an acute femoral fracture. CLINICAL DATA: This is the patient's initial encounter. Patient reports that signs and symptoms have been present for 1 day and indicates a pain score of 0/10. MEDICAL/SURGICAL HISTORY: Dementia. Chronic obstructive pulmonary disease. Diabetes. CAD. N one. RADIATION DOSE: 23.47 CTDI (mGy) COMPARISON: No prior exams available for comparison. TECHNIQUE: Contiguous axial images were obtained using helical multirow detector technique. The vol umetric data was post-processed with multiplanar reconstruction in oblique axial, sagittal, and coron al planes. Using automated exposure control and adjustment of the mA and/or kV according to patient s ize, radiation dose was kept as low as reasonably achievable to obtain optimal diagnostic quality zoe ges. DICOM format image data is available electronically for review and comparison. FINDINGS: Vertebrae: Normal vertebral body height. There is diffuse osteopenia. Discs: Degenerative disc changes are present with disc space narrowing and hypertrophic changes at C3 -4 through C6-7 level. Alignment: There is a mild grade 1 anterior spondylolisthesis of C7 on T1 approximately 3 to 4 mm.. The axial images demonstrate that the vertebral bodies and posterior elements are intact. Degenerativ e changes are again noted. Prevertebral soft tissues are unremarkable. CONCLUSION: 1. No acute fracture. 2. Mild grade 1 anterior spondylolisthesis of C7 on T1 which appears chronic. 3. Degenerative disc changes. Electronically signed by: Kike Woodward MD Board Certified Radiologist 03/04/2018 9:53 PM EST
--- NOTE | 2018-03-04 22:00 | CT ---
EXAM DATE: 03/04/2018 9:51 PM EST AGE/SEX: 87 years / Female INDICATIONS: Trauma, fall. Lower abdominal pain. The patient has a known acute distal femoral fractu re. CLINICAL DATA: This is the patient's initial encounter. Patient reports that signs and symptoms have been present for 1 day and indicates a pain score of 5/10. MEDICAL/SURGICAL HISTORY: Dementia. Chronic obstructive pulmonary disease. Diabetes. CAD. N one. ORAL CONTRAST: No oral contrast ingested. RADIATION DOSE: 6.71 CTDI (mGy) COMPAR[place] [facility] [place]ELVIS W [place]AST, 06/17/2017. . TECHNIQUE: Multiple contiguous axial images were obtained through the abdomen and pelvis following b olus infusion of 40 ml Visipaque 320 (iodixanol) nonionic water-soluble contrast as a single exam d ose. No oral contrast ingested. Using automated exposure control and adjustment of the mA and/or kV according to patient size, radiation dose was kept as low as reasonably achievable to obtain optimal diagnostic quality images. DICOM format image data is available electronically for review and compar jovan. FINDINGS: Lower Lungs: The visualized lower lungs are clear. Coronary artery calcifications are again noted. Liver: The liver has a homogeneous density without space-occupying lesion. There is no dilation of th e biliary tree. The patient is status post cholecystectomy. Spleen: Stable in appearance with low density lobular cystic lesion again noted in the anterior sple en without significant change. Pancreas: Unremarkable without mass or calcification. Kidneys: Stable appearance with mild atrophy and the right. There is no focal mass or lesion. There is no hydronephrosis. Adrenal Glands: Unremarkable. Aorta: The aorta and proximal iliac vessels are grossly unremarkable without aneurysmal dilation. Bowel/Mesentery: There is a moderate to large hiatal hernia again noted. No oral contrast was given l imiting the sensitivity exam. Diverticulosis is again noted greatest involving the sigmoid colon. Abdominal Wall: Intact. Retroperitoneum: No evidence of adenopathy in the retrocrural, para-aortic, or deep pelvic regions. Bladder: Contours are smooth. Reproductive Organs: No abnormal masses or calcifications seen. Inguinal: The inguinal region is unremarkable without evidence of adenopathy. Bony Structures: Osteopenia, degenerative change and scoliosis are present. Is a grade 1 anterospond ylolisthesis of L4 on L5. There is a mild scoliosis. CONCLUSION: 1. No evidence of acute visceral injury. 2. Stable cystic lesion in the anterior spleen. 3. Mild atrophy involving the right kidney which is stable. 4. Moderate diverticulosis. 5. Moderate to large hiatal hernia again noted. Electronically signed by: Kike Woodward MD Board Certified Radiologist 03/04/2018 9:58 PM EST
[2018-03-04] MEDS ORDERED: Acetaminophen 325 MG Tablet PO PRN (23:09)
[2018-03-04] MEDS ORDERED: Acetaminophen 500 MG Tablet PO PRN (23:15)
--- NOTE | 2018-03-04 23:19 | P.HPFP ---
History of Present Illness Primary Care Physician: No Primary Care Physician History of Present Illness: 87-year-old female with a history of atrial fibrillation, anxiety, depression, COPD, CAD, dementia, diabetes is brought to the ED from her [facility] facility for evaluation new onset seizure and a subsequent fall on her left leg. History was gathered from EMS to ED report as well as the patient's granddaughter Ms. Blunt. Reportedly, patient was at her [facility], an [facility] called [facility], when patient was witnessed becoming seemingly unresponsive, exhibiting tonic-clonic activity, and then falling from sitting position in her wheelchair. She fell onto her left leg. When she came to, minutes later, she was complaining of left leg pain. They were unsure if this complaint was real or not given her dementia. However, the [facility] policy was to send her to the emergency department for evaluation. In the emergency department, patient had another tonic-clonic episode in which the patient was unresponsive that lasted 1 -2 minutes. She then became responsive again. This seizure-like episode was witnessed by both the granddaughter and the PA in the emergency department. The patient is a poor historian due to her dementia and only being intermittently awake. Nursing staff noted her to be incontinent of stool, with watery, foul smelling diarrhea. While cleaning patient, nursing staff noted no skin breakdown on patient's back. No denies any pain or complaints at this time. PCP is Dr. Katie Warren. 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 - Medical History Medical History: Medical History (Last Updated 03/04/18 @ 20:25 by Yajaira Sam RN) Afib Anemia Anxiety COPD (chronic obstructive pulmonary disease) Dementia Hyperlipemia Hypokalemia Hypothyroidism Nonrheumatic mitral (valve) prolapse Type 2 diabetes mellitus - Tobacco History Smoking Status: Former smoker - Alcohol History How Often Do You Have a Drink Containing Alcohol: Never - Substance Use History Substance History: No History of Abuse - Travel History Recent Travel in the [facility] Within the Last 8 Weeks: No Recent Travel Out of the Country Within the Last 8 Weeks: No - Immunization History Tetanus Immunization: Unable to Assess Medications and Allergies Active Medications: Active Medications Sodium Chloride (Ns Flush) 2 ml IV.FLUSH PRN PRN PRN Reason: FLUSH AFTER USING IV ACCESS Allergies Allergy/AdvReac Type Severity Reaction Status Date / Time carvedilol Allergy Severe Anaphylaxis Verified 08/01/17 14:18 diclofenac Allergy Severe Anaphylaxis Verified 08/01/17 14:18 Penicillins Allergy Severe Anaphylaxis Verified 08/01/17 14:18 Thiazides Allergy Severe Anaphylaxis Verified 08/01/17 14:18 triamcinolone Allergy Severe Anaphylaxis Verified 08/01/17 14:18 Home Medications Medication Instructions Recorded Confirmed Type acetaminophen [Tylenol Extra 500 mg PO TID PRN 03/04/18 03/04/18 History Strength] amlodipine 10 mg PO DAILY 03/04/18 03/04/18 History atorvastatin [Lipitor] 10 mg PO HS 03/04/18 03/04/18 History cholecalciferol (vitamin D3) 2,000 unit PO DAILY 03/04/18 03/04/18 History cyanocobalamin (vitamin B-12) 1,000 mcg PO DAILY 03/04/18 03/04/18 History [Vitamin B-12] donepezil [Aricept] 10 mg PO HS 03/04/18 03/04/18 History ferrous sulfate 325 mg PO TID 03/04/18 03/04/18 History levothyroxine [Synthroid] 112 mcg PO DAILY 03/04/18 03/04/18 History lisinopril 5 mg PO DAILY 03/04/18 03/04/18 History mirtazapine [Remeron] 7.5 mg PO HS 03/04/18 03/04/18 History pantoprazole [Protonix] 40 mg PO DAILY 03/04/18 03/04/18 History potassium chloride 20 meq PO DAILY 03/04/18 03/04/18 History quetiapine [Seroquel] 50 mg PO BID 03/04/18 03/04/18 History ranitidine HCl [Zantac] 150 mg PO HS 03/04/18 03/04/18 History Exam Vital signs: Vital Signs 03/04/18 18:50 03/04/18 19:32 03/04/18 22:18 Temperature 97.5 F L Pulse Rate 61 Respiratory Rate 16 18 Blood Pressure 113/56 L Pulse Oximetry 96 95 Intake & Output 03/04/18 03/04/18 03/05/18 06:59 18:59 06:59 Intake Total 124.4 / 124.4 Balance 124.4 / 124.4 Weight 81.647 kg Intake: IV 124.4 / 124.4 Cerebyx Inj 1,220 MGPE In NS 124.4 / 124.4 Inj 100 ML @ 248.8 mls/hr IV. SIG ONCE ONE Rx#:[id number] Narrative: GENERAL: This is a well-nourished, well-developed patient, sleeping but briefly arousable, and in no apparent distress. SKIN: No rashes, ecchymoses or lesions. Cool and dry. HEAD: Atraumatic. Normocephalic. EYES: Pinpoint pupils approximately 2 mm in diameter are equal round and reactive. Extraocular motions intact. No scleral icterus. No injection or drainage. ENT: Nose without bleeding, purulent drainage. Mildly dry mucous membranes. Airway patent. NECK: Trachea midline. No JVD or lymphadenopathy. Supple, nontender, no meningeal signs. CARDIOVASCULAR: Bradycardic rate and regular rhythm. RESPIRATORY: Clear to auscultation. Breath sounds equal bilaterally. No wheezes , rales, or rhonchi. GASTROINTESTINAL: Abdomen soft, non-tender, nondistended. No guarding. MUSCULOSKELETAL: Extremities without clubbing, cyanosis, or edema. No joint tenderness, effusion, or edema noted. No calf tenderness. + left thigh TTP and pain with passive movement of left leg. NEUROLOGICAL: sleeping but briefly arousable. Cranial nerves II through XII grossly intact. Motor and sensory grossly within normal limits. Normal speech. Results - Labs Result diagrams: 03/05/18 03:30 03/04/18 20:36 Abnormal lab results 03/04/18 03/04/18 Range/Units 20:36 20:36 WBC 14.7 H (4.0-11.0) th/mm3 RBC 3.93 L (4.00-5.30) mil/mm3 Neut % (Auto) 91.3 H (16.0-70.0) % Lymph % (Auto) 5.1 L (9.0-44.0) % Neut # (Auto) 13.4 H (1.8-7.7) th/mm3 Lymph # (Auto) 0.8 L (1.0-4.8) th/mm3 BUN 31 H (7-18) mg/dL Creatinine 1.55 H (0.50-1.00) mg/dL Estimated GFR 32 L (>89) mL/min Random Glucose 187 H (74-106) mg/dL Calcium 7.7 L (8.5-10.1) mg/dL Total Protein 6.3 L (6.4-8.2) g/dL Albumin 3.0 L (3.4-5.0) g/dL Short CBC 03/04/18 Range/Units 20:36 WBC 14.7 H (4.0-11.0) th/mm3 Hgb 11.6 (11.6-15.3) gm/dL Hct 36.3 (35.0-46.0) % Plt Count 153 (150-450) th/mm3 BMP 03/04/18 20:36 Sodium 138 Potassium 3.9 Chloride 107 Carbon Dioxide 23.2 BUN 31 H Creatinine 1.55 H Calcium 7.7 L Liver Function 03/04/18 Range/Units 20:36 Total Bilirubin 0.3 (0.2-1.0) mg/dL AST 18 (15-37) U/L ALT 14 (10-53) U/L Alkaline Phosphatase 84 (45-117) U/L Albumin 3.0 L (3.4-5.0) g/dL - Imaging Impressions Abdomen/Pelvis CT 03/04/18 19:21 CONCLUSION: 1. No evidence of acute visceral injury. 2. Stable cystic lesion in the anterior spleen. 3. Mild atrophy involving the right kidney which is stable. 4. Moderate diverticulosis. 5. Moderate to large hiatal hernia again noted. Femur X-Ray 03/04/18 19:26 CONCLUSION: 1. Oblique comminuted fracture through the distal femur. 2. Status post arthroplasty. 3. Osteopenia and degenerative joint changes involving the left hip. Knee X-Ray 03/04/18 19:26 CONCLUSION: 1. Visualization of the previously noted distal femoral fracture. 2. Status post knee arthroplasty. Tibia/Fibula X-Ray 03/04/18 19:26 CONCLUSION: 1. The tibia and fibula are intact. 2. Status post arthroplasty. 3. Visualization of the known distal femoral fracture. Cervical Spine CT 03/04/18 20:15 CONCLUSION: 1. No acute fracture. 2. Mild grade 1 anterior spondylolisthesis of C7 on T1 which appears chronic. 3. Degenerative disc changes. Head CT 03/04/18 20:15 CONCLUSION: 1. No acute fracture or hemorrhage. 2. Atrophy and chronic small vessel ischemic changes. . Caprini VTE Risk Assessment Caprini VTE Risk Assessment: Moderate/High Risk (score >= 2) Caprini Risk Assessment Model: Point Value = 1 Point Value = 2 Point Value = 3 Point Value = 5 Age 41-60 Minor surgery BMI > 25 kg/m2 Swollen legs Varicose veins or History of unexplained or recurrent spontaneous Oral contraceptives or hormone replacement Sepsis (< 1 month) Serious lung disease, including pneumonia (< 1 month) Abnormal pulmonary function Acute myocardial infarction Congestive heart failure (< 1 month) History of inflammatory bowel disease Medical patient at bed rest Age 61-74 Arthroscopic surgery Major open surgery (> 45 min) Laparoscopic surgery (> 45 min) Malignancy Confined to bed (> 72 hours) Immobilizing plaster cast Central venous access Age >= 75 History of VTE Family history of VTE Factor V Leiden Prothrombin [id number] Lupus anticoagulant Anticardiolipin antibodies Elevated serum homocysteine Heparin-induced thrombocytopenia Other congenital or acquired thrombophilia Stroke (< 1 month) Elective arthroplasty Hip, pelvis, or leg fracture Acute spinal cord injury (< 1 month) Prophylaxis Regimen: Total Risk Factor Score Risk Level Prophylaxis Regimen 0-1 Low Early ambulation 2 Moderate Order ONE of the following: *Sequential Compression Device (SCD) *Heparin 5000 units SQ BID 3-4 Higher Order ONE of the following medications: *Heparin 5000 units SQ TID *Enoxaparin/Lovenox 40 mg SQ daily (WT < 150 kg, CrCl > 30 mL/min) *Enoxaparin/Lovenox 30 mg SQ daily (WT < 150 kg, CrCl > 10-29 mL/min) *Enoxaparin/Lovenox 30 mg SQ BID (WT < 150 kg, CrCl > 30 mL/min) AND/OR *Sequential Compression Device (SCD) 5 or more Highest Order ONE of the following medications: *Heparin 5000 units SQ TID (Preferred with Epidurals) *Enoxaparin/Lovenox 40 mg SQ daily (WT < 150 kg, CrCl > 30 mL/min) *Enoxaparin/Lovenox 30 mg SQ daily (WT < 150 kg, CrCl > 10-29 mL/min) *Enoxaparin/Lovenox 30 mg SQ BID (WT < 150 kg, CrCl > 30 mL/min) AND *Sequential Compression Device (SCD) Assessment and Plan - Assessment (1) New onset seizure Code(s): R56.9 - Unspecified convulsions Status: Acute Plan: Patient with no history of seizure disorder presented with 2 witnessed tonic- clonic seizures. Patient given Cerebyx IV in the emergency department. Unknown etiology of seizure, but likely infectious etiology. 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 Femur x-ray showed 1. Oblique comminuted fracture through the distal femur. 2. Status post arthroplasty. Splint applied in the emergency department. -N.p.o. pending surgical evaluation -Orthopedic surgery consult -Pain control: Tylenol PRN for pain, morphine PRN for breakthrough pain. (3) Pneumonia Code(s): J18.9 - Pneumonia, unspecified organism Status: Acute Plan: Patient with new onset seizure, leukocytosis with left shift, and chest x-ray showing Minimal patchy atelectasis or consolidation in the left suprahilar region. Also, by my read, atelectasis versus consolidation in the right lower lung field. Thus, plan to empirically treat for community-acquired pneumonia. -NS IV bolus of 500 mL -Maintenance fluids with NS IV -Ceftriaxone 1 g IV every 24 hours -Azithromycin 500 mg IV every 24 hours -Follow-up blood culture -Trend CBC to monitor signs of infection, BMP because patient on IV fluid -Follow-up pro calcitonin (4) UTI (urinary tract infection) Code(s): N39.0 - Urinary tract infection, site not specified Status: Acute Plan: UA concerning for UTI. -Follow up urine culture -Ceftriaxone 1 g IV every 24 hours as above -Espinosa to be discontinued when safe to do so -IV fluids as above (5) Diarrhea Code(s): R19.7 - Diarrhea, unspecified Status: Acute Plan: Diarrhea concerning for gastroenteritis versus C. difficile colitis versus other intra-abdominal infection. Up-to-date recommend stool studies and patient over 70 presenting with diarrhea. -C. difficile negative -Stool studies to include occult blood, ova and parasite screen, stool fluid culture, enteric pathogens, stool leukocytes -consider treating for possible gastroenteritis or intra-abdominal infection (6) JOSH (acute kidney injury) Code(s): N17.9 - Acute kidney failure, unspecified Status: Acute Plan: Creatinine of 1.55. Unclear if AK I or CKD. Likely prerenal based on the fact that patient looks slightly dry on exam, likely has infection, urine specific gravity gravity of 1.048. -IV fluids as above (7) Bradycardia Code(s): R00.1 - Bradycardia, unspecified Status: Acute Plan: Patient bradycardic with a heart rate in the 50s. -EKG ordered to assess possible bradycardic arrhythmia as well as to look at QTc to ensure that it is safe to give certain medications. - Assessment and Plan 87-year-old female with a history of atrial fibrillation, anxiety, depression, COPD, CAD, dementia, diabetes is brought to the ED from her [facility] facility for evaluation new onset seizure and a subsequent fall on her left leg. Etiology of seizure is most likely infectious. There is concern for pneumonia, UTI, gastroenteritis versus intra-abdominal infection. Thus, plan to empirically treat for both pneumonia and UTI with IV antibiotics. Will get orthopedic surgery recommendations regarding left distal femur fracture. Other chronic medical problems: Coronary artery disease -Continue home medications of atorvastatin 10 mg p.o. nightly, lisinopril 5 mg p.o. daily HTN -Continue home medication of amlodipine 10 mg p.o. daily Dementia -Continue home medication of donepezil/Aricept 10 mg p.o. nightly -Continue home medication of quetiapine 50 mg p.o. twice daily Hypothyroidism -Continue home medication of levothyroxine 112 mcg p.o. daily Depression -Continue home medication of mirtazapine 7.5 mg p.o. nightly GERD -Continue home medication of pantoprazole 40 mg p.o. daily -Continue home medication of ranitidine 150 mg p.o. nightly Hypokalemia -Continue home medication of potassium chloride 20 mEq p.o. daily Iron deficiency anemia -Continue home medication of ferrous sulfate 325 mg p.o. 3 times daily Vitamin deficiencies -Continue home medications of vitamin D3 and vitamin B12 FEN, ppx Fluids: Normal saline IV at maintenance rate Electrolytes: Monitor and replete Nutrition: N.p.o. pending orthopedic surgery recommendations GI prophylaxis as above DVT prophylaxis: Lovenox 40 mg subcu daily (2) Left femoral shaft fracture Qualifiers: Encounter type: initial encounter Fracture type: closed Fracture morphology : oblique Fracture alignment: displaced Qualified Code(s): S72.332A - Displaced oblique fracture of shaft of left femur, initial encounter for closed fracture
[2018-03-04] MEDS: Sod Chloride 0.9% Inj 1,000 ML IV.CONT SCH (23:36)
[2018-03-04] MEDS ORDERED: Sodium Chlor 0.9% Inj 500 ML IV.SIG SCH (23:45)
--- NOTE | 2018-03-04 23:50 | XR ---
EXAM DATE: 03/04/2018 11:43 PM EST AGE/SEX: 87 years / Female INDICATIONS: Evaluate for any pulmonary disease as patient is being prepared for distal left femur s urgery. CLINICAL DATA: This is the patient's initial encounter. Patient reports that signs and symptoms have been present for 1 day and indicates a pain score of 0/10. MEDICAL/SURGICAL HISTORY: None. Total knee replacement, left. COMPAR[place]: [facility] [place]ELVIS W CONTRAST, 03/04/2018. . FINDINGS: The heart size is enlarged. There some minimal increased density in the left suprahilar region. There is vague density seen in the retrocardiac area. The patient has a large hiatal hernia better seen on the recent CT of the abdomen. The right lung is clear. There is a chronic deformity at the left prox imal humerus likely from prior fracture. CONCLUSION: Minimal patchy atelectasis or consolidation in the left suprahilar region. Large hiatal hernia better seen on the CT examination. Chronic suspected healed fracture deformity at the proximal left humerus. Electronically signed by: Satinder Duffy MD Board Certified Radiologist 03/04/2018 11:48 PM EST
[2018-03-05 01:35] LABS: Amphetamine Screen,Urine Neg (Neg); Barbiturate Screen,Urine Neg (Neg); Cannabinoid Screen,Urine Neg (Neg); Cocaine Screen,Urine Neg (Neg)
[2018-03-05 01:40] LABS: Bacteria,Urine Few /hpf; Bilirubin,Urine Negative (Negative); Clarity,Urine Cloudy (Clear); Color,Urine Amber (Yellw/Straw); Glucose,Urine (UA) Negative (Negative); Hyaline Casts,Urine 70 /lpf (0-3); Leukocyte Esterase,Urine Moderate (Negative); Mucus,Urine Few /lpf (Occasional); Nitrite,Urine Negative (Negative); Specific Gravity,Urine 1.048 (1.002-1.035); Squamous Epithelial Cell,Urine 1 /hpf (0-5)
[2018-03-05 01:42] LABS: Opiate Screen,Urine Neg (Neg)
[2018-03-05] MEDS: Azithromycin Inj 500 MG in Sodium Chlor 0.9% Inj 250 ML IV.SIG SCH (02:52)
[2018-03-05 03:56] LABS: Baso % (Auto) 0.2 % (0.0-2.0); Hematocrit 30.4 % (35.0-46.0); Hemoglobin 9.8 gm/dL (11.6-15.3); Lymph # (Auto) 0.4 th/mm3 (1.0-4.8); Lymph % (Auto) 2.1 % (9.0-44.0); Mean Corpuscular HGB Conc 32.3 % (32.0-36.0); Mean Corpuscular Hemoglobin 30.2 pg (27.0-34.0); Mean Corpuscular Volume 93.4 fL (80.0-100.0); Mean Platelet Volume 9.9 fL (7.0-11.0); Mono # (Auto) 0.5 th/mm3 (0.0-0.9); Mono % (Auto) 2.8 % (0.0-8.0); Neut % (Auto) 94.9 % (16.0-70.0); Platelet Count 141 th/mm3 (150-450); Red Blood Count 3.25 mil/mm3 (4.00-5.30); Red Cell Distribution Width 14.9 % (11.6-17.2); White Blood Count 16.8 th/mm3 (4.0-11.0)
[2018-03-05] MEDS ORDERED: Morphine Sulfate Inj 2 MG/ML Vial IV.PUSH PRN (04:15)
[2018-03-05] MEDS ORDERED: Morphine Sulfate Inj 2 MG/ML Vial IV.PUSH ONE (04:16)
[2018-03-05 04:26] LABS: Albumin 2.7 g/dL (3.4-5.0); Calcium 7.2 mg/dL (8.5-10.1); Carbon Dioxide 21.9 meq/L (21.0-32.0); Potassium 4.8 meq/L (3.5-5.1)
[2018-03-05] MEDS: Levothyroxine 112 MCG Tablet PO SCH (05:21)
[2018-03-05] MEDS ORDERED: Lisinopril 5 MG Tablet PO SCH (09:00)
[2018-03-05] MEDS ORDERED: CHOLECALCIFEROL 2000 UNIT PO SCH (09:00)
[2018-03-05] MEDS ORDERED: Enoxaparin Inj 40 MG/0.4 ML Syringe SQ SCH (09:00)
[2018-03-05] MEDS ORDERED: [UNRECOGNIZED DRUG - OTHER] PO SCH (09:00)
[2018-03-05] MEDS ORDERED: amLODIPine 10 MG Tablet PO SCH (09:00)
[2018-03-05] MEDS ORDERED: Dextrose 50% in Water 50 ML Vial IV.PUSH PRN (09:38)
[2018-03-05] MEDS: Ferrous Sulfate 325 MG Tablet PO SCH ×3 (09:50→18:52)
[2018-03-05] MEDS: QUEtiapine 25 MG Tablet PO SCH ×2 (09:50→23:11)
[2018-03-05] MEDS: Potassium Chloride 10 MEQ ER Capsule PO SCH (09:50)
[2018-03-05] MEDS ORDERED: levETIRAcetam 1000mg/100mL Inj 100 ML IV.SIG ONE (10:00)
[2018-03-05] MEDS ORDERED: Sodium Chloride 0.9% 2 ML Flush PRN IV.FLUSH (10:07)
--- NOTE | 2018-03-05 11:28 | P.HPFP ---
History of Present Illness Primary Care Physician: No Primary Care Physician History of Present Illness: Agree with resident initial HPI from H&P dated 03/04. Interval history is that she responded well to IVF and antibiotics overnight. she is complaining of some low back pain but no leg pain. No witnessed seizure like activity since admission to the floor. Her HR has come back into the normal range and there is still no EKG for review. No events reported overnight. Family is coming later today per granddaughter. - Diagnosis (1) New onset seizure (2) Left femoral shaft fracture (3) Pneumonia (4) UTI (urinary tract infection) (5) Diarrhea (6) JOSH (acute kidney injury) (7) Bradycardia Inpatient Certification: I certify that the inpatient services were ordered in accordance with Medicare regulations governing the order. This includes certification that hospital inpatient services are reasonable and necessary and in the case of services not specified as inpatient-only under 42 CFR 419.22(n), that they are appropriately provided as inpatient services in accordance to with the 2-midnight benchmark under 43 CFR 412.3(e) Estimated Total Length of Stay (Days): 2 Plans for Post Hospital Care: Not yet determined Review of Systems ROS difficult to reliably obtain with her dementia, but I reviewed documented ROS from resident H&P [facility] - History History Provided By: Medical Record - Medical History Medical History: Medical History (Last Updated 03/05/18 @ 05:15 by Yajaira Sam RN) Afib Anemia Anxiety CAD (coronary artery disease) COPD (chronic obstructive pulmonary disease) Dementia Depression Diverticulosis GI bleed Gastroparesis Generalized weakness Hiatal hernia History of falling History of gastrostomy tube placement Hyperlipemia Hypokalemia Hypothyroidism Major depressive disorder Nonrheumatic mitral (valve) prolapse Obstructive sleep apnea Pain, chronic Type 2 diabetes mellitus Vitamin D deficiency - Surgical History Surgical History: Surgical History (Last Updated 03/05/18 @ 05:15 by Yajaira Sam RN) History of colonoscopy Hx of knee surgery - Tobacco History Smoking Status: Cognitive impairment - Alcohol History How Often Do You Have a Drink Containing Alcohol: Unable to Obtain - Substance Use History Substance History: No History of Abuse - Travel History Recent Travel in the [place] Within the Last 8 Weeks: No Recent Travel Out of the Country Within the Last 8 Weeks: No - Immunization History Tetanus Immunization: Unable to Assess Hx Influenza Vaccine This Season: Yes Medications and Allergies Active Medications: Active Medications Amlodipine Besylate (Norvasc) 10 mg PO DAILY [facility] Atorvastatin Calcium (Lipitor) 10 mg PO HS [facility] Dextrose (D50w Vial) 50 ml IV.PUSH UNSCH PRN PRN Reason: PER HYPOGLYCEMIA PROTOCOL Donepezil HCl (Aricept) 10 mg PO HS [facility] Famotidine (Pepcid) 20 mg PO HS [facility] Ferrous Sulfate (Ferosul) 325 mg PO TID [facility] Last Admin: 03/05/18 09:50 Dose: Not Given Glucagon (Glucagon Inj) 1 mg OTHER PRN PRN PRN Reason: for Hypoglycemia Protocol Sodium Chloride (Ns Inj) 1,000 mls @ 120 mls/hr IV.CONT .Q8H20M [facility] Last Admin: 03/04/18 23:36 Dose: 75 mls/hr Ceftriaxone Sodium 1,000 mg/ (Sodium Chloride) 100 mls @ 200 mls/hr IV.SIG Q24H [facility] Last Infusion: 03/05/18 02:51 Dose: Infused Azithromycin 500 mg/ Sodium (Chloride) 250 mls @ 250 mls/hr IV.SIG Q24H [facility] Last Infusion: 03/05/18 04:30 Dose: Infused Acetaminophen (Ofirmev Inj) 1,000 mg in 100 mls @ 400 mls/hr IV.SIG Q8H [facility] Stop: 03/06/18 10:29 Insulin Aspart (Novolog Insulin Correctional Sugar Inj) 0 unit SQ Q6HR [facility]; Protocol Levothyroxine Sodium (Synthroid) 112 mcg PO DAILY@0600 [facility] Last Admin: 03/05/18 05:21 Dose: Not Given Mirtazapine (Remeron) 7.5 mg PO HS [facility] Morphine Sulfate (Morphine Inj) 2 mg IV.PUSH Q3H PRN PRN Reason: BREAKTHROUGH PAIN Ondansetron HCl (Zofran Inj) 4 mg IV.PUSH Q6H PRN PRN Reason: NAUSEA OR VOMITING Last Admin: 03/04/18 23:50 Dose: 4 mg Pantoprazole Sodium (Protonix) 40 mg PO DAILY [facility] Potassium Chloride (Kcl) 20 meq PO DAILY [facility] Last Admin: 03/05/18 09:50 Dose: Not Given Quetiapine Fumarate (Seroquel) 50 mg PO BID [facility] Sodium Chloride (Ns Flush) 2 ml IV.FLUSH BID [facility] Sodium Chloride (Ns Flush) 2 ml IV.FLUSH PRN PRN PRN Reason: FLUSH AFTER USING IV ACCESS Allergies Allergy/AdvReac Type Severity Reaction Status Date / Time carvedilol Allergy Severe Anaphylaxis Verified 08/01/17 14:18 diclofenac Allergy Severe Anaphylaxis Verified 08/01/17 14:18 Penicillins Allergy Severe Anaphylaxis Verified 08/01/17 14:18 Thiazides Allergy Severe Anaphylaxis Verified 08/01/17 14:18 triamcinolone Allergy Severe Anaphylaxis Verified 08/01/17 14:18 Home Medications Medication Instructions Recorded Confirmed Type acetaminophen [Tylenol Extra 500 mg PO TID PRN 03/04/18 03/04/18 History Strength] amlodipine 10 mg PO DAILY 03/04/18 03/04/18 History atorvastatin [Lipitor] 10 mg PO HS 03/04/18 03/04/18 History cholecalciferol (vitamin D3) 2,000 unit PO DAILY 03/04/18 03/04/18 History cyanocobalamin (vitamin B-12) 1,000 mcg PO DAILY 03/04/18 03/04/18 History [Vitamin B-12] donepezil [Aricept] 10 mg PO HS 03/04/18 03/04/18 History ferrous sulfate 325 mg PO TID 03/04/18 03/04/18 History levothyroxine [Synthroid] 112 mcg PO DAILY 03/04/18 03/04/18 History lisinopril 5 mg PO DAILY 03/04/18 03/04/18 History mirtazapine [Remeron] 7.5 mg PO HS 03/04/18 03/04/18 History pantoprazole [Protonix] 40 mg PO DAILY 03/04/18 03/04/18 History potassium chloride 20 meq PO DAILY 03/04/18 03/04/18 History quetiapine [Seroquel] 50 mg PO BID 03/04/18 03/04/18 History ranitidine HCl [Zantac] 150 mg PO HS 03/04/18 03/04/18 History Exam Vital signs: Vital Signs 03/04/18 18:50 03/04/18 19:32 03/04/18 22:01 Temperature 97.5 F L Pulse Rate 61 Respiratory Rate 16 Blood Pressure 113/56 L Pulse Oximetry 96 95 98 03/04/18 22:18 03/04/18 23:51 03/05/18 03:59 Temperature Pulse Rate 55 L 71 Respiratory Rate 18 18 18 Blood Pressure 143/66 H 138/63 Pulse Oximetry 96 98 03/05/18 04:00 Temperature Pulse Rate Respiratory Rate Blood Pressure Pulse Oximetry 98 Intake & Output 03/04/18 03/05/18 03/05/18 18:59 06:59 18:59 Intake Total 974.4 / 974.4 Balance 974.4 / 974.4 Weight 81.647 kg 78 kg Intake: IV 974.4 / 974.4 Azithromycin Inj 500 MG In NS 250 / 250 Inj 250 ML @ 250 mls/hr IV.SIG Q24H [facility] Rx#:[id number] Cerebyx Inj 1,220 MGPE In NS 124.4 / 124.4 Inj 100 ML @ 248.8 mls/hr IV. SIG ONCE ONE Rx#:[id number] NS Inj 500 ML @ 1000 mls/hr IV. 500 / 500 SIG BOLUS [facility] Rx#:[id number] Rocephin Inj 1,000 MG In NS Inj 100 / 100 100 ML @ 200 mls/hr IV.SIG Q24H [facility] Rx#:[id number] Other: Weight On Admission 81.64 kg - Constitutional no acute distress, obese, cooperative - Routine HEENT Exam Head: Present: normocephalic, atraumatic Eye: Present: EOMI, PERRL ENT: Present: mucous membranes moist - Routine Neck Exam Present: supple. Absent: JVD - Routine Respiratory Exam Present: decreased breath sounds, crackles (faint left sided). Absent: accessory muscle use, wheezes - Routine Cardiovascular Exam Present: RRR, murmur (soft systolic murmur) - Routine Abdominal Exam Present: soft, normoactive bowel sounds - Routine Extremities Exam Absent: cyanosis (brace in place over left knee, N/V intact distal to injury), clubbing, edema - Routine Skin Exam Present: intact, dry, warm - Routine Neurological Exam Present: alert (she is somewhat oriented, knows she is in a hospital and knows her name, does not know the date and does not understand or remember why she is here. ), normal speech. Absent: facial asymmetry Results - Labs Result diagrams: 03/05/18 03:30 03/05/18 03:30 Abnormal lab results 03/04/18 03/04/18 03/05/18 Range/Units 20:36 20:36 01:00 WBC 14.7 H (4.0-11.0) th/mm3 RBC 3.93 L (4.00-5.30) mil/mm3 Hgb (11.6-15.3) gm/dL Hct (35.0-46.0) % Plt Count (150-450) th/mm3 Neut % (Auto) 91.3 H (16.0-70.0) % Lymph % (Auto) 5.1 L (9.0-44.0) % Neut # (Auto) 13.4 H (1.8-7.7) th/mm3 Lymph # (Auto) 0.8 L (1.0-4.8) th/mm3 Chloride (98-107) meq/L BUN 31 H (7-18) mg/dL Creatinine 1.55 H (0.50-1.00) mg/dL Estimated GFR 32 L (>89) mL/min Random Glucose 187 H (74-106) mg/dL Calcium 7.7 L (8.5-10.1) mg/dL Calcium Adj for Albumin (8.5-10.1) mg/dL Total Protein 6.3 L (6.4-8.2) g/dL Albumin 3.0 L (3.4-5.0) g/dL Urine Clarity Cloudy H (Clear) Ur Specific [place] 1.048 H (1.002-1.035) Urine Protein 30 H (Neg-Trace) mg/dL Urine Ketones Trace H (Negative) mg/dL Ur Leukocyte Esterase Moderate H (Negative) Urine RBC 7 H (0-3) /hpf Urine WBC 76 H (0-5) /hpf Urine WBC Clumps Many H (None) Urine Bacteria Few H (None) /hpf Urine Mucus Few H (Occasional) /lpf 03/05/18 03/05/18 Range/Units 03:30 03:30 WBC 16.8 H (4.0-11.0) th/mm3 RBC 3.25 L (4.00-5.30) mil/mm3 Hgb 9.8 L (11.6-15.3) gm/dL Hct 30.4 L (35.0-46.0) % Plt Count 141 L (150-450) th/mm3 Neut % (Auto) 94.9 H (16.0-70.0) % Lymph % (Auto) 2.1 L (9.0-44.0) % Neut # (Auto) 16.0 H (1.8-7.7) th/mm3 Lymph # (Auto) 0.4 L (1.0-4.8) th/mm3 Chloride 112 H (98-107) meq/L BUN 34 H (7-18) mg/dL Creatinine 1.71 H (0.50-1.00) mg/dL Estimated GFR 28 L (>89) mL/min Random Glucose 187 H (74-106) mg/dL Calcium 7.2 L* (8.5-10.1) mg/dL Calcium Adj for Albumin 8.2 L (8.5-10.1) mg/dL Total Protein 6.0 L (6.4-8.2) g/dL Albumin 2.7 L (3.4-5.0) g/dL Urine Clarity (Clear) Ur Specific [place] (1.002-1.035) Urine Protein (Neg-Trace) mg/dL Urine Ketones (Negative) mg/dL Ur Leukocyte Esterase (Negative) Urine RBC (0-3) /hpf Urine WBC (0-5) /hpf Urine WBC Clumps (None) Urine Bacteria (None) /hpf Urine Mucus (Occasional) /lpf Short CBC 03/04/18 03/05/18 Range/Units 20:36 03:30 WBC 14.7 H 16.8 H (4.0-11.0) th/mm3 Hgb 11.6 9.8 L (11.6-15.3) gm/dL Hct 36.3 30.4 L (35.0-46.0) % Plt Count 153 141 L (150-450) th/mm3 BMP 03/04/18 03/05/18 20:36 03:30 Sodium 138 144 Potassium 3.9 4.8 D Chloride 107 112 H Carbon Dioxide 23.2 21.9 BUN 31 H 34 H Creatinine 1.55 H 1.71 H Calcium 7.7 L 7.2 L* Liver Function 03/04/18 03/05/18 Range/Units 20:36 03:30 Total Bilirubin 0.3 0.2 (0.2-1.0) mg/dL AST 18 15 (15-37) U/L ALT 14 14 (10-53) U/L Alkaline Phosphatase 84 80 (45-117) U/L Albumin 3.0 L 2.7 L (3.4-5.0) g/dL Urine 03/05/18 Range/Units 01:00 Urine Color Codie (Yellw/Straw) Urine Clarity Cloudy H (Clear) Urine pH 5.0 (5.0-8.5) Ur Specific [place] 1.048 H (1.002-1.035) Urine Protein 30 H (Neg-Trace) mg/dL Urine Glucose (UA) Negative (Negative) mg/dL - Imaging Impressions Chest X-Ray 03/04/18 00:00 CONCLUSION: Minimal patchy atelectasis or consolidation in the left suprahilar region. Large hiatal hernia better seen on the CT examination. Chronic suspected healed fracture deformity at the proximal left humerus. Abdomen/Pelvis CT 03/04/18 19:21 CONCLUSION: 1. No evidence of acute visceral injury. 2. Stable cystic lesion in the anterior spleen. 3. Mild atrophy involving the right kidney which is stable. 4. Moderate diverticulosis. 5. Moderate to large hiatal hernia again noted. Femur X-Ray 03/04/18 19:26 CONCLUSION: 1. Oblique comminuted fracture through the distal femur. 2. Status post arthroplasty. 3. Osteopenia and degenerative joint changes involving the left hip. Knee X-Ray 03/04/18 19:26 CONCLUSION: 1. Visualization of the previously noted distal femoral fracture. 2. Status post knee arthroplasty. Tibia/Fibula X-Ray 03/04/18 19:26 CONCLUSION: 1. The tibia and fibula are intact. 2. Status post arthroplasty. 3. Visualization of the known distal femoral fracture. Cervical Spine CT 03/04/18 20:15 CONCLUSION: 1. No acute fracture. 2. Mild grade 1 anterior spondylolisthesis of C7 on T1 which appears chronic. 3. Degenerative disc changes. Head CT 03/04/18 20:15 CONCLUSION: 1. No acute fracture or hemorrhage. 2. Atrophy and chronic small vessel ischemic changes. . Caprini VTE Risk Assessment Caprini VTE Risk Assessment: Moderate/High Risk (score >= 2) Caprini Risk Assessment Model: Point Value = 1 Point Value = 2 Point Value = 3 Point Value = 5 Age 41-60 Minor surgery BMI > 25 kg/m2 Swollen legs Varicose veins or History of unexplained or recurrent spontaneous Oral contraceptives or hormone replacement Sepsis (< 1 month) Serious lung disease, including pneumonia (< 1 month) Abnormal pulmonary function Acute myocardial infarction Congestive heart failure (< 1 month) History of inflammatory bowel disease Medical patient at bed rest Age 61-74 Arthroscopic surgery Major open surgery (> 45 min) Laparoscopic surgery (> 45 min) Malignancy Confined to bed (> 72 hours) Immobilizing plaster cast Central venous access Age >= 75 History of VTE Family history of VTE Factor V Leiden Prothrombin [id number] Lupus anticoagulant Anticardiolipin antibodies Elevated serum homocysteine Heparin-induced thrombocytopenia Other congenital or acquired thrombophilia Stroke (< 1 month) Elective arthroplasty Hip, pelvis, or leg fracture Acute spinal cord injury (< 1 month) Prophylaxis Regimen: Total Risk Factor Score Risk Level Prophylaxis Regimen 0-1 Low Early ambulation 2 Moderate Order ONE of the following: *Sequential Compression Device (SCD) *Heparin 5000 units SQ BID 3-4 Higher Order ONE of the following medications: *Heparin 5000 units SQ TID *Enoxaparin/Lovenox 40 mg SQ daily (WT < 150 kg, CrCl > 30 mL/min) *Enoxaparin/Lovenox 30 mg SQ daily (WT < 150 kg, CrCl > 10-29 mL/min) *Enoxaparin/Lovenox 30 mg SQ BID (WT < 150 kg, CrCl > 30 mL/min) AND/OR *Sequential Compression Device (SCD) 5 or more Highest Order ONE of the following medications: *Heparin 5000 units SQ TID (Preferred with Epidurals) *Enoxaparin/Lovenox 40 mg SQ daily (WT < 150 kg, CrCl > 30 mL/min) *Enoxaparin/Lovenox 30 mg SQ daily (WT < 150 kg, CrCl > 10-29 mL/min) *Enoxaparin/Lovenox 30 mg SQ BID (WT < 150 kg, CrCl > 30 mL/min) AND *Sequential Compression Device (SCD) Assessment and Plan - Assessment (1) New onset seizure Code(s): R56.9 - Unspecified convulsions Status: Acute Plan: Unwitnessed here, but seen by ED provider and thought to be tonic-clonic activity and also at LTC facility. S/p fosphenytoin load. Will get EEG today and start keppra Consult neurology and defer imaging to them if desired. Initial CT head negative Continue to treat metabolic contributors (2) Left femoral shaft fracture Code(s): S72.302A - Unspecified fracture of shaft of left femur, initial encounter for closed fracture Status: Acute (3) Pneumonia Code(s): J18.9 - Pneumonia, unspecified organism Status: Acute (4) UTI (urinary tract infection) Code(s): N39.0 - Urinary tract infection, site not specified Status: Acute (5) Diarrhea Code(s): R19.7 - Diarrhea, unspecified Status: Acute (6) JOSH (acute kidney injury) Code(s): N17.9 - Acute kidney failure, unspecified Status: Acute (7) Bradycardia Code(s): R00.1 - Bradycardia, unspecified Status: Acute - Assessment and Plan 87-year-old female admitted after witnessed seizure like activity, fall, and subsequent femur fracture. New onset Seizure: Unwitnessed here, but seen by ED provider and thought to be tonic-clonic activity and also at LTC facility. S/p fosphenytoin load. Will get EEG today and start keppra Consult neurology and defer imaging to them if desired. Initial CT head negative. Consultation appreciated. Continue to treat metabolic contributors Encephalopathy likely multifactorial, dementia at baseline, superimposed infection, possible post-ictal state, medications Improving today, treating with antibiotics and anti-epileptics Distal Femur Fracture Immobilized now, Awaiting orthopedic decision on management, appreciate consultation Pneumonia This was acquired in her SNF, so could qualify for HCAP coverage but has improved well on rocephin + azithro. Will continue for now Diarrhea Cdiff negative, other stool studies pending On treatment for bacterial causes anyway with CAP coverage. Continue to monitor JOSH suspicious for pre-renal etiology as initial insult as she was having diarrhea and high sp gr. no signs of fluid overload. Cont IVF, avoid nephrotoxic meds and trend. Check CK Bradycardia ekg pending, tele, hx of Afib Decrease amlodipine to 5mg Mild thrombocytopenia monitor Mild corrected hypocalcemia monitor Other chronic medical problems: Coronary artery disease -Holding lisinopril, and not on BB. On statin now, consider holding given life expectancy, needs discussion about aspirin. HTN -very well controlled, decreasing amlodipine with bradycardia Dementia -Continue home medication of donepezil/Aricept 10 mg p.o. nightly -Continue home medication of quetiapine 50 mg p.o. twice daily Hypothyroidism -Continue home medication of levothyroxine 112 mcg p.o. daily Depression -Continue home medication of mirtazapine 7.5 mg p.o. nightly GERD -Continue home medication of pantoprazole 40 mg p.o. daily -Continue home medication of ranitidine 150 mg p.o. nightly Hypokalemia -Continue home medication of potassium chloride 20 mEq p.o. daily Iron deficiency anemia -After IVF, this has been exposed Continue home medication of ferrous sulfate 325 mg p.o. 3 times daily Vitamin deficiencies -Continue home medications of vitamin D3 and vitamin B12 FEN, ppx Fluids: Electrolytes: Monitor and replete Nutrition: N.p.o. pending orthopedic surgery recommendations GI prophylaxis as above DVT prophylaxis: hold until surgery decision today. H&P: Quality - VTE Deep Vein Thrombosis/Pulmonary Embolism Present on Admission: No (2) Left femoral shaft fracture Qualifiers: Encounter type: initial encounter Fracture type: closed Fracture morphology : oblique Fracture alignment: displaced Qualified Code(s): S72.332A - Displaced oblique fracture of shaft of left femur, initial encounter for closed fracture
[2018-03-05] MEDS: Insulin NovoLOG Aspart Correctional Sugar Inj SQ SCH ×2 (12:07→22:22)
[2018-03-05] MEDS: Sod Chloride 0.9% Inj 1,000 ML IV.CONT SCH ×2 (12:08→22:23)
--- NOTE | 2018-03-05 12:22 | P.PNFP ---
Subjective Interval history: NAEON. Ms. Florez is pleasantly confused this morning and has to be reminded for times that she broke her left femur yesterday during a fall at assisted living. Dr. Cooper, orthopedics, plans to take her to the OR today. She is getting an EEG during the interview. She is alert and oriented x1 and can recall her name and knows she is in the hospital however does not know the year or which hospital. 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 Denies chest pain, shortness of breath, nausea, vomiting, diarrhea, abdominal pain. Results - Labs Result diagrams: 03/05/18 03:30 03/05/18 03:30 Abnormal lab results 03/04/18 03/04/18 03/05/18 Range/Units 20:36 20:36 01:00 WBC 14.7 H (4.0-11.0) th/mm3 RBC 3.93 L (4.00-5.30) mil/mm3 Hgb (11.6-15.3) gm/dL Hct (35.0-46.0) % Plt Count (150-450) th/mm3 Neut % (Auto) 91.3 H (16.0-70.0) % Lymph % (Auto) 5.1 L (9.0-44.0) % Neut # (Auto) 13.4 H (1.8-7.7) th/mm3 Lymph # (Auto) 0.8 L (1.0-4.8) th/mm3 Chloride (98-107) meq/L BUN 31 H (7-18) mg/dL Creatinine 1.55 H (0.50-1.00) mg/dL Estimated GFR 32 L (>89) mL/min Random Glucose 187 H (74-106) mg/dL Calcium 7.7 L (8.5-10.1) mg/dL Calcium Adj for Albumin (8.5-10.1) mg/dL Total Protein 6.3 L (6.4-8.2) g/dL Albumin 3.0 L (3.4-5.0) g/dL Urine Clarity Cloudy H (Clear) Ur Specific Meredith 1.048 H (1.002-1.035) Urine Protein 30 H (Neg-Trace) mg/dL Urine Ketones Trace H (Negative) mg/dL Ur Leukocyte Esterase Moderate H (Negative) Urine RBC 7 H (0-3) /hpf Urine WBC 76 H (0-5) /hpf Urine WBC Clumps Many H (None) Urine Bacteria Few H (None) /hpf Urine Mucus Few H (Occasional) /lpf 03/05/18 03/05/18 Range/Units 03:30 03:30 WBC 16.8 H (4.0-11.0) th/mm3 RBC 3.25 L (4.00-5.30) mil/mm3 Hgb 9.8 L (11.6-15.3) gm/dL Hct 30.4 L (35.0-46.0) % Plt Count 141 L (150-450) th/mm3 Neut % (Auto) 94.9 H (16.0-70.0) % Lymph % (Auto) 2.1 L (9.0-44.0) % Neut # (Auto) 16.0 H (1.8-7.7) th/mm3 Lymph # (Auto) 0.4 L (1.0-4.8) th/mm3 Chloride 112 H (98-107) meq/L BUN 34 H (7-18) mg/dL Creatinine 1.71 H (0.50-1.00) mg/dL Estimated GFR 28 L (>89) mL/min Random Glucose 187 H (74-106) mg/dL Calcium 7.2 L* (8.5-10.1) mg/dL Calcium Adj for Albumin 8.2 L (8.5-10.1) mg/dL Total Protein 6.0 L (6.4-8.2) g/dL Albumin 2.7 L (3.4-5.0) g/dL Urine Clarity (Clear) Ur Specific Meredith (1.002-1.035) Urine Protein (Neg-Trace) mg/dL Urine Ketones (Negative) mg/dL Ur Leukocyte Esterase (Negative) Urine RBC (0-3) /hpf Urine WBC (0-5) /hpf Urine WBC Clumps (None) Urine Bacteria (None) /hpf Urine Mucus (Occasional) /lpf Short CBC 03/04/18 03/05/18 Range/Units 20:36 03:30 WBC 14.7 H 16.8 H (4.0-11.0) th/mm3 Hgb 11.6 9.8 L (11.6-15.3) gm/dL Hct 36.3 30.4 L (35.0-46.0) % Plt Count 153 141 L (150-450) th/mm3 BMP 03/04/18 03/05/18 20:36 03:30 Sodium 138 144 Potassium 3.9 4.8 D Chloride 107 112 H Carbon Dioxide 23.2 21.9 BUN 31 H 34 H Creatinine 1.55 H 1.71 H Calcium 7.7 L 7.2 L* Liver Function 03/04/18 03/05/18 Range/Units 20:36 03:30 Total Bilirubin 0.3 0.2 (0.2-1.0) mg/dL AST 18 15 (15-37) U/L ALT 14 14 (10-53) U/L Alkaline Phosphatase 84 80 (45-117) U/L Albumin 3.0 L 2.7 L (3.4-5.0) g/dL Urine 03/05/18 Range/Units 01:00 Urine Color Codie (Yellw/Straw) Urine Clarity Cloudy H (Clear) Urine pH 5.0 (5.0-8.5) Ur Specific Meredith 1.048 H (1.002-1.035) Urine Protein 30 H (Neg-Trace) mg/dL Urine Glucose (UA) Negative (Negative) mg/dL - Imaging Impressions Chest X-Ray 03/04/18 00:00 CONCLUSION: Minimal patchy atelectasis or consolidation in the left suprahilar region. Large hiatal hernia better seen on the CT examination. Chronic suspected healed fracture deformity at the proximal left humerus. Abdomen/Pelvis CT 03/04/18 19:21 CONCLUSION: 1. No evidence of acute visceral injury. 2. Stable cystic lesion in the anterior spleen. 3. Mild atrophy involving the right kidney which is stable. 4. Moderate diverticulosis. 5. Moderate to large hiatal hernia again noted. Femur X-Ray 03/04/18 19:26 CONCLUSION: 1. Oblique comminuted fracture through the distal femur. 2. Status post arthroplasty. 3. Osteopenia and degenerative joint changes involving the left hip. Knee X-Ray 03/04/18 19:26 CONCLUSION: 1. Visualization of the previously noted distal femoral fracture. 2. Status post knee arthroplasty. Tibia/Fibula X-Ray 03/04/18 19:26 CONCLUSION: 1. The tibia and fibula are intact. 2. Status post arthroplasty. 3. Visualization of the known distal femoral fracture. Cervical Spine CT 03/04/18 20:15 CONCLUSION: 1. No acute fracture. 2. Mild grade 1 anterior spondylolisthesis of C7 on T1 which appears chronic. 3. Degenerative disc changes. Head CT 03/04/18 20:15 CONCLUSION: 1. No acute fracture or hemorrhage. 2. Atrophy and chronic small vessel ischemic changes. . Physical Exam Vital signs: Vital Signs 03/04/18 18:50 03/04/18 19:32 03/04/18 22:01 Temperature 97.5 F L Pulse Rate 61 Respiratory Rate 16 Blood Pressure 113/56 L Pulse Oximetry 96 95 98 03/04/18 22:18 03/04/18 23:51 03/05/18 03:59 Temperature Pulse Rate 55 L 71 Respiratory Rate 18 18 18 Blood Pressure 143/66 H 138/63 Pulse Oximetry 96 98 03/05/18 04:00 03/05/18 12:03 Temperature Pulse Rate Respiratory Rate 16 Blood Pressure Pulse Oximetry 98 Intake & Output 03/04/18 03/05/18 03/05/18 18:59 06:59 18:59 Intake Total 974.4 / 974.4 1000 / 1000 Balance 974.4 / 974.4 1000 / 1000 Weight 81.647 kg 78 kg Intake: IV 974.4 / 974.4 1000 / 1000 NS Inj 1,000 ML @ 120 mls/hr IV 1000 / 1000 .CONT .Q8H20M SHAILESH Rx#:[id number] Azithromycin Inj 500 MG In NS 250 / 250 Inj 250 ML @ 250 mls/hr IV.SIG Q24H SHAILESH Rx#:[id number] Cerebyx Inj 1,220 MGPE In NS 124.4 / 124.4 Inj 100 ML @ 248.8 mls/hr IV. SIG ONCE ONE Rx#:[id number] NS Inj 500 ML @ 1000 mls/hr IV. 500 / 500 SIG BOLUS SHAILESH Rx#:[id number] Rocephin Inj 1,000 MG In NS Inj 100 / 100 100 ML @ 200 mls/hr IV.SIG Q24H SHAILESH Rx#:[id number] Other: Weight On Admission 81.64 kg Narrative: GENERAL: This is a well-nourished, well-developed patient, sleeping but briefly arousable, and in no apparent distress. SKIN: No rashes, ecchymoses or lesions. Cool and dry. HEAD: Atraumatic. Normocephalic. EYES: Pinpoint pupils approximately 2 mm in diameter are equal round and reactive. Extraocular motions intact. No scleral icterus. No injection or drainage. ENT: Nose without bleeding, purulent drainage. Mildly dry mucous membranes. Airway patent. NECK: Trachea midline. No JVD or lymphadenopathy. Supple, nontender, no meningeal signs. CARDIOVASCULAR: Bradycardic rate and regular rhythm. RESPIRATORY: Clear to auscultation. Breath sounds equal bilaterally. No wheezes , rales, or rhonchi. GASTROINTESTINAL: Abdomen soft, non-tender, nondistended. No guarding. MUSCULOSKELETAL: Extremities without clubbing, cyanosis, or edema. No joint tenderness, effusion, or edema noted. No calf tenderness. + left thigh TTP and pain with passive movement of left leg. NEUROLOGICAL: sleeping but briefly arousable. Cranial nerves II through XII grossly intact. Motor and sensory grossly within normal limits. Normal speech. - Urinary Catheter Management Indwelling Urethral Catheter Cath placed during this visit: yes Reason for continuing: Other continuation reason Insertion date: 03/05/18 Insertion time: 00:50 Assessment and Plan - Assessment (1) New onset seizure Code(s): R56.9 - Unspecified convulsions Status: Acute Plan: Unwitnessed here, but seen by ED provider and thought to be tonic-clonic activity and also at LTC facility. S/p fosphenytoin load. Will get EEG today and start keppra Consult neurology and defer imaging to them if desired. Initial CT head negative Continue to treat metabolic contributors (2) Left femoral shaft fracture Code(s): S72.302A - Unspecified fracture of shaft of left femur, initial encounter for closed fracture Status: Acute Plan: Patient fell and sustained left distal femoral fracture. Femur x-ray showed 1. Oblique comminuted fracture through the distal femur. 2. Status post arthroplasty. Splint applied in the emergency department. -N.p.o. pending surgical evaluation -Orthopedic surgery consult -Pain control: Tylenol PRN for pain, morphine PRN for breakthrough pain. (3) Pneumonia Code(s): J18.9 - Pneumonia, unspecified organism Status: Acute Plan: Patient with new onset seizure, leukocytosis with left shift, and chest x-ray showing Minimal patchy atelectasis or consolidation in the left suprahilar region. Also, by my read, atelectasis versus consolidation in the right lower lung field. Thus, plan to empirically treat for community-acquired pneumonia. -NS IV bolus of 500 mL -Maintenance fluids with NS IV -Ceftriaxone 1 g IV every 24 hours -Azithromycin 500 mg IV every 24 hours -Follow-up blood culture -Trend CBC to monitor signs of infection, BMP because patient on IV fluid -Follow-up pro calcitonin (4) UTI (urinary tract infection) Code(s): N39.0 - Urinary tract infection, site not specified Status: Acute Plan: UA concerning for UTI. -Follow up urine culture -Ceftriaxone 1 g IV every 24 hours as above -Espinosa to be discontinued when safe to do so -IV fluids as above (5) Diarrhea Code(s): R19.7 - Diarrhea, unspecified Status: Acute Plan: Diarrhea concerning for gastroenteritis versus C. difficile colitis versus other intra-abdominal infection. Up-to-date recommend stool studies and patient over 70 presenting with diarrhea. -C. difficile negative -Stool studies to include occult blood, ova and parasite screen, stool fluid culture, enteric pathogens, stool leukocytes -consider treating for possible gastroenteritis or intra-abdominal infection (6) JOSH (acute kidney injury) Code(s): N17.9 - Acute kidney failure, unspecified Status: Acute Plan: Creatinine of 1.55. Unclear if AK I or CKD. Likely prerenal based on the fact that patient looks slightly dry on exam, likely has infection, urine specific gravity gravity of 1.048. -IV fluids as above (7) Bradycardia Code(s): R00.1 - Bradycardia, unspecified Status: Acute Plan: Patient bradycardic with a heart rate in the 50s. -EKG ordered to assess possible bradycardic arrhythmia as well as to look at QTc to ensure that it is safe to give certain medications. - Assessment and Plan 87-year-old female admitted after witnessed seizure like activity, fall, and subsequent femur fracture. New onset Seizure: Unwitnessed here, but seen by ED provider and thought to be tonic-clonic activity and also at LTC facility. S/p fosphenytoin load. Will get EEG today and start keppra Consult neurology and defer imaging to them if desired. Initial CT head negative. Consultation appreciated. Continue to treat metabolic contributors Encephalopathy likely multifactorial, dementia at baseline, superimposed infection, possible post-ictal state, medications Improving today, treating with antibiotics and anti-epileptics Distal Femur Fracture Immobilized now, Awaiting orthopedic decision on management, appreciate consultation Pneumonia This was acquired in her SNF, so could qualify for HCAP coverage but has improved well on rocephin + azithro. Will continue for now Diarrhea Cdiff negative, other stool studies pending On treatment for bacterial causes anyway with CAP coverage. Continue to monitor JOSH suspicious for pre-renal etiology as initial insult as she was having diarrhea and high sp gr. no signs of fluid overload. Cont IVF, avoid nephrotoxic meds and trend. Check CK Bradycardia ekg pending, tele, hx of Afib Decrease amlodipine to 5mg Mild thrombocytopenia monitor Mild corrected hypocalcemia monitor Other chronic medical problems: Coronary artery disease -Holding lisinopril, and not on BB. On statin now, consider holding given life expectancy, needs discussion about aspirin. HTN -very well controlled, decreasing amlodipine with bradycardia Dementia -Continue home medication of donepezil/Aricept 10 mg p.o. nightly -Continue home medication of quetiapine 50 mg p.o. twice daily Hypothyroidism -Continue home medication of levothyroxine 112 mcg p.o. daily Depression -Continue home medication of mirtazapine 7.5 mg p.o. nightly GERD -Continue home medication of pantoprazole 40 mg p.o. daily -Continue home medication of ranitidine 150 mg p.o. nightly Hypokalemia -Continue home medication of potassium chloride 20 mEq p.o. daily Iron deficiency anemia -After IVF, this has been exposed Continue home medication of ferrous sulfate 325 mg p.o. 3 times daily Vitamin deficiencies -Continue home medications of vitamin D3 and vitamin B12 FEN, ppx Fluids: Electrolytes: Monitor and replete Nutrition: N.p.o. pending orthopedic surgery recommendations GI prophylaxis as above DVT prophylaxis: hold until surgery decision today. (2) Left femoral shaft fracture Qualifiers: Encounter type: initial encounter Fracture type: closed Fracture morphology : oblique Fracture alignment: displaced Qualified Code(s): S72.332A - Displaced oblique fracture of shaft of left femur, initial encounter for closed fracture
--- NOTE | 2018-03-05 15:53 | ECG ---
Date Performed: 03/05/2018 Time Performed: 00:53:21 PTAGE: 87 years EKG: Sinus rhythm LOW QRS VOLTAGE IN PRECORDIAL LEADS POSSIBLE SEPTAL MYOCARDIAL INFARCTION ABNORMAL ECG PREVIOUS TRACING : 07/05/2017 23.10 Compared to previous tracing, the R-wave transition is now no rmal and the criteria for possible septal AL are new. There is otherwise no significant serial change . DOCTOR: Marcia Salas Interpretating Date/Time 03/05/2018 15:53:05
--- NOTE | 2018-03-05 15:57 | MG ---
cc: Lucia Chavez MD EEG NUMBER: [id number] INFORMATION: Referred by Kike Lorenzo room 1321. With photic done awake, admitted for falls. The patient was sitting in her wheelchair when she fell. Complains of abdominal pain and nausea. CT showed atrophy, history of atrial fibrillation, anxiety, COPD, dementia and other medical problems on azithromycin, ceftriaxone and morphine. DESCRIPTION OF RECORD: The patient exhibits slowing of background predominantly of 3 Hz. Bilateral symmetrical EKG, quite a bit of artifact, cannot be interpreted by 1 lead. No epileptiform features. Photic stimulation with a mild driving response. IMPRESSION: Moderate slowing can be seen in an encephalopathic process, but can also be seen in cases of dementia. No evidence of any epileptiform features. Lucia Chavez MD DF/ct , 03:29 PM , 03:34 PM
--- NOTE | 2018-03-05 16:00 | MB ---
cc: Santiago Hardy MD, PhD DATE: 03/05/2018 REASON FOR CONSULTATION: Seizure. HISTORY OF PRESENT ILLNESS: Ms. Florez is an 87-year-old female who has a diagnosis of Alzheimer's dementia, who lives in an [facility]. The patient was witnessed to have a generalized seizure at [facility], loss of consciousness with generalized jerking activity. Came to the ER and had a second seizure in the ER. She was loaded with fosphenytoin and then given a dose of Keppra 500 mg IV daily. She has had no recurrent seizures. The seizure did result in a left femoral shaft fracture. She has no history of seizures in the past. PAST MEDICAL HISTORY: History of Alzheimer's dementia, atrial fibrillation, anemia, anxiety, COPD, hyperlipidemia, hypokalemia, hypothyroidism, mitral valve prolapse, type 2 diabetes. CURRENT MEDICATIONS: 1. Lipitor 10 mg daily. 2. Norvasc 5 mg daily. 3. Tylenol. 4. Azithromycin. 5. Ceftriaxone. 6. Aricept 10 mg daily. 7. Pepcid 20 mg daily. 8. Iron sulfate 325 mg t.i.d. 9. Glucagon. 10. Insulin. 11. Synthroid. 12. Remeron. 13. Morphine p.r.n. 14. Zofran p.r.n. 15. Protonix 40 mg p.o. daily. 16. Seroquel 50 mg b.i.d. PHYSICAL EXAMINATION: VITAL SIGNS: The blood pressure is 143/66, pulse 55, respirations are 18, temperature 97.5 degrees. HIGHER CORTICAL FUNCTION: She is lethargic, but arousable, disoriented to date and place. Has poor recall, follows commands. Cranial nerves intact. Motor exam is normal with no focal deficit. RADIOGRAPHIC STUDIES: CT brain normal for age. LABORATORY DATA: White count 14,700, hemoglobin 11.6, hematocrit 36%, platelets 153,000. Sodium 138, potassium 3.9, chloride 107, CO2 is 23.2. The BUN is 31, creatinine 1.55, GFR is 32, glucose is 187, AST 18, ALT 14, alkaline phosphatase 84. IMPRESSION: Generalized tonic-clonic seizure, probably related to her Alzheimer's dementia. RECOMMENDATIONS: Would continue Keppra 500 mg b.i.d. Santiago Hardy MD, PhD CONNIE/darshana , 03:33 PM , 03:40 PM
[2018-03-05] MEDS ORDERED: fentaNYL Citrate Inj 250 MCG/5 ML Ampul ONE (17:02)
--- NOTE | 2018-03-05 17:32 | P.CONOP ---
[facility] Orthopedics Consult Note - [facility] Consult date: 03/05/18 Consult reason: fracture Chief complaint: New Onset Seziures, Left Femur Fracture Narrative: 87-year-old female with a history of atrial fibrillation, anxiety, depression, COPD, CAD, dementia, diabetes is brought to the ED from her jail facility for evaluation new onset seizure and a subsequent fall on her left leg. History was gathered from EMS to ED report as well as the patient's granddaughter Ms. Blunt. Reportedly, patient was at her jail, an [facility] called Dandy mckeon, when patient was witnessed becoming seemingly unresponsive, exhibiting tonic-clonic activity, and then falling from sitting position in her wheelchair. She fell onto her left leg. When she came to, minutes later, she was complaining of left leg pain. They were unsure if this complaint was real or not given her dementia. However, the [facility] policy was to send her to the emergency department for evaluation. In the emergency department, patient had another tonic-clonic episode in which the patient was unresponsive that lasted 1 -2 minutes. She then became responsive again. This seizure-like episode was witnessed by both the granddaughter and the PA in the emergency department. The patient is a poor historian due to her dementia and only being intermittently awake. Nursing staff noted her to be incontinent of stool, with watery, foul smelling diarrhea. While cleaning patient, nursing staff noted no skin breakdown on patient's back. No denies any pain or complaints at this time. PCP is Dr. Katie Warren. X-rays in the emergency room shows evidence of a supracondylar fracture of the left femur above a total knee prosthesis. I have been asked to see the patient in consultation regarding the same Review of Systems All other systems reviewed negative except as stated in [facility] PMFSH - History History Provided By: Medical Record - Medical History Medical History: Medical History (Last Reviewed 03/05/18 @ 13:32 by Safia Bhatia RN) Afib Anemia Anxiety CAD (coronary artery disease) COPD (chronic obstructive pulmonary disease) Dementia Depression Diverticulosis GI bleed Gastroparesis Generalized weakness Hiatal hernia History of falling History of gastrostomy tube placement Hyperlipemia Hypokalemia Hypothyroidism Major depressive disorder Nonrheumatic mitral (valve) prolapse Obstructive sleep apnea Pain, chronic Type 2 diabetes mellitus Vitamin D deficiency - Surgical History Surgical History: Surgical History (Last Reviewed 03/05/18 @ 13:32 by Safia Bhatia RN) History of colonoscopy Hx of knee surgery - Tobacco History Smoking Status: Cognitive impairment - Alcohol History How Often Do You Have a Drink Containing Alcohol: Unable to Obtain - Substance Use History Substance History: No History of Abuse - Travel History Recent Travel in the [place] Within the Last 8 Weeks: No Recent Travel Out of the Country Within the Last 8 Weeks: No - Immunization History Tetanus Immunization: Unable to Assess Hx Influenza Vaccine This Season: Yes Medications and Allergies Active Medications: Active Medications Amlodipine Besylate (Norvasc) 5 mg PO DAILY [facility] Atorvastatin Calcium (Lipitor) 10 mg PO HS [facility] Dextrose (D50w Vial) 50 ml IV.PUSH UNSCH PRN PRN Reason: PER HYPOGLYCEMIA PROTOCOL Donepezil HCl (Aricept) 10 mg PO HS [facility] Famotidine (Pepcid) 20 mg PO HS [facility] Ferrous Sulfate (Ferosul) 325 mg PO TID [facility] Last Admin: 03/05/18 09:50 Dose: Not Given Glucagon (Glucagon Inj) 1 mg OTHER PRN PRN PRN Reason: for Hypoglycemia Protocol Sodium Chloride (Ns Inj) 1,000 mls @ 120 mls/hr IV.CONT .Q8H20M [facility] Last Admin: 03/05/18 12:08 Dose: 75 mls/hr Ceftriaxone Sodium 1,000 mg/ (Sodium Chloride) 100 mls @ 200 mls/hr IV.SIG Q24H [facility] Last Infusion: 03/05/18 02:51 Dose: Infused Azithromycin 500 mg/ Sodium (Chloride) 250 mls @ 250 mls/hr IV.SIG Q24H [facility] Last Infusion: 03/05/18 04:30 Dose: Infused Acetaminophen (Ofirmev Inj) 1,000 mg in 100 mls @ 400 mls/hr IV.SIG Q8H [facility] Stop: 03/06/18 10:29 Last Admin: 03/05/18 12:03 Dose: 400 mls/hr Levetiracetam 500 mg/ Sodium (Chloride) 105 mls @ 400 mls/hr IV.SIG Q12H [facility] Insulin Aspart (Novolog Insulin Correctional Sugar Inj) 0 unit SQ Q6HR [facility]; Protocol Last Admin: 03/05/18 12:07 Dose: Not Given Levothyroxine Sodium (Synthroid) 112 mcg PO DAILY@0600 [facility] Last Admin: 03/05/18 05:21 Dose: Not Given Mirtazapine (Remeron) 7.5 mg PO HS [facility] Morphine Sulfate (Morphine Inj) 2 mg IV.PUSH Q3H PRN PRN Reason: BREAKTHROUGH PAIN Ondansetron HCl (Zofran Inj) 4 mg IV.PUSH Q6H PRN PRN Reason: NAUSEA OR VOMITING Last Admin: 03/04/18 23:50 Dose: 4 mg Pantoprazole Sodium (Protonix) 40 mg PO DAILY [facility] Last Admin: 03/05/18 09:50 Dose: 40 mg Potassium Chloride (Kcl) 20 meq PO DAILY [facility] Last Admin: 03/05/18 09:50 Dose: Not Given Quetiapine Fumarate (Seroquel) 50 mg PO BID [facility] Last Admin: 03/05/18 09:50 Dose: 50 mg Sodium Chloride (Ns Flush) 2 ml IV.FLUSH BID [facility] Sodium Chloride (Ns Flush) 2 ml IV.FLUSH PRN PRN PRN Reason: FLUSH AFTER USING IV ACCESS Allergies Allergy/AdvReac Type Severity Reaction Status Date / Time carvedilol Allergy Severe Anaphylaxis Verified 03/05/18 13:32 diclofenac Allergy Severe Anaphylaxis Verified 03/05/18 13:32 Penicillins Allergy Severe Anaphylaxis Verified 03/05/18 13:32 Thiazides Allergy Severe Anaphylaxis Verified 03/05/18 13:32 triamcinolone Allergy Severe Anaphylaxis Verified 03/05/18 13:32 Home Medications Medication Instructions Recorded Confirmed Type acetaminophen [Tylenol Extra 500 mg PO TID PRN 03/04/18 03/04/18 History Strength] amlodipine 10 mg PO DAILY 03/04/18 03/04/18 History atorvastatin [Lipitor] 10 mg PO HS 03/04/18 03/04/18 History cholecalciferol (vitamin D3) 2,000 unit PO DAILY 03/04/18 03/04/18 History cyanocobalamin (vitamin B-12) 1,000 mcg PO DAILY 03/04/18 03/04/18 History [Vitamin B-12] donepezil [Aricept] 10 mg PO HS 03/04/18 03/04/18 History ferrous sulfate 325 mg PO TID 03/04/18 03/04/18 History levothyroxine [Synthroid] 112 mcg PO DAILY 03/04/18 03/04/18 History lisinopril 5 mg PO DAILY 03/04/18 03/04/18 History mirtazapine [Remeron] 7.5 mg PO HS 03/04/18 03/04/18 History pantoprazole [Protonix] 40 mg PO DAILY 03/04/18 03/04/18 History potassium chloride 20 meq PO DAILY 03/04/18 03/04/18 History quetiapine [Seroquel] 50 mg PO BID 03/04/18 03/04/18 History ranitidine HCl [Zantac] 150 mg PO HS 03/04/18 03/04/18 History Exam Vital signs: Vital Signs 03/04/18 18:50 03/04/18 19:32 03/04/18 22:01 Temperature 97.5 F L Pulse Rate 61 Respiratory Rate 16 Blood Pressure 113/56 L Pulse Oximetry 96 95 98 03/04/18 22:18 03/04/18 23:51 03/05/18 03:59 Temperature Pulse Rate 55 L 71 Respiratory Rate 18 18 18 Blood Pressure 143/66 H 138/63 Pulse Oximetry 96 98 03/05/18 04:00 03/05/18 12:03 Temperature Pulse Rate Respiratory Rate 16 Blood Pressure Pulse Oximetry 98 Intake & Output 03/04/18 03/05/18 03/05/18 18:59 06:59 18:59 Intake Total 974.4 / 974.4 1000 / 1000 Balance 974.4 / 974.4 1000 / 1000 Weight 81.647 kg 78 kg Intake: IV 974.4 / 974.4 1000 / 1000 NS Inj 1,000 ML @ 120 mls/hr IV 1000 / 1000 .CONT .Q8H20M [facility] Rx#:[id number] Azithromycin Inj 500 MG In NS 250 / 250 Inj 250 ML @ 250 mls/hr IV.SIG Q24H [facility] Rx#:[id number] Cerebyx Inj 1,220 MGPE In NS 124.4 / 124.4 Inj 100 ML @ 248.8 mls/hr IV. SIG ONCE ONE Rx#:[id number] NS Inj 500 ML @ 1000 mls/hr IV. 500 / 500 SIG BOLUS [facility]AILESH Rx#:[id number] Rocephin Inj 1,000 MG In NS Inj 100 / 100 100 ML @ 200 mls/hr IV.SIG Q24H [facility] Rx#:[id number] Other: Weight On Admission 81.64 kg Narrative: HEENT: Normocephalic atraumatic pupils equal round reactive. NECK: Supple. No abnormal masses. Full range of motion. CHEST: Clear to auscultation with no rales or rhonchi's or wheezes. HEART: Regular rate and rhythm. No murmurs. ABDOMEN: Soft, nontender, no masses. Normal active bowel sounds. GENITOURINARY: Deferred. MUSCULOSKELETAL left leg is in a splint. Mild swelling. Relatively normal alignment. She wiggles her toes. Sensation is normal. The patient is confused and does not give adequate response to questions Results - Labs Result Diagrams: 03/05/18 03:30 03/05/18 03:30 Labs: Laboratory Results - last 24 hr 03/04/18 03/04/18 03/04/18 20:16 20:36 20:36 WBC 14.7 H RBC 3.93 L Hgb 11.6 Hct 36.3 MCV 92.3 MCH 29.5 MCHC 32.0 RDW 15.0 Plt Count 153 MPV 10.4 Neut % (Auto) 91.3 H Lymph % (Auto) 5.1 L Coleman % (Auto) 2.4 Eos % (Auto) 0.6 Baso % (Auto) 0.6 Neut # (Auto) 13.4 H Lymph # (Auto) 0.8 L Coleman # (Auto) 0.4 Eos # (Auto) 0.1 Baso # (Auto) 0.1 WBC Differential . Differential Comment Auto diff final Sodium 138 Potassium 3.9 Chloride 107 Carbon Dioxide 23.2 Anion Gap 8 BUN 31 H Creatinine 1.55 H Estimated GFR 32 L POC Glucose Random Glucose 187 H Lactic Acid Calcium 7.7 L Calcium Adj for Albumin Magnesium 1.9 Total Bilirubin 0.3 AST 18 ALT 14 Alkaline Phosphatase 84 Total Protein 6.3 L Albumin 3.0 L Lipase 220 Procalcitonin Urine Color Urine Clarity Urine pH Ur Specific Farson Urine Protein Urine Glucose (UA) Urine Ketones Urine Occult Blood Urine Nitrate Urine Bilirubin Urine Urobilinogen Ur Leukocyte Esterase Urine RBC Urine WBC Urine WBC Clumps Ur Squamous Epith Cells Urine Bacteria Hyaline Casts Granular Casts Urine Mucus Micro UA Comment Ur Microscopic Review Urine Culture Comments Stl C.difficile DNA Amp Negative St C. diff Tox Epid 027 Negative Urine Opiates Screen Ur Barbiturates Screen Ur Amphetamines Screen U Benzodiazepines Scrn Urine Cocaine Screen U Cannabinoids Screen 03/05/18 03/05/18 03/05/18 01:00 01:00 03:05 WBC RBC Hgb Hct MCV MCH MCHC RDW Plt Count MPV Neut % (Auto) Lymph % (Auto) Coleman % (Auto) Eos % (Auto) Baso % (Auto) Neut # (Auto) Lymph # (Auto) Coleman # (Auto) Eos # (Auto) Baso # (Auto) WBC Differential Differential Comment Sodium Potassium Chloride Carbon Dioxide Anion Gap BUN Creatinine Estimated GFR POC Glucose Random Glucose Lactic Acid Calcium Calcium Adj for Albumin Magnesium Total Bilirubin AST ALT Alkaline Phosphatase Total Protein Albumin Lipase Procalcitonin 0.06 Urine Color Codie Urine Clarity Cloudy H Urine pH 5.0 Ur Specific Farson 1.048 H Urine Protein 30 H Urine Glucose (UA) Negative Urine Ketones Trace H Urine Occult Blood Negative Urine Nitrate Negative Urine Bilirubin Negative Urine Urobilinogen Less than 2 Ur Leukocyte Esterase Moderate H Urine RBC 7 H Urine WBC 76 H Urine WBC Clumps Many H Ur Squamous Epith Cells 1 Urine Bacteria Few H Hyaline Casts 70 Granular Casts 2 Urine Mucus Few H Micro UA Comment Culture indicated Ur Microscopic Review Not Reportable Urine Culture Comments Culture indicated Stl C.difficile DNA Amp St C. diff Tox Epid 027 Urine Opiates Screen Neg Ur Barbiturates Screen Neg Ur Amphetamines Screen Neg U Benzodiazepines Scrn Neg Urine Cocaine Screen Neg U Cannabinoids Screen Neg 03/05/18 03/05/18 03/05/18 03:30 03:30 10:16 WBC 16.8 H RBC 3.25 L Hgb 9.8 L Hct 30.4 L MCV 93.4 MCH 30.2 MCHC 32.3 RDW 14.9 Plt Count 141 L MPV 9.9 Neut % (Auto) 94.9 H Lymph % (Auto) 2.1 L Coleman % (Auto) 2.8 Eos % (Auto) 0.0 Baso % (Auto) 0.2 Neut # (Auto) 16.0 H Lymph # (Auto) 0.4 L Coleman # (Auto) 0.5 Eos # (Auto) 0.0 Baso # (Auto) 0.0 WBC Differential . Differential Comment Auto diff final Sodium 144 Potassium 4.8 D Chloride 112 H Carbon Dioxide 21.9 Anion Gap 10 BUN 34 H Creatinine 1.71 H Estimated GFR 28 L POC Glucose Random Glucose 187 H Lactic Acid 1.6 Calcium 7.2 L* Calcium Adj for Albumin 8.2 L Magnesium Total Bilirubin 0.2 AST 15 ALT 14 Alkaline Phosphatase 80 Total Protein 6.0 L Albumin 2.7 L Lipase Procalcitonin Urine Color Urine Clarity Urine pH Ur Specific Farson Urine Protein Urine Glucose (UA) Urine Ketones Urine Occult Blood Urine Nitrate Urine Bilirubin Urine Urobilinogen Ur Leukocyte Esterase Urine RBC Urine WBC Urine WBC Clumps Ur Squamous Epith Cells Urine Bacteria Hyaline Casts Granular Casts Urine Mucus Micro UA Comment Ur Microscopic Review Urine Culture Comments Stl C.difficile DNA Amp St C. diff Tox Epid 027 Urine Opiates Screen Ur Barbiturates Screen Ur Amphetamines Screen U Benzodiazepines Scrn Urine Cocaine Screen U Cannabinoids Screen 03/05/18 11:50 WBC RBC Hgb Hct MCV MCH MCHC RDW Plt Count MPV Neut % (Auto) Lymph % (Auto) Coleman % (Auto) Eos % (Auto) Baso % (Auto) Neut # (Auto) Lymph # (Auto) Coleman # (Auto) Eos # (Auto) Baso # (Auto) WBC Differential Differential Comment Sodium Potassium Chloride Carbon Dioxide Anion Gap BUN Creatinine Estimated GFR POC Glucose 98 Random Glucose Lactic Acid Calcium Calcium Adj for Albumin Magnesium Total Bilirubin AST ALT Alkaline Phosphatase Total Protein Albumin Lipase Procalcitonin Urine Color Urine Clarity Urine pH Ur Specific Farson Urine Protein Urine Glucose (UA) Urine Ketones Urine Occult Blood Urine Nitrate Urine Bilirubin Urine Urobilinogen Ur Leukocyte Esterase Urine RBC Urine WBC Urine WBC Clumps Ur Squamous Epith Cells Urine Bacteria Hyaline Casts Granular Casts Urine Mucus Micro UA Comment Ur Microscopic Review Urine Culture Comments Stl C.difficile DNA Amp St C. diff Tox Epid 027 Urine Opiates Screen Ur Barbiturates Screen Ur Amphetamines Screen U Benzodiazepines Scrn Urine Cocaine Screen U Cannabinoids Screen - Diagnostic results Imaging: Impressions Chest X-Ray 03/04/18 00:00 CONCLUSION: Minimal patchy atelectasis or consolidation in the left suprahilar region. Large hiatal hernia better seen on the CT examination. Chronic suspected healed fracture deformity at the proximal left humerus. Abdomen/Pelvis CT 03/04/18 19:21 CONCLUSION: 1. No evidence of acute visceral injury. 2. Stable cystic lesion in the anterior spleen. 3. Mild atrophy involving the right kidney which is stable. 4. Moderate diverticulosis. 5. Moderate to large hiatal hernia again noted. Femur X-Ray 03/04/18 19:26 CONCLUSION: 1. Oblique comminuted fracture through the distal femur. 2. Status post arthroplasty. 3. Osteopenia and degenerative joint changes involving the left hip. Knee X-Ray 03/04/18 19:26 CONCLUSION: 1. Visualization of the previously noted distal femoral fracture. 2. Status post knee arthroplasty. Tibia/Fibula X-Ray 03/04/18 19:26 CONCLUSION: 1. The tibia and fibula are intact. 2. Status post arthroplasty. 3. Visualization of the known distal femoral fracture. Cervical Spine CT 03/04/18 20:15 CONCLUSION: 1. No acute fracture. 2. Mild grade 1 anterior spondylolisthesis of C7 on T1 which appears chronic. 3. Degenerative disc changes. Head CT 03/04/18 20:15 CONCLUSION: 1. No acute fracture or hemorrhage. 2. Atrophy and chronic small vessel ischemic changes. . Review of the x-rays and review of the radiologist interpretation shows evidence of a 2 part supracondylar fracture of the left femur above a total knee prosthesis with mild comminution and moderate osteopenia Assessment and Plan - Assessment and Plan Dementia. Supracondylar periprosthetic left distal femur fracture. Osteoporosis. PLAN: Surgery: Open treatment internal fixation left distal femur fracture with locking plate and screws. Consent: There are risks with this condition and surgery including infection, bleeding, loss of motion, continued pain, need for further surgery, neurologic or vascular injury. The patient understands these issues and wishes to proceed forward with surgery as outlined above. Postop anticipate: Nonweightbearing left leg. Lovenox 30 mg daily. Daily dressing change. Troy the splint. Probable transfer to intermediate facility
[2018-03-05] MEDS ORDERED: Bisacodyl 10 MG Supp RECTAL PRN (17:42)
[2018-03-05] MEDS ORDERED: Post-op Orders (for Pharmacy) OTHER STA (17:42)
[2018-03-05] MEDS ORDERED: ceFAZolin 2 GM Premix Inj 2 GM/50 ML PIGGYBACK IV.SIG ONE (18:55)
--- NOTE | 2018-03-05 19:38 | P.OP ---
- Preoperative Diagnosis (1) Left femoral shaft fracture Preoperative Diagnosis: Fracture left supracondylar femur, periprosthetic Postoperative Diagnosis: Same Date of procedure: 03/05/18 Procedure: Open treatment internal fixation left supracondylar femur fracture with locking plates and screws Anesthesia: KHADRA Surgeon: Eric Cooper MD Physicians Assistant: Ellyn Florez PA-C Operation and Findings: EBL: 150 cc INDICATION: This patient is an 87-year-old female who suffered a mechanical fall and injury to the left leg. The patient apparently had a seizure which was witnessed. She is has no previous seizure history. She sustained a fracture of the left distal femur in the supracondylar region extending into the edge of the prosthesis. She has significant osteopenia. She now presents for surgical treatment. NOTE: Ellyn Florez PA-C was present for the entire surgical procedure as my nurse first assist. In my medical opinion her skill and care was necessary for proper management of this patient PROCEDURE: The patient was brought to the operating room and anesthetized in the supine position. The patient was placed on the Gio table. The affected leg was held extended. A bump was placed under that hip. A bolster was placed on the leg allowing adequate exposure in the lateral plane under radiology. A timeout was done. Antibiotics were given within a routine time window. The leg was scrubbed with alcohol followed by Hibiclens followed by ChloraPrep and draped sterilely. The fracture brought into reduced position and held provisionally. A lateral incision was made. The iliotibial band was opened in line with the incision. Dissection allowed percutaneous placement of a plate along the shaft of the femur. This was held provisionally distally and proximally and checked carefully multiple times with AP and lateral fluoroscopic images. Temporary clamps and pins were used holding the fracture reduced. Distal locking screws were placed. A proximal pin was used to hold this while a combination of locking and nonlocking screws placed proximally. Screw position was satisfactory. The fracture reduced very nicely. Intraoperative x-rays were obtained. Alignment was satisfactory. No complication was noted. The wound was irrigated copiously. Hemostasis was controlled. The fascia was closed with running 0 PDS on a loop, subcutaneous tissue with 2-0 Vicryl and skin with metallic valdo. A sterile dressing was applied. The patient was awakened and taken to the recovery room in satisfactory condition. FINDINGS: There was mild comminution. Moderate osteopenia was noted. A 10 hole [employer] supracondylar locking plate was utilized. There is no complication appreciated
--- NOTE | 2018-03-05 20:53 | XR ---
EXAM DATE: 03/05/2018 8:47 PM EST AGE/SEX: 87 years / Female INDICATIONS: ORIF left femur fracture. CLINICAL DATA: This is the patient's subsequent encounter. Patient reports that signs and symptoms h ave been present for 2 days and indicates a pain score of Nonresponsive. MEDICAL/SURGICAL HISTORY: Non-responsive. Non-responsive. COMPARISON: [facility] [place], FEMUR LEFT 2V, 03/04/2018. . FINDINGS: Interval lateral plate and screw fixation of distal femoral fracture. Hardware appears intact and wel l-positioned. There is near-anatomic alignment of the fracture fragments. CONCLUSION: 1. Left femoral ORIF, as above. Electronically signed by: Miles Hernadez MD Board Certified Radiologist 03/05/2018 8:51 PM EST
[2018-03-05] MEDS ORDERED: Temazepam 15 MG Capsule PO PRN (21:00)
[2018-03-05] MEDS ORDERED: *morphine SULFATE 10 MG/ML PERIprocedure ONLY ONE (22:03)
[2018-03-05] MEDS: Sodium Chloride 0.9% 2 ML Flush BID IV.FLUSH SCH (23:11)
[2018-03-05] MEDS: Senna/Docusate Sodium 8.6/50 MG Tablet PO SCH (23:11)
[2018-03-05] MEDS: Multivitamin/Minerals Therapeutic Tablet PO SCH (23:11)
[2018-03-05] MEDS: Mirtazapine 15 MG Tablet PO SCH (23:11)
[2018-03-05] MEDS: Famotidine 20 MG Tablet PO SCH (23:11)
[2018-03-06] MEDS: Insulin NovoLOG Aspart Correctional Sugar Inj SQ SCH ×4 (02:21→18:00)
[2018-03-06] MEDS: Azithromycin Inj 500 MG in Sodium Chlor 0.9% Inj 250 ML IV.SIG SCH (03:24)
[2018-03-06 06:04] LABS: Baso % (Auto) 0.2 % (0.0-2.0); Eos # (Auto) 0.1 th/mm3 (0.0-0.4); Eos % (Auto) 0.9 % (0.0-4.0); Hematocrit 26.3 % (35.0-46.0); Hemoglobin 8.5 gm/dL (11.6-15.3); Lymph # (Auto) 0.9 th/mm3 (1.0-4.8); Lymph % (Auto) 11.5 % (9.0-44.0); Mean Corpuscular HGB Conc 32.2 % (32.0-36.0); Mean Corpuscular Hemoglobin 30.2 pg (27.0-34.0); Mean Corpuscular Volume 93.8 fL (80.0-100.0); Mean Platelet Volume 10.7 fL (7.0-11.0); Mono # (Auto) 0.3 th/mm3 (0.0-0.9); Neut # (Auto) 6.8 th/mm3 (1.8-7.7); Neut % (Auto) 83.4 % (16.0-70.0); Platelet Count 104 th/mm3 (150-450); Red Cell Distribution Width 15.3 % (11.6-17.2); White Blood Count 8.1 th/mm3 (4.0-11.0)
[2018-03-06 06:13] LABS: Albumin 2.5 g/dL (3.4-5.0); Calcium 7.1 mg/dL (8.5-10.1); Calcium-Albumin Corrected 8.3 mg/dL (8.5-10.1)
[2018-03-06 06:18] LABS: Albumin 2.5 g/dL (3.4-5.0); Calcium 7.2 mg/dL (8.5-10.1); Carbon Dioxide 22.8 meq/L (21.0-32.0); Potassium 4.1 meq/L (3.5-5.1)
[2018-03-06] MEDS: Sod Chloride 0.9% Inj 1,000 ML IV.CONT SCH ×3 (06:24→22:50)
[2018-03-06] MEDS: Levothyroxine 112 MCG Tablet PO SCH (06:24)
[2018-03-06 06:28] LABS: Total Protein 5.4 g/dL (6.4-8.2)
--- NOTE | 2018-03-06 07:54 | P.PNOP ---
Subjective Interval history: Doing well. Confused. No new complaints Physical Exam Vital signs: Vital Signs 03/05/18 08:00 03/05/18 12:03 03/05/18 12:20 Temperature Pulse Rate Respiratory Rate 16 20 Blood Pressure Pulse Oximetry 100 03/05/18 20:00 03/05/18 20:15 03/05/18 20:30 Temperature 98.3 F 98.3 F 98.3 F Pulse Rate 87 81 79 Respiratory Rate 14 14 14 Blood Pressure 152/67 H 144/65 H 148/64 H Pulse Oximetry 100 98 96 03/05/18 20:45 03/05/18 21:00 03/05/18 21:30 Temperature 98.3 F 98.3 F 98.3 F Pulse Rate 78 84 82 Respiratory Rate 14 14 14 Blood Pressure 138/61 148/64 H 142/58 H Pulse Oximetry 97 97 98 03/05/18 22:30 03/05/18 22:41 03/05/18 23:59 Temperature 98.3 F 98.1 F Pulse Rate 75 76 77 Respiratory Rate 14 17 Blood Pressure 114/52 L 123/58 L Pulse Oximetry 100 97 03/06/18 04:03 03/06/18 05:45 Temperature 98.1 F Pulse Rate 79 82 Respiratory Rate 18 Blood Pressure 136/56 L Pulse Oximetry 99 Intake & Output 03/05/18 03/06/18 03/06/18 18:59 06:59 18:59 Intake Total 1655 / 1655 5202 / 5202 Output Total 1000 / 1000 Balance 1655 / 1655 4202 / 4202 Weight 78 kg 76.6 kg Intake: IV 1655 / 1655 1322 / 1322 NS Inj 1,000 ML @ 120 mls/hr IV 1300 / 1300 767 / 767 .CONT .Q8H20M [facility] Rx#:[id number] Ofirmev Inj 1,000 mg In 100 ml 100 / 100 100 / 100 @ 400 mls/hr IV.SIG Q8H [facility] Rx# :[id number] Azithromycin Inj 500 MG In NS 250 / 250 Inj 250 ML @ 250 mls/hr IV.SIG Q24H [facility] Rx#:[id number] Ancef 2 GM Premix Inj 2 gm In 50 / 50 50 ml @ 100 mls/hr IV.SIG ONCE ONE Rx#:[id number] Rocephin Inj 1,000 MG In NS Inj 100 / 100 100 ML @ 200 mls/hr IV.SIG Q24H [facility] Rx#:[id number] Keppra 1000 mg/100 mL Premix 100 / 100 100 ML @ 400 mls/hr IV.SIG ONCE ONE Rx#:[id number] Keppra Inj 500 MG In NS Inj 100 105 / 105 105 / 105 ML @ 400 mls/hr IV.SIG Q12H [facility] Rx#:[id number] Oral 480 / 480 Anesthesia Amount 3400 / 3400 Output: Estimated Blood Loss 300 / 300 Urine Amount (Catheter) 700 / 700 Indwelling Urethral Catheter 700 / 700 Other: Date of Last Bowel Movement 03/05/18 # Bowel Movements 0 Weight On Admission 81.64 kg Narrative: Dressing dry. Alignment is satisfactory. Neuro exam normal. No calf tenderness. Mild swelling - Urinary Catheter Management Indwelling Urethral Catheter Cath placed during this visit: yes, but has since been removed by the nurse Reason for continuing: Decision to DC catheter Insertion date: 03/05/18 Insertion time: 00:50 Removal date: 03/06/18 Removal time: 06:30 Results - Labs CBC & Chem 7: 03/06/18 05:18 03/06/18 05:18 Laboratory Results - last 24 hr 03/05/18 03/05/18 03/05/18 03:05 10:16 11:50 WBC RBC Hgb Hct MCV MCH MCHC RDW Plt Count MPV Neut % (Auto) Lymph % (Auto) [place] % (Auto) Eos % (Auto) Baso % (Auto) Neut # (Auto) Lymph # (Auto) [place] # (Auto) Eos # (Auto) Baso # (Auto) WBC Differential Differential Comment Sodium Potassium Chloride Carbon Dioxide Anion Gap BUN Creatinine Estimated GFR POC Glucose 98 Random Glucose Lactic Acid 1.6 Calcium Calcium Adj for Albumin Total Bilirubin AST ALT Alkaline Phosphatase Total Protein Albumin Procalcitonin 0.06 03/05/18 03/06/18 03/06/18 21:04 00:20 05:18 WBC 8.1 RBC 2.80 L Hgb 8.5 L Hct 26.3 L MCV 93.8 MCH 30.2 MCHC 32.2 RDW 15.3 Plt Count 104 L MPV 10.7 Neut % (Auto) 83.4 H Lymph % (Auto) 11.5 [place] % (Auto) 4.0 Eos % (Auto) 0.9 Baso % (Auto) 0.2 Neut # (Auto) 6.8 Lymph # (Auto) 0.9 L [place] # (Auto) 0.3 Eos # (Auto) 0.1 Baso # (Auto) 0.0 WBC Differential . Differential Comment Auto diff final Sodium Potassium Chloride Carbon Dioxide Anion Gap BUN Creatinine Estimated GFR POC Glucose 152 H 149 H Random Glucose Lactic Acid Calcium Calcium Adj for Albumin Total Bilirubin AST ALT Alkaline Phosphatase Total Protein Albumin Procalcitonin 03/06/18 03/06/18 03/06/18 05:18 05:18 06:24 WBC RBC Hgb Hct MCV MCH MCHC RDW Plt Count MPV Neut % (Auto) Lymph % (Auto) [place] % (Auto) Eos % (Auto) Baso % (Auto) Neut # (Auto) Lymph # (Auto) [place] # (Auto) Eos # (Auto) Baso # (Auto) WBC Differential Differential Comment Sodium 145 Potassium 4.1 Chloride 115 H Carbon Dioxide 22.8 Anion Gap 7 BUN 28 H Creatinine 1.21 H Estimated GFR 42 L POC Glucose 114 H Random Glucose 106 Lactic Acid Calcium 7.2 L* 7.1 L* Calcium Adj for Albumin 8.4 L 8.3 L Total Bilirubin 0.3 AST 42 H ALT 21 Alkaline Phosphatase 73 Total Protein 5.4 L D Albumin 2.5 L 2.5 L Procalcitonin Microbiology 03/04/18 20:16 Stool Enteric Pathogens (PCR) - Final No enteric pathogens detected by PCR (No Salmonella sp., Shigella sp., Campylobacter sp., Yersinia enterocolitica, Vibrio sp., Norovirus, or EHEC (Shiga Toxin 1 or Shiga Toxin 2) detected. 03/04/18 20:16 Stool Stool for WBCs - Final 03/04/18 20:16 Stool Cryptosporidium Antigen - Final Negative - No Cryptosporicium antigen detected In selected cases of patients with a history of immunosuppression or foreign travel, a full ova and parasites examination may be desired. Contact the microbiology lab if full workup is indicated and subit another specimen for testing. 03/04/18 20:16 Stool Giardia Antigen ([facility]) - Final Negative - No Giardia Antigen detected In selected cases of patients with a history of immunosuppression or foreign travel, a full ova and parasites examination may be desired. Contact the microbiology lab if full workup is indicated and subit another specimen for testing. 03/04/18 20:16 Stool Stool Occult Blood (AUDRE[facility]) - Final Hemoccult negative - Imaging Impressions Femur X-Ray 03/05/18 00:00 CONCLUSION: 1. Left femoral ORIF, as above. Assessment and Plan - Assessment and Plan Dementia. Supracondylar periprosthetic left distal femur fracture. Osteoporosis. Surgery: Open treatment internal fixation left distal femur fracture with locking plate and screws: POD #1 PLAN: Nonweightbearing left leg. Lovenox daily. Daily dressing change. Knee immobilizer Probable transfer to long term facility 3008 supplemental form filled out. Medications per admitting service. Follow-up in 2 weeks
[2018-03-06] MEDS: Potassium Chloride 10 MEQ ER Capsule PO SCH (09:54)
[2018-03-06] MEDS: amLODIPine 5 MG Tablet PO SCH (09:54)
[2018-03-06] MEDS: QUEtiapine 25 MG Tablet PO SCH ×2 (09:54→20:39)
[2018-03-06] MEDS: Multivitamin/Minerals Therapeutic Tablet PO SCH ×2 (09:55→20:38)
[2018-03-06] MEDS: Ferrous Sulfate 325 MG Tablet PO SCH ×3 (09:55→17:11)
[2018-03-06] MEDS: Senna/Docusate Sodium 8.6/50 MG Tablet PO SCH ×2 (10:14→20:39)
[2018-03-06] MEDS: Sodium Chloride 0.9% 2 ML Flush BID IV.FLUSH SCH ×2 (10:14→20:39)
--- NOTE | 2018-03-06 14:01 | P.PNFP ---
Subjective Interval history: Patient seen this morning. She was confused, stated she was at home. Patient was taken leg immobilizer and dressing off continue state it hurt. Patient was told several times that she had surgery and she needed to keep the brace on, and that we will give her pain medication. Nurse called to bedside, and pain medication as requested. We will continue to monitor. <Liz Almeida V - 03/06/18 14:00> Results - Labs Result diagrams: 03/06/18 05:18 03/06/18 05:18 <GisselleKike Curtis - 03/06/18 17:41> Abnormal lab results 03/05/18 03/05/18 03/06/18 Range/Units 01:00 21:04 00:20 RBC (4.00-5.30) mil/mm3 Hgb (11.6-15.3) gm/dL Hct (35.0-46.0) % Plt Count (150-450) th/mm3 Neut % (Auto) (16.0-70.0) % Lymph # (Auto) (1.0-4.8) th/mm3 Chloride (98-107) meq/L BUN (7-18) mg/dL Creatinine (0.50-1.00) mg/dL Estimated GFR (>89) mL/min POC Glucose 152 H 149 H (68-110) mg/dl Calcium (8.5-10.1) mg/dL Calcium Adj for Albumin (8.5-10.1) mg/dL Iron (50-170) mcg/dL TIBC (250-450) mcg/dL % Saturation (20-50) % AST (15-37) U/L Total Protein (6.4-8.2) g/dL Albumin (3.4-5.0) g/dL Urine Clarity Cloudy H (Clear) Ur Specific [place] 1.048 H (1.002-1.035) Urine Protein 30 H (Neg-Trace) mg/dL Urine Ketones Trace H (Negative) mg/dL Ur Leukocyte Esterase Moderate H (Negative) Urine RBC 7 H (0-3) /hpf Urine WBC 76 H (0-5) /hpf Urine WBC Clumps Many H (None) Urine Bacteria Few H (None) /hpf Urine Mucus Few H (Occasional) /lpf 01/06/1903/06/18 03/06/18 Range/Units 05:18 05:18 05:18 RBC 2.80 L (4.00-5.30) mil/mm3 Hgb 8.5 L (11.6-15.3) gm/dL Hct 26.3 L (35.0-46.0) % Plt Count 104 L (150-450) th/mm3 Neut % (Auto) 83.4 H (16.0-70.0) % Lymph # (Auto) 0.9 L (1.0-4.8) th/mm3 Chloride 115 H (98-107) meq/L BUN 28 H (7-18) mg/dL Creatinine 1.21 H (0.50-1.00) mg/dL Estimated GFR 42 L (>89) mL/min POC Glucose (68-110) mg/dl Calcium 7.2 L* 7.1 L* (8.5-10.1) mg/dL Calcium Adj for Albumin 8.4 L 8.3 L (8.5-10.1) mg/dL Iron (50-170) mcg/dL TIBC (250-450) mcg/dL % Saturation (20-50) % AST 42 H (15-37) U/L Total Protein 5.4 L D (6.4-8.2) g/dL Albumin 2.5 L 2.5 L (3.4-5.0) g/dL Urine Clarity (Clear) Ur Specific [place] (1.002-1.035) Urine Protein (Neg-Trace) mg/dL Urine Ketones (Negative) mg/dL Ur Leukocyte Esterase (Negative) Urine RBC (0-3) /hpf Urine WBC (0-5) /hpf Urine WBC Clumps (None) Urine Bacteria (None) /hpf Urine Mucus (Occasional) /lpf 03/06/18 03/06/18 Range/Units 05:18 06:24 RBC (4.00-5.30) mil/mm3 Hgb (11.6-15.3) gm/dL Hct (35.0-46.0) % Plt Count (150-450) th/mm3 Neut % (Auto) (16.0-70.0) % Lymph # (Auto) (1.0-4.8) th/mm3 Chloride (98-107) meq/L BUN (7-18) mg/dL Creatinine (0.50-1.00) mg/dL Estimated GFR (>89) mL/min POC Glucose 114 H (68-110) mg/dl Calcium (8.5-10.1) mg/dL Calcium Adj for Albumin (8.5-10.1) mg/dL Iron 24 L (50-170) mcg/dL TIBC 248 L (250-450) mcg/dL % Saturation 9.7 L (20-50) % AST (15-37) U/L Total Protein (6.4-8.2) g/dL Albumin (3.4-5.0) g/dL Urine Clarity (Clear) Ur Specific [place] (1.002-1.035) Urine Protein (Neg-Trace) mg/dL Urine Ketones (Negative) mg/dL Ur Leukocyte Esterase (Negative) Urine RBC (0-3) /hpf Urine WBC (0-5) /hpf Urine WBC Clumps (None) Urine Bacteria (None) /hpf Urine Mucus (Occasional) /lpf Short CBC 03/06/18 Range/Units 05:18 WBC 8.1 (4.0-11.0) th/mm3 Hgb 8.5 L (11.6-15.3) gm/dL Hct 26.3 L (35.0-46.0) % Plt Count 104 L (150-450) th/mm3 BMP 03/06/18 03/06/18 05:18 05:18 Sodium 145 Potassium 4.1 Chloride 115 H Carbon Dioxide 22.8 BUN 28 H Creatinine 1.21 H Calcium 7.2 L* 7.1 L* Liver Function 03/06/18 03/06/18 Range/Units 05:18 05:18 Total Bilirubin 0.3 (0.2-1.0) mg/dL AST 42 H (15-37) U/L ALT 21 (10-53) U/L Alkaline Phosphatase 73 (45-117) U/L Albumin 2.5 L 2.5 L (3.4-5.0) g/dL Urine 03/05/18 Range/Units 01:00 Urine Color Codie (Yellw/Straw) Urine Clarity Cloudy H (Clear) Urine pH 5.0 (5.0-8.5) Ur Specific [place] 1.048 H (1.002-1.035) Urine Protein 30 H (Neg-Trace) mg/dL Urine Glucose (UA) Negative (Negative) mg/dL <Kike Pitts K - 03/06/18 17:41> Abnormal lab results 03/05/18 03/05/18 03/06/18 Range/Units 01:00 21:04 00:20 RBC (4.00-5.30) mil/mm3 Hgb (11.6-15.3) gm/dL Hct (35.0-46.0) % Plt Count (150-450) th/mm3 Neut % (Auto) (16.0-70.0) % Lymph # (Auto) (1.0-4.8) th/mm3 Chloride (98-107) meq/L BUN (7-18) mg/dL Creatinine (0.50-1.00) mg/dL Estimated GFR (>89) mL/min POC Glucose 152 H 149 H (68-110) mg/dl Calcium (8.5-10.1) mg/dL Calcium Adj for Albumin (8.5-10.1) mg/dL AST (15-37) U/L Total Protein (6.4-8.2) g/dL Albumin (3.4-5.0) g/dL Urine Clarity Cloudy H (Clear) Ur Specific [place] 1.048 H (1.002-1.035) Urine Protein 30 H (Neg-Trace) mg/dL Urine Ketones Trace H (Negative) mg/dL Ur Leukocyte Esterase Moderate H (Negative) Urine RBC 7 H (0-3) /hpf Urine WBC 76 H (0-5) /hpf Urine WBC Clumps Many H (None) Urine Bacteria Few H (None) /hpf Urine Mucus Few H (Occasional) /lpf 03/06/18 03/06/18 03/06/18 Range/Units 05:18 05:18 05:18 RBC 2.80 L (4.00-5.30) mil/mm3 Hgb 8.5 L (11.6-15.3) gm/dL Hct 26.3 L (35.0-46.0) % Plt Count 104 L (150-450) th/mm3 Neut % (Auto) 83.4 H (16.0-70.0) % Lymph # (Auto) 0.9 L (1.0-4.8) th/mm3 Chloride 115 H (98-107) meq/L BUN 28 H (7-18) mg/dL Creatinine 1.21 H (0.50-1.00) mg/dL Estimated GFR 42 L (>89) mL/min POC Glucose (68-110) mg/dl Calcium 7.2 L* 7.1 L* (8.5-10.1) mg/dL Calcium Adj for Albumin 8.4 L 8.3 L (8.5-10.1) mg/dL AST 42 H (15-37) U/L Total Protein 5.4 L D (6.4-8.2) g/dL Albumin 2.5 L 2.5 L (3.4-5.0) g/dL Urine Clarity (Clear) Ur Specific [place] (1.002-1.035) Urine Protein (Neg-Trace) mg/dL Urine Ketones (Negative) mg/dL Ur Leukocyte Esterase (Negative) Urine RBC (0-3) /hpf Urine WBC (0-5) /hpf Urine WBC Clumps (None) Urine Bacteria (None) /hpf Urine Mucus (Occasional) /lpf 03/06/18 Range/Units 06:24 RBC (4.00-5.30) mil/mm3 Hgb (11.6-15.3) gm/dL Hct (35.0-46.0) % Plt Count (150-450) th/mm3 Neut % (Auto) (16.0-70.0) % Lymph # (Auto) (1.0-4.8) th/mm3 Chloride (98-107) meq/L BUN (7-18) mg/dL Creatinine (0.50-1.00) mg/dL Estimated GFR (>89) mL/min POC Glucose 114 H (68-110) mg/dl Calcium (8.5-10.1) mg/dL Calcium Adj for Albumin (8.5-10.1) mg/dL AST (15-37) U/L Total Protein (6.4-8.2) g/dL Albumin (3.4-5.0) g/dL Urine Clarity (Clear) Ur Specific [place] (1.002-1.035) Urine Protein (Neg-Trace) mg/dL Urine Ketones (Negative) mg/dL Ur Leukocyte Esterase (Negative) Urine RBC (0-3) /hpf Urine WBC (0-5) /hpf Urine WBC Clumps (None) Urine Bacteria (None) /hpf Urine Mucus (Occasional) /lpf Short CBC 03/06/18 Range/Units 05:18 WBC 8.1 (4.0-11.0) th/mm3 Hgb 8.5 L (11.6-15.3) gm/dL Hct 26.3 L (35.0-46.0) % Plt Count 104 L (150-450) th/mm3 BMP 03/06/18 03/06/18 05:18 05:18 Sodium 145 Potassium 4.1 Chloride 115 H Carbon Dioxide 22.8 BUN 28 H Creatinine 1.21 H Calcium 7.2 L* 7.1 L* Liver Function 03/06/18 03/06/18 Range/Units 05:18 05:18 Total Bilirubin 0.3 (0.2-1.0) mg/dL AST 42 H (15-37) U/L ALT 21 (10-53) U/L Alkaline Phosphatase 73 (45-117) U/L Albumin 2.5 L 2.5 L (3.4-5.0) g/dL Urine 03/05/18 Range/Units 01:00 Urine Color Codie (Yellw/Straw) Urine Clarity Cloudy H (Clear) Urine pH 5.0 (5.0-8.5) Ur Specific [place] 1.048 H (1.002-1.035) Urine Protein 30 H (Neg-Trace) mg/dL Urine Glucose (UA) Negative (Negative) mg/dL <Liz Almeida V - 03/06/18 14:00> - Imaging Impressions Femur X-Ray 03/05/18 00:00 CONCLUSION: 1. Left femoral ORIF, as above. <Kike Pitts K - 03/06/18 17:41> Impressions Femur X-Ray 03/05/18 00:00 CONCLUSION: 1. Left femoral ORIF, as above. <Liz Almeida V - 03/06/18 14:00> Physical Exam Vital signs: Vital Signs 03/05/18 20:00 03/05/18 20:15 03/05/18 20:30 Temperature 98.3 F 98.3 F 98.3 F Pulse Rate 87 81 79 Respiratory Rate 14 14 14 Blood Pressure 152/67 H 144/65 H 148/64 H Pulse Oximetry 100 98 96 03/05/18 20:45 03/05/18 21:00 03/05/18 21:30 Temperature 98.3 F 98.3 F 98.3 F Pulse Rate 78 84 82 Respiratory Rate 14 14 14 Blood Pressure 138/61 148/64 H 142/58 H Pulse Oximetry 97 97 98 03/05/18 22:30 03/05/18 22:41 03/05/18 23:59 Temperature 98.3 F 98.1 F Pulse Rate 75 76 77 Respiratory Rate 14 17 Blood Pressure 114/52 L 123/58 L Pulse Oximetry 100 97 03/06/18 04:03 03/06/18 05:45 03/06/18 08:00 Temperature 98.1 F 98.2 F Pulse Rate 79 82 87 Respiratory Rate 18 17 Blood Pressure 136/56 L 125/62 Pulse Oximetry 99 96 03/06/18 10:00 03/06/18 12:00 03/06/18 16:00 Temperature 98.8 F 99.6 F Pulse Rate 88 101 H Respiratory Rate 16 17 19 Blood Pressure 140/83 142/68 H Pulse Oximetry 96 93 L Intake & Output 03/05/18 03/06/18 03/06/18 18:59 06:59 18:59 Intake Total 1655 / 1655 5202 / 5202 Output Total 1000 / 1000 Balance 1655 / 1655 4202 / 4202 Weight 78 kg 76.6 kg Intake: IV 1655 / 1655 1322 / 1322 NS Inj 1,000 ML @ 120 mls/hr IV 1300 / 1300 767 / 767 .CONT .Q8H20M [facility] Rx#:[id number] Ofirmev Inj 1,000 mg In 100 ml 100 / 100 100 / 100 @ 400 mls/hr IV.SIG Q8H [facility] Rx# :[id number] Azithromycin Inj 500 MG In NS 250 / 250 Inj 250 ML @ 250 mls/hr IV.SIG Q24H [facility] Rx#:[id number] Ancef 2 GM Premix Inj 2 gm In 50 / 50 50 ml @ 100 mls/hr IV.SIG ONCE ONE Rx#:[id number] Rocephin Inj 1,000 MG In NS Inj 100 / 100 100 ML @ 200 mls/hr IV.SIG Q24H [facility] Rx#:[id number] Keppra 1000 mg/100 mL Premix 100 / 100 100 ML @ 400 mls/hr IV.SIG ONCE ONE Rx#:[id number] Keppra Inj 500 MG In NS Inj 100 105 / 105 105 / 105 ML @ 400 mls/hr IV.SIG Q12H [facility] Rx#:[id number] Oral 480 / 480 Anesthesia Amount 3400 / 3400 Output: Estimated Blood Loss 300 / 300 Urine Amount (Catheter) 700 / 700 Indwelling Urethral Catheter 700 / 700 Other: Date of Last Bowel Movement 03/05/18 03/05/18 # Bowel Movements 0 Weight On Admission 81.64 kg <GisselleKike Curtis - 03/06/18 17:41> Vital Signs 03/05/18 20:00 03/05/18 20:15 03/05/18 20:30 Temperature 98.3 F 98.3 F 98.3 F Pulse Rate 87 81 79 Respiratory Rate 14 14 14 Blood Pressure 152/67 H 144/65 H 148/64 H Pulse Oximetry 100 98 96 03/05/18 20:45 03/05/18 21:00 03/05/18 21:30 Temperature 98.3 F 98.3 F 98.3 F Pulse Rate 78 84 82 Respiratory Rate 14 14 14 Blood Pressure 138/61 148/64 H 142/58 H Pulse Oximetry 97 97 98 03/05/18 22:30 03/05/18 22:41 03/05/18 23:59 Temperature 98.3 F 98.1 F Pulse Rate 75 76 77 Respiratory Rate 14 17 Blood Pressure 114/52 L 123/58 L Pulse Oximetry 100 97 03/06/18 04:03 03/06/18 05:45 03/06/18 08:00 Temperature 98.1 F 98.2 F Pulse Rate 79 82 87 Respiratory Rate 18 17 Blood Pressure 136/56 L 125/62 Pulse Oximetry 99 96 03/06/18 10:00 Temperature Pulse Rate Respiratory Rate 16 Blood Pressure Pulse Oximetry Intake & Output 03/05/18 03/06/18 03/06/18 18:59 06:59 18:59 Intake Total 1655 / 1655 5202 / 5202 Output Total 1000 / 1000 Balance 1655 / 1655 4202 / 4202 Weight 78 kg 76.6 kg Intake: IV 1655 / 1655 1322 / 1322 NS Inj 1,000 ML @ 120 mls/hr IV 1300 / 1300 767 / 767 .CONT .Q8H20M [facility] Rx#:[id number] Ofirmev Inj 1,000 mg In 100 ml 100 / 100 100 / 100 @ 400 mls/hr IV.SIG Q8H [facility] Rx# :[id number] Azithromycin Inj 500 MG In NS 250 / 250 Inj 250 ML @ 250 mls/hr IV.SIG Q24H [facility] Rx#:[id number] Ancef 2 GM Premix Inj 2 gm In 50 / 50 50 ml @ 100 mls/hr IV.SIG ONCE ONE Rx#:[id number] Rocephin Inj 1,000 MG In NS Inj 100 / 100 100 ML @ 200 mls/hr IV.SIG Q24H [facility] Rx#:[id number] Keppra 1000 mg/100 mL Premix 100 / 100 100 ML @ 400 mls/hr IV.SIG ONCE ONE Rx#:[id number] Keppra Inj 500 MG In NS Inj 100 105 / 105 105 / 105 ML @ 400 mls/hr IV.SIG Q12H [facility] Rx#:[id number] Oral 480 / 480 Anesthesia Amount 3400 / 3400 Output: Estimated Blood Loss 300 / 300 Urine Amount (Catheter) 700 / 700 Indwelling Urethral Catheter 700 / 700 Other: Date of Last Bowel Movement 03/05/18 03/05/18 # Bowel Movements 0 Weight On Admission 81.64 kg <Liz Almeida V - 03/06/18 14:00> Narrative: GENERAL: elderly patient, confused, in NAD. CARDIOVASCULAR: Regular rate and rhythm without murmurs, gallops, or rubs. RESPIRATORY: Breath sounds equal bilaterally. No accessory muscle use. ABDOMEN/GI: Abdomen soft, non-tender, bowel sounds present, no rebound, no guarding EXTREMITIES: No cyanosis or edema. L leg with brace in place, jail undone, gauze being actively peeled off by pt. BACK: Nontender without obvious deformity. No CVA tenderness. NEUROLOGICAL: . Confused, had to redirect patient several times. Motor and sensory grossly within normal limits. Normal speech. <Liz Almeida V - 03/06/18 14:00> - Urinary Catheter Management Indwelling Urethral Catheter Cath placed during this visit: no <Kike Pitts - 03/06/18 17:41> yes, but has since been removed by the nurse <Liz Almeida V - 03/06/18 14:00> Reason for continuing: Decision to DC catheter <Liz Almeida V - 06/19 14:00> Insertion date: 03/05/18 <Liz Almeida V - 03/06/18 14:00> Insertion time: 00:50 <Liz Almeida V - 03/06/18 14:00> Removal date: 03/06/18 <Liz Almeida V 03/06/18 14:00> Removal time: 06:30 <Liz Almeida V 03/06/18 14:00> Assessment and Plan - Assessment (1) New onset seizure Code(s): R56.9 - Unspecified convulsions Status: Acute (2) Dementia Code(s): F03.90 - Unspecified dementia without behavioral disturbance Status: Chronic (3) Left femoral shaft fracture Code(s): S72.302A - Unspecified fracture of shaft of left femur, initial encounter for closed fracture Status: Acute (4) Pneumonia Code(s): J18.9 - Pneumonia, unspecified organism Status: Acute (5) UTI (urinary tract infection) Code(s): N39.0 - Urinary tract infection, site not specified Status: Acute (6) Diarrhea Code(s): R19.7 - Diarrhea, unspecified Status: Resolved (7) JOSH (acute kidney injury) Code(s): N17.9 - Acute kidney failure, unspecified Status: Acute (8) Bradycardia Code(s): R00.1 - Bradycardia, unspecified Status: Resolved (9) Hypocalcemia Code(s): E83.51 - Hypocalcemia Status: Acute (10) Low hemoglobin Code(s): D64.9 - Anemia, unspecified Status: Acute (11) DVT prophylaxis Status: Acute (12) Nutrition, metabolism, and development symptoms Code(s): R63.8 - Other symptoms and signs concerning food and fluid intake Status: Acute <Kike Pitts Curtis - 03/06/18 17:41> (1) New onset seizure Code(s): R56.9 - Unspecified convulsions Status: Acute (2) Dementia Code(s): F03.90 - Unspecified dementia without behavioral disturbance Status: Chronic (3) Left femoral shaft fracture Code(s): S72.302A - Unspecified fracture of shaft of left femur, initial encounter for closed fracture Status: Acute (4) Pneumonia Code(s): J18.9 - Pneumonia, unspecified organism Status: Acute (5) UTI (urinary tract infection) Code(s): N39.0 - Urinary tract infection, site not specified Status: Acute (6) Diarrhea Code(s): R19.7 - Diarrhea, unspecified Status: Resolved (7) JOSH (acute kidney injury) Code(s): N17.9 - Acute kidney failure, unspecified Status: Acute (8) Bradycardia Code(s): R00.1 - Bradycardia, unspecified Status: Resolved (9) Hypocalcemia Code(s): E83.51 - Hypocalcemia Status: Acute (10) Low hemoglobin Code(s): D64.9 - Anemia, unspecified Status: Acute (11) DVT prophylaxis Status: Acute (12) Nutrition, metabolism, and development symptoms Code(s): R63.8 - Other symptoms and signs concerning food and fluid intake Status: Acute <Jake Maria [id number] - 03/06/18 13:32> - Assessment and Plan 87-year-old female admitted after witnessed seizure like activity, fall, and subsequent femur fracture. Patient is doing well overall, with some improved symptoms. Diarrhea seems to be resolved, seizure-like activity seems to be related to her dementia, Alzheimer's disease. However patient still has a UTI, with elevated creatinine. She continues to be confused. She has low hemoglobin , low calcium. And was started on new medications for seizure. New onset Seizure: Related to Alzheimer's disease/dementia per neurology. -Continue Keppra 500 mg p.o. twice daily Distal Femur Fracture POD #1 open treatment internal fixation with locking plate and screws Doing well, complains of pain Has knee immobilizer Okay to discharge per orthotic, with 2-week follow-up Pneumonia This was acquired in her SNF, so could qualify for HCAP coverage but has improved well on rocephin + azithro. Will continue for now Diarrhea-resolved Cdiff negative, other stool studies pending On treatment for bacterial causes anyway with CAP coverage. Continue to monitor JOSH Likely related to UTI, improving, creatinine today 1.25 Bradycardia-resolved Mild thrombocytopenia Continues to be thrombocytopenic, will continue to monitor, could be related to dilutional effect due to continues IV fluids Mild corrected hypocalcemia Calcium 7.1, corrected 8.3 Consider IV calcium, however due to interaction with IV ceftriaxone will give patient p.o. calcium -Calcium carbonate 500 mg p.o. twice daily -Check vitamin D level Low hemoglobin Hemoglobin had decreased since patient has been here from 11.6-8.5 today Patient had a history of iron deficiency anemia No signs of acute bleeding at this moment -Iron studies ordered with ferritin included -We will check Hemoccult FEN: -P.o. hydration - Monitor replace electrolytes as needed - Regular diet PPX: - Lovenox 40mg daily for DVT ppx - Zofran prn for nausea - Protonix 40mgs daily for GI ppx Other chronic medical problems: Coronary artery disease -Holding lisinopril, and not on BB. On statin now, consider holding given life expectancy, needs discussion about aspirin. HTN -very well controlled, decreasing amlodipine with bradycardia Dementia -Continue home medication of donepezil/Aricept 10 mg p.o. nightly -Continue home medication of quetiapine 50 mg p.o. twice daily Hypothyroidism -Continue home medication of levothyroxine 112 mcg p.o. daily Depression -Continue home medication of mirtazapine 7.5 mg p.o. nightly GERD -Continue home medication of pantoprazole 40 mg p.o. daily -Continue home medication of ranitidine 150 mg p.o. nightly Hypokalemia -Continue home medication of potassium chloride 20 mEq p.o. daily Iron deficiency anemia -After IVF, this has been exposed Continue home medication of ferrous sulfate 325 mg p.o. 3 times daily Vitamin deficiencies -Continue home medications of vitamin D3 and vitamin B12 Disposition: Although patient is improving significantly, her condition still requires hospitalization in our opinion. Patient came with new onset seizures, likely related to her Alzheimer's, has been started on new medication. Also came with a severe UTI, for which we do not have cultures and sensitivities yet. She also had a broken bone, requiring surgery and pain control. She has a pneumonia which is requiring IV antibiotics, and has an acute kidney injury that is now resolving, and came in with bradycardia that is not resolved. Due to all his comorbidities, patient will likely be discharged home tomorrow, if continues to be stable Patient discussed with and Dr. Mitchell <Liz Almeida V - 03/06/18 14:00> - Attending Attestation The exam, history, and the medical decision-making described in the above note were completed with the assistance of the resident physician. I reviewed and agree with the findings presented. I attest that I had a [id number] encounter with the patient on the same day, and personally performed and documented my assessment and findings in the medical record. not oriented but pleasant this AM. no pain. POD #1 ORIF distal femur fracture. cleared from ortho standpoint to return to SNF. SNF confirms they can manage her after this. Awaiting s/s on her UTI, will transition to PO abx for her pneumonia and UTI and if s/s confirms tomorrow will d/c on them. Checking vitD with her osteoporosis and replacing calcium and vitamin D hx of BERT, getting iron studies and continue replacement. low but below baseline , not sure given overall picture that colonoscopy is warranted. JOSH improving today, seems to be close to baseline. was on 2L O2 post op, would like to see this come off todtay today will stop IVF transition to PO meds and diet and if she tolerates and vitals and labs stable tomorrow without needing O2, could transfer back to [facility] <Kike Pitts - 03/06/18 17:41> <Liz Almeida V - Last Filed: 03/06/18 13:32> (2) Dementia Qualifiers: Dementia type: Alzheimer's disease (3) Left femoral shaft fracture Qualifiers: Encounter type: initial encounter Fracture type: closed Fracture morphology : oblique Fracture alignment: displaced Qualified Code(s): S72.332A - Displaced oblique fracture of shaft of left femur, initial encounter for closed fracture (4) Pneumonia Qualifiers: Laterality: bilateral (5) UTI (urinary tract infection) Qualifiers: Urinary tract infection type: acute cystitis Hematuria presence: without hematuria Qualified Code(s): N30.00 - Acute cystitis without hematuria (6) Diarrhea Qualifiers: Diarrhea type: presumed infectious Qualified Code(s): R19.7 - Diarrhea, unspecified <Kike Pitts K - Last Filed: 03/06/18 17:41> (2) Dementia Qualifiers: Dementia type: Alzheimer's disease (3) Left femoral shaft fracture Qualifiers: Encounter type: initial encounter Fracture type: closed Fracture morphology : oblique Fracture alignment: displaced Qualified Code(s): S72.332A - Displaced oblique fracture of shaft of left femur, initial encounter for closed fracture (4) Pneumonia Qualifiers: Laterality: bilateral (5) UTI (urinary tract infection) Qualifiers: Urinary tract infection type: acute cystitis Hematuria presence: without hematuria Qualified Code(s): N30.00 - Acute cystitis without hematuria (6) Diarrhea Qualifiers: Diarrhea type: presumed infectious Qualified Code(s): R19.7 - Diarrhea, unspecified <Jake Maria Liz Ibrahim V - Last Filed: 03/06/18 13:32> (2) Dementia Qualifiers: Dementia type: Alzheimer's disease (3) Left femoral shaft fracture Qualifiers: Encounter type: initial encounter Fracture type: closed Fracture morphology : oblique Fracture alignment: displaced Qualified Code(s): S72.332A - Displaced oblique fracture of shaft of left femur, initial encounter for closed fracture (4) Pneumonia Qualifiers: Laterality: bilateral (5) UTI (urinary tract infection) Qualifiers: Urinary tract infection type: acute cystitis Hematuria presence: without hematuria Qualified Code(s): N30.00 - Acute cystitis without hematuria (6) Diarrhea Qualifiers: Diarrhea type: presumed infectious Qualified Code(s): R19.7 - Diarrhea, unspecified <Kike Pitts - Last Filed: 03/06/18 17:41> (2) Dementia Qualifiers: Dementia type: Alzheimer's disease (3) Left femoral shaft fracture Qualifiers: Encounter type: initial encounter Fracture type: closed Fracture morphology : oblique Fracture alignment: displaced Qualified Code(s): S72.332A - Displaced oblique fracture of shaft of left femur, initial encounter for closed fracture (4) Pneumonia Qualifiers: Laterality: bilateral (5) UTI (urinary tract infection) Qualifiers: Urinary tract infection type: acute cystitis Hematuria presence: without hematuria Qualified Code(s): N30.00 - Acute cystitis without hematuria (6) Diarrhea Qualifiers: Diarrhea type: presumed infectious Qualified Code(s): R19.7 - Diarrhea, unspecified
[2018-03-06 16:14] LABS: % Iron Saturation 9.7 % (20-50)
[2018-03-06] MEDS ORDERED: Enoxaparin Inj 40 MG/0.4 ML Syringe SQ SCH (17:46)
[2018-03-06] MEDS: Calcium Carbonate 500 MG Tablet PO SCH ×2 (17:53→20:38)
[2018-03-06] MEDS: Mirtazapine 15 MG Tablet PO SCH (20:38)
[2018-03-06] MEDS: Famotidine 20 MG Tablet PO SCH (20:39)
[2018-03-07] MEDS: Morphine Inj 4 MG/ML Vial IV.PUSH PRN ×2 (00:12→07:26)
[2018-03-07] MEDS: Insulin NovoLOG Aspart Correctional Sugar Inj SQ SCH ×3 (00:15→13:15)
[2018-03-07 05:26] LABS: Hematocrit 25.9 % (35.0-46.0); Hemoglobin 8.4 gm/dL (11.6-15.3); Mean Corpuscular HGB Conc 32.6 % (32.0-36.0); Mean Corpuscular Hemoglobin 30.4 pg (27.0-34.0); Mean Corpuscular Volume 93.3 fL (80.0-100.0); Mean Platelet Volume 10.9 fL (7.0-11.0); Platelet Count 97 th/mm3 (150-450); Red Blood Count 2.78 mil/mm3 (4.00-5.30); Red Cell Distribution Width 14.9 % (11.6-17.2); White Blood Count 7.3 th/mm3 (4.0-11.0)
[2018-03-07] MEDS: Levothyroxine 112 MCG Tablet PO SCH (05:41)
[2018-03-07 06:26] LABS: Albumin 2.5 g/dL (3.4-5.0); Calcium 7.3 mg/dL (8.5-10.1); Carbon Dioxide 23.1 meq/L (21.0-32.0); Potassium 3.9 meq/L (3.5-5.1); Total Protein 5.7 g/dL (6.4-8.2)
[2018-03-07] MEDS: Sod Chloride 0.9% Inj 1,000 ML IV.CONT SCH (06:29)
[2018-03-07] MEDS: Potassium Chloride 10 MEQ ER Capsule PO SCH (09:00)
[2018-03-07] MEDS: amLODIPine 5 MG Tablet PO SCH (09:00)
[2018-03-07] MEDS: Sodium Chloride 0.9% 2 ML Flush BID IV.FLUSH SCH (09:00)
[2018-03-07] MEDS: Multivitamin/Minerals Therapeutic Tablet PO SCH (09:00)
[2018-03-07] MEDS ORDERED: Azithromycin 250 MG Tablet PO SCH (09:00)
[2018-03-07] MEDS: Senna/Docusate Sodium 8.6/50 MG Tablet PO SCH (09:00)
[2018-03-07] MEDS: Calcium Carbonate 500 MG Tablet PO SCH (09:00)
[2018-03-07] MEDS: QUEtiapine 25 MG Tablet PO SCH (09:00)
[2018-03-07] MEDS: Ferrous Sulfate 325 MG Tablet PO SCH ×2 (09:00→13:15)
[2018-03-07] MEDS ORDERED: Azithromycin 250 MG Tablet PO ONE (11:54)
--- NOTE | 2018-03-07 12:06 | P.PNOP ---
Subjective Interval history: Pt seemed lethargic and not responding to questions at first. She then seemed startled and was somewhat confused. Physical Exam Vital signs: Vital Signs 03/06/18 16:00 03/06/18 19:30 03/06/18 19:36 Temperature 99.6 F 97.8 F Pulse Rate 101 H 90 Respiratory Rate 19 18 22 Blood Pressure 142/68 H 136/63 Pulse Oximetry 93 L 98 03/06/18 20:20 03/06/18 23:53 03/06/18 23:55 Temperature 97.3 F L Pulse Rate 85 69 96 H Respiratory Rate 20 Blood Pressure 126/77 Pulse Oximetry 94 L 03/07/18 03:52 03/07/18 04:00 03/07/18 04:48 Temperature 97.8 F Pulse Rate 88 95 H 96 H Respiratory Rate 18 Blood Pressure 141/58 H Pulse Oximetry 97 03/07/18 08:00 03/07/18 09:01 03/07/18 11:32 Temperature 98.9 F Pulse Rate 86 Respiratory Rate 24 18 Blood Pressure 165/71 H Pulse Oximetry 96 94 L Intake & Output 03/06/18 03/07/18 03/07/18 18:59 06:59 18:59 Intake Total 438 / 438 2085 / 2085 1100 / 1100 Output Total 350 / 350 Balance 438 / 438 1735 / 1735 1100 / 1100 Weight 78.5 kg Intake: IV 438 / 438 1925 / 1925 1100 / 1100 NS Inj 1,000 ML @ 120 mls/hr IV 233 / 233 1825 / 1825 1000 / 1000 .CONT .Q8H20M [facility] Rx#:[id number] Ofirmev Inj 1,000 mg In 100 ml 100 / 100 @ 400 mls/hr IV.SIG Q8H [facility] Rx# :[id number] Keppra Inj 500 MG In NS Inj 100 105 / 105 100 / 100 100 / 100 ML @ 400 mls/hr IV.SIG Q12H [facility] Rx#:[id number] Oral 160 / 160 Output: Urine 350 / 350 Other: # Voids 3 Date of Last Bowel Movement 03/05/18 03/04/18 # Incontinent Bowel Movements 0 Narrative: Dressing dry and intact. Tender to palpation with mild swelling around incision site. Appropriate range of motion expected post operatively. Freely able to move distal digits. No calf pain. Negative Leroy's sign. Good cap refill. 2+ pedal pulses. Neurovascular intact. - Urinary Catheter Management Indwelling Urethral Catheter Cath placed during this visit: yes, but has since been removed by the nurse Reason for continuing: Decision to DC catheter Insertion date: 03/05/18 Insertion time: 00:50 Removal date: 03/06/18 Removal time: 06:30 Results - Labs CBC & Chem 7: 03/07/18 04:19 03/07/18 04:19 Laboratory Results - last 24 hr 03/06/18 03/06/18 03/07/18 05:18 17:17 00:08 WBC RBC Hgb Hct MCV MCH MCHC RDW Plt Count MPV Sodium Potassium Chloride Carbon Dioxide Anion Gap BUN Creatinine Estimated GFR POC Glucose 104 122 H Random Glucose Calcium Calcium Adj for Albumin Iron 24 L TIBC 248 L % Saturation 9.7 L Ferritin 47 Total Bilirubin AST ALT Alkaline Phosphatase Total Protein Albumin 03/07/18 03/07/18 03/07/18 04:19 04:19 05:50 WBC 7.3 RBC 2.78 L Hgb 8.4 L Hct 25.9 L MCV 93.3 MCH 30.4 MCHC 32.6 RDW 14.9 Plt Count 97 L MPV 10.9 Sodium 147 H Potassium 3.9 Chloride 117 H Carbon Dioxide 23.1 Anion Gap 7 BUN 20 H Creatinine 0.97 Estimated GFR 54 L POC Glucose 107 Random Glucose 90 Calcium 7.3 L* Calcium Adj for Albumin 8.5 Iron TIBC % Saturation Ferritin Total Bilirubin 0.4 AST 51 H ALT 20 Alkaline Phosphatase 94 Total Protein 5.7 L Albumin 2.5 L Microbiology 03/05/18 01:00 Clean Catch Urine Urine Culture - Final Escherichia coli ESBL positive 03/05/18 03:05 Blood - Peripheral Aerobic Blood Culture - Preliminary No growth in 2 days 03/05/18 03:05 Blood - Peripheral Anaerobic Blood Culture - Preliminary No growth in 2 days 03/05/18 02:55 Blood - Peripheral Aerobic Blood Culture - Preliminary No growth in 2 days 03/05/18 02:55 Blood - Peripheral Anaerobic Blood Culture - Preliminary No growth in 2 days Assessment and Plan - Assessment and Plan Dementia. Supracondylar periprosthetic left distal femur fracture. Osteoporosis. Surgery: Open treatment internal fixation left distal femur fracture with locking plate and screws: POD #2 PLAN: Nonweightbearing left leg. Lovenox daily. Daily dressing change. Knee immobilizer Probable transfer to [facility] facility 3008 supplemental form filled out. Medications per admitting service. Follow-up in 2 weeks Clear for discharge from an orthopedic standpoint
--- NOTE | 2018-03-07 12:14 | P.PNFP ---
Subjective Interval history: Patient seen and evaluated this morning. Will walk into the room patient was completely naked, disoriented, wanting to get up and walk. Nurse was called to the room, nurse states patient's been very confused today, she pulled out her to IV lines. Patient had to be told several times she had surgery on her leg due to a fall. Patient not oriented to place and time. Patient was given water , expressed being thirsty. Her breakfast was untouched, instructed nurses to help patient with breakfast. <Jake IbrahimZaria - 03/07/18 12:14> Results - Labs Result diagrams: 03/07/18 04:19 03/07/18 04:19 <Kike Pitts - 03/07/18 14:40> Abnormal lab results 03/06/18 03/07/18 03/07/18 Range/Units 05:18 00:08 04:19 RBC 2.78 L (4.00-5.30) mil/mm3 Hgb 8.4 L (11.6-15.3) gm/dL Hct 25.9 L (35.0-46.0) % Plt Count 97 L (150-450) th/mm3 Sodium (136-145) meq/L Chloride (98-107) meq/L BUN (7-18) mg/dL Estimated GFR (>89) mL/min POC Glucose 122 H (68-110) mg/dl Calcium (8.5-10.1) mg/dL Iron 24 L (50-170) mcg/dL TIBC 248 L (250-450) mcg/dL % Saturation 9.7 L (20-50) % AST (15-37) U/L Total Protein (6.4-8.2) g/dL Albumin (3.4-5.0) g/dL 03/07/18 Range/Units 04:19 RBC (4.00-5.30) mil/mm3 Hgb (11.6-15.3) gm/dL Hct (35.0-46.0) % Plt Count (150-450) th/mm3 Sodium 147 H (136-145) meq/L Chloride 117 H (98-107) meq/L BUN 20 H (7-18) mg/dL Estimated GFR 54 L (>89) mL/min POC Glucose (68-110) mg/dl Calcium 7.3 L* (8.5-10.1) mg/dL Iron (50-170) mcg/dL TIBC (250-450) mcg/dL % Saturation (20-50) % AST 51 H (15-37) U/L Total Protein 5.7 L (6.4-8.2) g/dL Albumin 2.5 L (3.4-5.0) g/dL Short CBC 03/07/18 Range/Units 04:19 WBC 7.3 (4.0-11.0) th/mm3 Hgb 8.4 L (11.6-15.3) gm/dL Hct 25.9 L (35.0-46.0) % Plt Count 97 L (150-450) th/mm3 BMP 03/07/18 04:19 Sodium 147 H Potassium 3.9 Chloride 117 H Carbon Dioxide 23.1 BUN 20 H Creatinine 0.97 Calcium 7.3 L* Liver Function 03/07/18 Range/Units 04:19 Total Bilirubin 0.4 (0.2-1.0) mg/dL AST 51 H (15-37) U/L ALT 20 (10-53) U/L Alkaline Phosphatase 94 (45-117) U/L Albumin 2.5 L (3.4-5.0) g/dL <Kike Pitts - 03/07/18 14:40> Abnormal lab results 03/06/18 03/07/18 03/07/18 Range/Units 05:18 00:08 04:19 RBC 2.78 L (4.00-5.30) mil/mm3 Hgb 8.4 L (11.6-15.3) gm/dL Hct 25.9 L (35.0-46.0) % Plt Count 97 L (150-450) th/mm3 Sodium (136-145) meq/L Chloride (98-107) meq/L BUN (7-18) mg/dL Estimated GFR (>89) mL/min POC Glucose 122 H (68-110) mg/dl Calcium (8.5-10.1) mg/dL Iron 24 L (50-170) mcg/dL TIBC 248 L (250-450) mcg/dL % Saturation 9.7 L (20-50) % AST (15-37) U/L Total Protein (6.4-8.2) g/dL Albumin (3.4-5.0) g/dL 03/07/18 Range/Units 04:19 RBC (4.00-5.30) mil/mm3 Hgb (11.6-15.3) gm/dL Hct (35.0-46.0) % Plt Count (150-450) th/mm3 Sodium 147 H (136-145) meq/L Chloride 117 H (98-107) meq/L BUN 20 H (7-18) mg/dL Estimated GFR 54 L (>89) mL/min POC Glucose (68-110) mg/dl Calcium 7.3 L* (8.5-10.1) mg/dL Iron (50-170) mcg/dL TIBC (250-450) mcg/dL % Saturation (20-50) % AST 51 H (15-37) U/L Total Protein 5.7 L (6.4-8.2) g/dL Albumin 2.5 L (3.4-5.0) g/dL Short CBC 03/07/18 Range/Units 04:19 WBC 7.3 (4.0-11.0) th/mm3 Hgb 8.4 L (11.6-15.3) gm/dL Hct 25.9 L (35.0-46.0) % Plt Count 97 L (150-450) th/mm3 BMP 03/07/18 04:19 Sodium 147 H Potassium 3.9 Chloride 117 H Carbon Dioxide 23.1 BUN 20 H Creatinine 0.97 Calcium 7.3 L* Liver Function 03/07/18 Range/Units 04:19 Total Bilirubin 0.4 (0.2-1.0) mg/dL AST 51 H (15-37) U/L ALT 20 (10-53) U/L Alkaline Phosphatase 94 (45-117) U/L Albumin 2.5 L (3.4-5.0) g/dL <Liz Almeida V - 03/07/18 12:14> Physical Exam Vital signs: Vital Signs 03/06/18 16:00 03/06/18 19:30 03/06/18 19:36 Temperature 99.6 F 97.8 F Pulse Rate 101 H 90 Respiratory Rate 19 18 22 Blood Pressure 142/68 H 136/63 Pulse Oximetry 93 L 98 03/06/18 20:20 03/06/18 23:53 03/06/18 23:55 Temperature 97.3 F L Pulse Rate 85 69 96 H Respiratory Rate 20 Blood Pressure 126/77 Pulse Oximetry 94 L 03/07/18 03:52 03/07/18 04:00 03/07/18 04:48 Temperature 97.8 F Pulse Rate 88 95 H 96 H Respiratory Rate 18 Blood Pressure 141/58 H Pulse Oximetry 97 03/07/18 08:00 03/07/18 09:01 03/07/18 11:32 Temperature 98.9 F Pulse Rate 86 Respiratory Rate 24 18 Blood Pressure 165/71 H Pulse Oximetry 96 94 L Intake & Output 03/06/18 03/07/18 03/07/18 18:59 06:59 18:59 Intake Total 438 / 438 2085 / 2085 1100 / 1100 Output Total 350 / 350 Balance 438 / 438 1735 / 1735 1100 / 1100 Weight 78.5 kg Intake: IV 438 / 438 1925 / 1925 1100 / 1100 NS Inj 1,000 ML @ 120 mls/hr IV 233 / 233 1825 / 1825 1000 / 1000 .CONT .Q8H20M [facility] Rx#:[id number] Ofirmev Inj 1,000 mg In 100 ml 100 / 100 @ 400 mls/hr IV.SIG Q8H [facility] Rx# :[id number] Keppra Inj 500 MG In NS Inj 100 105 / 105 100 / 100 100 / 100 ML @ 400 mls/hr IV.SIG Q12H [facility] Rx#:[id number] Oral 160 / 160 Output: Urine 350 / 350 Other: # Voids 3 Date of Last Bowel Movement 03/05/18 03/04/18 # Incontinent Bowel Movements 0 <Kike Pitts - 03/07/18 14:40> Vital Signs 03/06/18 16:00 03/06/18 19:30 03/06/18 19:36 Temperature 99.6 F 97.8 F Pulse Rate 101 H 90 Respiratory Rate 19 18 22 Blood Pressure 142/68 H 136/63 Pulse Oximetry 93 L 98 03/06/18 20:20 03/06/18 23:53 03/06/18 23:55 Temperature 97.3 F L Pulse Rate 85 69 96 H Respiratory Rate 20 Blood Pressure 126/77 Pulse Oximetry 94 L 03/07/18 03:52 03/07/18 04:00 03/07/18 04:48 Temperature 97.8 F Pulse Rate 88 95 H 96 H Respiratory Rate 18 Blood Pressure 141/58 H Pulse Oximetry 97 03/07/18 08:00 03/07/18 09:01 03/07/18 11:32 Temperature 98.9 F Pulse Rate 86 Respiratory Rate 24 18 Blood Pressure 165/71 H Pulse Oximetry 96 94 L Intake & Output 03/06/18 03/07/18 03/07/18 18:59 06:59 18:59 Intake Total 438 / 438 2085 / 2085 1100 / 1100 Output Total 350 / 350 Balance 438 / 438 1735 / 1735 1100 / 1100 Weight 78.5 kg Intake: IV 438 / 438 1925 / 1925 1100 / 1100 NS Inj 1,000 ML @ 120 mls/hr IV 233 / 233 1825 / 1825 1000 / 1000 .CONT .Q8H20M [facility]AIL[facility] Rx#:[id number] Ofirmev Inj 1,000 mg In 100 ml 100 / 100 @ 400 mls/hr IV.SIG Q8H [facility] Rx# :[id number] Keppra Inj 500 MG In NS Inj 100 105 / 105 100 / 100 100 / 100 ML @ 400 mls/hr IV.SIG Q12H [facility] Rx#:[id number] Oral 160 / 160 Output: Urine 350 / 350 Other: # Voids 3 Date of Last Bowel Movement 03/05/18 03/04/18 # Incontinent Bowel Movements 0 <Liz Almeida V - 03/07/18 12:14> Narrative: GENERAL: elderly patient, confused, and dressed, in NAD. CARDIOVASCULAR: Irregularly regular rate and rhythm without murmurs, gallops, or rubs. RESPIRATORY: Breath sounds equal bilaterally. No accessory muscle use. Mild expiratory wheezing ABDOMEN/GI: Abdomen soft, non-tender, bowel sounds present, no rebound, no guarding EXTREMITIES: No cyanosis or edema. L leg with brace in place, dressing clean and dry BACK: Nontender without obvious deformity. No CVA tenderness. NEUROLOGICAL: . Confused, had to redirect patient several times. Motor and sensory grossly within normal limits. Normal speech. <Liz Almeida V - 03/07/18 12:14> - Urinary Catheter Management Indwelling Urethral Catheter Cath placed during this visit: no <Heiland,Kike K - 03/07/18 14:40> yes, but has since been removed by the nurse <Liz Almeida V 03/07/18 12:14> Reason for continuing: Decision to DC catheter <Liz Almeida V 07/19 12:14> Insertion date: 03/05/18 <Liz Almeida 03/07/18 12:14> Insertion time: 00:50 <Liz Almeida V 03/07/18 12:14> Removal date: 03/06/18 <Liz Almeida V 03/07/18 12:14> Removal time: 06:30 <Liz Almeida V 03/07/18 12:14> Assessment and Plan - Assessment (1) New onset seizure Code(s): R56.9 - Unspecified convulsions Status: Acute (2) Dementia Code(s): F03.90 - Unspecified dementia without behavioral disturbance Status: Chronic (3) Left femoral shaft fracture Code(s): S72.302A - Unspecified fracture of shaft of left femur, initial encounter for closed fracture Status: Acute (4) Pneumonia Code(s): J18.9 - Pneumonia, unspecified organism Status: Acute (5) UTI (urinary tract infection) Code(s): N39.0 - Urinary tract infection, site not specified Status: Acute (6) Diarrhea Code(s): R19.7 - Diarrhea, unspecified Status: Resolved (7) JOSH (acute kidney injury) Code(s): N17.9 - Acute kidney failure, unspecified Status: Acute (8) Bradycardia Code(s): R00.1 - Bradycardia, unspecified Status: Resolved (9) Hypocalcemia Code(s): E83.51 - Hypocalcemia Status: Acute (10) Low hemoglobin Code(s): D64.9 - Anemia, unspecified Status: Acute (11) DVT prophylaxis Status: Acute (12) Nutrition, metabolism, and development symptoms Code(s): R63.8 - Other symptoms and signs concerning food and fluid intake Status: Acute <Kike Pitts 03/07/18 14:40> (1) New onset seizure Code(s): R56.9 - Unspecified convulsions Status: Acute (2) Dementia Code(s): F03.90 - Unspecified dementia without behavioral disturbance Status: Chronic (3) Left femoral shaft fracture Code(s): S72.302A - Unspecified fracture of shaft of left femur, initial encounter for closed fracture Status: Acute (4) Pneumonia Code(s): J18.9 - Pneumonia, unspecified organism Status: Acute (5) UTI (urinary tract infection) Code(s): N39.0 - Urinary tract infection, site not specified Status: Acute (6) Diarrhea Code(s): R19.7 - Diarrhea, unspecified Status: Resolved (7) JOSH (acute kidney injury) Code(s): N17.9 - Acute kidney failure, unspecified Status: Acute (8) Bradycardia Code(s): R00.1 - Bradycardia, unspecified Status: Resolved (9) Hypocalcemia Code(s): E83.51 - Hypocalcemia Status: Acute (10) Low hemoglobin Code(s): D64.9 - Anemia, unspecified Status: Acute (11) DVT prophylaxis Status: Acute (12) Nutrition, metabolism, and development symptoms Code(s): R63.8 - Other symptoms and signs concerning food and fluid intake Status: Acute <Jake Maria [id number] - 03/07/18 12:03> - Assessment and Plan 87-year-old female admitted after witnessed seizure like activity, fall, and subsequent femur fracture. Patient is doing well overall, with some improved symptoms. Diarrhea seems to be resolved, seizure-like activity seems to be related to her dementia, Alzheimer's disease. However patient still has a UTI, with elevated creatinine. She continues to be confused. She has low hemoglobin , low calcium. And was started on new medications for seizure. New onset Seizure: Related to Alzheimer's disease/dementia per neurology. -Continue Keppra 500 mg p.o. twice daily Distal Femur Fracture POD #2 open treatment internal fixation with locking plate and screws Okay to discharge per orthotic, with 2-week follow-up Pneumonia This was acquired in her SNF, so could qualify for HCAP coverage but has improved well on rocephin + azithro. Received 500 mg of azithromycin today Will be discharged on Ceftin near 300 mg p.o. twice daily 4 more days JOSH resolved Likely related to UTI, improving, creatinine today 0.99 Mild thrombocytopenia Continues to be thrombocytopenic, will continue to monitor, could be related to dilutional effect due to continues IV fluids Mild corrected hypocalcemia Calcium 7.3, corrected 8.5 -Calcium carbonate 500 mg p.o. twice daily -Pending vitamin D level Low hemoglobin Hemoglobin had decreased since patient has been here from 11.6-8.5 today Patient had a history of iron deficiency anemia No signs of acute bleeding at this moment -Iron studies showing iron deficiency anemia, will add vitamin C to her regimen to increase iron absorption UTI Patient with bacteriuria, hard to assess for symptoms of presentation. This could be a UTI versus chronic bacteriuria on this patient Microbiology showing E. coli ESBL, resistant to many antibiotics. We will send patient home with 4 days of Bactrim double strength twice daily FEN: -P.o. hydration - Monitor replace electrolytes as needed - Regular diet PPX: - Lovenox 40mg daily for DVT ppx - Zofran prn for nausea - Protonix 40mgs daily for GI ppx Other chronic medical problems: Coronary artery disease -Holding lisinopril, and not on BB. On statin now, consider holding given life expectancy, needs discussion about aspirin. HTN -very well controlled, decreasing amlodipine with bradycardia Dementia -Continue home medication of donepezil/Aricept 10 mg p.o. nightly -Continue home medication of quetiapine 50 mg p.o. twice daily Hypothyroidism -Continue home medication of levothyroxine 112 mcg p.o. daily Depression -Continue home medication of mirtazapine 7.5 mg p.o. nightly GERD -Continue home medication of pantoprazole 40 mg p.o. daily -Continue home medication of ranitidine 150 mg p.o. nightly Hypokalemia -Continue home medication of potassium chloride 20 mEq p.o. daily Iron deficiency anemia -After IVF, this has been exposed Continue home medication of ferrous sulfate 325 mg p.o. 3 times daily Vitamin deficiencies -Continue home medications of vitamin D3 and vitamin B12 Disposition: Patient clear for discharge today from a medical perspective. New medications were added to her regimen including 2 antibiotics, vitamin C, Keppra. Patient will require follow-up, as well as follow-up labs on Friday to assess for thrombocytopenia, white blood count, as well as functional liver test. Patient discussed with Dr.Heiland Ember Maria Liz Ibrahim V - 03/07/18 12:14> - Attending Attestation The exam, history, and the medical decision-making described in the above note were completed with the assistance of the resident physician. I reviewed and agree with the findings presented. I attest that I had a [id number] encounter with the patient on the same day, and personally performed and documented my assessment and findings in the medical record. in the room today she was able to drink much water from her cup when I brought it to her. she was alert but disoriented and undressed. With combo of sepsis, dilution, new meds, and high end dosing of lovenox she has several reasons for lower platelets. will hold lovenox today and restart at 30mg daily tomorrow with plan for recheck in 2 days. stopped IV tylenol and changed to oxycodone without tylenol for pain control with mild AST elevation. She improved with antibiotics for her pneumonia and so this is more likely her source of infection that urine but do not want to ignore urine cultures entirely. although esbl ecoli found, was sensitive to bactrim, so will use that to complete her course in addition to her pneumonia coverage, i suspect this is more colonization than true infection. slight hypernatremia likely the result of poor PO water intake while on NS. If she can eat and drink with direction today, Dr Joseph will call SNF and make sure she is near her baseline dementia and she could potentially go back <Kike Pitts K - 03/07/18 14:40> <Kike Pitts K - Last Filed: 03/07/18 14:40> (2) Dementia Qualifiers: Dementia type: Alzheimer's disease (3) Left femoral shaft fracture Qualifiers: Encounter type: initial encounter Fracture type: closed Fracture morphology : oblique Fracture alignment: displaced Qualified Code(s): S72.332A - Displaced oblique fracture of shaft of left femur, initial encounter for closed fracture (4) Pneumonia Qualifiers: Laterality: bilateral (5) UTI (urinary tract infection) Qualifiers: Urinary tract infection type: acute cystitis Hematuria presence: without hematuria Qualified Code(s): N30.00 - Acute cystitis without hematuria (6) Diarrhea Qualifiers: Diarrhea type: presumed infectious Qualified Code(s): R19.7 - Diarrhea, unspecified <Kike Pitts - Last Filed: 03/07/18 14:40> (2) Dementia Qualifiers: Dementia type: Alzheimer's disease (3) Left femoral shaft fracture Qualifiers: Encounter type: initial encounter Fracture type: closed Fracture morphology : oblique Fracture alignment: displaced Qualified Code(s): S72.332A - Displaced oblique fracture of shaft of left femur, initial encounter for closed fracture (4) Pneumonia Qualifiers: Laterality: bilateral (5) UTI (urinary tract infection) Qualifiers: Urinary tract infection type: acute cystitis Hematuria presence: without hematuria Qualified Code(s): N30.00 - Acute cystitis without hematuria (6) Diarrhea Qualifiers: Diarrhea type: presumed infectious Qualified Code(s): R19.7 - Diarrhea, unspecified
[2018-03-07 14:40] VITALS: BP 166/76; PULSE 92; RESP 20; TEMP 98.8; O2SAT 95
--- NOTE | 2018-03-08 21:18 | P.DS ---
Date of admission: 03/04/18 23:09 Primary care physician: No Primary Care Physician Brief History from admission: Agree with resident initial HPI from H&P dated 03/04. Interval history is that she responded well to IVF and antibiotics overnight. she is complaining of some low back pain but no leg pain. No witnessed seizure like activity since admission to the floor. Her HR has come back into the normal range and there is still no EKG for review. No events reported overnight. Family is coming later today per granddaughter. DS: Diagnosis - Discharge Diagnosis (1) New onset seizure Status: Acute (2) Dementia Status: Chronic (3) Left femoral shaft fracture Status: Acute (4) Pneumonia Status: Acute (5) UTI (urinary tract infection) Status: Acute (6) Diarrhea Status: Resolved (7) JOSH (acute kidney injury) Status: Acute (8) Bradycardia Status: Resolved (9) Hypocalcemia Status: Acute (10) Low hemoglobin Status: Acute (11) DVT prophylaxis Status: Acute (12) Nutrition, metabolism, and development symptoms Status: Acute DS: Medications - Discharge Medications Prescriptions: ascorbic acid (vitamin C) 250 mg PO TID 30 Days #90 g cefdinir 300 mg PO Q12H 4 Days #8 cap enoxaparin [Lovenox] 30 mg SUBCUT Q24H 30 Days #9 ml levetiracetam [Keppra] 500 mg PO BID 30 Days #60 tab oxycodone 5 mg PO Q4-6H PRN 3 Days each PRN Reason: Acute Pain sulfamethoxazole-trimethoprim [Bactrim DS] 1 tab PO BID 4 Days #8 tab DS: Summary Hospital Course: 87-year-old female admitted after witnessed seizure like activity, fall, and subsequent femur fracture. During hospitalization patient had a complicated presentation with several comorbidities and presentations included new onset seizure, distal femur fracture, pneumonia, diarrhea, AK I, bradycardia, mild thrombocytopenia, mild hypocalcemia, and low hemoglobin. Due to her new onset seizure, neurology was consulted which I agree to treat patient with Keppra 500 mg p.o. twice daily. They believe her seizures are related to her advanced Alzheimer's states. During what of her seizure episodes, patient broke her femur. Due to the location of this fracture orthopedic surgery performed internal fixation with locking plate and screws. In place patient on an immobilizer. She will follow- up with [facility] in 2 weeks. On presentation patient also found to have an pneumonia, UTI, and diarrhea. Her diarrhea resolved shortly after admission, however stool studies were ordered for her return all to be negative. For her pneumonia and UTI patient was treated with Rocephin and azithromycin. Patient also presented with a hemoglobin of 11.6, that after IV fluids showed to be 8.5. Patient had a history of iron deficiency anemia with confirmed iron studies. Of note, patient's Alzheimer's disease and dementia are advanced and patient was unable to understand the course of her disease, or to understand that she had undergone surgery due to a fall. This appears to be baseline for patient. After urine cultures resulted, patient was sent back to her sniff. Patient was discharged cefdinir 300 mg p.o. every 12 for 4 days as well as Bactrim double strength 1 tab twice daily for 4 days. We also added vitamin C to her regimen to improve iron absorption. Keppra 500 mg p.o. twice daily until the new medication due to her new onset seizures. And patient was also discharged on Lovenox 30 mg daily for 1 month due to her immobilization. - Time Spent with Patient Total time spent providing and/or coordinating discharge services: Greater than 30 minutes - Quality: VTE Deep Vein Thrombosis/Pulmonary Embolism Present on Admission: No Exam Narrative: GENERAL: elderly patient, confused, and dressed, in NAD. CARDIOVASCULAR: Irregularly regular rate and rhythm without murmurs, gallops, or rubs. RESPIRATORY: Breath sounds equal bilaterally. No accessory muscle use. Mild expiratory wheezing ABDOMEN/GI: Abdomen soft, non-tender, bowel sounds present, no rebound, no guarding EXTREMITIES: No cyanosis or edema. L leg with brace in place, dressing clean and dry BACK: Nontender without obvious deformity. No CVA tenderness. NEUROLOGICAL: . Confused, had to redirect patient several times. Motor and sensory grossly within normal limits. Normal speech. Results Procedures completed during hospitalization: Open treatment internal fixation with locking plate and screws of her distal femur Labs on day of discharge: Preliminary micro results at discharge 03/05/18 03:05 Aerobic Blood Culture - Preliminary Blood - Peripheral No growth in 3 days Anaerobic Blood Culture - Preliminary No growth in 3 days 03/05/18 02:55 Aerobic Blood Culture - Preliminary Blood - Peripheral No growth in 3 days Anaerobic Blood Culture - Preliminary No growth in 3 days - Impressions ITS Impressions Chest X-Ray 03/04/18 00:00 CONCLUSION: Minimal patchy atelectasis or consolidation in the left suprahilar region. Large hiatal hernia better seen on the CT examination. Chronic suspected healed fracture deformity at the proximal left humerus. Abdomen/Pelvis CT 03/04/18 19:21 CONCLUSION: 1. No evidence of acute visceral injury. 2. Stable cystic lesion in the anterior spleen. 3. Mild atrophy involving the right kidney which is stable. 4. Moderate diverticulosis. 5. Moderate to large hiatal hernia again noted. Knee X-Ray 03/04/18 19:26 CONCLUSION: 1. Visualization of the previously noted distal femoral fracture. 2. Status post knee arthroplasty. Tibia/Fibula X-Ray 03/04/18 19:26 CONCLUSION: 1. The tibia and fibula are intact. 2. Status post arthroplasty. 3. Visualization of the known distal femoral fracture. Cervical Spine CT 03/04/18 20:15 CONCLUSION: 1. No acute fracture. 2. Mild grade 1 anterior spondylolisthesis of C7 on T1 which appears chronic. 3. Degenerative disc changes. Head CT 03/04/18 20:15 CONCLUSION: 1. No acute fracture or hemorrhage. 2. Atrophy and chronic small vessel ischemic changes. . Femur X-Ray 03/05/18 00:00 CONCLUSION: 1. Left femoral ORIF, as above. Discharge Plan - Discharge Disposition Patient Disposition: Discharge to SNF - Discharge Condition Condition: Good - Discharge Order Discharge Orders: Discharge Order (Routine); Ordered 03/07/18 Ordered By: Liz Maria R1 Orthopedic Clear for Discharge (Routine); Ordered 03/07/18 Ordered By: Maggie Locke" Speedyer - Physicians Team Primary Care Provider: Primary Care Juan,Susie Attending Provider: Kike Pitts Other Providers: Eric Cooper MD ; Santiago Hardy MD, PhD ; [facility]
== END 2018-03-07 16:22 | DRG 480 ==
LOC: NEPD 18:32 → NEDA 03-05 00:20 → NEDH 03-05 04:42 → N03 03-05 06:38 → N06 03-05 19:48
PROVIDERS: ADMIT Family Medicine; ATTEND Family Medicine
CPT/HCPCS: 29505; 70450; 71010; 71045; 72125; 73552; 73564; 73590; 74177; 76000; 80053; 80307; 81001; 82040; 82272; 82652; 82728; 82948; 82962; 83540; 83550; 83605; 83690; 83735; 84145; 85025; 85027; 87040; 87077; 87086; 87186; 87205; 87328; 87329; 87493; 87506; 90765; 93005; 95819; 96365; 97162; 99285; C1713; C1776; C9238; J0131; J0456; J0690; J0696; J1650; J1953; J2250; J2270; J2405; J3010; J3370; J7030; J7040; J7050; L1830; Q2009; Q9967